=== PATIENT | male | born 1935 | race Caucasian/White ===

== ENCOUNTER → 2017-02-14 | Outpatient (CLI) | payer BC ==
[~2017-02-14] MED LIST: ALBUAER19 INH; ALBUAER2 INH; ALFU10TA30 PO; ASPI325T39 PO; CHOL20009 PO; FINA5TAB PO; FLNIN NAE; LEVO125T57 PO; METO25TA3 PO; MOME100A INH; MULT-506 PO; SIMV40TA2 PO
--- NOTE | 2017-02-14 10:11 | DIAGNOSTIC IMAGING REPORT ---
CHEST 2 VIEWS ROUTINE CLINICAL HISTORY: R05 [id number] Shortness of [id number] dyspnea COMPARISON STUDY: 08/12/2015 FINDINGS: The bones soft tissues and hemidiaphragms are normal. The cardiomediastinal silhouette is normal. The lungs are clear. The pulmonary vasculature is normal. Findings of a prior median sternotomy. IMPRESSION: Negative chest. Electronically signed by: Enrrique Garcia M.D. 02/14/2017 10:10 AM Dictated Date/Time: 02/14/2017 10:10 AM
== END | disposition home or self-care (01) ==
LOC: C.RAD1850 09:45
PROVIDERS: ATTEND Allergy & Immunology Allergy
DX: R06.02 Shortness of breath (principal); R05 Cough

== ENCOUNTER → 2017-05-16 | Outpatient (CLI) | payer BC ==
[~2017-05-16] MED LIST changes: +ALFU10TA2 PO; -ALFU10TA30 PO
[2017-05-16 12:29] LABS: BASO % 0.4 %; BASO ABS # 0.03 K/uL (0-0.2); COMPLETE YES; EOS % 3.3 %; HEMATOCRIT 39.3 % (42-52); IG% 0.2 %; LYMPH % 27.9 %; LYMPH ABS # 2.26 K/uL (1.2-3.4); MEAN CELL VOLUME 95.4 fL (80-100); MEAN CORPUSCULAR HEMOGLOBIN 32.3 pg (25-34); MEAN CORPUSCULAR HGB CONC 33.8 g/dl (32-36); MEAN PLATELET VOLUME 10.3 fL (7.4-10.4); MONO % 8.9 %; NEUT % 59.3 %; PLATELET COUNT 183 K/uL (130-400); RED BLOOD COUNT 4.12 M/uL (4.7-6.1); WHITE BLOOD COUNT 8.11 K/uL (4.8-10.8)
[2017-05-16 12:58] LABS: ALKALINE PHOSPHATASE 87 U/L (45-117); ALT/SGPT 25 U/L (12-78); AST/SGOT 20 U/L (15-37); BLOOD UREA NITROGEN 17 mg/dl (7-18); BUN/CREATININE RATIO 15.5 (10-20); CALCIUM 9.1 mg/dl (8.5-10.1); CARBON DIOXIDE 27 mmol/L (21-32); CHLORIDE 107 mmol/L (98-107); GLUCOSE 108 mg/dl (70-99); SODIUM 140 mmol/L (136-145)
[2017-05-16 13:11] LABS: ALB/GLOB RATIO 1.1 (0.9-2); CHOLESTEROL 125 mg/dl (0-200); CHOLESTEROL/HDL RATIO 4.3; HDL CHOLESTEROL 29 mg/dl; LDL CHOLESTEROL CALCULATED 31 mg/dl; TRIGLYCERIDES 325 mg/dl (0-150); VERY LOW DENSITY LIPOPROT CALC 65 mg/dl
== END | disposition home or self-care (01) ==
LOC: C.LAB1850 10:24
PROVIDERS: ATTEND Internal Medicine Pulmonary Disease
DX: J30.9 Allergic rhinitis, unspecified (principal); I10 Essential (primary) hypertension; I25.10 Atherosclerotic heart disease of native coronary artery without angina pectoris; E03.9 Hypothyroidism, unspecified; J33.9 Nasal polyp, unspecified; J45.909 Unspecified asthma, uncomplicated

== ENCOUNTER → 2017-08-08 | Outpatient (CLI) | payer BC ==
[~2017-08-08] MED LIST changes: -ALFU10TA2 PO; +ALFU10TA30 PO
[2017-08-08 10:24] LABS: BLOOD UREA NITROGEN 16 mg/dl (7-18); BUN/CREATININE RATIO 14.4 (10-20)
--- NOTE | 2017-08-17 10:46 | CODING QUERY MEDICAL NECESSITY ---
SUPPORTING DIAGNOSIS NEEDED A supporting diagnosis is required for the test/procedure performed on this patient in order for us to be reimbursed by the patient's insurance. Please provide a supporting diagnosis for the following test/procedure listed below next to the test name along with your signature. *If there is no additional diagnosis for this patient that would support the following test/procedure please document that below next to the test/procedure. Test(s)/Procedure(s) that require a supporting diagnosis: * PSA DIAGNOSIS: Provider Signature: Date: Thank you Vane [employer] Once completed, please kindly fax back to [phone] For questions please call [phone]
== END | disposition home or self-care (01) ==
LOC: C.LAB1850 09:01
PROVIDERS: ATTEND Urology
DX: F52.8 Other sexual dysfunction not due to a substance or known physiological condition (principal)

== ENCOUNTER → 2017-12-04 | Outpatient (CLI) | payer BC ==
[~2017-12-04] MED LIST changes: +ALFU10TA2 PO; -ALFU10TA30 PO
== END | disposition home or self-care (01) ==
LOC: C.LABBC 08:17
PROVIDERS: ATTEND Internal Medicine Cardiovascular Disease
DX: I25.10 Atherosclerotic heart disease of native coronary artery without angina pectoris (principal)

== ENCOUNTER 2019-09-24 03:06 | Inpatient (IN) ==
[2019-09-24] MEDS ORDERED: MoRPHine SULFATE 4 MG/ML 1 ML CARP\\VIAL IV PRN (03:26)
[2019-09-24] MEDS ORDERED: ONDANSETRON INJ 2 MG/ML 2 ML VIAL IV STA (03:26)
[2019-09-24] MEDS ORDERED: SODIUM CHLORIDE 0.9% 1000ML 1,000 ML IV SCH (03:30)
[2019-09-24 03:50] LABS: Basophils # (auto) 0.04 K/uL (0-0.2); Basophils % (auto) 0.4 %; Eosinophils # (auto) 0.41 K/uL (0-0.5); Eosinophils % (auto) 4.1 %; Hemoglobin 12.7 g/dL (14.0-18.0); Immature Granulocytes # (auto) 0.02 K/uL (0.00-0.02); Immature Granulocytes % (auto) 0.2 %; Lymphocytes # (auto) 2.51 K/uL (1.2-3.4); Lymphocytes % (auto) 25.3 %; Mean Corpuscular Hemoglobin 32.6 pg (25-34); Mean Corpuscular Hgb Conc 34.3 g/dL (32-36); Mean Corpuscular Volume 94.9 fL (80-100); Mean Platelet Volume 9.4 fL (7.4-10.4); Monocytes # (auto) 0.86 K/uL (0.11-0.59); Monocytes % (auto) 8.7 %; Neutrophils % (auto) 61.3 %; Platelet Count 172 K/uL (130-400); RDW Coefficient of Variation 13.3 % (11.5-14.5); RDW Standard Deviation 46.1 fL (36.4-46.3); White Blood Count 9.94 K/uL (4.8-10.8)
--- NOTE | 2019-09-24 03:52 | Emergency Department Note ---
History of Present Illness General Chief complaint: Abdominal Pain Stated complaint: PAIN IN LEFT LWR ABDOMEN Time Seen by Provider: 09/24/19 03:23 History of Present Illness Maximum Pain Intensity: 9 This is an 84-year-old male presenting to the emergency department for evaluation of severe left lower quadrant abdominal pain that began about 2 hours prior to arrival. The patient was at home in bed when symptoms began. He does not recall any recent injury or trauma. He has not had fevers or chills. He is without nausea, vomiting, diarrhea, or constipation. No recent travel history. Patient has not had abdominal surgery in the past, but has had kidney stones previously. The patient rates his current discomfort a 9/10 and he has not taken anything [id number] for his symptoms. Home Medications Home Medications Medication Instructions Recorded Confirmed Type albuterol sulfate HFA 90 2 puffs INH Q4H PRN #8.5 gm 06/28/19 09/24/19 Rx mcg/actuation aerosol inhaler alfuzosin ER 10 mg tablet,extended 10 mg PO DAILY #90 tab 06/28/19 09/24/19 Rx release 24 hr fluticasone propionate 50 2 sprays INTNAS DAILY #15.8 gm 06/28/19 09/24/19 Rx mcg/actuation nasal spray,suspension levothyroxine 125 mcg capsule 125 mcg PO DAILY #90 cap 06/28/19 09/24/19 Rx mometasone-formoterol HFA 100 2 puffs INH BID #13 gm 06/28/19 09/24/19 Rx mcg-5 mcg/actuation aerosol inhaler multivitamin 1 tab PO DAILY 06/28/19 09/24/19 History simvastatin 40 mg tablet 40 mg PO QPM #90 tab 06/28/19 09/24/19 Rx cholecalciferol (vitamin D3) 2,000 2,000 units PO DAILY cap 07/01/19 09/24/19 History unit capsule metoprolol succinate ER 25 mg 25 mg PO BID #180 tab 07/04/19 09/24/19 Rx tablet,extended release 24 hr finasteride 5 mg tablet 5 mg PO DAILY #90 tab 09/03/19 09/24/19 Rx aspirin [Aspirin Low Dose] 81 mg PO DAILY 09/24/19 09/24/19 History Allergies Allergy/AdvReac Type Severity Reaction Status Date / Time Iodinated Contrast Media Allergy Unknown ATE WITH Verified 09/24/19 03:37 PRETREATS. FAMILIAL HX OF REACTION Past Med/Surg History Surgical History S/P CABG x 3 (Chronic) History of cataract surgery History of colonoscopy History of coronary artery bypass surgery History of umbilical hernia repair S/P nasal endoscopy with nasal polypectomy Family History Brother Coronary heart disease Diabetes Stroke Heart disease Father Hypertension Mother Hearing loss Grandfather Allergies Other Asthma Social History Preferred Language: Kyrgyz marital status: Current Living Situation: Spouse current occupational status: retired Feels Safe at Home: Yes Smoking Status: Former smoker Tobacco Type: cigarettes ; packs per day: 1 ; Number of Years Since Quit: 52 ; Second Hand Exposure: No ; Hx Alcohol Use: Yes (1-2 shots of scotch) Hx Substance Use: No Childhood Exposure to Second-Hand Smoke: No Review of Systems A total of 10 systems reviewed and were otherwise negative Physical Exam Vital Signs Vital Signs - 24 hr 09/24/19 03:08 09/24/19 04:21 09/24/19 05:35 Temperature 36.7 C Temperature Source Oral Sepsis Action Taken by Nursing No Action Required Pulse Rate 55 L Pulse Rate [Left] 65 Pulse Rhythm [Left] Regular Pulse Strength [Left] Normal Respiratory Rate 20 18 Respiratory Effort / Characteristics Non-Labored Spontaneous Non-Labored Spontaneous Respiratory Depth Normal Normal Respiratory Pattern Regular Blood Pressure 196/101 H Blood Pressure [Right Arm] 195/83 H Blood Pressure Mean 132 Blood Pressure Mean [Right Arm] 120 Blood Pressure Position [Right Arm] Lying Pulse Oximetry 99 97 97 Oxygen Delivery Method Room Air Room Air Room Air VITALS: Vitals are noted on the nurse's note and reviewed by myself. Vital signs stable. GENERAL: White male who appears moderately uncomfortable on exam. He is holding his left side flank and abdomen with his left hand. HEAD: Normocephalic atraumatic. NECK: Supple without nuchal rigidity. No lymphadenopathy. No thyromegaly. Cervical spine is nontender. HEART: Regular rate and rhythm without murmurs gallops or rubs. LUNGS: Clear to auscultation bilaterally without wheezes, rales or rhonchi. No retractions or accessory muscle use. ABDOMEN: Positive normal bowel sounds x 4. Soft with mild left-sided tenderness. No rebound or guarding. No CVA tenderness. MUSCULOSKELETAL: No muscle atrophy, erythema, or edema noted. Full range of motion in all extremities. NEURO: Patient was alert and oriented to person place and time. CN II through XII grossly intact. Course Administered Medications Morphine Sulfate (Morphine Sulfate) 4 mg IV Q30M PRN PRN Reason: Pain Stop: 10/08/19 03:25 Last Admin: 09/24/19 04:00 Dose: 4 mg Documented by: [id number] Discontinued Medications Sodium Chloride (Nss 1000ml) 1,000 mls @ 999 mls/hr IV .Q1H1M JOSH Stop: 09/24/19 04:30 Last Infusion: 09/24/19 06:19 Dose: 0 mls/hr Documented by: [id number] Admin: 09/24/19 04:00 Dose: 999 mls/hr Documented by: [id number] Ondansetron HCl (Zofran) 4 mg IV NOW STA Stop: 09/24/19 03:27 Last Admin: 09/24/19 04:00 Dose: 4 mg Documented by: [id number] Medical Decision Making Differential Diagnosis Differential diagnosis: Etiologies such as biliary colic, cholecystitis, hepatitis, pancreatitis, cardiac disease, pancreatitis, gastritis, peptic ulcer disease, appendicitis, cystitis, diverticulitis, mesenteric ischemia, inflammatory bowel disease, ileus, bowel obstruction, testicular/adnexal torsion, aortic pathology, shingles, as well as others were considered Laboratory Data Result diagrams: 09/24/19 03:20 09/24/19 03:20 Lab Results 09/24/19 09/24/19 09/24/19 Range/Units 03:20 03:20 03:20 WBC 9.94 (4.8-10.8) K/uL RBC 3.90 L (4.7-6.1) M/uL Hgb 12.7 L (14.0-18.0) g/dL Hct 37.0 L (42-52) % MCV 94.9 (80-100) fL MCH 32.6 (25-34) pg MCHC 34.3 (32-36) g/dL RDW Std Deviation 46.1 (36.4-46.3) fL RDW Coeff of Alisha 13.3 (11.5-14.5) % Plt Count 172 (130-400) K/uL MPV 9.4 (7.4-10.4) fL Immature Gran % (Auto) 0.2 % Neut % (Auto) 61.3 % Lymph % (Auto) 25.3 % [place] % (Auto) 8.7 % Eos % (Auto) 4.1 % Baso % (Auto) 0.4 % Immature Gran # (Auto) 0.02 (0.00-0.02) K/uL Neut # (Auto) 6.10 (1.4-6.5) K/uL Lymph # (Auto) 2.51 (1.2-3.4) K/uL [place] # (Auto) 0.86 H (0.11-0.59) K/uL Eos # (Auto) 0.41 (0-0.5) K/uL Baso # (Auto) 0.04 (0-0.2) K/uL PT Cancelled INR Cancelled APTT Cancelled PTT Ratio Cancelled Sodium 139 (136-145) mmol/L Potassium 4.0 (3.5-5.1) mmol/L Chloride 106 (98-107) mmol/L Carbon Dioxide 26 (21-32) mmol/L Anion Gap 7.0 (3-11) BUN 19 H (7-18) mg/dl Creatinine 1.49 H (0.6-1.4) mg/dl Est Cr Clr Drug Dosing 44.1 ml/min Est GFR ( Amer) 48.6 Est GFR (Non-Af Amer) 41.9 BUN/Creatinine Ratio 13.0 (10-20) Glucose 121 H (70-99) mg/dl Calcium 8.5 (8.5-10.1) mg/dl Total Bilirubin 0.6 (0.2-1) mg/dl AST 24 (15-37) U/L ALT 31 (12-78) U/L Alkaline Phosphatase 86 (45-117) U/L Troponin I < 0.015 (0-0.045) ng/ml Total Protein 6.9 (6.4-8.2) gm/dl Albumin 3.6 (3.4-5.0) gm/dl Globulin 3.3 (2.5-4.0) gm/dl Albumin/Globulin Ratio 1.1 (0.9-2) Lipase 64 L (73-393) U/L Urine Color Urine Appearance (Clear) Urine pH (4.5-7.5) Ur Specific [place] (1.000-1.030) Urine Protein (Negative) Urine Glucose (UA) (Negative) Urine Ketones (Negative) Urine Blood (Negative) Urine Nitrite (Negative) Urine Bilirubin (Negative) Urine Urobilinogen (Negative) Ur Leukocyte Esterase (Negative) 09/24/19 09/24/19 Range/Units 04:17 04:26 WBC (4.8-10.8) K/uL RBC (4.7-6.1) M/uL Hgb (14.0-18.0) g/dL Hct (42-52) % MCV (80-100) fL MCH (25-34) pg MCHC (32-36) g/dL RDW Std Deviation (36.4-46.3) fL RDW Coeff of Alisha (11.5-14.5) % Plt Count (130-400) K/uL MPV (7.4-10.4) fL Immature Gran % (Auto) % Neut % (Auto) % Lymph % (Auto) % [place] % (Auto) % Eos % (Auto) % Baso % (Auto) % Immature Gran # (Auto) (0.00-0.02) K/uL Neut # (Auto) (1.4-6.5) K/uL Lymph # (Auto) (1.2-3.4) K/uL [place] # (Auto) (0.11-0.59) K/uL Eos # (Auto) (0-0.5) K/uL Baso # (Auto) (0-0.2) K/uL PT 10.8 INR 1.1 APTT 25.4 PTT Ratio 0.9 Sodium (136-145) mmol/L Potassium (3.5-5.1) mmol/L Chloride (98-107) mmol/L Carbon Dioxide (21-32) mmol/L Anion Gap (3-11) BUN (7-18) mg/dl Creatinine (0.6-1.4) mg/dl Est Cr Clr Drug Dosing ml/min Est GFR ( Amer) Est GFR (Non-Af Amer) BUN/Creatinine Ratio (10-20) Glucose (70-99) mg/dl Calcium (8.5-10.1) mg/dl Total Bilirubin (0.2-1) mg/dl AST (15-37) U/L ALT (12-78) U/L Alkaline Phosphatase (45-117) U/L Troponin I (0-0.045) ng/ml Total Protein (6.4-8.2) gm/dl Albumin (3.4-5.0) gm/dl Globulin (2.5-4.0) gm/dl Albumin/Globulin Ratio (0.9-2) Lipase (73-393) U/L Urine Color Yellow Urine Appearance Clear (Clear) Urine pH 6.5 (4.5-7.5) Ur Specific [place] 1.017 (1.000-1.030) Urine Protein Negative (Negative) Urine Glucose (UA) Negative (Negative) Urine Ketones Negative (Negative) Urine Blood Negative (Negative) Urine Nitrite Negative (Negative) Urine Bilirubin Negative (Negative) Urine Urobilinogen Negative (Negative) Ur Leukocyte Esterase Negative (Negative) Imaging Data Radiologist's Impression: Preliminary Findings Only See Final Report For Complete Findings CT ABDOMEN & PELVIS Without Contrast: Comparison: CT chest 02/05/14 9 x 4 mm stone in left proximal ureter and there is resulting moderate left hydronephrosis. Left greater than right perinephric stranding. 7.5 cm right upper pole renal cyst. 1.5 cm exophytic right lower pole lesion is incompletely characterized. Prostatomegaly. Probable sludge and small stones in gallbladder. Hepatic steatosis. Subcentimeter liver hypodensities, similar to prior and likely a small cyst. Small sliding hiatal hernia. Colonic diverticulosis without evidence of acute diverticulitis. No free air or free fluid. No bowel obstruction. Appendix is within normal limits. Post sternotomy. Multilevel degenerative changes of spine. Atherosclerotic calcifications of aorta and its branches. ECG Data Additional Comments: Normal sinus rhythm at 63 bpm Nonspecific T wave abnormality No acute ST elevation When compared to EKG 12-AUG-2015 08:53:36 PVCs are no longer present MDM Narrative Physical exam and history were performed. Nursing notes, EMR, and Medication List were personally reviewed. Patient appears to have left-sided abdominal pain bringing him to the ER tonight. The patient does appear uncomfortable on exam. IV access was established and labs were obtained. He was hydrated with normal saline and given IV morphine and IV Zofran for comfort. Because of his symptoms and history I did elect to perform a CT scan of the abdomen and pelvis. The patient's blood work is as above and was reviewed. He does not have a significantly elevated white blood cell count or gross anemia. Lipase and transaminases are not diagnostic. Troponin x1 is negative. Creatinine is slightly elevated at 1.49. INR is 1.1. CT scan was reviewed by myself and radiology and appears to show a 9 mm proximal left ureteral calculi with hydronephrosis. Clinically this would correlate with his symptoms. Urine is without obvious evidence of infection. The patient was reevaluated multiple times about the course of his stay, and did feel much better after the IV morphine. I did discuss the case with the on-call urologist, Dr. May, as the patient has seen Dr. Tello in the past. Urology does share concerned that the patient will likely do poorly if discharged home, and based on the size and location of the stone may need urologic intervention. I did discuss the case with the on-call hospitalist, who agreed to evaluate the patient here in the department. Please see their dictation for further patient course, plan, and disposition. The chart was completed utilizing [employer] Speech Voice Recognition Software. Gr ammatical errors, random word insertions, pronoun errors, and incomplete sentences are an occasional consequence of this system due to software limitations, ambient noise, and hardware issues. Any formal questions or concerns about the content, text, or information contained within the body of this dictation should be directly addressed to the provider for clarification. . Impression & Plan Left ureteral calculus, Hydronephrosis with obstructing calculus Discharge Plan Visit Data Chief Complaint: Abdominal Pain Stated Complaint: PAIN IN LEFT LWR ABDOMEN ED Provider: Becky Martins ED Midlevel Provider: Matias Landin Discharge Problem: Left ureteral calculus, Hydronephrosis with obstructing calculus Forms Stand Alone Forms: My [facility] [employer] Prescriptions Prescriptions: No Action alfuzosin 10 mg tablet extended release 24 hr 10 mg PO DAILY Qty: 90 RF: 3 Dulera 100-5 mcg/actuation HFA aerosol inhaler 2 puffs INH BID Qty: 13 RF: 3 fluticasone propionate [Allergy Relief (fluticasone)] 50 mcg/actuation spray,suspension 2 sprays INTNAS DAILY Qty: 15.8 RF: 2 levothyroxine 125 mcg capsule 125 mcg PO DAILY Qty: 90 RF: 3 multivitamin 1 tab PO DAILY RF: 0 albuterol sulfate [ProAir HFA] 90 mcg/actuation HFA aerosol inhaler 2 puffs INH Q4H PRN (Reason: shortness of breath or wheezing) Qty: 8.5 RF: 0 simvastatin 40 mg tablet 40 mg PO QPM Qty: 90 RF: 3 metoprolol succinate 25 mg tablet extended release 24 hr 25 mg PO BID Qty: 180 RF: 3 finasteride 5 mg tablet 5 mg PO DAILY Qty: 90 RF: 3 cholecalciferol (vitamin D3) 2,000 unit capsule 2,000 units PO DAILY RF: 0 aspirin [Aspirin Low Dose] 81 mg Tablet,Delayed Release (Dr/Ec) 81 mg PO DAILY RF: 0 Referrals Referrals: Yohannes Goyal MD [Primary Care Provider] -
[2019-09-24 04:09] LABS: Alanine Aminotransferase 31 U/L (12-78); Albumin Level 3.6 gm/dl (3.4-5.0); Aspartate Aminotransferase 24 U/L (15-37); Blood Urea Nitrogen 19 mg/dl (7-18); Calcium 8.5 mg/dl (8.5-10.1); Carbon Dioxide 26 mmol/L (21-32); Chloride 106 mmol/L (98-107); Creatinine Clr Calc Pharmacy 44.1 ml/min; Est GFR (African American) 48.6; Est GFR (Non-African American) 41.9; Glucose 121 mg/dl (70-99); Lipase 64 U/L (73-393); Sodium 139 mmol/L (136-145)
[2019-09-24 04:14] LABS: Albumin Globulin Ratio 1.1 (0.9-2); Alkaline Phosphatase 86 U/L (45-117); Bilirubin,Total 0.6 mg/dl (0.2-1); Globulin 3.3 gm/dl (2.5-4.0); Total Protein 6.9 gm/dl (6.4-8.2); Troponin I < 0.015 ng/ml (0-0.045)
[2019-09-24 04:29] LABS: Appearance Urine Clear (Clear); Bilirubin Urine Negative (Negative); Blood Urine Negative (Negative); Color Urine Yellow; Glucose Urine UA Negative (Negative); Ketones Urine Negative (Negative); Leukocyte Esterase Urine Negative (Negative); Nitrite Urine Negative (Negative); Protein Urine Negative (Negative); Specific Gravity Urine 1.017 (1.000-1.030); Urobilinogen Urine Negative (Negative); pH Urine 6.5 (4.5-7.5)
[2019-09-24 04:49] LABS: INR 1.1 (0.9-1.1); Partial Thromboplastin Ratio 0.9; Partial Thromboplastin Time 25.4 Seconds (21.0-31.0); Prothrombin Time 10.8 Seconds (9.0-12.0)
--- NOTE | 2019-09-24 05:45 | Emergency Department Note ---
ED Visit Note I saw this patient in conjunction with Matias Landin PA-C. I agree with his decision making and treatment plan. I evaluated the patient in room B2. On physical exam, the patient has reproducible discomfort over the left flank and costovertebral angle. He is much more comfortable than he had been previously. The patient does follow with Dr. Tello from urology. The patient has a large stone at this time and will require inpatient care and urological evaluation. .
--- NOTE | 2019-09-24 06:46 | CT Scan Report ---
ABDOMEN AND PELVIS CT WITHOUT CONTRAST CT DOSE: 1657.73 mGy.cm HISTORY: Acute left flank and left lower quadrant abdominal pain left flank/llq abd pain TECHNIQUE: Multiaxial CT images of the abdomen and pelvis were performed without contrast. A dose lo wering technique was utilized adhering to the principles of ALARA. COMPARISON STUDY: CTA of the chest 02/05/2014 FINDINGS: Subpleural focus of fat density is noted about the right hemidiaphragm with adjacent 5 mm solid nodul e, unchanged from 2014. Lung bases are otherwise generally clear. 3 mm solid nodule on image 36 series 3 within the right lung base is also unchanged and likely benign . There is no pneumatosis or pneumoperitoneum. Imaged inferior cardiac chambers are moderately enlarg ed. Prior median sternotomy. Motion degraded exam. Cholelithiasis without CT evidence of acute cholecystitis. Spleen, pancreas and adrenal glands are unremarkable. Cyst of the superior pole right kidney, 7.3 x 7.1 cm. Indeterminate intermediate attenuating 1.4 cm partially exophytic lesion of the inferior pole right kidney, [place] unit of 23. Mild right and moderate left perinephric stranding. Renal vascular calcifications no moses bilaterally. Mild to moderate left-sided hydroureteronephrosis secondary to an obstructing 6 x 5 x 10 mm calculus of the proximal left ureter just present at the level of the L3-L4 disc space. No ad ditional ureteral calculi. Prostamegaly. Partial distention of the urinary bladder with circumferenti al wall thickening. Small fat filled bilateral inguinal hernias. Extensive calcified plaque the abdom inal aorta without aneurysm. No adenopathy. Small hiatal hernia. No bowel obstruction or bowel wall thickening. Unremarkable appendix. Soft tissu es are unremarkable. Degenerative changes of the spine, pelvis and hips. IMPRESSION: 1. Mild to moderate left-sided hydroureteronephrosis secondary to an obstructing 6 x 5 x 10 mm calcul us of the proximal left ureter at the level of L3-L4. 2. Prostamegaly with urinary bladder wall thickening suggestive of chronic bladder outlet obstruction . Correlate with urinalysis. 3. Hepatic steatosis. 4. Small hiatal hernia. 5. Indeterminate intermediate attenuating 1.4 cm lesion of the inferior pole right kidney suggestive of a complex cyst versus solid lesion. 6. Additional findings as above. Electronically signed by: Mauri Baltazar M.D. 09/24/2019 6:45 AM
--- NOTE | 2019-09-24 06:54 | History & Physical Report ---
Date of Service September 24, 2019 Assessment & Plan (1) Left ureteral calculus: Left ureteral calculus, 9 x 4 mm/moderate left hydronephrosis- NPO NSS at 80 mils per hour. Ceftriaxone 1 g IV daily. Zofran 4 mg IV every 6 hours PRN. Famotidine 20 mg IV every 12 hours. Dilaudid 0.5 mg IV every 3 hours as needed severe pain Consult urology. Present on Admission?: Yes (2) Hydronephrosis with obstructing calculus: See above. Present on Admission?: Yes (3) Hypothyroidism: Continue levothyroxine sodium-5 mcg daily Present on Admission?: Yes (4) Hypercholesterolemia: Hold simvastatin while n.p.o. Present on Admission?: Yes (5) CAD (coronary artery disease): CAD/hypertension- Continue metoprolol succinate ER 25 mg p.o. twice daily. Hold aspirin Present on Admission?: Yes (6) BPH without obstruction/lower urinary tract symptoms: Continue alfuzosin, hold finasteride Present on Admission?: Yes (7) Atrial fibrillation: See above Present on Admission?: Yes (8) HTN (hypertension): See above Present on Admission?: Yes (9) Kidney lesion, beaver, right: Exophytic 1.5 cm lesion on the right kidney- Renal ultrasound ordered for further characterization. Present on Admission?: Yes History of Present Illness Chief Complaint: The patient presents to the emergency department with severe left lower quadrant abdominal pain that began about 2 hours prior to arrival. Primary Care Provider: Yohannes Goyal MD The patient is a 84-year-old male with a past medical history including hypothyroidism, hypercholesterolemia, CABG x6, hearing loss, CAD, atrial fibrillation, asthma, hypertension and asthma, who presents emergency department with acute onset of left lower quadrant abdominal pain. The emergency department work-up included a CT of abdomen and pelvis which showed a 9 x 4 mm left proximal ureteral calculus and moderate left hydronephrosis. Urology was consulted over the phone by ED, who recommended admission to medicine Allergies Allergy/AdvReac Type Severity Reaction Status Date / Time Iodinated Contrast Media Allergy Unknown ATE WITH Verified 09/24/19 03:37 PRETREATS. FAMILIAL HX OF REACTION Home Medications Home Medications Medication Instructions Recorded Confirmed Type albuterol sulfate HFA 90 2 puffs INH Q4H PRN #8.5 gm 06/28/19 09/24/19 Rx mcg/actuation aerosol inhaler alfuzosin ER 10 mg tablet,extended 10 mg PO DAILY #90 tab 06/28/19 09/24/19 Rx release 24 hr fluticasone propionate 50 2 sprays INTNAS DAILY #15.8 gm 06/28/19 09/24/19 Rx mcg/actuation nasal spray,suspension levothyroxine 125 mcg capsule 125 mcg PO DAILY #90 cap 06/28/19 09/24/19 Rx mometasone-formoterol HFA 100 2 puffs INH BID #13 gm 06/28/19 09/24/19 Rx mcg-5 mcg/actuation aerosol inhaler multivitamin 1 tab PO DAILY 06/28/19 09/24/19 History simvastatin 40 mg tablet 40 mg PO QPM #90 tab 06/28/19 09/24/19 Rx cholecalciferol (vitamin D3) 2,000 2,000 units PO DAILY cap 07/01/19 09/24/19 History unit capsule metoprolol succinate ER 25 mg 25 mg PO BID #180 tab 07/04/19 09/24/19 Rx tablet,extended release 24 hr finasteride 5 mg tablet 5 mg PO DAILY #90 tab 09/03/19 09/24/19 Rx aspirin [Aspirin Low Dose] 81 mg PO DAILY 09/24/19 09/24/19 History Past Med/Surg History Surgical History S/P CABG x 3 (Chronic) History of cataract surgery History of colonoscopy History of coronary artery bypass surgery History of umbilical hernia repair S/P nasal endoscopy with nasal polypectomy Family History Brother Coronary heart disease Diabetes Stroke Heart disease Father Hypertension Mother Hearing loss Grandfather Allergies Other Asthma Social History Preferred Language: Lebanese marital status: Current Living Situation: Spouse current occupational status: retired Feels Safe at Home: Yes Smoking Status: Former smoker Tobacco Type: cigarettes ; packs per day: 1 ; Number of Years Since Quit: 52 ; Second Hand Exposure: No ; Hx Alcohol Use: Yes (1-2 shots of scotch) Hx Substance Use: No Childhood Exposure to Second-Hand Smoke: No Review of Systems Review of Systems: The patient denies chest pain, palpitations, shortness of breath, dyspnea on exertion, cough, lower extremity swelling, sore throat, fevers, chills, sweats, diarrhea , constipation, blood in urine or stool, dysuria, urinary frequency or urgency, lightheadedness, dizziness, headache, memory loss, loss of consciousness, rash, abnormal bruising or bleeding, imbalance, focal weakness, numbness or tingling in arms or legs, generalized arthralgias or myalgias, neck pain, or night sweats. The review of systems is otherwise negative other than for that already noted above, and at least 10 systems have been reviewed. Physical Exam Physical Exam: The patient is awake, alert and oriented 3, well developed and well nourished, normocephalic and atraumatic, lying in bed and in no acute distress. HEENT--PERRL, EOMI, mucous membranes and oropharynx dry. Neck--supple. No JVD. No bruits. Thyroid normal, trachea midline, no adenopathy. Heart--normal S1 and S2. No murmurs, rubs or gallops. Lungs--clear bilaterally, no respiratory distress, no accessory muscle use. Abdomen--normal bowel sounds and soft. Mild tenderness left flank and lower quadrant. Nondistended. Obese. Extremities--no cyanosis or clubbing. No edema. There are good distal pulses b/l. Dermatologic--normal skin turgor, normal color, no abnormal lymph nodes, no rash. Neurologic--cranial nerves II through XII grossly intact. Rheumatologic--normal range of motion. Psychiatric--normal affect. Results & Data Vital Signs (Past 12 Hours) Vital Signs Temp Pulse Pulse Resp BP BP Pulse Ox 09/24/19 06:49 75 18 186/109 H 96 09/24/19 05:35 65 18 195/83 H 97 09/24/19 04:21 97 09/24/19 03:08 98.1 F 55 L 20 196/101 H 99 Laboratory Results Laboratory Results WBC 9.94 K/uL (4.8-10.8) 09/24/19 03:20 RBC 3.90 M/uL (4.7-6.1) L 09/24/19 03:20 Hgb 12.7 g/dL (14.0-18.0) L 09/24/19 03:20 Hct 37.0 % (42-52) L 09/24/19 03:20 MCV 94.9 fL (80-100) 09/24/19 03:20 MCH 32.6 pg (25-34) 09/24/19 03:20 MCHC 34.3 g/dL (32-36) 09/24/19 03:20 RDW Std Deviation 46.1 fL (36.4-46.3) 09/24/19 03:20 RDW Coeff of Alisha 13.3 % (11.5-14.5) 09/24/19 03:20 Plt Count 172 K/uL (130-400) 09/24/19 03:20 MPV 9.4 fL (7.4-10.4) 09/24/19 03:20 Immature Gran % (Auto) 0.2 % 09/24/19 03:20 Neut % (Auto) 61.3 % 09/24/19 03:20 Lymph % (Auto) 25.3 % 09/24/19 03:20 [place] % (Auto) 8.7 % 09/24/19 03:20 Eos % (Auto) 4.1 % 09/24/19 03:20 Baso % (Auto) 0.4 % 09/24/19 03:20 Immature Gran # (Auto) 0.02 K/uL (0.00-0.02) 09/24/19 03:20 Neut # (Auto) 6.10 K/uL (1.4-6.5) 09/24/19 03:20 Lymph # (Auto) 2.51 K/uL (1.2-3.4) 09/24/19 03:20 [place] # (Auto) 0.86 K/uL (0.11-0.59) H 09/24/19 03:20 Eos # (Auto) 0.41 K/uL (0-0.5) 09/24/19 03:20 Baso # (Auto) 0.04 K/uL (0-0.2) 09/24/19 03:20 PT 10.8 Seconds (9.0-12.0) 09/24/19 04:26 INR 1.1 (0.9-1.1) 09/24/19 04:26 APTT 25.4 Seconds (21.0-31.0) 09/24/19 04:26 PTT Ratio 0.9 09/24/19 04:26 Sodium 139 mmol/L (136-145) 09/24/19 03:20 Potassium 4.0 mmol/L (3.5-5.1) 09/24/19 03:20 Chloride 106 mmol/L (98-107) 09/24/19 03:20 Carbon Dioxide 26 mmol/L (21-32) 09/24/19 03:20 Anion Gap 7.0 (3-11) 09/24/19 03:20 BUN 19 mg/dl (7-18) H 09/24/19 03:20 Creatinine 1.49 mg/dl (0.6-1.4) H 09/24/19 03:20 Est Cr Clr Drug Dosing 44.1 ml/min 09/24/19 03:20 Est GFR ( Amer) 48.6 09/24/19 03:20 Est GFR (Non-Af Amer) 41.9 09/24/19 03:20 BUN/Creatinine Ratio 13.0 (10-20) 09/24/19 03:20 Glucose 121 mg/dl (70-99) H 09/24/19 03:20 Calcium 8.5 mg/dl (8.5-10.1) 09/24/19 03:20 Total Bilirubin 0.6 mg/dl (0.2-1) 09/24/19 03:20 AST 24 U/L (15-37) 09/24/19 03:20 ALT 31 U/L (12-78) 09/24/19 03:20 Alkaline Phosphatase 86 U/L (45-117) 09/24/19 03:20 Troponin I < 0.015 ng/ml (0-0.045) 09/24/19 03:20 Total Protein 6.9 gm/dl (6.4-8.2) 09/24/19 03:20 Albumin 3.6 gm/dl (3.4-5.0) 09/24/19 03:20 Globulin 3.3 gm/dl (2.5-4.0) 09/24/19 03:20 Albumin/Globulin Ratio 1.1 (0.9-2) 09/24/19 03:20 Lipase 64 U/L (73-393) L 09/24/19 03:20 Urine Color Yellow 09/24/19 04:17 Urine Appearance Clear (Clear) 09/24/19 04:17 Urine pH 6.5 (4.5-7.5) 09/24/19 04:17 Ur Specific [place] 1.017 (1.000-1.030) 09/24/19 04:17 Urine Protein Negative (Negative) 09/24/19 04:17 Urine Glucose (UA) Negative (Negative) 09/24/19 04:17 Urine Ketones Negative (Negative) 09/24/19 04:17 Urine Blood Negative (Negative) 09/24/19 04:17 Urine Nitrite Negative (Negative) 09/24/19 04:17 Urine Bilirubin Negative (Negative) 09/24/19 04:17 Urine Urobilinogen Negative (Negative) 09/24/19 04:17 Ur Leukocyte Esterase Negative (Negative) 09/24/19 04:17 Diagnostic Findings [place], [place] [phone] CT Scan Report Patient: WILLIE GONZALEZ Date: 09/24/19 MR#: [id number]: [address] Acct ID:[id number]: [facility] Zip: [place] [address] Age: 84Location: ED Sex: M Room/Bed: Att Phy:Diagnosis: PAIN IN LEFT LWR ABDOMEN Kavita Phy: Yohannes Goyal MDService Date: 09/24/19 Fam Phy:Interpreting Phy: Eric Baltazar Admit Phy: Ordering Phy: Matias Landin PA-C cc: ~ ABDOMEN AND PELVIS CT WITHOUT CONTRAST CT DOSE: 1657.73 mGy.cm HISTORY: Acute left flank and left lower quadrant abdominal pain left flank/llq abd pain TECHNIQUE: Multiaxial CT images of the abdomen and pelvis were performed without contrast. A dose lowering technique was utilized adhering to the principles of ALARA. COMPARISON STUDY: CTA of the chest 02/05/2014 FINDINGS: Subpleural focus of fat density is noted about the right hemidiaphragm with adjacent 5 mm solid nodule, unchanged from 2014. Lung bases are otherwise generally clear. 3 mm solid nodule on image 36 series 3 within the right lung base is also unchanged and likely benign. There is no pneumatosis or pneumoperitoneum. Imaged inferior cardiac chambers are moderately enlarged. Prior median sternotomy. Motion degraded exam. Cholelithiasis without CT evidence of acute cholecystitis. Spleen, pancreas and adrenal glands are unremarkable. Cyst of the superior pole right kidney, 7.3 x 7.1 cm. Indeterminate intermediate attenuating 1.4 cm partially exophytic lesion of the inferior pole right kidney, Hounsfield unit of 23. Mild right and moderate left perinephric stranding. Renal vascular calcifications noted bilaterally. Mild to moderate left-sided hydroureteronephrosis secondary to an obstructing 6 x 5 x 10 mm calculus of the proximal left ureter just present at the level of the L3-L4 disc space. No additional ureteral calculi. Prostamegaly. Partial distention of the urinary bladder with circumferential wall thickening. Small fat filled bilateral inguinal hernias. Extensive calcified plaque the abdominal aorta without aneurysm. No adenopathy. Small hiatal hernia. No bowel obstruction or bowel wall thickening. Unremarkable appendix. Soft tissues are unremarkable. Degenerative changes of the spine, pelvis and hips. IMPRESSION: 1. Mild to moderate left-sided hydroureteronephrosis secondary to an obstructing 6 x 5 x 10 mm calculus of the proximal left ureter at the level of L3-L4. 2. Prostamegaly with urinary bladder wall thickening suggestive of chronic bladder outlet obstruction. Correlate with urinalysis. 3. Hepatic steatosis. 4. Small hiatal hernia. 5. Indeterminate intermediate attenuating 1.4 cm lesion of the inferior pole right kidney suggestive of a complex cyst versus solid lesion. 6. Additional findings as above. Electronically signed by: Mauri Baltazar M.D. 09/24/2019 6:45 AM Dictated: 09/24/1936 Transcribed: 09/24/1936 Code Status & VTE Plan Code Status Full code VTE Prophylaxis Plan VTE Prophylaxis will be ordered: Yes PG Care Time/CCT Total # of Minutes Spent Total Time Spent with Patient: Total time spent is greater than 50% in coordination of care (as documented) at patient's floor/unit and/or counseling patient:
[2019-09-24] MEDS ORDERED: ONDANSETRON INJ 2 MG/ML 2 ML VIAL IV PRN (08:55)
[2019-09-24] MEDS ORDERED: ALBUTEROL HFA 8 GM INHALER INH PRN (08:55)
[2019-09-24] MEDS ORDERED: HYDROmorphone INJ 0.5 MG/0.5 ML SYR IV PRN (08:55)
[2019-09-24] MEDS ORDERED: NON-FORMULARY MEDICATION (Mometasone-Formoterol [Dulera] 2 PUFFS) INH SCH (09:00)
--- NOTE | 2019-09-24 09:59 | Ultrasound Report ---
US renal/blad retro comp HISTORY: Nephrocalcinosis assess exophytic lesion R. stone on L COMPARISON: CT 09/24/2019 FINDINGS: Right kidney: Maximum dimension 12.8 cm. No evidence for hydronephrosis. 7 cm upper pole cyst. 1.5 cm lower pole cyst. Normal corticomedullary differentiation and cortical th ickness. Left kidney: Maximum dimension 13.5 cm. Moderate hydronephrosis. 1 cm proximal left ureteral calculu s Normal corticomedullary differentiation and cortical thickness. Bladder: No bladder wall thickening. The bilateral ureteral jets were identified. IMPRESSION: 1. 1 cm obstructing calculus proximal left ureter. 2. Left renal hydronephrosis. 3. Right renal cysts accounting for the CT findings described previously The above report was generated using voice recognition software. It may contain grammatical, syntax or spelling errors. Electronically signed by: Enrrique Garcia M.D. 09/24/2019 9:58 AM
--- NOTE | 2019-09-24 10:22 | XRay Report ---
KUB HISTORY: Follow up study in a patient with left ureteral calculus Ureteral stone COMPARISON: CT abdomen and pelvis of same day FINDINGS: The bowel gas pattern is non-obstructive. There is no organomegaly. 10 mm calculus of the left ureter at the level of L3-L4 is unchanged. Renal shadows are partially obscured by bowel gas. No pneumoperitoneum or pneumatosis. Degenerative changes of the spine, pelvis and hips. No fracture. Pr ior median sternotomy. IMPRESSION: Unchanged positioning of the 10 mm left ureteral calculus at the level of L3-L4. Electronically signed by: Mauri Baltazar M.D. 09/24/2019 10:21 AM
[2019-09-24] MEDS: FLUTICASONE PROPIONATE NA SPR 16 GM BTL NAE SCH (10:28)
[2019-09-24] MEDS: cefTRIAXone SODIUM 2,000 MG in DEXTROSE 5% 50 ML IV SCH (10:28)
[2019-09-24] MEDS: LEVOTHYROXINE SODIUM 125 MCG TABLET PO SCH (10:29)
[2019-09-24] MEDS: METOPROLOL SUCC 25MG EXT REL TAB PO SCH ×2 (10:29→19:46)
[2019-09-24] MEDS: SODIUM CHLORIDE 0.9% 1000ML 1,000 ML IV SCH ×2 (10:36→21:22)
[2019-09-24] MEDS: FLUTICASONE/SALMETEROL 250/50 (ADVAIR) 14 PUFF/1 INHALER INH SCH ×2 (12:21→19:46)
--- NOTE | 2019-09-24 14:46 | Urology Consultation ---
Date of Consultation September 24, 2019 Assessment & Plan (1) Left ureteral calculus: 84 YO male with 9mm proximal left ureteral stone & resulting renal colic, BPH. Patient reports feeling well upon exam today. Surgical interventions for stones were discussed with patient and family member today. Given his current resolution of symptoms and clinical stability, no acute surgical intervention today. Okay to provide diet. Continue BPH medications, IVF, pain control. NPO at midnight to reassess tomorrow AM. Should patient decline or develop fever please contact our service urgently for emergent stent placement. Will continue to follow. (2) Hydronephrosis with obstructing calculus: (3) BPH without obstruction/lower urinary tract symptoms: History of Present Illness Attending Physician: Kenneth Warren MD History of Present Illness 84 YO male with 9mm proximal left ureteral stone & resulting renal colic, BPH. Patient is established with Dr. Tello. Patient reports sharp abdominal pain, 1x episode of vomiting, bringing him to the ER. CT scan demonstrates his 9mm obstructing proximal left ureteral stone with resulting hydronephrosis, MUÑOZ, renal cyst. His chart is reviewed. Upon exam this afternoon patient reports feeling better, hungry. No pain. No fevers/chills. No nausea/vomiting. Voiding spontaneously without bother, no hematuria. Allergies Allergy/AdvReac Type Severity Reaction Status Date / Time Iodinated Contrast Media Allergy Unknown ATE WITH Verified 09/24/19 03:37 PRETREATS. FAMILIAL HX OF REACTION Home Medications Home Medications Medication Instructions Recorded Confirmed Type albuterol sulfate HFA 90 2 puffs INH Q4H PRN #8.5 gm 06/28/19 09/24/19 Rx mcg/actuation aerosol inhaler alfuzosin ER 10 mg tablet,extended 10 mg PO DAILY #90 tab 06/28/19 09/24/19 Rx release 24 hr fluticasone propionate 50 2 sprays INTNAS DAILY #15.8 gm 06/28/19 09/24/19 Rx mcg/actuation nasal spray,suspension levothyroxine 125 mcg capsule 125 mcg PO DAILY #90 cap 06/28/19 09/24/19 Rx mometasone-formoterol HFA 100 2 puffs INH BID #13 gm 06/28/19 09/24/19 Rx mcg-5 mcg/actuation aerosol inhaler multivitamin 1 tab PO DAILY 06/28/19 09/24/19 History simvastatin 40 mg tablet 40 mg PO QPM #90 tab 06/28/19 09/24/19 Rx cholecalciferol (vitamin D3) 2,000 2,000 units PO DAILY cap 07/01/19 09/24/19 History unit capsule metoprolol succinate ER 25 mg 25 mg PO BID #180 tab 07/04/19 09/24/19 Rx tablet,extended release 24 hr finasteride 5 mg tablet 5 mg PO DAILY #90 tab 09/03/19 09/24/19 Rx aspirin [Aspirin Low Dose] 81 mg PO DAILY 09/24/19 09/24/19 History Patient History Medical History Nephrolithiasis (Acute) CAD (coronary artery disease) (Acute) BPH without obstruction/lower urinary tract symptoms (Acute) Atrial fibrillation (Acute) Asthma (Acute) HTN (hypertension) (Chronic) History of asthma (Chronic) Surgical History S/P CABG x 3 (Chronic) History of cataract surgery History of colonoscopy History of coronary artery bypass surgery History of umbilical hernia repair S/P nasal endoscopy with nasal polypectomy Family History Brother Coronary heart disease Diabetes Stroke Heart disease Father Hypertension Mother Hearing loss Grandfather Allergies Other Asthma Social History Preferred Language: Egyptian Communication Ability: Effective Rockboard Lather Required: No Beliefs That Will Affect Care: None marital status: Current Living Situation: Spouse current occupational status: retired Feels Safe at Home: Yes Smoking Status: Former smoker Tobacco Type: cigarettes ; packs per day: 1 ; Cigarettes Per Day: 20 ; Second Hand Exposure: No ; Hx Alcohol Use: Yes Alcohol type: hard liquor Hx Substance Use: No Childhood Exposure to Second-Hand Smoke: No Review of Systems Review of Systems: Per HPI. Physical Exam Physical Exam: NAD +obese. Resp effort normal. No JVD. Abd nondistended. A&Ox3, appropriate affect. Results & Data Vital Signs (Past 12 Hours) Vital Signs Temp Pulse Pulse Resp BP BP BP 09/24/19 14:31 185/73 H 09/24/19 11:36 36.6 C 58 L 20 182/97 H 190/91 H 09/24/19 08:56 36.4 C L 68 18 152/87 H 09/24/19 08:11 78 22 179/80 H 09/24/19 07:41 70 18 174/82 H 09/24/19 06:49 75 18 186/109 H 09/24/19 05:35 65 18 195/83 H 09/24/19 04:21 09/24/19 03:08 36.7 C 55 L 20 196/101 H Pulse Ox 09/24/19 14:31 09/24/19 11:36 97 09/24/19 08:56 96 09/24/19 08:11 99 09/24/19 07:41 99 09/24/19 06:49 96 09/24/19 05:35 97 09/24/19 04:21 97 09/24/19 03:08 99 PG Care Time/CCT Total # of Minutes Spent Total Time Spent with Patient: Total time spent is greater than 50% in coordination of care (as documented) at patient's floor/unit and/or counseling patient:
[2019-09-24] MEDS ORDERED: HydrALAZINE HCL 20 MG/ML VIAL IV PRN (17:51)
--- NOTE | 2019-09-24 17:52 | Hospitalist Progress Note ---
Date of Service September 24, 2019 Assessment & Plan (1) Left ureteral calculus: Appreciate urology consult and management No emergent need for lithotripsy. NPO after midnight Trend BMP and continue prophylactic antibiotics (ceftriaxone) given obstruction. Continue IV fluids Zofran 4 mg IV every 6 hours PRN. Pain management - Dilaudid 0.5 mg IV every 3 hours as needed severe pain (2) Hydronephrosis with obstructing calculus: See above. (3) Hypothyroidism: Continue levothyroxine 125 mcg daily (4) Hypercholesterolemia: Hold simvastatin while n.p.o. (5) CAD (coronary artery disease): CAD/hypertension Continue metoprolol succinate ER 25 mg p.o. twice daily. Hold aspirin pending surgery decision in AM (6) BPH without obstruction/lower urinary tract symptoms: Continue alfuzosin, finasteride (7) HTN (hypertension): Continue metoprolol Hydralazine IV 5mg PRN for sBP > 180, dBP > 110. Suspect will need additional chronic medication given elevated at prior cardiology office visit in addition. (8) Paroxysmal atrial fibrillation: s/p post operative event in 2012, hence no [employer] anticoagulation but given cardiac history would continue on telemetry (9) Renal cyst, right: Concerning finding on CT of right renal lesion but consistent with cyst on US (10) DVT prophylaxis: Will defer chemical prophylaxis pending surgery decision in AM (11) Discharge planning issues: has some dementia at baseline but do not anticipate any rehabilitation needs at present Subjective Patient reports no current pain Review of Systems Review of Systems: All systems reviewed & are unremarkable except as noted in HPI & below Physical Exam Constitutional: well developed, well nourished and + obese Eyes: + anicteric sclerae ENMT: external ear and nose normal, oropharynx normal Neck: normal visual inspection and trachea midline Thyroid: normal thyroid Respiratory: normal respiratory effort, lungs clear to auscultation Cardiovascular: RRR, no murmur, no edema Heart Sounds: + murmur Gastrointestinal (Abdomen): normal bowel sounds, soft, nontender, no hepatosplenomegaly No CVA tenderness Musculoskeletal: no cyanosis or clubbing, extremities motor strength 5/5 Skin: no rashes, warm and dry Neurologic: moves all extremities and awake; no focal motor deficits Motor/Sensory: no sensory deficit Psychiatric: A+Ox3, euthymic affect Results & Data Vital Signs (Past 12 Hours) Vital Signs Temp Pulse Pulse Resp BP BP BP 09/24/19 16:39 67 09/24/19 16:22 97.3 F L 54 L 20 190/81 H 180/77 H 09/24/19 14:31 185/73 H 09/24/19 11:36 97.9 F 58 L 20 182/97 H 190/91 H 09/24/19 08:56 97.5 F L 68 18 152/87 H 09/24/19 08:11 78 22 179/80 H 09/24/19 07:41 70 18 174/82 H 09/24/19 06:49 75 18 186/109 H Pulse Ox 09/24/19 16:39 09/24/19 16:22 95 09/24/19 14:31 09/24/19 11:36 97 09/24/19 08:56 96 09/24/19 08:11 99 09/24/19 07:41 99 09/24/19 06:49 96 PG Care Time/CCT Total # of Minutes Spent Total Time Spent with Patient: Total time spent is greater than 50% in coordination of care (as documented) at patient's floor/unit and/or counseling patient: (1) CAD (coronary artery disease) Coronary Disease-Associated Artery/Lesion type: [place] artery [place] vs. transplanted heart: [place] heart Associated angina: without angina Qualified Code(s): I25.10 - Atherosclerotic heart disease of [place] coronary artery without angina pectoris (2) Hypothyroidism Hypothyroidism type: unspecified Qualified Code(s): E03.9 - Hypothyroidism, unspecified (3) HTN (hypertension) Hypertension type: essential hypertension Qualified Code(s): I10 - Essential (primary) hypertension
[2019-09-24] MEDS ORDERED: ALFUZOSIN HCL 10 MG TAB PO SCH (18:00)
[2019-09-25] MEDS: LEVOTHYROXINE SODIUM 125 MCG TABLET PO SCH (06:08)
[2019-09-25 07:19] LABS: Basophils # (auto) 0.04 K/uL (0-0.2); Basophils % (auto) 0.4 %; Eosinophils # (auto) 0.38 K/uL (0-0.5); Eosinophils % (auto) 3.6 %; Hematocrit (blood only) 36.8 % (42-52); Hemoglobin 12.8 g/dL (14.0-18.0); Immature Granulocytes # (auto) 0.02 K/uL (0.00-0.02); Immature Granulocytes % (auto) 0.2 %; Lymphocytes % (auto) 28.5 %; Mean Corpuscular Hemoglobin 32.7 pg (25-34); Mean Corpuscular Hgb Conc 34.8 g/dL (32-36); Mean Corpuscular Volume 93.9 fL (80-100); Mean Platelet Volume 9.6 fL (7.4-10.4); Monocytes # (auto) 0.98 K/uL (0.11-0.59); Monocytes % (auto) 9.3 %; Neutrophils # (auto) 6.11 K/uL (1.4-6.5); Platelet Count 179 K/uL (130-400); RDW Coefficient of Variation 13.5 % (11.5-14.5); RDW Standard Deviation 46.2 fL (36.4-46.3); Red Blood Count 3.92 M/uL (4.7-6.1); White Blood Count 10.53 K/uL (4.8-10.8)
[2019-09-25 07:56] LABS: BUN Creatinine Ratio 13.6 (10-20); Calcium 8.8 mg/dl (8.5-10.1); Creatinine Clr Calc Pharmacy 60.3 ml/min; Est GFR (African American) 70.9; Est GFR (Non-African American) 61.1
[2019-09-25] MEDS: FLUTICASONE/SALMETEROL 250/50 (ADVAIR) 14 PUFF/1 INHALER INH SCH (08:20)
[2019-09-25] MEDS: FLUTICASONE PROPIONATE NA SPR 16 GM BTL NAE SCH (08:20)
[2019-09-25] MEDS: cefTRIAXone SODIUM 2,000 MG in DEXTROSE 5% 50 ML IV SCH (08:20)
[2019-09-25] MEDS: SODIUM CHLORIDE 0.9% 1000ML 1,000 ML IV SCH (08:20)
[2019-09-25] MEDS: METOPROLOL SUCC 25MG EXT REL TAB PO SCH (08:21)
[2019-09-25] MEDS ORDERED: FINASTERIDE 5 MG TAB PO SCH (09:00)
--- NOTE | 2019-09-25 10:13 | Urology Progress Note ---
Date of Service September 25, 2019 Assessment & Plan (1) Left ureteral calculus: 84 YO male with 9mm proximal left ureteral stone & resulting renal colic, BPH. Remains asymptomatic. Will provide diet. Patient desires discharge and outpatient stone intervention - will coordinate. Please continue to hold ASA in anticipation of lithotripsy next week. Worrisome stone symptoms reviewed. Recommend continuation of BPH medications and pain control upon discharge. Thank you for allowing us to participate in the inpatient care of Mr. Mac. Please contact us if we can assist further during hospitalization. (2) Hydronephrosis with obstructing calculus: Subjective 84 YO male with 9mm proximal left ureteral stone & resulting renal colic, BPH. Patient remains asymptomatic today. No issues with pain overnight. Requests diet today. No urinary difficulty or bother. No fevers/chills. No nausea/vomiting. Review of Systems Review of Systems: Per HPI. Physical Exam Physical Exam: NAD. Resp effort normal. No JVD. Abd nondistended. A&Ox3, appropriate affect. Results & Data Vital Signs (Past 12 Hours) Vital Signs Temp Pulse Pulse Resp BP BP Pulse Ox 09/25/19 07:37 36.6 C 64 17 170/75 H 96 09/25/19 04:13 36.8 C 74 18 168/73 H 94 09/25/19 00:01 82 09/24/19 23:53 36.9 C 70 20 173/76 H 94 PG Care Time/CCT Total # of Minutes Spent Total Time Spent with Patient: Total time spent is greater than 50% in coordination of care (as documented) at patient's floor/unit and/or counseling patient:
[2019-09-25 15:49] VITALS: BP 196/75; PULSE 63; TEMP 97.7; O2SAT 96
--- NOTE | 2019-09-27 02:06 | Discharge Summary ---
Date of Service date of admission - September 24, 2019 date of discharge - September 25, 2019 Admission HPI Per Admitting Provider The patient is a 84-year-old male with a past medical history including hypothyroidism, hypercholesterolemia, CABG, hearing loss, CAD, atrial fibrillation, asthma, hypertension and asthma, who presents to the emergency department with acute onset of left lower quadrant abdominal pain. The emergency department work-up included a CT of abdomen and pelvis which showed a 9 x 4 mm left proximal ureteral calculus and moderate left hydronephrosis. Principal Diagnosis 10mm obstructing left-sided ureteral stone with resulting hydronephrosis Discharge Exam Constitutional + obese and + altered mental status (baseline per ); no acute distress ENMT external ear and nose normal, oropharynx normal Respiratory normal respiratory effort, lungs clear to auscultation Cardiovascular Rate/Rhythm: regular rate and regular rhythm Heart Sounds: normal S1 and normal S2; no murmur Vessels: posterior tibial pulses present and dorsalis pedis pulses present; no JVD Extremities: no edema Gastrointestinal (Abdomen) normal bowel sounds, soft, nontender, no hepatosplenomegaly no flank pain or tenderness b/l Psychiatric Orientation: alert, oriented to person and oriented to place (mild confusion - baseline per ) Discharge Data Allergies Allergy/AdvReac Type Severity Reaction Status Date / Time Iodinated Contrast Media Allergy Unknown ATE WITH Verified 09/24/19 03:37 PRETREATS. FAMILIAL HX OF REACTION Consultations [facility] Ordered Studies 1. CT abd/pelvis - IMPRESSION: 1. Mild to moderate left-sided hydroureteronephrosis secondary to an obstructing 6 x 5 x 10 mm calculus of the proximal left ureter at the level of L3-L4. 2. Prostamegaly with urinary bladder wall thickening suggestive of chronic bladder outlet obstruction. Correlate with urinalysis. 3. Hepatic steatosis. 4. Small hiatal hernia. 5. Indeterminate intermediate attenuating 1.4 cm lesion of the inferior pole right kidney suggestive of a complex cyst versus solid lesion. 2. renal ultrasound - IMPRESSION: 1. 1 cm obstructing calculus proximal left ureter. 2. Left renal hydronephrosis. 3. Right renal cysts accounting for the CT findings described previously Hospital Course (1) Left ureteral calculus: Following presentation he had CT abd/pelvis which demonstrated an obstructing 10mm ureteral stone on the left side in the proximal ureter. He was admitted for pain control, IV fluids, and antibiotics. His pain fully resolved with the above measures. He was seen in consult by [facility] who recommended outpatient lithotripsy within 1 week of discharge. This will be coordinated by the urology team. At discharge he will continue on alpha ese therapy, prophylactic antibiotics, and will f/u with urology within 1 week to determine timing of lithotripsy. Aspirin was HELD at time of discharge in preparation for upcoming lithotripsy. (2) Hydronephrosis with obstructing calculus: See above. (3) HTN (hypertension): The patient and his reported that his BPs had been uncontrolled at home as well as at the physician's office. His beta see was recently increased to BID dosing. BPs here were labile and often quite high; he was not symptomatic from the HTN. I asked him to increase his AM metoprolol to 50mg but leave the 25mg dose in the evening as is. He should continue checking BPs at home and f/u with his PCP for this. (4) Hypothyroidism: Continue levothyroxine 125 mcg daily TSH 04/2019 wnl (5) Hypercholesterolemia: Continue simvastatin (6) CAD (coronary artery disease): Continue metoprolol succinate ER twice daily Continue statin therapy ASPIRIN ON HOLD at request of urology for lithotripsy. Ideally should be off 7 days prior to intervention. NO ischemic symptoms while here. (7) BPH without obstruction/lower urinary tract symptoms: Continue alfuzosin, finasteride No issues while here (8) Paroxysmal atrial fibrillation: not on chronic anticoagulation the patient was in a.fib during the stay but rates were very acceptable with beta see (9) Renal cyst, right: wll need urology follow-up for this (10) Cognitive impairment: baseline, per Total Time Total Time Spent Total Time Spent (In Minutes): 35 Total Time Includes: Examination of the Patient, Discharge Planning, Medication Reconciliation and Communication With Other Providers Discharge Plan Discharge Items Patient Disposition: Home - Self-Care Reason For Visit: left-sided kidney stone Discharge Diagnosis: left-sided kidney stone (10mm in size) Goals: 1. diagnose cause of abdominal pain 2. find out options for treatment of kidney stone Activity: As commented below Activity Comment: until lithotripsy is complete no strenuous activities Non-emergency contact: Primary Care Provider Call non-emergency contact if: you have any medication questions, your symptoms worsen, your pain is not controlled, your pain is worsening and you have a fever Follow-up/Referrals: Yohannes Goyal MD [Primary Care Provider] - 10/02/19 10:00 am (Please, follow up at Dr. Goyal's office with his associate, Gisele RIOS, on MondayOctober 02 at 10:00 am. *If you need to change this appointment, call their office at [phone]. ) Anna Shields CRNP [Nurse Practitioner] - (see [facility] within the next 5 days for lithotripsy; date/time to be determined ) Diet: Heart Healthy Addtl Attending Provider Instructions: You were diagnosed with a left-sided kidney stone. This was the cause of your abdominal pain. it is approximately 9-10 mm in size. There is a very low likelihood that it would pass on its own. After admission to the hospital your pain resolved. However, the stone has not passed (this means the stone is still stuck in the ureter which is the tube that connects your kidney and bladder). You were seen by the urologist and they plan to perform lithotripsy in the next week or so to break the stone up. In addition to the above your blood pressures were all consistently high throughout the stay. Recommendations: 1. kidney stone - * at the request of the urologist they have asked that you STOP your aspirin until the procedure has been completed * avoid anti-inflammatory medications (motrin, naprosyn, alleve, ibuprofen, etc) * take cephalexin antibiotic 500mg twice daily for 7 days; this is for prevention of UTI * drink plenty of fluids over the next few days to avoid dehydration; please drink caffeinated beverages in moderation (1-2 cups each day or less); no alcohol for now * ok to take [id number] tylenol for aches / pains 2. high blood pressure - Please INCREASE your morning metoprolol to 50mg (2 tabs of the 25mg dose). Leave your evening metoprolol at 25mg (1 tablet). Continue to monitor your blood pressure at home. 3. follow-up - * see urology as scheduled in the next week - they will call you with the appointment date/time of the procedure * see your family doctor within 1 week for your blood pressure 4. you have a cyst on your right kidney; this will need to be monitored by the urologist. 5. return to [facility] if - * you have fevers over 100.5 degrees * you have chills * you have recurrent abdominal pain, flank pain (pain on your side) or back pain * you have nausea or vomiting * you have large amounts of blood in your urine * any other concerns Pending Studies at Discharge: No Stand-Alone Forms: My [facility], Smoking Cessation Medications and DC Order Prescriptions: New cephalexin [Keflex] 500 mg capsule 500 mg PO BID 7 Days Qty: 14 RF: 0 Continued alfuzosin 10 mg tablet extended release 24 hr 10 mg PO DAILY Qty: 90 RF: 3 Dulera 100-5 mcg/actuation HFA aerosol inhaler 2 puffs INH BID Qty: 13 RF: 3 fluticasone propionate [Allergy Relief (fluticasone)] 50 mcg/actuation spray,suspension 2 sprays INTNAS DAILY Qty: 15.8 RF: 2 levothyroxine 125 mcg capsule 125 mcg PO DAILY Qty: 90 RF: 3 multivitamin 1 tab PO DAILY RF: 0 albuterol sulfate [ProAir HFA] 90 mcg/actuation HFA aerosol inhaler 2 puffs INH Q4H PRN (Reason: shortness of breath or wheezing) Qty: 8.5 RF: 0 simvastatin 40 mg tablet 40 mg PO QPM Qty: 90 RF: 3 finasteride 5 mg tablet 5 mg PO DAILY Qty: 90 RF: 3 cholecalciferol (vitamin D3) 2,000 unit capsule 2,000 units PO DAILY RF: 0 Changed metoprolol succinate 25 mg tablet extended release 24 hr 25 mg PO DIRECTED Qty: 180 RF: 3 Discontinued aspirin [Aspirin Low Dose] 81 mg Tablet,Delayed Release (Dr/Ec) 81 mg PO DAILY RF: 0 Discharge Orders: Discharge Order (Routine); Ordered 09/25/19 Ordered By: Kenneth Rodriguez/Other Patient Handouts: Kidney Stones Admission Data Admit Date/Time: 09/24/19 06:53 Attending Provider: Kenneth Arreguin Admit Provider: Benjie Rivera Primary Care Provider: Yohannes Goyal Other Providers: Benjie Rivera ; Eliceo Wan Other Interventions: Discharge Summary Assessment (RN) Last Done: 09/25/19 15:41 DC Date/Time DO NOT enter until pt leaves facility: 09/25/19 16:29
== END 2019-09-25 16:29 | disposition home or self-care (01) | DRG 694 ==
LOC: ED 03:06 → 2N 06:53 → SUATTDRO 06:53 → 2N 08:11

== ENCOUNTER 2021-12-29 12:18 | Observation (INO) ==
--- NOTE | 2021-12-29 12:46 | Emergency Department Note ---
Impression & Plan Facial droop, Atrial fibrillation, Right arm numbness ED Provider Note Provider: Alan Adams MD DATE OF SERVICE: 12/29/2021 CHIEF COMPLAINT: Right facial droop, numb right arm HISTORY OF PRESENT ILLNESS: Patient is a 86-year-old gentleman history of CABG, atrial fibrillation on Eliquis, dementia, and hyperlipidemia presenting with today who noted the patient's been complaining for the past 2 days of some numbness in the right arm. They thought he had slept on it oddly. Patient d enies any numbness or weakness in the legs. Patient does have some underlying dementia according to . Patient is not been dropping things more than ordinary or complaining of significant pain. They were having lunch today with her daughter who noticed the patient seemed to have a facial droop on the right side. Given this they begin to have concerns for possible stroke and thus presented here today. No abdominal discomfort or vomiting reported. No trauma reported. No fever reported although some mild sinus congestion does have history of significant allergies and did have allergy shot today. REVIEW OF SYSTEMS: A total of 10 review of systems was obtained and negative except as stated above in the HPI. PAST MEDICAL HISTORY: As noted above MEDICATIONS: Reviewed home medications include Eliquis SOCIAL HISTORY: Lives at home with PHYSICAL EXAM: GENERAL: alert and oriented in no acute distress on stretcher, slightly hard of hearing Head: normocephalic and atraumatic EYES: No injection, discharge or icterus. PERRL, EOMI. NECK: Trachea midline. Supple. ENT: Mucous membranes pink and moist. Pharynx without erythema or exudate. Hearing aids in place bilaterally LUNGS: Airway patent. No retractions. Breath sounds clear with good air entry bilaterally. HEART: Irregularly irregular rate and rhythm. No chest wall tenderness ABDOMEN: Soft and non-tender, without guarding or rebound. SKIN: Acyanotic, warm, dry, without rashes EXTREMITIES: Without swelling, tenderness or deformity NEUROLOGICAL: No aphasia. Mild right facial droop but no slurred speech. Tongue midline. Normal strength and tone in the extremities. Sensation to gross touch normal in all extremities and the face. Patient at baseline according to with some mild memory deficit. EK bpm atrial fibrillation occasional PVC. No acute ST segment elevation noted with nonspecific T wave changes. QTC 493. CONTINUOUS CARDIAC MONITORING: was ordered and showed a heart rate of 70s-90s bpm in atrial fibrillation Patient's laboratory studies and imaging reviewed. Differential includes Infection, dehydration, metabolic abnormality, hypo/hyperglycemia, electrolyte disturbance, anemia, hypoxia, cardiac sources, intracerebral event, toxicologic, neurologic, as well as other pathologies. IMPRESSION/MEDICAL DECISION MAKING: Patient symptoms ongoing for several days and is anticoagulated thus not a candidate for thrombolysis. CT of the head without evidence of acute intracranial bleed. Patient with questionable history of IV contrast allergy and thus did not proceed with CT angiograms initially as in the past has been pretreated. Basic labs obtained. Good strength in the extremities. No severe numbness. Slight right facial droop is noted. Patient is not on antiplatelet agents. Patient is rate controlled A. fib. Detectable not abnormal troponin. Negative COVID. No anemia. Very slight leukocytosis of unclear significance. Discussed with the patient and findings. Recommended further evaluation for possible occult CVA given his facial droop and multiple risk factors for this. Patient does have some history of sundowning. Discussed with the hospitalist group. DIAGNOSIS: Right facial droop, right upper extremity numbness, atrial fibrillation DISPOSITION: Hospitalist will evaluate Patient was agreeable with this plan. Past Med/Surg History Medical History Arthritis Asthma BPH without obstruction/lower urinary tract symptoms Cognitive impairment Coronary artery disease Environmental allergies History of TIA (transient ischemic attack) Hyperlipemia Hypertension Hypothyroidism Kidney stone Obesity Recurrent nephrolithiasis Renal cyst, acquired Right nephrolithiasis Surgical History History of anesthesia reaction History of cardiac cath History of cataract surgery History of colonoscopy History of coronary artery bypass graft x 3 History of lithotripsy History of umbilical hernia repair Status post nasal endoscopy with nasal polypectomy Family History Brother Diabetes Coronary heart disease Heart disease Stroke Family history of colon cancer Father Hypertension Stroke Mother Hearing loss Alzheimer disease Grandfather Allergies Other Asthma Denies family history of Clotting disorder Social History Smoking Status: Former smoker Age Quit Using Tobacco: 32; packs per day: 1; Years Smoked: 15; Number of Years Since Quit: 52; Second Hand Exposure: No; Hx Alcohol Use: Yes Alcohol type: hard liquor Hx Substance Use: No Preferred Language: Bahamian Communication Ability: Effective Tie Fastener Required: No Beliefs That Will Affect Care: None marital status: Current Living Situation: Spouse current occupational status: retired current occupation: 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 Feels Safe at Home: Yes Childhood Exposure to Second-Hand Smoke: No Assistive Devices: Glasses and Hearing Aid - Bilateral Allergies Allergies Allergy/AdvReac Type Severity Reaction Status Date / Time Iodinated Contrast Media Allergy Unknown UNKNOWN - Verified 12/29/21 12:30 TWIN BROTHER HAS AND WAS TOLD HE MIGHT Home Meds Home Medications Medication Instructions Recorded Confirmed cholecalciferol (vitamin D3) 50 2,000 units PO QAM cap 07/01/19 12/29/21 mcg (2,000 unit) capsule Previous Rx's Medication Instructions Recorded fluticasone propionate 50 See Rx Instructions INTNAS DAILY 08/12/20 mcg/actuation nasal #3 btl spray,suspension (Allergy Relief (fluticasone)) albuterol sulfate 90 mcg/actuation 2 puff INH Q4H PRN #3 inhaler 06/09/21 aerosol inhaler (ProAir HFA) mometasone-formoterol HFA 100 2 puff INH BID #13 gm 06/22/21 mcg-5 mcg/actuation aerosol inhaler (Dulera) triamterene 37.5 1 tab PO DAILY #30 tab 07/14/21 mg-hydrochlorothiazide 25 mg tablet metoprolol succinate 25 mg 25 mg PO BID #180 tab 07/16/21 tablet,extended release 24 hr simvastatin 40 mg tablet 40 mg PO QPM #90 tab 08/23/21 apixaban 5 mg tablet (Eliquis) 5 mg PO BID #180 tab 12/08/21 levothyroxine 112 mcg tablet 112 mcg PO DAILY #90 tab 12/10/21 Results & Data (ED) Vital Signs Vital Signs - 24 hr 12/29/21 12:20 12/29/21 13:10 12/29/21 13:30 Temperature 36.4 C L Temperature Source Temporal Artery Scan Pulse Rate 77 84 85 Pulse Rate [Right Finger] Respiratory Rate 18 22 17 Respiratory Depth Blood Pressure 175/106 H Blood Pressure [Left Arm] Blood Pressure Mean 129 Blood Pressure Mean [Left Arm] Pulse Oximetry 97 Oxygen Delivery Method Room Air Sepsis Recent Fever Within 48 Hours No Sepsis New/Unexplained Change in Mental Status N/A Sepsis Action Taken by Nursing No Action Required 12/29/21 14:00 12/29/21 14:30 12/29/21 15:00 Temperature Temperature Source Pulse Rate 75 81 Pulse Rate [Right Finger] Respiratory Rate 14 15 25 H Respiratory Depth Blood Pressure Blood Pressure [Left Arm] Blood Pressure Mean Blood Pressure Mean [Left Arm] Pulse Oximetry Oxygen Delivery Method Sepsis Recent Fever Within 48 Hours Sepsis New/Unexplained Change in Mental Status Sepsis Action Taken by Nursing 12/29/21 15:21 Temperature Temperature Source Pulse Rate Pulse Rate [Right Finger] 86 Respiratory Rate 14 Respiratory Depth Normal Blood Pressure Blood Pressure [Left Arm] 138/96 Blood Pressure Mean Blood Pressure Mean [Left Arm] 110 Pulse Oximetry 97 Oxygen Delivery Method Room Air Sepsis Recent Fever Within 48 Hours Sepsis New/Unexplained Change in Mental Status Sepsis Action Taken by Nursing Laboratory Data Result diagrams: 12/29/21 13:52 12/29/21 13:52 Lab Results 12/29/21 12/29/21 12/29/21 Range/Units 13:15 13:52 13:52 WBC 11.49 H (4.8-10.8) K/uL RBC 4.47 L (4.7-6.1) M/uL Hgb 15.0 (14.0-18.0) g/dL Hct 43.4 (42-52) % MCV 97.1 (80-100) fL MCH 33.6 (25-34) pg MCHC 34.6 (32-36) g/dL RDW Std Deviation 45.5 (36.4-46.3) fL RDW Coeff of Alisha 12.9 (11.5-14.5) % Plt Count 199 (130-400) K/uL MPV 9.9 (7.4-10.4) fL Immature Gran % (Auto) 0.3 % Neut % (Auto) 59.1 % Lymph % (Auto) 25.6 % [place] % (Auto) 9.2 % Eos % (Auto) 5.3 % Baso % (Auto) 0.5 % Neut # (Auto) 6.79 H (1.4-6.5) K/uL Lymph # (Auto) 2.94 (1.2-3.4) K/uL [place] # (Auto) 1.06 H (0.11-0.59) K/uL Eos # (Auto) 0.61 H (0-0.5) K/uL Baso # (Auto) 0.06 (0-0.2) K/uL Immature Gran # (Auto) 0.03 H (0.00-0.02) K/uL PT 10.5 (9.0-12.0) Seconds INR 1.0 (0.9-1.1) APTT 29.1 (21.0-31.0) Seconds PTT Ratio 1.1 Sodium (136-145) mmol/L Potassium (3.5-5.1) mmol/L Chloride (98-107) mmol/L Carbon Dioxide (21-32) mmol/L Anion Gap (3-11) BUN (6-23) mg/dl Creatinine (0.6-1.4) mg/dl Est Cr Clr Drug Dosing ml/min Est GFR ( Amer) ml/min Est GFR (Non-Af Amer) ml/min BUN/Creatinine Ratio (10-20) Glucose (70-99(Fasting)) mg/dl Calcium (8.5-10.1) mg/dl Magnesium (1.7-2.4) mg/dl Total Bilirubin (0.2-1.0) mg/dl AST (13-39) U/L ALT (7-52) U/L Alkaline Phosphatase (34-104) U/L Troponin I (0-0.04) ng/ml Total Protein (6.0-8.3) gm/dl Albumin (3.4-5.0) gm/dl Globulin (2.5-4.0) gm/dl Albumin/Globulin Ratio (0.9-2) SARS-CoV-2, RNA, NAAT NEGATIVE (NEGATIVE) 12/29/21 Range/Units 13:52 WBC (4.8-10.8) K/uL RBC (4.7-6.1) M/uL Hgb (14.0-18.0) g/dL Hct (42-52) % MCV (80-100) fL MCH (25-34) pg MCHC (32-36) g/dL RDW Std Deviation (36.4-46.3) fL RDW Coeff of Alisha (11.5-14.5) % Plt Count (130-400) K/uL MPV (7.4-10.4) fL Immature Gran % (Auto) % Neut % (Auto) % Lymph % (Auto) % [place] % (Auto) % Eos % (Auto) % Baso % (Auto) % Neut # (Auto) (1.4-6.5) K/uL Lymph # (Auto) (1.2-3.4) K/uL [place] # (Auto) (0.11-0.59) K/uL Eos # (Auto) (0-0.5) K/uL Baso # (Auto) (0-0.2) K/uL Immature Gran # (Auto) (0.00-0.02) K/uL PT (9.0-12.0) Seconds INR (0.9-1.1) APTT (21.0-31.0) Seconds PTT Ratio Sodium 139 (136-145) mmol/L Potassium 3.8 (3.5-5.1) mmol/L Chloride 104 (98-107) mmol/L Carbon Dioxide 27 (21-32) mmol/L Anion Gap 8 (3-11) BUN 22 (6-23) mg/dl Creatinine 1.23 (0.6-1.4) mg/dl Est Cr Clr Drug Dosing 51.4 ml/min Est GFR ( Amer) 60.4 ml/min Est GFR (Non-Af Amer) 52.1 ml/min BUN/Creatinine Ratio 17.9 (10-20) Glucose 82 (70-99(Fasting)) mg/dl Calcium 9.4 (8.5-10.1) mg/dl Magnesium 1.9 (1.7-2.4) mg/dl Total Bilirubin 0.7 (0.2-1.0) mg/dl AST 26 (13-39) U/L ALT 17 (7-52) U/L Alkaline Phosphatase 73 (34-104) U/L Troponin I 0.04 (0-0.04) ng/ml Total Protein 7.1 (6.0-8.3) gm/dl Albumin 4.1 (3.4-5.0) gm/dl Globulin 3.0 (2.5-4.0) gm/dl Albumin/Globulin Ratio 1.4 (0.9-2) SARS-CoV-2, RNA, NAAT (NEGATIVE) Imaging Data Radiologist's Impression: Chest X-Ray 12/29/21 12:38 XR chest 1V portable HISTORY: 86 years-old Male Stroke Like Symptoms acute strokelike symptoms COMPARISON: Chest radiograph and CTA chest 10/03/2019 TECHNIQUE: Portable AP view of the chest FINDINGS: Cardiac silhouette is enlarged. Prior median sternotomy with suggested CABG. No pneumothorax, large pleural effusion or overt pulmonary edema. Bones of the chest appear grossly intact. IMPRESSION: Cardiomegaly without acute process. ACT 112: Negative or not required by law. The above report was generated using voice recognition software. It may contain grammatical, syntax or spelling errors. Electronically signed by: Eric Baltazar M.D. 12/29/2021 1:[address] 12/29/21 12:38 CT head/brain wo con CLINICAL HISTORY: 86 years-old Male with R facial droop/r ue numb. Acute right- sided facial droop TECHNIQUE: Multiple axial CT images of the head were obtained without contrast. A dose lowering technique was utilized adhering to the principles of ALARA. CT DOSE: 614.27 mGy.cm COMPARISON: Brain MRI 11/03/2021. FINDINGS: No acute intracranial hemorrhage, midline shift, intracranial mass, hyd rocephalus, territorial ischemia or abnormal extra-axial collection. Age-related involutional changes with ex vacuo ventriculomegaly. White matter hypodensities suggest chronic microvascular ischemic disease. Cerebral vascular calcifications. Chronic lacunar infarct of the right cerebellar hemisphere. The calvarium is intact. The mastoid air cells and middle ear cavities are clear. Moderate mucosal thickening of ethmoid air cells. There is severe mucoperiosteal thickening of the right maxillary sinus with near complete opacification. Unremarkable soft tissues. Prior bilateral lens repair. IMPRESSION: No acute intracranial abnormality. ACT 112: Negative or not required by law. The above report was generated using voice recognition software. It may contain grammatical, syntax or spelling errors. Electronically signed by: Eric Baltazar M.D. 12/29/2021 1:12 PM Discharge Plan Visit Data Chief Complaint: TIA Symptoms Stated Complaint: DROOPING, NUMB RT ARM, SHAKY, DEMENTIA ED Provider: Alan Adams Discharge Problem: Facial droop, Atrial fibrillation, Right arm numbness Patient Disposition: Being Evaluated by Hospitalist Forms Stand Alone Forms: My [facility] Prescriptions Prescriptions: No Action Dulera 100-5 mcg/actuation HFA aerosol inhaler 2 puff INH BID Qty: 13 RF: 11 metoprolol succinate 25 mg tablet extended release 24 hr 25 mg PO BID Qty: 180 RF: 3 levothyroxine 112 mcg tablet 112 mcg PO DAILY Qty: 90 RF: 3 triamterene-hydrochlorothiazid 37.5-25 mg tablet 1 tab PO DAILY Qty: 30 RF: 11 cholecalciferol (vitamin D3) 2,000 unit capsule 2,000 units PO QAM RF: 0 fluticasone propionate [Allergy Relief (fluticasone)] 50 mcg/actuation spray,suspension See Rx Instructions INTNAS DAILY Qty: 3 RF: 3 albuterol sulfate [ProAir HFA] 90 mcg/actuation HFA aerosol inhaler 2 puff INH Q4H PRN (Reason: shortness of breath or wheezing) Qty: 3 RF: 3 simvastatin 40 mg tablet 40 mg PO QPM Qty: 90 RF: 3 Eliquis 5 mg tablet 5 mg PO BID Qty: 180 RF: 3 Referrals Referrals: Yohannes Goyal MD [Primary Care Provider] - Discharge Problem: Atrial fibrillation Qualifiers: Atrial fibrillation type: longstanding persistent Qualified Code(s): I48.11 - Longstanding persistent atrial fibrillation
--- NOTE | 2021-12-29 13:13 | CT Scan Report ---
CT head/brain wo con CLINICAL HISTORY: 86 years-old Male with R facial droop/r ue numb. Acute right-sided facial droop TECHNIQUE: Multiple axial CT images of the head were obtained without contrast. A dose lowering tech nique was utilized adhering to the principles of ALARA. CT DOSE: 614.27 mGy.cm COMPARISON: Brain MRI 11/03/2021. FINDINGS: No acute intracranial hemorrhage, midline shift, intracranial mass, hydrocephalus, territorial ischem ia or abnormal extra-axial collection. Age-related involutional changes with ex vacuo ventriculomegal y. White matter hypodensities suggest chronic microvascular ischemic disease. Cerebral vascular calci fications. Chronic lacunar infarct of the right cerebellar hemisphere. The calvarium is intact. The mastoid air cells and middle ear cavities are clear. Moderate mucosal t hickening of ethmoid air cells. There is severe mucoperiosteal thickening of the right maxillary sinu s with near complete opacification. Unremarkable soft tissues. Prior bilateral lens repair. IMPRESSION: No acute intracranial abnormality. ACT 112: Negative or not required by law. The above report was generated using voice recognition software. It may contain grammatical, syntax o r spelling errors. Electronically signed by: Eric Baltazar M.D. 12/29/2021 1:12 PM
--- NOTE | 2021-12-29 13:18 | XRay Report ---
XR chest 1V portable HISTORY: 86 years-old Male Stroke Like Symptoms acute strokelike symptoms COMPARISON: Chest radiograph and CTA chest 10/03/2019 TECHNIQUE: Portable AP view of the chest FINDINGS: Cardiac silhouette is enlarged. Prior median sternotomy with suggested CABG. No pneumothorax, large p leural effusion or overt pulmonary edema. Bones of the chest appear grossly intact. IMPRESSION: Cardiomegaly without acute process. ACT 112: Negative or not required by law. The above report was generated using voice recognition software. It may contain grammatical, syntax o r spelling errors. Electronically signed by: Eric Baltazar M.D. 12/29/2021 1:17 PM
[2021-12-29 14:03] LABS: Basophils # (auto) 0.06 K/uL (0-0.2); Basophils % (auto) 0.5 %; Eosinophils # (auto) 0.61 K/uL (0-0.5); Eosinophils % (auto) 5.3 %; Hematocrit (blood only) 43.4 % (42-52); Immature Granulocytes # (auto) 0.03 K/uL (0.00-0.02); Immature Granulocytes % (auto) 0.3 %; Lymphocytes # (auto) 2.94 K/uL (1.2-3.4); Lymphocytes % (auto) 25.6 %; Mean Corpuscular Hemoglobin 33.6 pg (25-34); Mean Corpuscular Hgb Conc 34.6 g/dL (32-36); Mean Corpuscular Volume 97.1 fL (80-100); Mean Platelet Volume 9.9 fL (7.4-10.4); Monocytes # (auto) 1.06 K/uL (0.11-0.59); Monocytes % (auto) 9.2 %; Neutrophils # (auto) 6.79 K/uL (1.4-6.5); Neutrophils % (auto) 59.1 %; Platelet Count 199 K/uL (130-400); RDW Coefficient of Variation 12.9 % (11.5-14.5); RDW Standard Deviation 45.5 fL (36.4-46.3); Red Blood Count 4.47 M/uL (4.7-6.1); White Blood Count 11.49 K/uL (4.8-10.8)
[2021-12-29 14:17] LABS: Partial Thromboplastin Ratio 1.1; Partial Thromboplastin Time 29.1 Seconds (21.0-31.0); Prothrombin Time 10.5 Seconds (9.0-12.0)
[2021-12-29 14:30] LABS: Troponin I 0.04 ng/ml (0-0.04)
[2021-12-29 14:36] LABS: Albumin Globulin Ratio 1.4 (0.9-2); Albumin Level 4.1 gm/dl (3.4-5.0); BUN Creatinine Ratio 17.9 (10-20); Bilirubin,Total 0.7 mg/dl (0.2-1.0); Calcium 9.4 mg/dl (8.5-10.1); Creatinine Clr Calc Pharmacy 51.4 ml/min; Est GFR (African American) 60.4 ml/min; Est GFR (Non-African American) 52.1 ml/min; Magnesium 1.9 mg/dl (1.7-2.4); Potassium 3.8 mmol/L (3.5-5.1); Total Protein 7.1 gm/dl (6.0-8.3)
--- NOTE | 2021-12-29 16:09 | Electrocardiogram Report ---
Test Reason : Blood Pressure : / mmHG Vent. Rate : 086 BPM Atrial Rate : 093 BPM P-R Int : 000 ms QRS Dur : 094 ms QT Int : 412 ms P-R-T Axes : 000 -05 208 degrees QTc Int : 493 ms Poor data quality, interpretation may be adversely affected Atrial fibrillation with premature ventricular or aberrantly conducted complexes Nonspecific ST and T wave abnormality Prolonged QT Abnormal ECG When compared with ECG of 03-OCT-2019 02:52, Atrial fibrillation has replaced Sinus rhythm Vent. rate has increased BY 30 BPM QT has lengthened Confirmed by Femi Henry ([id number]) on 12/29/2021 4:09:19 PM Referred By: Yohannes Goyal Confirmed By:Femi Henry
--- NOTE | 2021-12-29 17:02 | History & Physical Report ---
Date of Service December 29, 2021 Assessment & Plan (1) Facial droop: (2) Right arm numbness: Plan: Suspect right arm numbness may be secondary to tendinitis of the right shoulder, for which he has a history. Facial droop is concerning but was resolved by the time I evaluated the patient We will place patient on monitor observation for further CVA work-up 2D echo MRI of the brain Continue anticoagulation with Eliquis Start low-dose aspirin for now PT/OT evaluation Every 4 hours neurochecks We will ask neurology to evaluate for further recommendations (3) Hyperlipemia: Plan: Continue simvastatin 40 or pharmacy equivalent (4) Coronary artery disease: Plan: Continue statin as noted above On Dyazide, metoprolol (5) Hypothyroidism: Plan: Continue levothyroxine (6) Hypertension: Plan: Permissive hypertension for 24hours Restart medications in the morning as noted above (7) Atrial fibrillation: Plan: Patient is currently anticoagulant with Eliquis, will continue He is rate controlled with current medications 2D echo as noted above History of Present Illness Chief Complaint: Right arm numbness Primary Care Provider: Yohannes Goyal MD This is an 86-year-old male with past my history of mild senile dementia, CAD CAD/CABG, atrial fibrillation on Eliquis that presents with chief complaint of right arm numbness and right facial droop. Patient is a similar historian as he has a degree of dementia and has poor memory. is at bedside who is much better historian. Apparently, patient has been having some complaints of right arm numbness over the past week or so. Patient states it starts from the shoulder on tracks down the entire arm. Is not severe and he has no muscle weakness associated with this. He has no other numbness or weakness in any other of his extremities. Earlier today, they were having lunch with their children. 1 noticed that the patient had a mild right facial droop. There was no dysarthria although there was some issues with mild increased confusion. For this reason, they brought the patient to the emergency room for further evaluation. Patient at this time seemed a little forgetful and asked the same questions over and over again. He also seems surprised he was staying in the hospital spite being told this only moments before. The states that he is back to baseline and no facial droop or speech difficulty was noted. Plans for patient be placed in monitored observation for further work-up of questionable TIA. Allergies Allergy/AdvReac Type Severity Reaction Status Date / Time Iodinated Contrast Media Allergy Unknown UNKNOWN - Verified 12/29/21 12:30 TWIN BROTHER HAS AND WAS TOLD HE MIGHT Home Medications Medication Instructions Recorded Confirmed Type cholecalciferol (vitamin D3) 50 2,000 units PO QAM cap 07/01/19 12/29/21 History mcg (2,000 unit) capsule fluticasone propionate 50 See Rx Instructions INTNAS DAILY 08/12/20 12/29/21 Rx mcg/actuation nasal #3 btl spray,suspension (Allergy Relief (fluticasone)) albuterol sulfate 90 mcg/actuation 2 puff INH Q4H PRN #3 inhaler 06/09/21 12/29/21 Rx aerosol inhaler (ProAir HFA) mometasone-formoterol HFA 100 2 puff INH BID #13 gm 06/22/21 12/29/21 Rx mcg-5 mcg/actuation aerosol inhaler (Dulera) triamterene 37.5 1 tab PO DAILY #30 tab 07/14/21 12/29/21 Rx mg-hydrochlorothiazide 25 mg tablet metoprolol succinate 25 mg 25 mg PO BID #180 tab 07/16/21 12/29/21 Rx tablet,extended release 24 hr simvastatin 40 mg tablet 40 mg PO QPM #90 tab 08/23/21 12/29/21 Rx apixaban 5 mg tablet (Eliquis) 5 mg PO BID #180 tab 12/08/21 12/29/21 Rx levothyroxine 112 mcg tablet 112 mcg PO DAILY #90 tab 12/10/21 12/29/21 Rx Past Med/Surg History Medical History Arthritis HANDS Asthma stable BPH without obstruction/lower urinary tract symptoms Cognitive impairment "MEMORY ISSUES" - REPORTS DR'S ARE AWARE Coronary artery disease s/p CABG x 3 (2012) Environmental allergies History of TIA (transient ischemic attack) 10+ years ago Hyperlipemia Hypertension Hypothyroidism Kidney stone PT REPORTS CURRENT KIDNEY STONE LEFT SIDE, KIDNEY CYST RIGHT SIDE Obesity Recurrent nephrolithiasis Renal cyst, acquired R Right nephrolithiasis Surgical History History of anesthesia reaction WITH CABG PT AGITATED WITH TUBE DOWN THE THROAT History of cardiac cath 2013...[place] History of cataract surgery RIGHT AND LEFT History of colonoscopy History of coronary artery bypass graft x 3 History of lithotripsy History of umbilical hernia repair Status post nasal endoscopy with nasal polypectomy Family History Brother Diabetes Coronary heart disease Heart disease Stroke Family history of colon cancer Father , age 67 of a stroke Hypertension Stroke Mother , age 87 with dementia Hearing loss Alzheimer disease Grandfather Allergies Other Asthma Denies family history of Clotting disorder Social History Smoking Status: Former smoker Age Quit Using Tobacco: 32; packs per day: 1; Years Smoked: 15; Number of Years Since Quit: 52; Second Hand Exposure: No; Hx Alcohol Use: Yes Alcohol type: hard liquor Hx Substance Use: No Preferred Language: Occitan Communication Ability: Effective Motor Vehicle Inspector Required: No Beliefs That Will Affect Care: None marital status: Current Living Situation: Spouse current occupational status: retired current occupation: 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 Feels Safe at Home: Yes Childhood Exposure to Second-Hand Smoke: No Assistive Devices: Glasses and Hearing Aid - Bilateral Review of Systems Constitutional: no fever, no chills, no weakness, no weight loss and no weight gain Eyes: as per Subjective / HPI Respiratory: no cough, no chest congestion, no dyspnea and no dyspnea on exertion Cardiovascular: no chest pain, no orthopnea, no palpitations, no lightheadedness and no edema Gastrointestinal: no abdominal pain, no nausea, no vomiting, no constipation and no diarrhea/loose stools Musculoskeletal: no back pain, no neck pain, no joint pain, no stiffness and no myalgia Integumentary: no rash Neurologic: + numbness, + behavioral changes and + confusion; no gait abnormality, no unsteadiness, no falls, no generalized weakness, no restless legs and no syncope Physical Exam Constitutional: cooperative; no acute distress Neck: trachea midline, no thyromegaly Respiratory: normal respiratory effort Auscultation: lungs clear to auscultation bilaterally; no crackles, no rales, no rhonchi and no wheezes Cardiovascular: Rate/Rhythm: regular rate and regular rhythm Heart Sounds: normal S1 and normal S2 Gastrointestinal (Abdomen): Inspection/Auscultation: abdomen normal to inspection Percussion/Palpation: abdomen soft; abdomen nontender, no guarding, abdomen not rigid and no hepatosplenomegaly Skin: no rashes, warm and dry Neurologic: patellar DTR's 2+ bilat, sensation intact and PERRL, EOMI, accommodation nl, no face palsy, no dysarthria Results & Data Results & Data ([facility]) Vital Signs (Past 12 Hours) Vital Signs Temp Pulse Pulse Resp BP BP Pulse Ox 12/29/21 15:21 86 14 138/96 97 12/29/21 15:00 25 H 12/29/21 14:30 81 15 12/29/21 14:00 75 14 12/29/21 13:30 85 17 175/106 H 12/29/21 13:10 84 22 12/29/21 12:20 36.4 C L 77 18 97 Laboratory Results Laboratory Results WBC 11.49 K/uL (4.8-10.8) H 12/29/21 13:52 RBC 4.47 M/uL (4.7-6.1) L 12/29/21 13:52 Hgb 15.0 g/dL (14.0-18.0) 12/29/21 13:52 Hct 43.4 % (42-52) 12/29/21 13:52 MCV 97.1 fL (80-100) 12/29/21 13:52 MCH 33.6 pg (25-34) 12/29/21 13:52 MCHC 34.6 g/dL (32-36) 12/29/21 13:52 RDW Std Deviation 45.5 fL (36.4-46.3) 12/29/21 13:52 RDW Coeff of Alisha 12.9 % (11.5-14.5) 12/29/21 13:52 Plt Count 199 K/uL (130-400) 12/29/21 13:52 MPV 9.9 fL (7.4-10.4) 12/29/21 13:52 Immature Gran % (Auto) 0.3 % 12/29/21 13:52 Neut % (Auto) 59.1 % 12/29/21 13:52 Lymph % (Auto) 25.6 % 12/29/21 13:52 Bullock % (Auto) 9.2 % 12/29/21 13:52 Eos % (Auto) 5.3 % 12/29/21 13:52 Baso % (Auto) 0.5 % 12/29/21 13:52 Neut # (Auto) 6.79 K/uL (1.4-6.5) H 12/29/21 13:52 Lymph # (Auto) 2.94 K/uL (1.2-3.4) 12/29/21 13:52 Bullock # (Auto) 1.06 K/uL (0.11-0.59) H 12/29/21 13:52 Eos # (Auto) 0.61 K/uL (0-0.5) H 12/29/21 13:52 Baso # (Auto) 0.06 K/uL (0-0.2) 12/29/21 13:52 Immature Gran # (Auto) 0.03 K/uL (0.00-0.02) H 12/29/21 13:52 PT 10.5 Seconds (9.0-12.0) 12/29/21 13:52 INR 1.0 (0.9-1.1) 12/29/21 13:52 APTT 29.1 Seconds (21.0-31.0) 12/29/21 13:52 PTT Ratio 1.1 12/29/21 13:52 Sodium 139 mmol/L (136-145) 12/29/21 13:52 Potassium 3.8 mmol/L (3.5-5.1) 12/29/21 13:52 Chloride 104 mmol/L (98-107) 12/29/21 13:52 Carbon Dioxide 27 mmol/L (21-32) 12/29/21 13:52 Anion Gap 8 (3-11) 12/29/21 13:52 BUN 22 mg/dl (6-23) 12/29/21 13:52 Creatinine 1.23 mg/dl (0.6-1.4) 12/29/21 13:52 Est Cr Clr Drug Dosing 51.4 ml/min 12/29/21 13:52 Est GFR ( Amer) 60.4 ml/min 12/29/21 13:52 Est GFR (Non-Af Amer) 52.1 ml/min 12/29/21 13:52 BUN/Creatinine Ratio 17.9 (10-20) 12/29/21 13:52 Glucose 82 mg/dl (70-99(Fasting)) 12/29/21 13:52 Calcium 9.4 mg/dl (8.5-10.1) 12/29/21 13:52 Magnesium 1.9 mg/dl (1.7-2.4) 12/29/21 13:52 Total Bilirubin 0.7 mg/dl (0.2-1.0) 12/29/21 13:52 AST 26 U/L (13-39) 12/29/21 13:52 ALT 17 U/L (7-52) 12/29/21 13:52 Alkaline Phosphatase 73 U/L (34-104) 12/29/21 13:52 Troponin I 0.04 ng/ml (0-0.04) 12/29/21 13:52 Total Protein 7.1 gm/dl (6.0-8.3) 12/29/21 13:52 Albumin 4.1 gm/dl (3.4-5.0) 12/29/21 13:52 Globulin 3.0 gm/dl (2.5-4.0) 12/29/21 13:52 Albumin/Globulin Ratio 1.4 (0.9-2) 12/29/21 13:52 SARS-CoV-2, RNA, NAAT NEGATIVE (NEGATIVE) 12/29/21 13:15 Impressions Chest X-Ray 12/29/21 12:38 XR chest 1V portable HISTORY: 86 years-old Male Stroke Like Symptoms acute strokelike symptoms COMPARISON: Chest radiograph and CTA chest 10/03/2019 TECHNIQUE: Portable AP view of the chest FINDINGS: Cardiac silhouette is enlarged. Prior median sternotomy with suggested CABG. No pneumothorax, large pleural effusion or overt pulmonary edema. Bones of the chest appear grossly intact. IMPRESSION: Cardiomegaly without acute process. ACT 112: Negative or not required by law. The above report was generated using voice recognition software. It may contain grammatical, syntax or spelling errors. Electronically signed by: Eric Baltazar M.D. 12/29/2021 1:[address] 12/29/21 12:38 CT head/brain wo con CLINICAL HISTORY: 86 years-old Male with R facial droop/r ue numb. Acute right- sided facial droop TECHNIQUE: Multiple axial CT images of the head were obtained without contrast. A dose lowering technique was utilized adhering to the principles of ALARA. CT DOSE: 614.27 mGy.cm COMPARISON: Brain MRI 11/03/2021. FINDINGS: No acute intracranial hemorrhage, midline shift, intracranial mass, hydrocephalus, territorial ischemia or abnormal extra-axial collection. Age- related involutional changes with ex vacuo ventriculomegaly. White matter hypodensities suggest chronic microvascular ischemic disease. Cerebral vascular calcifications. Chronic lacunar infarct of the right cerebellar hemisphere. The calvarium is intact. The mastoid air cells and middle ear cavities are franko r. Moderate mucosal thickening of ethmoid air cells. There is severe mucoperiosteal thickening of the right maxillary sinus with near complete opacification. Unremarkable soft tissues. Prior bilateral lens repair. IMPRESSION: No acute intracranial abnormality. ACT 112: Negative or not required by law. The above report was generated using voice recognition software. It may contain grammatical, syntax or spelling errors. Electronically signed by: Eric Baltazar M.D. 12/29/2021 1:12 PM PG Care Time/CCT Total # of Minutes Spent Total Time Spent with Patient: Total time spent is greater than 50% in coordination of care (as documented) at patient's floor/unit and/or counseling patient: Coding Level of Care Code INT OBSERVATION CARE 70M LVL 3 Diagnoses Facial droop R29.810 Right arm numbness R20.0 Hyperlipemia E78.5 Coronary artery disease I25.10 Hypothyroidism E03.9 Hypertension I10 Atrial fibrillation I48.11 Atrial fibrillation type: longstanding persistent (1) Atrial fibrillation Atrial fibrillation type: longstanding persistent Qualified Code(s): I48.11 - Longstanding persistent atrial fibrillation
[2021-12-29 17:10] LABS: Appearance Urine Clear (Clear); Bilirubin Urine Negative (Negative); Blood Urine Negative (Negative); Color Urine Yellow; Glucose Urine UA Negative (Negative); Ketones Urine Negative (Negative); Leukocyte Esterase Urine Negative (Negative); Nitrite Urine Negative (Negative); Protein Urine Negative (Negative); Specific Gravity Urine 1.012 (1.000-1.030); Urobilinogen Urine Negative (Negative)
[2021-12-29] MEDS ORDERED: PHARMACIST DISCHARGE MED REC CONSULT PRN (19:33)
[2021-12-29] MEDS ORDERED: ONDANSETRON INJ 2 MG/ML 2 ML VIAL IV PRN (19:33)
[2021-12-29] MEDS ORDERED: ACETAMINOPHEN 325 MG TAB PO PRN (19:33)
[2021-12-29] MEDS ORDERED: ALBUTEROL HFA 8 GM INHALER INH PRN (19:38)
[2021-12-29] MEDS ORDERED: APIXABAN 5 MG TABLET PO SCH (21:00)
[2021-12-29] MEDS ORDERED: SIMVASTATIN 40 MG TAB PO SCH (21:00)
[2021-12-29] MEDS: METOPROLOL SUCC 25MG EXT REL TAB PO SCH (21:32)
[2021-12-30 02:22] LABS: Basophils # (auto) 0.05 K/uL (0-0.2); Basophils % (auto) 0.5 %; Eosinophils # (auto) 0.57 K/uL (0-0.5); Eosinophils % (auto) 5.2 %; Hematocrit (blood only) 43.5 % (42-52); Hemoglobin 14.9 g/dL (14.0-18.0); Immature Granulocytes # (auto) 0.04 K/uL (0.00-0.02); Immature Granulocytes % (auto) 0.4 %; Lymphocytes # (auto) 2.93 K/uL (1.2-3.4); Lymphocytes % (auto) 26.5 %; Mean Corpuscular Hemoglobin 33.2 pg (25-34); Mean Corpuscular Hgb Conc 34.3 g/dL (32-36); Mean Corpuscular Volume 96.9 fL (80-100); Mean Platelet Volume 9.7 fL (7.4-10.4); Monocytes # (auto) 0.85 K/uL (0.11-0.59); Monocytes % (auto) 7.7 %; Neutrophils # (auto) 6.61 K/uL (1.4-6.5); Neutrophils % (auto) 59.7 %; Platelet Count 200 K/uL (130-400); RDW Coefficient of Variation 12.9 % (11.5-14.5); RDW Standard Deviation 45.9 fL (36.4-46.3); Red Blood Count 4.49 M/uL (4.7-6.1); White Blood Count 11.05 K/uL (4.8-10.8)
[2021-12-30 02:41] LABS: Albumin Globulin Ratio 1.4 (0.9-2); Albumin Level 3.8 gm/dl (3.4-5.0); BUN Creatinine Ratio 17.5 (10-20); Bilirubin,Total 0.8 mg/dl (0.2-1.0); Calcium 9.2 mg/dl (8.5-10.1); Chol HDL Ratio 4.7 (0-5); Creatinine Clr Calc Pharmacy 50.2 ml/min; Est GFR (African American) 58.6 ml/min; Est GFR (Non-African American) 50.6 ml/min; Globulin 2.8 gm/dl (2.5-4.0); Potassium 3.7 mmol/L (3.5-5.1); Total Protein 6.6 gm/dl (6.0-8.3)
[2021-12-30] MEDS ORDERED: LEVOTHYROXINE SODIUM 112 MCG TABLET PO SCH (06:30)
[2021-12-30 07:07] LABS: Estimated Average Glucose 114 mg/dl; Hemoglobin A1C 5.6 % (4.5-5.6)
--- NOTE | 2021-12-30 07:28 | Magnetic Resonance Report ---
MRI OF THE BRAIN WITHOUT IV CONTRAST CLINICAL HISTORY: Right facial droop. COMPARISON STUDY: CT of the brain dated 12/29/2021. MRI of the brain dated 1221. TECHNIQUE: MRI of the brain was performed utilizing various T1 and T2-weighted sequences in the axial , sagittal, and coronal planes. IV contrast was not administered for this examination. The examinatio n is compromised by motion artifact. FINDINGS: Brain parenchyma: There is a subcentimeter focus of restricted diffusion suggested in the left fronta l white matter, likely representing an acute to subacute lacunar infarct. No additional foci of restr icted diffusion are identified. There is age-related involutional change noting mild subcortical and periventricular microangiopathic disease. There is no hemorrhage or mass effect. There is no restrict ed diffusion to suggest acute ischemia. Sahu-white matter differentiation is preserved. Small chronic lacunar infarcts are noted in the right cerebellar hemisphere. No extra-axial fluid collection is se en. The cerebellar tonsils are normal in configuration. Ventricles, sulci, and cisterns: Prominent secondary to involutional change. Pituitary and sella: Unremarkable. Intracranial vasculature: Normal flow voids are maintained at the skull base. Orbits: The bony orbits are grossly intact. Orbital contents are normal in appearance noting bilatera l ocular lens implants. Sinuses and mastoids: There is near complete opacification of the right maxillary antrum. Advanced mu cosal thickening is noted in the ethmoid sinuses. Moderate mucosal thickening is seen in the left max illary antrum, the sphenoid sinuses, and frontal sinuses. The mastoid air cells are clear. Calvarium: Unremarkable. Cervical cord: Partially visualized cervical spinal cord is normal in morphology and signal intensity . IMPRESSION: 1. Motion compromised examination. 2. A subcentimeter focus of restricted diffusion is suggested in the left frontal white matter, likel y representing an acute to subacute lacunar infarct. 3. No additional foci of restricted diffusion are identified. 4. There is no hemorrhage or mass effect. 5. Pansinus disease as above. ACT 112: Negative or not required by law. Electronically signed by: Marino Rothman M.D. 12/30/2021 7:27 AM
--- NOTE | 2021-12-30 08:06 | Hospitalist Progress Note ---
Date of Service December 30, 2021 Assessment & Plan (1) CVA (cerebral vascular accident): Plan: With right arm numbness and facial droop, resolved by time of admitting assessment R arm numb x1 week, facial droop acute. Last known normal around noon 12/29/21, developed a right facial droop at that time over lunch TTE: Pending - Admit EKG: afib with PVC, Qtc 490 CThead: No acute findings MRIB: Initially negative, reread as follows.A subcentimeter focus of restricted diffusion is suggested in the left frontal white matter, likely representing an acute to subacute lacunar infarct. No additional foci of restricted diffusion are identified. There is no hemorrhage or mass effect. Pansinus disease as above. 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 ?secondary to tendinitis of the right shoulder, for which he has a history. (4) Hyperlipemia: Plan: Statin as above (5) Coronary artery disease: Plan: Statin as above Continue metoprolol 25 milligrams p.o. twice daily.? Conversion to succinate Triamterene/Hctz, continue (6) Hypothyroidism: Plan: Continue levothyroxine (7) Hypertension: Plan: Permissive hypertension for 24hours Restart medications in the morning as noted above (8) Atrial fibrillation: Plan: - He is rate controlled with current medications - TTE pending - On DOAC BRUSH PAINTER, continue as above Admission and Anticipated Discharge Date Admission Date: December 29, 2021 Results & Data Results & Data ([facility]) Vital Signs (Past 12 Hours) Vital Signs Temp Pulse Resp BP Pulse Ox 12/30/21 00:44 83 18 143/93 H 94 12/29/21 20:32 36.8 C 74 14 153/94 H 95 PG Care Time/CCT Total # of Minutes Spent Total Time Spent with Patient: Total time spent is greater than 50% in coordination of care (as documented) at patient's floor/unit and/or counseling patient: Coding Diagnoses Facial droop R29.810 Right arm numbness R20.0 Hyperlipemia E78.5 Coronary artery disease I25.10 Hypothyroidism E03.9 Hypertension I10 Atrial fibrillation I48.11 Atrial fibrillation type: longstanding persistent CVA (cerebral vascular accident) I63.9 (1) Atrial fibrillation Atrial fibrillation type: longstanding persistent Qualified Code(s): I48.11 - Longstanding persistent atrial fibrillation
--- NOTE | 2021-12-30 08:39 | Neurology Consultation ---
Date of Consultation December 30, 2021 Assessment & Plan (1) Dementia: 86-year-old gentleman with a past medical history of dementia, coronary artery disease status post CABG, A. fib on Eliquis presented to the ER for evaluation of multiple complaints. #Acute CVA 2/2 to small vessel disease Clinical history, imaging findings and physical exam findings demonstrating resolution of symptoms correlate with a resolved mini-stroke in the left frontal white matter. It does not appear that the patient will have a referral symptomatic from this consult. Moving forward is important to focus on risk factor modification. Lipid profile is acceptable, A1c is acceptable. Patient's blood pressure autoregulation was 175/106 this was likely a contributor to his current presentation. Recommending titration of blood pressure medications and initiation of a baby aspirin. Could consider angiogram for further work-up. Follow-up as an outpatient with neurology #HTN Longstanding history of, poorly controlled on present metoprolol 25 mg p.o. twice daily & daily triamterene hydrochlorothiazide. Could consider addition of amlodipine will defer further management to primary team #Dementia Longstanding history of progressive vascular dementia alert and oriented to person only. Appears at baseline, no acute exacerbations. Will consider further work-up as an outpatient. #Treated TIA/CVA Risk factor modification as above Thank you for allowing me to participate in this patient's care. Please refer to my attending's attestation for further documentation. Francesco Roy MD PGY 3, FCM This chart was completed utilizing [employer] voice recognition software. Grammatical errors, random word insertions, pronoun errors, and in complete sentences are an occasional consequence of the system. Any questions or concerns about the content, text, or information contained within the body of this dictation should be addressed directly to the physician for clarification. (2) History of TIA (transient ischemic attack): (3) History of CVA (cerebrovascular accident) without residual deficits: (4) CVA (cerebral vascular accident): Supervising Physician Co-Signing Physician Notes Overall, I agree with the history, physical exam, impression, and plan of Dr. Roy. I have been following this patient since the fall for dementia, hearing loss, fatigue, and a history of atrial fibrillation and hypertension. He has been on apixaban 5 milligrams twice daily. An MRI of the brain in October showed no acute changes. The patient was brought into the emergency room and admitted on December 29 because of an episode of right facial droop witnessed by family members. In the emergency room his blood pressure was 175/106. CT scan of the head was unremarkable. MRI of the brain showed a very small acute left frontal white matter stroke. There was moderate generalized atrophy and mild old small vessel ischemia also. I reviewed these films. The patient is accompanied by his who as to the history and he is no longer having facial droop. He has been having some right upper extremity numbness and pain for approximately a week but this is improved also. There was concern that on December 29 he had some slurred speech but his speech is back to baseline currently also. He has no complaint of pain currently. On neurologic examination cranial nerves 2-12 are intact without nystagmus or facial droop. Coordination is normal in the arms without tremor or ataxia. Strength is symmetrical in the limbs being 5/5 both proximally and distally in all 4's. Reflexes are 0/4 in all 4 limbs. Impression: !. This patient has suffered a small left frontal acute stroke resulting in some temporary right facial weakness and dysarthria. He is Clinically back to base line. this is likely small vessel ischemic disease secondary to hypertension. 2. Dementia, chronic and stable. Recommendations: 1. Consider CT angiography of the head and neck. 2. Add 81 milligram aspirin tablet daily to the apixaban. 3. Control blood pressure as you are doing aiming for a mean arterial pressure approximately 100. 4. Awaiting echocardiogram results. 5. I can follow as an outpatient in 1-2 weeks. History of Present Illness Reason for Consultation: TIA? Attending Physician: Ramon Padilla DO History of Present Illness 86-year-old gentleman with a past medical history of dementia, coronary artery disease status post CABG, A. fib on Eliquis presented to the ER for evaluation of multiple complaints. At baseline the patient is a poor historian and his is present provided the majority of the history. She notes a 1 week history of right arm pain which at times had associated numbness. She does note that he spends a great deal of time in a recliner with extensive pressure on his shoulder and elbow joints. She denies any other associated symptoms including fevers or chills, nausea or vomiting, chest pressure or chest pain, shortness of breath, other focal neurological symptoms. She reports his gait has been intact, he has ambulated well, his mental status from baseline, and there has been no waxing and waning of his symptoms. Yesterday the patient was having lunch with his children, his daughter is a nurse, and his reviewed the symptoms throughout the week with her. She was concerned during the meal that he exhibited facial droop. The endorses that there may have been some slurring of words. Based on the symptoms the patient presented to the emergency department for further evaluation. Upon arrival all of the symptoms with the exception of the shoulder pain had resolved. In the emergency department routine labs were obtained demonstrating a mildly elevated white count to 11, normal hemoglobin, normal platelets. UA unremarkable. CMP was normal, creatinine 1.26, A1c 5.6. Troponin negative. lipid profile was acceptable total cholesterol 135, LDL 67. Covid negative. Chest x-ray demonstrating cardiomegaly without acute process, head CT demo nstrating age-related changes vascular ischemic disease, and chronic lacunar infarct of the right cerebellar hemisphere. 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 This morning the patient is lying in bed with his he is AAOx1 however his reports that there were no acute events overnight and that the patient's symptoms have largely resolved. There is an intermittent transient pain in his right shoulder which the primary team believes to be related to tendinitis. She reports the patient is tolerating his diet, voiding and stooling ambulate on his own to the bathroom. Denying any chest pressure, chest pain, shortness of lula th focal neurological symptoms, weakness, numbness. Allergies Allergy/AdvReac Type Severity Reaction Status Date / Time Iodinated Contrast Media Allergy Unknown UNKNOWN - Verified 12/29/21 12:30 TWIN BROTHER HAS AND WAS TOLD HE MIGHT Home Medications Medication Instructions Recorded Confirmed Type cholecalciferol (vitamin D3) 50 2,000 units PO QAM cap 07/01/19 12/29/21 History mcg (2,000 unit) capsule fluticasone propionate 50 See Rx Instructions INTNAS DAILY 08/12/20 12/29/21 Rx mcg/actuation nasal #3 btl spray,suspension (Allergy Relief (fluticasone)) albuterol sulfate 90 mcg/actuation 2 puff INH Q4H PRN #3 inhaler 06/09/21 12/29/21 Rx aerosol inhaler (ProAir HFA) mometasone-formoterol HFA 100 2 puff INH BID #13 gm 06/22/21 12/29/21 Rx mcg-5 mcg/actuation aerosol inhaler (Dulera) triamterene 37.5 1 tab PO DAILY #30 tab 07/14/21 12/29/21 Rx mg-hydrochlorothiazide 25 mg tablet metoprolol succinate 25 mg 25 mg PO BID #180 tab 07/16/21 12/29/21 Rx tablet,extended release 24 hr simvastatin 40 mg tablet 40 mg PO QPM #90 tab 08/23/21 12/29/21 Rx apixaban 5 mg tablet (Eliquis) 5 mg PO BID #180 tab 12/08/21 12/29/21 Rx levothyroxine 112 mcg tablet 112 mcg PO DAILY #90 tab 12/10/21 12/29/21 Rx Patient History Medical History (Updated 12/30/21 @ 08:37 by Francesco Roy MD) Arthritis HANDS Asthma stable BPH without obstruction/lower urinary tract symptoms Cognitive impairment "MEMORY ISSUES" - REPORTS DR'S ARE AWARE Coronary artery disease s/p CABG x 3 (2012) Environmental allergies History of TIA (transient ischemic attack) 10+ years ago Hyperlipemia Hypertension Hypothyroidism Kidney stone PT REPORTS CURRENT KIDNEY STONE LEFT SIDE, KIDNEY CYST RIGHT SIDE Obesity Recurrent nephrolithiasis Renal cyst, acquired R Right nephrolithiasis Surgical History History of anesthesia reaction WITH CABG PT AGITATED WITH TUBE DOWN THE THROAT History of cardiac cath 2012...[place] History of cataract surgery RIGHT AND LEFT History of colonoscopy History of coronary artery bypass graft x 3 History of lithotripsy History of umbilical hernia repair Status post nasal endoscopy with nasal polypectomy Family History Brother Diabetes Coronary heart disease Heart disease Stroke Family history of colon cancer Father , age 67 of a stroke Hypertension Stroke Mother , age 87 with dementia Hearing loss Alzheimer disease Grandfather Allergies Other Asthma Denies family history of Clotting disorder Social History Smoking Status: Former smoker Age Quit Using Tobacco: 32; packs per day: 1; Years Smoked: 15; Number of Years Since Quit: 52; Second Hand Exposure: No; Hx Alcohol Use: Yes Alcohol type: hard liquor Hx Substance Use: No Preferred Language: Chilean Communication Ability: Effective Hand Glove Cleaner Required: No Beliefs That Will Affect Care: None marital status: Current Living Situation: Spouse current occupational status: retired current occupation: 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 Feels Safe at Home: Yes Childhood Exposure to Second-Hand Smoke: No Assistive Devices: Glasses and Hearing Aid - Bilateral Review of Systems Cardiovascular: no chest pain and no palpitations Neurologic: as per Subjective / HPI; no gait abnormality, no localized weakness, no generalized weakness, no paralysis, no loss of sensation, no paresthesia, no abnormal movements, no seizure-like activity, no abnormal speech and no behavioral changes Physical Exam Constitutional: WD/WN, vitals as above Musculoskeletal: no cyanosis or clubbing, extremities motor strength 5/5 Extremities: extremities normal to inspection and strength 5/5 throughout Neurologic: PERRL, EOMI, accommodation nl, no face palsy, no dysarthria normal touch/pain/proprioception, CN's II-XI intact bilaterally and deep tendon reflexes 2+ bilaterally; no focal motor deficits and no meningeal signs Speech / Cognition: + abnormal cognition (memory impaired, thought process appropriate); normal speech Motor/Sensory: no tremor, normal movement and no fasciculations Cranial Nerves: no nystagmus Coordination: normal [id number] test, normal [id number]-[id number] test and normal rapid alternating movements Was able to safely get out of bed and ambulate to the bathroom Psychiatric: Orientation: alert, oriented to person and cooperative; + not oriented to place and + not oriented to time Apperance: appropriately dressed and appropriately groomed Eye Contact: good eye contact Motor Behavior: steady gait and station and no abnormal motor movements Speech: normal rate/rhythm/volume of speech; no pressured speech Affect: euthymic affect Results & Data ([facility]) Vital Signs (Past 12 Hours) Vital Signs Temp Pulse Resp BP Pulse Ox 12/30/21 00:44 83 18 143/93 H 94 12/29/21 20:32 36.8 C 74 14 153/94 H 95 Laboratory Results 12/30/21 12/30/21 12/30/21 Range/Units 02:09 02:09 02:09 WBC 11.05 H (4.8-10.8) K/uL RBC 4.49 L (4.7-6.1) M/uL Hgb 14.9 (14.0-18.0) g/dL Hct 43.5 (42-52) % MCV 96.9 (80-100) fL MCH 33.2 (25-34) pg MCHC 34.3 (32-36) g/dL RDW Std Deviation 45.9 (36.4-46.3) fL RDW Coeff of Alisha 12.9 (11.5-14.5) % Plt Count 200 (130-400) K/uL MPV 9.7 (7.4-10.4) fL Immature Gran % (Auto) 0.4 % Neut % (Auto) 59.7 % Lymph % (Auto) 26.5 % Garza % (Auto) 7.7 % Eos % (Auto) 5.2 % Baso % (Auto) 0.5 % Neut # (Auto) 6.61 H (1.4-6.5) K/uL Lymph # (Auto) 2.93 (1.2-3.4) K/uL Garza # (Auto) 0.85 H (0.11-0.59) K/uL Eos # (Auto) 0.57 H (0-0.5) K/uL Baso # (Auto) 0.05 (0-0.2) K/uL Immature Gran # (Auto) 0.04 H (0.00-0.02) K/uL PT (9.0-12.0) Seconds INR (0.9-1.1) APTT (21.0-31.0) Seconds PTT Ratio Sodium 139 (136-145) mmol/L Potassium 3.7 (3.5-5.1) mmol/L Chloride 104 (98-107) mmol/L Carbon Dioxide 27 (21-32) mmol/L Anion Gap 8 (3-11) BUN 22 (6-23) mg/dl Creatinine 1.26 (0.6-1.4) mg/dl Est Cr Clr Drug Dosing 50.2 ml/min Est GFR ( Amer) 58.6 ml/min Est GFR (Non-Af Amer) 50.6 ml/min BUN/Creatinine Ratio 17.5 (10-20) Glucose 97 (70-99(Fasting)) mg/dl Estimat Average Glucose 114 mg/dl Hemoglobin A1c 5.6 (4.5-5.6) % Calcium 9.2 (8.5-10.1) mg/dl Magnesium (1.7-2.4) mg/dl Total Bilirubin 0.8 (0.2-1.0) mg/dl AST 26 (13-39) U/L ALT 17 (7-52) U/L Alkaline Phosphatase 68 (34-104) U/L Troponin I (0-0.04) ng/ml Total Protein 6.6 (6.0-8.3) gm/dl Albumin 3.8 (3.4-5.0) gm/dl Globulin 2.8 (2.5-4.0) gm/dl Albumin/Globulin Ratio 1.4 (0.9-2) Triglycerides 197 H (0-150) mg/dl Cholesterol 135 (0-200) mg/dl LDL Cholesterol, Calc 67 mg/dl VLDL Cholesterol, Calc 39 H (0-30) mg/dl HDL Cholesterol 29 mg/dl Cholesterol/HDL Ratio 4.7 (0-5) Urine Color Urine Appearance (Clear) Urine pH (4.5-7.5) Ur Specific [place] (1.000-1.030) Urine Protein (Negative) Urine Glucose (UA) (Negative) Urine Ketones (Negative) Urine Blood (Negative) Urine Nitrite (Negative) Urine Bilirubin (Negative) Urine Urobilinogen (Negative) Ur Leukocyte Esterase (Negative) SARS-CoV-2, RNA, NAAT (NEGATIVE) 12/29/21 12/29/21 12/29/21 Range/Units 17:00 13:52 13:52 WBC (4.8-10.8) K/uL RBC (4.7-6.1) M/uL Hgb (14.0-18.0) g/dL Hct (42-52) % MCV (80-100) fL MCH (25-34) pg MCHC (32-36) g/dL RDW Std Deviation (36.4-46.3) fL RDW Coeff of Alisha (11.5-14.5) % Plt Count (130-400) K/uL MPV (7.4-10.4) fL Immature Gran % (Auto) % Neut % (Auto) % Lymph % (Auto) % Garza % (Auto) % Eos % (Auto) % Baso % (Auto) % Neut # (Auto) (1.4-6.5) K/uL Lymph # (Auto) (1.2-3.4) K/uL Garza # (Auto) (0.11-0.59) K/uL Eos # (Auto) (0-0.5) K/uL Baso # (Auto) (0-0.2) K/uL Immature Gran # (Auto) (0.00-0.02) K/uL PT 10.5 (9.0-12.0) Seconds INR 1.0 (0.9-1.1) APTT 29.1 (21.0-31.0) Seconds PTT Ratio 1.1 Sodium 139 (136-145) mmol/L Potassium 3.8 (3.5-5.1) mmol/L Chloride 104 (98-107) mmol/L Carbon Dioxide 27 (21-32) mmol/L Anion Gap 8 (3-11) BUN 22 (6-23) mg/dl Creatinine 1.23 (0.6-1.4) mg/dl Est Cr Clr Drug Dosing 51.4 ml/min Est GFR ( Amer) 60.4 ml/min Est GFR (Non-Af Amer) 52.1 ml/min BUN/Creatinine Ratio 17.9 (10-20) Glucose 82 (70-99(Fasting)) mg/dl Estimat Average Glucose mg/dl Hemoglobin A1c (4.5-5.6) % Calcium 9.4 (8.5-10.1) mg/dl Magnesium 1.9 (1.7-2.4) mg/dl Total Bilirubin 0.7 (0.2-1.0) mg/dl AST 26 (13-39) U/L ALT 17 (7-52) U/L Alkaline Phosphatase 73 (34-104) U/L Troponin I 0.04 (0-0.04) ng/ml Total Protein 7.1 (6.0-8.3) gm/dl Albumin 4.1 (3.4-5.0) gm/dl Globulin 3.0 (2.5-4.0) gm/dl Albumin/Globulin Ratio 1.4 (0.9-2) Triglycerides (0-150) mg/dl Cholesterol (0-200) mg/dl LDL Cholesterol, Calc mg/dl VLDL Cholesterol, Calc (0-30) mg/dl HDL Cholesterol mg/dl Cholesterol/HDL Ratio (0-5) Urine Color Yellow Urine Appearance Clear (Clear) Urine pH 7.0 (4.5-7.5) Ur Specific [place] 1.012 (1.000-1.030) Urine Protein Negative (Negative) Urine Glucose (UA) Negative (Negative) Urine Ketones Negative (Negative) Urine Blood Negative (Negative) Urine Nitrite Negative (Negative) Urine Bilirubin Negative (Negative) Urine Urobilinogen Negative (Negative) Ur Leukocyte Esterase Negative (Negative) SARS-CoV-2, RNA, NAAT (NEGATIVE) 12/29/21 12/29/21 Range/Units 13:52 13:15 WBC 11.49 H (4.8-10.8) K/uL RBC 4.47 L (4.7-6.1) M/uL Hgb 15.0 (14.0-18.0) g/dL Hct 43.4 (42-52) % MCV 97.1 (80-100) fL MCH 33.6 (25-34) pg MCHC 34.6 (32-36) g/dL RDW Std Deviation 45.5 (36.4-46.3) fL RDW Coeff of Alisha 12.9 (11.5-14.5) % Plt Count 199 (130-400) K/uL MPV 9.9 (7.4-10.4) fL Immature Gran % (Auto) 0.3 % Neut % (Auto) 59.1 % Lymph % (Auto) 25.6 % Garza % (Auto) 9.2 % Eos % (Auto) 5.3 % Baso % (Auto) 0.5 % Neut # (Auto) 6.79 H (1.4-6.5) K/uL Lymph # (Auto) 2.94 (1.2-3.4) K/uL Garza # (Auto) 1.06 H (0.11-0.59) K/uL Eos # (Auto) 0.61 H (0-0.5) K/uL Baso # (Auto) 0.06 (0-0.2) K/uL Immature Gran # (Auto) 0.03 H (0.00-0.02) K/uL PT (9.0-12.0) Seconds INR (0.9-1.1) APTT (21.0-31.0) Seconds PTT Ratio Sodium (136-145) mmol/L Potassium (3.5-5.1) mmol/L Chloride (98-107) mmol/L Carbon Dioxide (21-32) mmol/L Anion Gap (3-11) BUN (6-23) mg/dl Creatinine (0.6-1.4) mg/dl Est Cr Clr Drug Dosing ml/min Est GFR ( Amer) ml/min Est GFR (Non-Af Amer) ml/min BUN/Creatinine Ratio (10-20) Glucose (70-99(Fasting)) mg/dl Estimat Average Glucose mg/dl Hemoglobin A1c (4.5-5.6) % Calcium (8.5-10.1) mg/dl Magnesium (1.7-2.4) mg/dl Total Bilirubin (0.2-1.0) mg/dl AST (13-39) U/L ALT (7-52) U/L Alkaline Phosphatase (34-104) U/L Troponin I (0-0.04) ng/ml Total Protein (6.0-8.3) gm/dl Albumin (3.4-5.0) gm/dl Globulin (2.5-4.0) gm/dl Albumin/Globulin Ratio (0.9-2) Triglycerides (0-150) mg/dl Cholesterol (0-200) mg/dl LDL Cholesterol, Calc mg/dl VLDL Cholesterol, Calc (0-30) mg/dl HDL Cholesterol mg/dl Cholesterol/HDL Ratio (0-5) Urine Color Urine Appearance (Clear) Urine pH (4.5-7.5) Ur Specific [place] (1.000-1.030) Urine Protein (Negative) Urine Glucose (UA) (Negative) Urine Ketones (Negative) Urine Blood (Negative) Urine Nitrite (Negative) Urine Bilirubin (Negative) Urine Urobilinogen (Negative) Ur Leukocyte Esterase (Negative) SARS-CoV-2, RNA, NAAT NEGATIVE (NEGATIVE) Medications Administered Current Inpatient Medications Acetaminophen (Acetaminophen 325 Mg Tab) 650 mg PO Q4H PRN PRN Reason: Pain or Fever Stop: 01/28/22 19:32 Albuterol (Albuterol Hfa 8 Gm Inhaler) 2 puffs INH Q4H PRN PRN Reason: shortness of breath or wheezing Stop: 01/28/22 19:37 Apixaban (Apixaban 5 Mg Tablet) 5 mg PO BID [facility] Stop: 01/28/22 20:59 Last Admin: 12/29/21 21:31 Dose: 5 mg Documented by: Aspirin (Aspirin 81 Mg Ectab) 81 mg PO QAM [facility] Stop: 01/29/22 08:59 Fluticasone Propionate (Fluticasone Propionate Na Spr 16 Gm Btl) 2 sprays ZEV DAILY [facility] Stop: 01/29/22 08:59 Fluticasone/Vilanterol (Fluticasone/Vilanterol 100/25mcg 14 Puffs/Inhaler) 1 puffs INH DAILY [facility] Stop: 01/29/22 08:59 Levothyroxine Sodium (Levothyroxine Sodium 112 Mcg Tablet) 112 mcg PO DAILYBB [facility] Stop: 01/29/22 06:29 Last Admin: 12/30/21 06:08 Dose: 112 mcg Documented by: Metoprolol Succinate (Metoprolol Succ 25mg Ext Rel Tab) 25 mg PO BID [facility] Stop: 01/28/22 20:59 Last Admin: 12/29/21 21:32 Dose: 25 mg Documented by: Miscellaneous Information (Pharmacist Discharge Med Rec Consult) 1 ea N/A UD PRN PRN Reason: Consult Stop: 01/28/22 19:32 Ondansetron HCl (Ondansetron Inj 2 Mg/Ml 2 Ml Vial) 4 mg IV Q6H PRN PRN Reason: Nausea Stop: 01/28/22 19:32 Simvastatin (Simvastatin 40 Mg Tab) 40 mg PO QPM [facility] Stop: 01/28/22 20:59 Last Admin: 12/29/21 21:32 Dose: 40 mg Documented by: Triamterene/Hydrochlorothiazide (Triamterene/Hctz 37.5/25mg Tab) 1 tab PO DAILY [facility] Stop: 01/29/22 08:59 Vitamin D (Cholecalciferol 1,000 Units 25 Mcg Tab) 2,000 units PO QAM [facility] Stop: 01/29/22 08:59 Resident Activity Tracking Resident Involvement: Resident Care Provided Care Provided: Adult Hospital Medicine (Neuro)
[2021-12-30] MEDS ORDERED: TRIAMTERENE/HCTZ 37.5/25MG TAB PO SCH (09:00)
[2021-12-30] MEDS ORDERED: FLUTICASONE/VILANTEROL 100/25MCG 14 PUFFS/INHALER INH SCH (09:00)
[2021-12-30] MEDS ORDERED: ASPIRIN 81 MG ECTAB PO SCH (09:00)
[2021-12-30] MEDS ORDERED: FLUTICASONE PROPIONATE NA SPR 16 GM BTL NAE SCH (09:00)
[2021-12-30] MEDS ORDERED: CHOLECALCIFEROL 1,000 UNITS 25 MCG TAB PO SCH (09:00)
[2021-12-30] MEDS: METOPROLOL SUCC 25MG EXT REL TAB PO SCH (09:25)
[2021-12-30] MEDS ORDERED: OPTIRAY 320 125ml IV ONE (11:33)
--- NOTE | 2021-12-30 12:01 | CT Scan Report ---
CT ANGIOGRAM OF THE NECK CLINICAL HISTORY: Stroke. COMPARISON STUDY: No priors. TECHNIQUE: Following the IV administration of 120 of Optiray 320, CT angiogram of the neck was perfor med from the aortic arch to the skull base. Images are reviewed in the axial, sagittal, and coronal p lanes. 3-D MIPS images are created and assessed. IV contrast was administered without complication. A ll measurements were calculated based on NASCET criteria. A dose lowering technique was utilized adh ering to the principles of ALARA. CT DOSE: 613.27 mGy.cm FINDINGS: Thoracic aorta: There is atherosclerotic calcification of the thoracic aorta. Visualized portions of the thoracic aorta are normal in caliber. The aortic arch demonstrates standard 3-vessel anatomy. Right carotid arterial system: The right common carotid artery is widely patent, as are the right int ernal and external carotid arteries. Calcified plaque is noted in the carotid bulb. Left carotid arterial system: The left common carotid artery is widely patent, as are the left internal investigator al and external carotid arteries. Calcified plaque is noted in the carotid bulb. Vertebral arteries: The vertebral arteries are widely patent bilaterally and codominant in the neck. Subclavian arteries: Widely patent bilaterally. Intracranial vasculature: There is focal high-grade stenosis of the intracranial right vertebral lazara ry at the skull base seen on image #335. Jugular veins: Widely patent bilaterally. Brain parenchyma: The visualized brain parenchyma the skull base is within normal limits. Lung apices: Partially visualized upper lobe lung parenchyma appears clear. Soft tissues: The visualized pharyngeal soft tissues are normal in appearance noting angiographic pha se technique. The oropharyngeal airway appears widely patent. The thyroid gland is atrophic. The sali vary glands are normal in appearance. No cervical lymphadenopathy is seen. Skeletal structures: The skeletal structures are osteopenic. The visualized calvarium at the skull ba se appears intact. The imaged cervical spine is maintained noting mild multilevel spondylosis. No lyt ic or blastic lesion is seen. Midline sternotomy wires are noted. Sinuses and mastoids: There is complete opacification of the visualized right maxillary antrum. Mild mucosal thickening is noted in the left maxillary sinus. The mastoid air cells are well pneumatized. IMPRESSION: 1. Unremarkable CT angiogram of the neck. 2. 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 ACT 112: Negative or not required by law. Electronically signed by: Marino Rothman M.D. 12/30/2021 12:00 PM
[2021-12-30] MEDS ORDERED: STROKE PATIENT DISCHARGE STA (12:38)
--- NOTE | 2021-12-30 12:47 | Discharge Summary ---
Date of Service December 30, 2021 Admission HPI Per Admitting Provider This is an 86-year-old male with past my history of mild senile dementia, CAD CAD/CABG, atrial fibrillation on Eliquis that presents with chief complaint of right arm numbness and right facial droop. Patient is a similar historian as he has a degree of dementia and has poor memory. is at bedside who is much better historian. Apparently, patient has been having some complaints of right arm numbness over the past week or so. Patient states it starts from the shoulder on tracks down the entire arm. Is not severe and he has no muscle weakness associated with this. He has no other numbness or weakness in any other of his extremities. Earlier today, they were having lunch with their children. 1 noticed that the patient had a mild right facial droop. There was no dysarthria although there was some issues with mild increased confusion. For this reason, they brought the patient to the emergency room for further evaluation. Patient at this time seemed a little forgetful and asked the same questions over and over again. He also seems surprised he was staying in the hospital spite being told this only moments before. The states that he is back to baseline and no facial droop or speech difficulty was noted. Plans for patient be placed in monitored observation for further work-up of questionable TIA. Principal Diagnosis CVA without residual deficit Discharge Exam General: Awake, alert, oriented to name. Not oriented to place but reorients easily, not oriented to month. HEENT: Atraumatic, normocephalic. Extremely hard of hearing. Visual acuity grossly intact. Pulm: CTAB A&P. -wheezes, -rales, -rhonchi. Symmetrical chest rise. No increase in work of breathing. No respiratory distress. Cardiac: RRR, -mrg. Radial pulses intact and symmetrical. Abdominal: Nontender, nondistended, soft. BS present. CRANIAL NERVES: II: Pupils equal and reactive, no relative afferent pupillary defect, no VF cuts III, IV, : EOM intact, no gaze preference or deviation, no nystagmus. V: normal sensation in V1, V2, and V3 segments bilaterally VII: no asymmetry, no nasolabial fold flattening VIII: normal hearing to speech IX, X: normal palatal elevation, no uvular deviation XI: 5/5 head turn and 5/5 shoulder shrug bilaterally XII: midline tongue protrusion MOTOR: RUE: 5/5 Shoulder internal rotation, external rotation, flexion, extension, abduction, adduction 5/5 Elbow flexion/extension, wrist flexion/extension 5/5 diffuser operator strength, finger flexion/extension, interosseus LUE: 5/5 Shoulder internal rotation, external rotation, flexion, extension, abduction, adduction 5/5 Elbow flexion/extension, wrist flexion/extension 5/5 diffuser operator strength, finger flexion/extension, interosseus RLE: 5/5 to hip flexion, ankle dorsiflexion/plantarflexion LLE: 5/5 to hip flexion, ankle dorsiflexion/plantarflexion SENSORY: Normal to touch in upper and lower extremities without deficit or asymmetry Discharge Data Allergies Allergy/AdvReac Type Severity Reaction Status Date / Time Iodinated Contrast Media Allergy Unknown UNKNOWN - Verified 12/29/21 12:30 TWIN BROTHER HAS AND WAS TOLD HE MIGHT Consultations 12/29/21 15:00 ED Decision to Admit Stat 12/29/21 19:33 Consult Neurology Routine Ordered Studies 12/29/21 12:38 CT head/brain wo con Stat 12/29/21 19:33 MR brain wo con Routine 12/30/21 09:09 CT angio neck with con Urgent Hospital Course (1) CVA (cerebral vascular accident): Vamshi is a 86-year-old male who presented with right facial droop which resolved by time of hospitalist assessment, was admitted for stroke/TIA evaluation. Initial CT scan and stat read of MRI were normal, reread of MRI showed small focus of impaired diffusion consistent with a small subacute lacunar stroke. To do as outpatient: 1. Follow-up with PCP, routine follow-up with neurology 2. Add aspirin low-dose 81 mg to daily medications 3. Continue apixaban twice daily, simvastatin, HEAD PUMPER blood pressure control 4. TTE was pending at time of discharge, follow-up on results CVA With right arm numbness and facial droop, resolved by time of admitting assessment R arm numb x1 week, facial droop acute. Last known normal around noon 12/29/21, developed a right facial droop at that time over lunch tPA was not indicated TTE: Pending - Admit EKG: afib with PVC, Qtc 490 CThead: No acute findings MRIB: Initially negative, reread as follows.A subcentimeter focus of restricted diffusion is suggested in the left frontal white matter, likely representing an acute to subacute lacunar infarct. No additional foci of restricted diffusion are identified. There is no hemorrhage or mass effect. Pansinus disease as above. - Trop normal on admit - Trig 197/Chol 135/ LDL 67/VLDL 39/HDL 29 - COVID19 negative Apixaban temporarily held Patient on aspirin low-dose, continue Simvastatin 40 mg every afternoon Neuro consulted, Agreed with management as above and follow-up in 1 to 2 weeks Seen by physical therapy at discharge. At discharge patient was ambulating ind ependently around the room with his normal strength, per PT was safe for discharge home (2) Facial droop: Improved by time of admission (3) Right arm numbness: - Preceded facial droop, unchanged. ?secondary to tendinitis of the right shoulder, for which he has a history. (4) Hyperlipemia: Statin as above (5) Coronary artery disease: Statin as above Continue metoprolol 25 milligrams p.o. twice daily.? Conversion to succinate as outpt Triamterene/Hctz, continue (6) Hypothyroidism: Continue levothyroxine (7) Hypertension: Permissive hypertension for 24hours Restart medications in the morning as noted above (8) Atrial fibrillation: - He is rate controlled with current medications - TTE pending - On DOAC HEAD PUMPER, continue as above Total Time Total Time Spent Total Time Spent (In Minutes): Time spent day of discharge 40 minutes including direct patient care, documentation, review of labs and images, and coordination of care. Discharge Plan Discharge Items Patient Disposition: Home - Self-Care Reason For Visit: TIA Discharge Diagnosis: CVA Activity: Resume your previous activity Non-emergency contact: Primary Care Provider and Neurologist Call non-emergency contact if: you have any medication questions, your symptoms worsen, your pain is not controlled and you have a fever Follow-up/Referrals: Jb Perkins MD [Physician] - Yohannes Goyal MD [Primary Care Provider] - Diet: Regular Addtl Attending Provider Instructions: You are seen in the hospital after an episode of facial droop which resolved by time of hospitalist evaluation. You would also had some right arm intermittent numbness/tingling for the preceding few days. Your initial CT scan was normal, a follow-up MRI showed a very small area of impaired diffusion suggesting a small lacunar stroke without residual deficits. Your case was discussed with neurology, was recommended that you added aspirin to your daily medications as below. A CT scan with contrast of your neck to evaluate the blood vessels showed normal blood vessels in the neck, you did have narrowing (stenosis) of an artery near the skull. You were at your normal baseline, and were discharged to outpatient follow-up. You have been prescribed an antiplatelet medication, aspirin. Please take a low-dose aspirin (81 mg) daily. A follow-up appointment is being scheduled for you with your primary care physician. You should receive a call to confirm your appointment within 48 hours. You should be seen within 1 to 2 weeks. If you do not receive a call, please contact their office at the number above. A follow-up appointment is being scheduled for you with neurology. You should be seen within approximately 1 month. If you do not receive a call to confirm your appointment, please contact their office at [phone]. If you develop any new or worsening symptoms including fever, chills, sweats, chest pain, chest pressure, difficulty breathing, uncontrolled nausea/vomiting, rash, wheezing, passing out or nearly passing out, bleeding, black/bloody bowel movements, or other new or concerning symptoms please call your primary care physician, or call 911 for re-evaluation in the emergency department if you are very concerned. Pending Studies at Discharge: No Stand-Alone Forms: My [facility], [facility], Smoking Cessation Medications and DC Order Prescriptions: New aspirin 81 mg Tablet,Delayed Release (Dr/Ec) 81 mg PO QAM Qty: 30 RF: 0 Continued Dulera 100-5 mcg/actuation HFA aerosol inhaler 2 puff INH BID Qty: 13 RF: 11 metoprolol succinate 25 mg tablet extended release 24 hr 25 mg PO BID Qty: 180 RF: 3 levothyroxine 112 mcg tablet 112 mcg PO DAILY Qty: 90 RF: 3 triamterene-hydrochlorothiazid 37.5-25 mg tablet 1 tab PO DAILY Qty: 30 RF: 11 cholecalciferol (vitamin D3) 2,000 unit capsule 2,000 units PO QAM RF: 0 fluticasone propionate [Allergy Relief (fluticasone)] 50 mcg/actuation spray,suspension See Rx Instructions INTNAS DAILY Qty: 3 RF: 3 albuterol sulfate [ProAir HFA] 90 mcg/actuation HFA aerosol inhaler 2 puff INH Q4H PRN (Reason: shortness of breath or wheezing) Qty: 3 RF: 3 simvastatin 40 mg tablet 40 mg PO QPM Qty: 90 RF: 3 Eliquis 5 mg tablet 5 mg PO BID Qty: 180 RF: 3 Discharge Orders: Discharge Order (Routine); Ordered 12/30/21 Ordered By: Filipe Rincon Admission Data Admit Date/Time: 12/29/21 17:05 Attending Provider: Filipe Rincon Admit Provider: Ramon Padilla Primary Care Provider: Yohannes Goyal Other Providers: Ramon Padilla ; Jb Perkins Other Interventions: Discharge Summary Assessment (RN) Last Done: 12/30/21 13:32 Coding Level of Care Code D/C DAY MANAGEMENT >30 MINS Diagnoses CVA (cerebral vascular accident) I63.9 Facial droop R29.810 Right arm numbness R20.0 Hyperlipemia E78.5 Coronary artery disease I25.10 Hypothyroidism E03.9 Hypertension I10 Atrial fibrillation I48.11 Atrial fibrillation type: longstanding persistent
--- NOTE | 2021-12-30 13:00 | Pharmacy Report ---
Pharmacist Stroke Counseling - Date of Service December 30, 2021 - Scope: Pharmacy has been consulted to provide medication discharge counseling for this patient admitted with transient ischemic attack as per the Pharmacist Discharge Counseling for Stroke Patients Protocol. - Medications on Discharge: Home Medications Medication Instructions Recorded Confirmed cholecalciferol (vitamin D3) 50 2,000 units PO QAM cap 07/01/19 12/29/21 mcg (2,000 unit) capsule Medication Instructions Recorded fluticasone propionate 50 See Rx Instructions INTNAS DAILY 08/12/20 mcg/actuation nasal #3 btl spray,suspension (Allergy Relief (fluticasone)) albuterol sulfate 90 mcg/actuation 2 puff INH Q4H PRN #3 inhaler 06/09/21 aerosol inhaler (ProAir HFA) mometasone-formoterol HFA 100 2 puff INH BID #13 gm 06/22/21 mcg-5 mcg/actuation aerosol inhaler (Dulera) triamterene 37.5 1 tab PO DAILY #30 tab 07/14/21 mg-hydrochlorothiazide 25 mg tablet metoprolol succinate 25 mg 25 mg PO BID #180 tab 07/16/21 tablet,extended release 24 hr simvastatin 40 mg tablet 40 mg PO QPM #90 tab 08/23/21 apixaban 5 mg tablet (Eliquis) 5 mg PO BID #180 tab 12/08/21 levothyroxine 112 mcg tablet 112 mcg PO DAILY #90 tab 12/10/21 aspirin 81 mg tablet,delayed 81 mg PO QAM #30 tab 12/30/21 release - Action: The above medications, specifically ones for stroke treatment/prophylaxis, have been reviewed in detail with the patient and/or patient business process representative(s) prior to discharge. This includes indication, common adverse reactions, drug interactions, and medication administration. Medication counseling has been employed using the teach-back method to ensure understanding. - Outcome: The patient and/or patient business process representative(s) have demonstrated understanding of the medications. Additional comments: Reviewed medications on discharge with patient's per request as she helps manage medications at home. Thank you for allowing pharmacy to be involved in the care of this patient. Please call [phone] with any additional questions
--- NOTE | 2021-12-30 14:47 | XCELERA ---
[id number]
== END 2021-12-30 14:12 | disposition home or self-care (01) ==
LOC: EDINP 12:18 → ED 12:18 → SUATTDRO 17:05

== ENCOUNTER 2023-04-27 14:44 | Inpatient (IN) ==
[2023-04-27] MEDS ORDERED: CEFEPIME 2,000 MG/20 ML VIAL IV STA (15:11)
[2023-04-27] MEDS ORDERED: SODIUM CHLORIDE 0.9% 1000ML 1,000 ML IV SCH (15:15)
--- NOTE | 2023-04-27 15:17 | Emergency Department Note ---
Impression & Plan Sepsis, Acute cholecystitis, Altered mental status, Leukocytosis, Elevated liver enzymes ED Provider Note NAME: WILLIE GONZALEZ AGE: 87 SEX: M : 1935 ARRIVES VIA: Ambulance INFORMANT: [Patient][, EMS] ED PROVIDER(S): [Marino Cruz MD] CHIEF COMPLAINT: Altered mental state HISTORY OF PRESENT ILLNESS: The patient is an 87-year-old male who was seen in the ED yesterday for abdominal pain. Work-up was essentially unrevealing, including a CT of the abdomen pelvis. Patient was offered a hospital stay as the cause for his complaints was unclear however, he chose to go home. As per the patient and his , he has been weak and tired and altered since waking up this morning. He has no strength. As per EMS, he had a low-grade temperature and his O2 saturation was low. Patient still complains of some mild diffuse abdominal pain although, it is better than yesterday. He has not been coughing, he did not complain of shortness of breath. No urinary complaints. His is concerned that he may be dehydrated. The is also concerned that the pain medication he was given may have caused some of his mental status change. PMHx/PSHx: See Below SOCIAL HISTORY: See Below. PHYSICAL EXAM: GENERAL: Patient is in no acute distress. HEENT: No acute trauma, normocephalic atraumatic, mucous membranes dry, no nasal congestion. NECK: No stridor, no adenopathy, no meningismus, trachea is midline. LUNGS: Clear to auscultation bilaterally, no wheeze, no rhonchi, breath sounds equal. HEART: No obvious murmur, regular rate, irregular rhythm. ABDOMEN: Soft, mildly diffusely tender with some distention and tympany to percussion. No peritonitis. EXTREMITIES: No cyanosis or edema, full range of motion of all the joints without pain or difficulty, no signs for acute trauma. NEUROLOGIC: Awake and alert, confused, does move all extremities. SKIN: No rash, no jaundice, no diaphoresis. DIFFERENTIAL DIAGNOSIS: Sepsis or bacteremia, colitis, biliary infection, diverticulitis, dehydration, electrolyte imbalance, pneumonia, UTI, medication reaction, among others. EMERGENCY DEPARTMENT COURSE/PROCEDURES: Prior/Outside records reviewed: EMS notes, recent ED visit. ECG per my interpretation: Indication was weakness and confusion. The ECG shows atrial fibrillation with a rate of 92. There is diffuse nonspecific ST change. There is no concerning ST elevation. No PVCs. The QTc is 388. Continuous Cardiac Monitoring per my interpretation: An order was placed for continuous cardiac monitoring. The monitor shows a rate of 98 with atrial fibrillation. Critical Care Note: I have personally spent 50 minutes of critical care time in the direct management of this patient. This includes bedside care, interpretation of diagnostic studies, and testing, discussion with consultants, patient, and family members, and other required patient management activities. This 50 minutes is in excess of all separately billable procedures. MEDICAL DECISION MAKING: There is a marked leukocytosis at 31,000, this is consistent with infection. This is a dramatic increase from yesterday's white blood cell count. Hemoglobin was 13.7. There was a normal platelet count. No coagulopathy. There was a slight elevation to the creatinine of 1.55. The creatinine elevation has been documented in the recent past. Lactic acid level was slightly elevated, this is consistent with infection. There were some subtle liver enzyme elevations with a bilirubin of 1.4. No evidence for pancreatitis. Procalcitonin level was elevated consistent with bacterial illness. ECG showed atrial fibrillation, no obvious ST elevation. Cardiac enzyme testing x1 was slightly elevated. This troponin elevation could be from cardiac injury or potentially just mismatch. COVID test returned negative. Chest film showed some chronic change per my review, no pneumonia or CHF. Abdominal and pelvis CT shows findings of acute cholecystitis. A nonobstructing left ureteral stone was seen. Urinalysis result is still pending. On exam, the patient was not toxic. There was no peritonitis. He did have some diffuse abdominal tenderness with some abdominal distention. The patient was given IV saline, 1 L. He received IV cefepime as empiric antibiotic coverage. The patient's blood pressure is adequate. He is not in any significant distress. I did discuss the findings with the patient and his family. I did speak with case management, the on-call hospitalist has been consulted. Admission is clearly warranted. I did speak with on-call surgery, Dr. Tello. Dr. Tello did see the patient here in the ED. DISPOSITION: Patient's presentation and findings warrant a hospital stay. Past Med/Surg History Medical History Arthritis HANDS Asthma stable BPH without obstruction/lower urinary tract symptoms Cognitive impairment "MEMORY ISSUES" - REPORTS DR'Xavi ARE AWARE Coronary artery disease s/p CABG x 3 (2012) Environmental allergies History of TIA (transient ischemic attack) 10+ years ago Hyperlipemia Hypertension Hypothyroidism Kidney stone PT REPORTS CURRENT KIDNEY STONE LEFT SIDE, KIDNEY CYST RIGHT SIDE Obesity Recurrent nephrolithiasis Renal cyst, acquired R Right nephrolithiasis Surgical History History of anesthesia reaction WITH CABG PT AGITATED WITH TUBE DOWN THE THROAT History of cardiac cath 2013...[place] History of cataract surgery RIGHT AND LEFT History of colonoscopy History of coronary artery bypass graft x 3 History of lithotripsy History of umbilical hernia repair Status post nasal endoscopy with nasal polypectomy Family History Brother Diabetes Coronary heart disease Heart disease Stroke Family history of colon cancer Father , age 67 of a stroke Hypertension Stroke Mother , age 87 with dementia Hearing loss Alzheimer disease Grandfather Allergies Other Asthma Denies family history of Clotting disorder Social History Smoking Status: Former smoker Age Quit Using Tobacco: 32; packs per day: 1; Second Hand Exposure: No; Do You Dip or Chew Tobacco: No; Hx Alcohol Use: Yes Alcohol type: hard liquor Hx Substance Use: No Preferred Language: Bots[place] Communication Ability: Effective Communication Ability Comment: PT VERY HARD OF HEARING [place] Guide Required: No Beliefs That Will Affect Care: None marital status: Current Living Situation: Spouse current occupational status: retired current occupation: 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 Feels Safe at Home: Yes Childhood Exposure to Second-Hand Smoke: No Assistive Devices: None Allergies Allergies Allergy/AdvReac Type Severity Reaction Status Date / Time Iodinated Contrast Media Allergy Unknown UNKNOWN - Verified 04/27/23 17:28 TWIN BROTHER HAS AND WAS TOLD HE MIGHT Home Meds Home Medications Medication Instructions Recorded Confirmed cholecalciferol (vitamin D3) 50 2,000 units PO QAM 07/01/19 04/27/23 mcg (2,000 unit) capsule fluticasone propionate 50 2 spray intranasal DAILY PRN 04/26/23 04/27/23 mcg/actuation nasal .allergies spray,suspension (Allergy Relief (fluticasone)) triamterene 37.5 1 tab PO DAILY 04/26/23 04/27/23 mg-hydrochlorothiazide 25 mg tablet levothyroxine 112 mcg tablet 112 mcg PO DAILYBB 04/27/23 04/27/23 Previous Rx's Medication Instructions Recorded albuterol sulfate 90 mcg/actuation 2 puff inhalation Q4H PRN 06/09/21 aerosol inhaler (ProAir HFA) shortness of breath or wheezing #3 Inhalers mometasone-formoterol HFA 100 2 puff inhalation BID #13 grams 06/22/21 mcg-5 mcg/actuation aerosol inhaler (Dulera) aspirin 81 mg tablet,delayed 81 mg PO QAM #30 tabs 12/30/21 release lisinopril 5 mg tablet 2.5 mg PO DAILY #90 tabs 06/06/22 metoprolol succinate 25 mg 25 mg PO BID #180 tabs 07/11/22 tablet,extended release 24 hr simvastatin 40 mg tablet 40 mg PO QPM #90 tabs 08/31/22 acetaminophen 650 mg 650 mg PO Q8H PRN pain #60 tabs 12/06/22 tablet,extended release (Tylenol Arthritis Pain) apixaban 5 mg tablet (Eliquis) 5 mg PO BID #180 tabs 12/06/22 Results & Data (ED) Vital Signs Vital Signs - 24 hr 04/27/23 14:52 04/27/23 15:08 04/27/23 16:06 Temperature 37.1 C Temperature Source Oral Pulse Rate 96 H 100 H Pulse Rate from SpO2 Sensor Respiratory Rate 20 Respiratory Effort / Characteristics Non-Labored Spontaneous Respiratory Depth Normal Respiratory Pattern Regular Blood Pressure 139/76 Blood Pressure Mean 97 Pulse Oximetry 93 97 Oxygen Delivery Method Room Air Room Air Sepsis Recent Fever Within 48 Hours No Sepsis New/Unexplained Change in Mental Status No Sepsis Action Taken by Nursing No Action Required 04/27/23 15:05 04/27/23 15:30 04/27/23 15:30 Temperature Temperature Source Pulse Rate 99 H 99 H Pulse Rate from SpO2 Sensor 109 H Respiratory Rate 19 18 Respiratory Effort / Characteristics Respiratory Depth Respiratory Pattern Blood Pressure 61/46 L Blood Pressure Mean 52 Pulse Oximetry 93 69 L Oxygen Delivery Method Sepsis Recent Fever Within 48 Hours Sepsis New/Unexplained Change in Mental Status Sepsis Action Taken by Nursing 04/27/23 15:31 04/27/23 15:31 04/27/23 16:00 Temperature Temperature Source Pulse Rate 106 H 133 H Pulse Rate from SpO2 Sensor Respiratory Rate 21 20 Respiratory Effort / Characteristics Respiratory Depth Respiratory Pattern Blood Pressure 155/86 H Blood Pressure Mean 114 Pulse Oximetry Oxygen Delivery Method Sepsis Recent Fever Within 48 Hours Sepsis New/Unexplained Change in Mental Status Sepsis Action Taken by Nursing 04/27/23 16:01 04/27/23 16:01 Temperature Temperature Source Pulse Rate 123 H Pulse Rate from SpO2 Sensor Respiratory Rate 25 H Respiratory Effort / Characteristics Respiratory Depth Respiratory Pattern Blood Pressure 126/101 H Blood Pressure Mean 107 Pulse Oximetry Oxygen Delivery Method Sepsis Recent Fever Within 48 Hours Sepsis New/Unexplained Change in Mental Status Sepsis Action Taken by Snf Medications Current Medication List: was personally reviewed by me Laboratory Data Attestation: I reviewed the patient's lab results. 04/27/23 14:55 04/27/23 14:55 Lab Results 04/27/23 04/27/23 04/27/23 Range/Units 14:55 14:55 14:55 WBC 31.06 H* D (4.8-10.8) K/ul RBC 4.10 L (4.70-6.10) M/uL Hgb 13.7 L (14.0-18.0) g/dl Hct 40.3 L (42.0-52.0) % MCV 98.3 (80.0-100.0) fL MCH 33.4 (25.0-34.0) pg MCHC 34.0 (32.0-36.0) g/dL RDW Std Deviation 45.5 (36.4-46.3) fL RDW Coeff of Alisha 12.8 (11.5-14.5) % Plt Count 206 (130-400) K/uL MPV 10.3 (9.4-12.4) fL Immature Gran % (Auto) 1.2 % Neut % (Auto) 85.0 % Lymph % (Auto) 8.4 % Collier % (Auto) 5.0 % Eos % (Auto) 0.1 % Baso % (Auto) 0.3 % Neut # (Auto) 26.40 H (1.40-6.50) K/uL Lymph # (Auto) 2.61 (1.2-3.4) K/uL Collier # (Auto) 1.56 H (0.11-0.59) K/uL Eos # (Auto) 0.02 (0-0.50) K/uL Baso # (Auto) 0.09 (0-0.2) K/uL Immature Gran # (Auto) 0.38 H (0.01-0.20) K/uL PT 12.0 (9.0-12.0) Seconds INR 1.1 (0.9-1.1) APTT 29.5 (21.0-31.0) Seconds PTT Ratio 1.0 Sodium 137 (136-145) mmol/L Potassium 4.2 (3.5-5.1) mmol/L Chloride 101 (98-107) mmol/L Carbon Dioxide 27 (21-32) mmol/L Anion Gap 9 (3-11) BUN 31 H (6-23) mg/dl Creatinine 1.55 H (0.6-1.4) mg/dl Est Cr Clr Drug Dosing Not Reportable Est GFR ( Amer) 45.3 ml/min Est GFR (Non-Af Amer) 39.1 ml/min BUN/Creatinine Ratio 20.0 (10-20) Glucose 112 H (70-99(Fasting)) mg/dl Lactate (0.4-2.0) mmol/L Calcium 9.4 (8.6-10.3) mg/dl Magnesium 2.0 (1.7-2.4) mg/dl Total Bilirubin 1.4 H D (0.2-1.0) mg/dl Direct Bilirubin 0.3 H (0-0.2) mg/dl AST 24 (13-39) U/L ALT 13 (7-52) U/L Alkaline Phosphatase 64 (34-104) U/L Troponin I High Sens 22.1 H (0-20) pg/ml Total Protein 7.1 (6.0-8.3) gm/dl Albumin 4.1 (3.4-5.0) gm/dl Lipase 9 L (11-82) U/L Procalcitonin (0-0.5) ng/ml SARS-CoV-2, RNA, NAAT (NEGATIVE) 04/27/23 04/27/23 04/27/23 Range/Units 14:55 16:28 16:42 WBC (4.8-10.8) K/ul RBC (4.70-6.10) M/uL Hgb (14.0-18.0) g/dl Hct (42.0-52.0) % MCV (80.0-100.0) fL MCH (25.0-34.0) pg MCHC (32.0-36.0) g/dL RDW Std Deviation (36.4-46.3) fL RDW Coeff of Alisha (11.5-14.5) % Plt Count (130-400) K/uL MPV (9.4-12.4) fL Immature Gran % (Auto) % Neut % (Auto) % Lymph % (Auto) % Collier % (Auto) % Eos % (Auto) % Baso % (Auto) % Neut # (Auto) (1.40-6.50) K/uL Lymph # (Auto) (1.2-3.4) K/uL Collier # (Auto) (0.11-0.59) K/uL Eos # (Auto) (0-0.50) K/uL Baso # (Auto) (0-0.2) K/uL Immature Gran # (Auto) (0.01-0.20) K/uL PT (9.0-12.0) Seconds INR (0.9-1.1) APTT (21.0-31.0) Seconds PTT Ratio Sodium (136-145) mmol/L Potassium (3.5-5.1) mmol/L Chloride (98-107) mmol/L Carbon Dioxide (21-32) mmol/L Anion Gap (3-11) BUN (6-23) mg/dl Creatinine (0.6-1.4) mg/dl Est Cr Clr Drug Dosing Est GFR ( Amer) ml/min Est GFR (Non-Af Amer) ml/min BUN/Creatinine Ratio (10-20) Glucose (70-99(Fasting)) mg/dl Lactate 2.2 H* (0.4-2.0) mmol/L Calcium (8.6-10.3) mg/dl Magnesium (1.7-2.4) mg/dl Total Bilirubin (0.2-1.0) mg/dl Direct Bilirubin (0-0.2) mg/dl AST (13-39) U/L ALT (7-52) U/L Alkaline Phosphatase (34-104) U/L Troponin I High Sens (0-20) pg/ml Total Protein (6.0-8.3) gm/dl Albumin (3.4-5.0) gm/dl Lipase (11-82) U/L Procalcitonin 0.82 H (0-0.5) ng/ml SARS-CoV-2, RNA, NAAT NEGATIVE (NEGATIVE) Administered Medications Lactated Ringer's (Lr) 1,000 mls @ 125 mls/hr IV .Q8H JOSH Stop: 05/27/23 19:57 Last Admin: 04/27/23 20:47 Dose: 125 mls/hr Documented By: CEDRIC Discontinued Medications Cefepime HCl (Maxipime) 2,000 mg in 20 mls @ 5 mls/min IV NOW STA; Protocol Stop: 04/27/23 15:14 Last Admin: 04/27/23 16:07 Dose: 5 mls/min Documented By: ADELAIDE Sodium Chloride (Nss 1000ml) 1,000 mls @ 999 mls/hr IV .Q1H1M JOSH Stop: 04/27/23 16:15 Last Infusion: 04/27/23 17:23 Dose: 0 mls/hr Documented By: Admin: 04/27/23 15:26 Dose: 999 mls/hr Documented By: DAVID Metronidazole (Flagyl) 500 mg in 100 mls @ 100 mls/hr IV NOW STA; Protocol Stop: 04/27/23 18:33 Last Infusion: 04/27/23 19:31 Dose: 0 mls/hr Documented By: Admin: 04/27/23 18:31 Dose: 100 mls/hr Documented By: AM Lactated Ringer's (Lr) 2,000 mls @ 999 mls/hr IV .Q2H1M ONE Stop: 04/27/23 19:48 Last Infusion: 04/27/23 20:50 Dose: 0 mls/hr Documented By: Admin: 04/27/23 18:31 Dose: 999 mls/hr Documented By: AM Imaging Data Radiologist's Impression: Abdomen/Pelvis CT 04/27/23 15:[address] WITHOUT CONTRAST CT DOSE: 1536.11 mGy.cm HISTORY: Generalized abdominal pain. Fever. TECHNIQUE: Multiaxial CT images of the abdomen and pelvis were performed without contrast. A dose lowering technique was utilized adhering to the principles of ALARA. COMPARISON STUDY: Abdomen and pelvis CT 04/26/2023. FINDINGS: Mild dependent changes seen at the lung bases. No pneumoperitoneum. No pneumatosis. No acute fractures. There are poststernotomy changes. There is a small hiatus hernia. Tiny fat-containing bilateral inguinal hernias. A stable 7 mm hypodense lesion within the left hepatic lobe. This favors a cyst. Hepatic steatosis. The unenhanced spleen, adrenal glands, and pancreas are unremarkable. Stable right renal cyst. There is an indeterminate exophytic 1.3 cm lesion within the lower pole of the right kidney. However, this remains stable compared to 2020 examination. Renal vascular calcifications are again noted. No hydronephrosis. There is a 3 mm nonobstructing stone within the distal left ureter on image 298. The gallbladder is mildly distended and demonstrates mild gallbladder wall thickening. There is mild pericholecystic inflammatory change and a few small gallstones. This is new from the prior study and is consistent with acute cholecystitis. There is a normal caliber common bile duct. Normal caliber abdominal aorta. No retroperitoneal lymphadenopathy. No pelvic lymphadenopathy or pelvic free fluid. Minimal inflammatory change surrounding the enlarged prostate gland. This remains unchanged. The bladder is unremarka ble. Suboptimal evaluation for bowel pathology due to the lack of intravenous and oral contrast. However, there is no definite bowel wall thickening or obstruction. Colonic diverticulosis. No evidence for acute epididymitis. Normal appendix. IMPRESSION: 1. Above findings consistent with acute cholecystitis. Surgical consultation recommended. 2. There is a 3 mm nonobstructing stone within the distal left ureter. No hydronephrosis. 3. Additional findings as described above. ACT 112: Negative or not required by law. Electronically signed by: Jose Wood M.D. 04/27/2023 5:00 PM Chest X-Ray 04/27/23 15:11 SINGLE VIEW CHEST CLINICAL HISTORY: Sepsis. FINDINGS: An AP, portable, upright chest radiograph is compared to study dated 04/26/2023. The examination is degraded by portable technique and apical lordotic positioning. The patient is status post midline sternotomy. The heart is enlarged noting atherosclerotic calcification of the thoracic aorta. The pulmonary vasculature is noncongested. Chronic interstitial thickening similar to previous. There is bibasilar scarring/atelectasis. No airspace consolidation or large pleural effusion is identified. No pneumothorax is seen. The skeletal structures are osteopenic. The bony thorax is grossly intact. IMPRESSION: Cardiomegaly with no active disease in the chest. ACT 112: Negative or not required by law. Electronically signed by: Marino Rothman M.D. 04/27/2023 3:54 PM Discharge Plan Visit Data Chief Complaint: Altered Mental Status ED Provider: Marino Cruz Discharge Problem: Sepsis, Acute cholecystitis, Altered mental status, Leukocytosis, Elevated liver enzymes Patient Disposition: Admitted As Inpatient Condition: Serious Discharge Instructions Interventions: ED Discharge Assessment Last Done: 04/27/23 19:58
--- NOTE | 2023-04-27 15:56 | XRay Report ---
SINGLE VIEW CHEST CLINICAL HISTORY: Sepsis. FINDINGS: An AP, portable, upright chest radiograph is compared to study dated 04/26/2023. The examina tion is degraded by portable technique and apical lordotic positioning. The patient is status post mi dline sternotomy. The heart is enlarged noting atherosclerotic calcification of the thoracic aorta. T he pulmonary vasculature is noncongested. Chronic interstitial thickening similar to previous. There is bibasilar scarring/atelectasis. No airspace consolidation or large pleural effusion is identified. No pneumothorax is seen. The skeletal structures are osteopenic. The bony thorax is grossly intact. IMPRESSION: Cardiomegaly with no active disease in the chest. ACT 112: Negative or not required by law. Electronically signed by: Marino Rothman M.D. 04/27/2023 3:54 PM
[2023-04-27 16:01] LABS: Alanine Aminotransferase 13 U/L (7-52); Albumin Level 4.1 gm/dl (3.4-5.0); Alkaline Phosphatase 64 U/L (34-104); Anion Gap 9 (3-11); Aspartate Aminotransferase 24 U/L (13-39); Bilirubin Direct 0.3 mg/dl (0-0.2); Bilirubin,Total 1.4 mg/dl (0.2-1.0); Blood Urea Nitrogen 31 mg/dl (6-23); Calcium 9.4 mg/dl (8.6-10.3); Carbon Dioxide 27 mmol/L (21-32); Chloride 101 mmol/L (98-107); Est GFR (African American) 45.3 ml/min; Est GFR (Non-African American) 39.1 ml/min; Glucose 112 mg/dl (70-99(Fasting)); Potassium 4.2 mmol/L (3.5-5.1); Sodium 137 mmol/L (136-145); Total Protein 7.1 gm/dl (6.0-8.3); Troponin I High Sensitivity 22.1 pg/ml (0-20)
[2023-04-27 16:05] LABS: INR 1.1 (0.9-1.1); Partial Thromboplastin Time 29.5 Seconds (21.0-31.0)
[2023-04-27 16:13] LABS: Basophils # (auto) 0.09 K/uL (0-0.2); Basophils % (auto) 0.3 %; Eosinophils # (auto) 0.02 K/uL (0-0.50); Eosinophils % (auto) 0.1 %; Hematocrit (blood only) 40.3 % (42.0-52.0); Hemoglobin 13.7 g/dl (14.0-18.0); Immature Granulocytes # (auto) 0.38 K/uL (0.01-0.20); Immature Granulocytes % (auto) 1.2 %; Lymphocytes # (auto) 2.61 K/uL (1.2-3.4); Lymphocytes % (auto) 8.4 %; Mean Corpuscular Hemoglobin 33.4 pg (25.0-34.0); Mean Corpuscular Volume 98.3 fL (80.0-100.0); Mean Platelet Volume 10.3 fL (9.4-12.4); Monocytes # (auto) 1.56 K/uL (0.11-0.59); Platelet Count 206 K/uL (130-400); RDW Coefficient of Variation 12.8 % (11.5-14.5); RDW Standard Deviation 45.5 fL (36.4-46.3); White Blood Count 31.06 K/ul (4.8-10.8)
[2023-04-27 16:39] LABS: Lipase 9 U/L (11-82)
--- NOTE | 2023-04-27 17:01 | CT Scan Report ---
ABDOMEN AND PELVIS CT WITHOUT CONTRAST CT DOSE: 1536.11 mGy.cm HISTORY: Generalized abdominal pain. Fever. TECHNIQUE: Multiaxial CT images of the abdomen and pelvis were performed without contrast. A dose lo wering technique was utilized adhering to the principles of ALARA. COMPARISON STUDY: Abdomen and pelvis CT 04/26/2023. FINDINGS: Mild dependent changes seen at the lung bases. No pneumoperitoneum. No pneumatosis. No acut e fractures. There are poststernotomy changes. There is a small hiatus hernia. Tiny fat-containing bi lateral inguinal hernias. A stable 7 mm hypodense lesion within the left hepatic lobe. This favors a cyst. Hepatic steatosis. The unenhanced spleen, adrenal glands, and pancreas are unremarkable. Stable right renal cyst. There is an indeterminate exophytic 1.3 cm lesion within the lower pole of the rig ht kidney. However, this remains stable compared to 2019 examination. Renal vascular calcifications a re again noted. No hydronephrosis. There is a 3 mm nonobstructing stone within the distal left ureter on image 298. The gallbladder is mildly distended and demonstrates mild gallbladder wall thickening. There is mild pericholecystic inflammatory change and a few small gallstones. This is new from the p rior study and is consistent with acute cholecystitis. There is a normal caliber common bile duct. No rmal caliber abdominal aorta. No retroperitoneal lymphadenopathy. No pelvic lymphadenopathy or pelvic free fluid. Minimal inflammatory change surrounding the enlarged prostate gland. This remains unchan ged. The bladder is unremarkable. Suboptimal evaluation for bowel pathology due to the lack of intrav enous and oral contrast. However, there is no definite bowel wall thickening or obstruction. Colonic diverticulosis. No evidence for acute epididymitis. Normal appendix. IMPRESSION: 1. Above findings consistent with acute cholecystitis. Surgical consultation recommended. 2. There is a 3 mm nonobstructing stone within the distal left ureter. No hydronephrosis. 3. Additional findings as described above. ACT 112: Negative or not required by law. Electronically signed by: Jose Wood M.D. 04/27/2023 5:00 PM
[2023-04-27] MEDS ORDERED: metroNIDAZOLE 500 MG/100 ML BAG IV STA (17:34)
--- NOTE | 2023-04-27 17:34 | Electrocardiogram Report ---
Test Reason : Blood Pressure : / mmHG Vent. Rate : 092 BPM Atrial Rate : 000 BPM P-R Int : 000 ms QRS Dur : 092 ms QT Int : 314 ms P-R-T Axes : 000 -16 254 degrees QTc Int : 388 ms Poor data quality, interpretation may be adversely affected Atrial fibrillation Diffuse Nonspecific T wave abnormality Abnormal ECG When compared with ECG of 26-APR-2023 22:02, No significant change Confirmed by Ankur Barrientos ([id number]) on 04/27/2023 5:33:58 PM Referred By: REFERRED SELF Confirmed By:Ankur Barrientos
[2023-04-27] MEDS ORDERED: LACTATED RINGER'S 2,000 ML IV ONE (17:48)
--- NOTE | 2023-04-27 17:53 | History & Physical Report ---
Date of Service April 27, 2023 Assessment & Plan (1) Sepsis: Plan: Source: acute lavon Lactate 2.2, repeat pending. NSS 1L bolus ordered in the ER, additional 2L LR bolus now. LR @ 125ml/hr overnight, NPO, hold apixaban Ceftriaxone + metronidazole IV for antibiotics Consult general surgery (2) Acute cholecystitis: (3) History of CVA (cerebrovascular accident) without residual deficits: Plan: Suspect dysphasia out of proportion due to prior CVA in this area, however CT head ordered to r/o hemorrhagic stroke (4) History of coronary artery bypass graft x 3: Plan: No chest pain or shortness of breath on exertion although patients dementia limits quality of this information, last cardiology note in April 12 reports stable from cardiac perspective. Holding Eliquis for surgical/radiology intervention Continue metoprolol Continue simvastatin Anti-hypertensives on hold due to acute infection (5) Asthma: Plan: Stable, no acute exacerbation suspected Continue Dulera or hospital formulary equivalent (6) Hypothyroidism: Plan: TSH WNL in December Continue levothyroxine (7) Hypertension: Plan: Hold lisinopril. Continue metoprolol to avoid rebound tachycardia (8) Paroxysmal atrial fibrillation: Plan: Currently in atrial fibrillation on admission Eliquis on hold for surgery vs. percutaneous lavon Continue rate control with metoprolol (9) Dementia: Plan: High risk of delirium. Re-orientate. Use anti-psychotics as needed. Plan VTE Prophylaxis - hold Eliquis Diet - NPO Disposition - admit to PCU Admission and Anticipated Discharge Date Admission Date: April 27, 2023 History of Present Illness Chief Complaint: Abdominal pain, confusion Primary Care Provider: Yohannes Goyal MD Vamshi Mac is an 87 year old male who presents to the ER with abdominal pain, generalized weakness and increased confusion. Unable to get any history from patient due to dementia. Symptoms started last night around 8pm. His actually brought him to the ER and he had a unremarkable workup. He was offered observation overnight but declined and she took him home. Since then he slept for 12 hours which is unusual for him. He was much more confused and generally weak this morning therefore called EMS. Repeat CT was concerning for acute cholecystitis with a much worse WBC since yesterday and slightly elevated AST. N ot yet produced a urine sample in the ER and fighting RN when trying to place gonzales catheter. Allergies Allergy/AdvReac Type Severity Reaction Status Date / Time Iodinated Contrast Media Allergy Unknown UNKNOWN - Verified 04/27/23 17:28 TWIN BROTHER HAS AND WAS TOLD HE MIGHT Home Medications Medication Instructions Recorded Confirmed Type cholecalciferol (vitamin D3) 50 2,000 units PO QAM 07/01/19 04/27/23 History mcg (2,000 unit) capsule albuterol sulfate 90 mcg/actuation 2 puff inhalation Q4H PRN 06/09/21 04/27/23 Rx aerosol inhaler (ProAir HFA) shortness of breath or wheezing #3 Inhalers mometasone-formoterol HFA 100 2 puff inhalation BID #13 grams 06/22/21 04/27/23 Rx mcg-5 mcg/actuation aerosol inhaler (Dulera) aspirin 81 mg tablet,delayed 81 mg PO QAM #30 tabs 12/30/21 04/27/23 Rx release lisinopril 5 mg tablet 2.5 mg PO DAILY #90 tabs 06/06/22 04/27/23 Rx metoprolol succinate 25 mg 25 mg PO BID #180 tabs 07/11/22 04/27/23 Rx tablet,extended release 24 hr simvastatin 40 mg tablet 40 mg PO QPM #90 tabs 08/31/22 04/27/23 Rx acetaminophen 650 mg 650 mg PO Q8H PRN pain #60 tabs 12/06/22 04/27/23 Rx tablet,extended release (Tylenol Arthritis Pain) apixaban 5 mg tablet (Eliquis) 5 mg PO BID #180 tabs 12/06/22 04/27/23 Rx fluticasone propionate 50 2 spray intranasal DAILY PRN 04/26/23 04/27/23 History mcg/actuation nasal .allergies spray,suspension (Allergy Relief (fluticasone)) triamterene 37.5 1 tab PO DAILY 04/26/23 04/27/23 History mg-hydrochlorothiazide 25 mg tablet levothyroxine 112 mcg tablet 112 mcg PO DAILYBB 04/27/23 04/27/23 History Past Med/Surg History Medical History Arthritis HANDS Asthma stable BPH without obstruction/lower urinary tract symptoms Cognitive impairment "MEMORY ISSUES" - REPORTS DR'Xavi ARE AWARE Coronary artery disease s/p CABG x 3 (2012) Environmental allergies History of TIA (transient ischemic attack) 10+ years ago Hyperlipemia Hypertension Hypothyroidism Kidney stone PT REPORTS CURRENT KIDNEY STONE LEFT SIDE, KIDNEY CYST RIGHT SIDE Obesity Recurrent nephrolithiasis Renal cyst, acquired R Right nephrolithiasis Surgical History History of anesthesia reaction WITH CABG PT AGITATED WITH TUBE DOWN THE THROAT History of cardiac cath 2013...[place] History of cataract surgery RIGHT AND LEFT History of colonoscopy History of coronary artery bypass graft x 3 History of lithotripsy History of umbilical hernia repair Status post nasal endoscopy with nasal polypectomy Family History Brother Diabetes Coronary heart disease Heart disease Stroke Family history of colon cancer Father , age 67 of a stroke Hypertension Stroke Mother , age 87 with dementia Hearing loss Alzheimer disease Grandfather Allergies Other Asthma Denies family history of Clotting disorder Social History Smoking Status: Former smoker Age Quit Using Tobacco: 32; packs per day: 1; Second Hand Exposure: No; Do You Dip or Chew Tobacco: No; Tobacco Cessation Education Requested by Patient: No Hx Alcohol Use: Yes Alcohol type: wine Hx Substance Use: No Preferred Language: Divehi Communication Ability: Effective Communication Ability Comment: PT VERY HARD OF HEARING Bed Laster Required: No Beliefs That Will Affect Care: None marital status: Current Living Situation: Spouse current occupational status: retired 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 Feels Safe at Home: Yes Safety Concerns: Feels Safe At This Time Childhood Exposure to Second-Hand Smoke: No Assistive Devices: Glasses and Hearing Aid - Bilateral Review of Systems Review of Systems: Unobtainable due to cognitive status Physical Exam Constitutional: WD/WN, vitals as above Eyes: PERRL, conjunctivae normal, anicteric sclerae Respiratory: normal respiratory effort, lungs clear to auscultation Cardiovascular: Rate/Rhythm: regular rhythm and + tachycardic Heart Sounds: no murmur Extremities: normal capillary refill and + pedal edema (1+ b/l equal); no calf tenderness Gastrointestinal (Abdomen): Inspection/Auscultation: abdomen normal to inspection; abdomen not distended Percussion/Palpation: + abdomen tender (RUQ tenderness), + guarding and abdomen soft; abdomen not rigid Neurologic: moves all extremities, awake and + confused Speech / Cognition: + abnormal speech (dysphasia out of proportion to generalized confusion) Cranial Nerves: normal facial strength Psychiatric: Orientation: alert; + not oriented x 3 Results & Data Results & Data Vital Signs (Past 12 Hours) Vital Signs Temp Pulse Resp BP Pulse Ox O2 Del Method 04/27/23 16:01 123 H 25 H 04/27/23 16:01 126/101 H 04/27/23 16:00 133 H 20 04/27/23 15:31 106 H 21 04/27/23 15:31 155/86 H 04/27/23 15:30 99 H 18 69 L 04/27/23 15:30 61/46 L 04/27/23 15:05 99 H 19 93 04/27/23 16:06 97 Room Air 04/27/23 15:08 100 H 04/27/23 14:52 37.1 C 96 H 20 139/76 93 Room Air Laboratory Results Abnormal lab results 04/27/23 04/27/23 04/27/23 Range/Units 14:55 14:55 14:55 WBC 31.06 H* D (4.8-10.8) K/ul RBC 4.10 L (4.70-6.10) M/uL Hgb 13.7 L (14.0-18.0) g/dl Hct 40.3 L (42.0-52.0) % Neut # (Auto) 26.40 H (1.40-6.50) K/uL [place] # (Auto) 1.56 H (0.11-0.59) K/uL Immature Gran # (Auto) 0.38 H (0.01-0.20) K/uL BUN 31 H (6-23) mg/dl Creatinine 1.55 H (0.6-1.4) mg/dl Glucose 112 H (70-99(Fasting)) mg/dl Lactate (0.4-2.0) mmol/L Total Bilirubin 1.4 H D (0.2-1.0) mg/dl Direct Bilirubin 0.3 H (0-0.2) mg/dl Troponin I High Sens 22.1 H (0-20) pg/ml Lipase 9 L (11-82) U/L Procalcitonin 0.82 H (0-0.5) ng/ml 04/27/23 Range/Units 16:28 WBC (4.8-10.8) K/ul RBC (4.70-6.10) M/uL Hgb (14.0-18.0) g/dl Hct (42.0-52.0) % Neut # (Auto) (1.40-6.50) K/uL [place] # (Auto) (0.11-0.59) K/uL Immature Gran # (Auto) (0.01-0.20) K/uL BUN (6-23) mg/dl Creatinine (0.6-1.4) mg/dl Glucose (70-99(Fasting)) mg/dl Lactate 2.2 H* (0.4-2.0) mmol/L Total Bilirubin (0.2-1.0) mg/dl Direct Bilirubin (0-0.2) mg/dl Troponin I High Sens (0-20) pg/ml Lipase (11-82) U/L Procalcitonin (0-0.5) ng/ml Diagnostic Findings SINGLE VIEW CHEST CLINICAL HISTORY: Sepsis. FINDINGS: An AP, portable, upright chest radiograph is compared to study dated 04/26/2023. The examination is degraded by portable technique and apical lordotic positioning. The patient is status post midline sternotomy. The heart is enlarged noting atherosclerotic calcification of the thoracic aorta. The pulmonary vasculature is noncongested. Chronic interstitial thickening similar to previous. There is bibasilar scarring/atelectasis. No airspace consolidation or large pleural effusion is identified. No pneumothorax is seen. The skeletal structures are osteopenic. The bony thorax is grossly intact. IMPRESSION: Cardiomegaly with no active disease in the chest. ABDOMEN AND PELVIS CT WITHOUT CONTRAST CT DOSE: 1536.11 mGy.cm HISTORY: Generalized abdominal pain. Fever. TECHNIQUE: Multiaxial CT images of the abdomen and pelvis were performed without contrast. A dose lowering technique was utilized adhering to the principles of ALARA. COMPARISON STUDY: Abdomen and pelvis CT 04/26/2023. FINDINGS: Mild dependent changes seen at the lung bases. No pneumoperitoneum. No pneumatosis. No acute fractures. There are poststernotomy changes. There is a small hiatus hernia. Tiny fat-containing bilateral inguinal hernias. A stable 7 mm hypodense lesion within the left hepatic lobe. This favors a cyst. Hepatic steatosis. The unenhanced spleen, adrenal glands, and pancreas are unremarkable. Stable right renal cyst. There is an indeterminate exophytic 1.3 cm lesion within the lower pole of the right kidney. However, this remains stable compared to 2020 examination. Renal vascular calcifications are again noted. No hydronephrosis. There is a 3 mm nonobstructing stone within the distal left ureter on image 298. The gallbladder is mildly distended and demonstrates mild gallbladder wall thickening. There is mild pericholecystic inflammatory change and a few small gallstones. This is new from the prior study and is consistent with acute cholecystitis. There is a normal caliber common bile duct. Normal caliber abdominal aorta. No retroperitoneal lymphadenopathy. No pelvic lymphadenopathy or pelvic free fluid. Minimal inflammatory change surrounding the enlarged prostate gland. This remains unchanged. The bladder is unremarkable. Suboptimal evaluation for bowel pathology due to the lack of intravenous and oral contrast. However, there is no definite bowel wall thickening or obstruction. Colonic diverticulosis. No evidence for acute epididymitis. Normal appendix. IMPRESSION: 1. Above findings consistent with acute cholecystitis. Surgical consultation recommended. 2. There is a 3 mm nonobstructing stone within the distal left ureter. No hydronephrosis. 3. Additional findings as described above. Medications Administered ER Medications Given: Cefepime 2g IV NSS 1L bolus ECG Rate (beats per minute): 92 Rhythm: atrial fibrillation Findings: + other (diffuse non-specific T wave abnormality) Comparison ECG Date: from (April 26, 2023) Change: no significant change Code Status & VTE Plan Code Status All treatment outside of a cardiac arrest VTE Prophylaxis Plan VTE Prophylaxis will be ordered: Yes PG Care Time/CCT Total # of Minutes Spent Total Time Spent with Patient: Total time spent is greater than 50% in coordination of care (as documented) at patient's floor/unit and/or counseling patient: Coding Level of Care Code 80084 INT INP/OBS CARE 3/75MIN Diagnoses Sepsis A41.9 Acute cholecystitis K81.0 History of CVA (cerebrovascular accident) without residual deficits Z86.73 History of coronary artery bypass graft x 3 Z95.1 Asthma J45.909 Hypothyroidism E03.9 Hypertension I10 Paroxysmal atrial fibrillation I48.0 Dementia F03.90
--- NOTE | 2023-04-27 18:47 | Surgery Consultation ---
Date of Consultation April 27, 2023 Assessment & Plan (1) Acute cholecystitis: (2) Sepsis: Plan 87-year-old gentleman with extensive past medical history presents with acute cholecystitis. White count is elevated along with LFTs. Lactic acid of 2.2. CT scan demonstrates evidence of acute cholecystitis. His last dose of Eliquis was last evening. He will need to hold the Eliquis for now. He requires resuscitation with fluids as well as initiation of IV antibiotics. Ceftriaxone and Flagyl have been started. Given his age, dementia, other medical problems, and the findings on CT scan, he is quite high risk for surgery. I long discussion with his about potential surgery versus other options for the acute cholecystitis. I discussed with radiology the possibility of percutaneous cholecystostomy tube in the morning. He may require Kcentra administration prior to any procedure. We will observe him closely. If he decompensates during the night, he will require immediate operative intervention. We will follow along. His is agreeable with the plan. History of Present Illness Reason for Consultation: Acute cholecystitis Requesting Physician: Marino Cruz MD Attending Physician: Marino Cruz MD History of Present Illness 87-year-old gentleman with an extensive cardiac history including CABG x3 10 years ago, A-fib on Eliquis, TIA, dementia presents with a 2-day history of upper abdominal pain and decreasing mental acuity. He was seen in the emergency department yesterday at which point a CT scan was negative and labs were negative. He was given the option of observation or discharge. He was discharged to home, but according to his all morning he slept, and his mental acuity has deteriorated. He last ate yesterday. He has not had a fever. He had a repeat CT scan which demonstrates inflammation around his gallbladder with distention. White blood cell count is 30. LFTs are slightly elevated, and lactic acid is 2.2. He last had Eliquis yesterday evening. Allergies Allergy/AdvReac Type Severity Reaction Status Date / Time Iodinated Contrast Media Allergy Unknown UNKNOWN - Verified 04/27/23 17:28 TWIN BROTHER HAS AND WAS TOLD HE MIGHT Home Medications Medication Instructions Recorded Confirmed Type cholecalciferol (vitamin D3) 50 2,000 units PO QAM 07/01/19 04/27/23 History mcg (2,000 unit) capsule albuterol sulfate 90 mcg/actuation 2 puff inhalation Q4H PRN 06/09/21 04/27/23 Rx aerosol inhaler (ProAir HFA) shortness of breath or wheezing #3 Inhalers mometasone-formoterol HFA 100 2 puff inhalation BID #13 grams 06/22/21 04/27/23 Rx mcg-5 mcg/actuation aerosol inhaler (Dulera) aspirin 81 mg tablet,delayed 81 mg PO QAM #30 tabs 12/30/21 04/27/23 Rx release lisinopril 5 mg tablet 2.5 mg PO DAILY #90 tabs 06/06/22 04/27/23 Rx metoprolol succinate 25 mg 25 mg PO BID #180 tabs 07/11/22 04/27/23 Rx tablet,extended release 24 hr simvastatin 40 mg tablet 40 mg PO QPM #90 tabs 08/31/22 04/27/23 Rx acetaminophen 650 mg 650 mg PO Q8H PRN pain #60 tabs 12/06/22 04/27/23 Rx tablet,extended release (Tylenol Arthritis Pain) apixaban 5 mg tablet (Eliquis) 5 mg PO BID #180 tabs 12/06/22 04/27/23 Rx fluticasone propionate 50 2 spray intranasal DAILY PRN 04/26/23 04/27/23 History mcg/actuation nasal .allergies spray,suspension (Allergy Relief (fluticasone)) triamterene 37.5 1 tab PO DAILY 04/26/23 04/27/23 History mg-hydrochlorothiazide 25 mg tablet levothyroxine 112 mcg tablet 112 mcg PO DAILYBB 04/27/23 04/27/23 History Patient History Medical History Arthritis HANDS Asthma stable BPH without obstruction/lower urinary tract symptoms Cognitive impairment "MEMORY ISSUES" - REPORTS DR'Xavi ARE AWARE Coronary artery disease s/p CABG x 3 (2012) Environmental allergies History of TIA (transient ischemic attack) 10+ years ago Hyperlipemia Hypertension Hypothyroidism Kidney stone PT REPORTS CURRENT KIDNEY STONE LEFT SIDE, KIDNEY CYST RIGHT SIDE Obesity Recurrent nephrolithiasis Renal cyst, acquired R Right nephrolithiasis Surgical History History of anesthesia reaction WITH CABG PT AGITATED WITH TUBE DOWN THE THROAT History of cardiac cath 2013...[place] History of cataract surgery RIGHT AND LEFT History of colonoscopy History of coronary artery bypass graft x 3 History of lithotripsy History of umbilical hernia repair Status post nasal endoscopy with nasal polypectomy Family History Brother Diabetes Coronary heart disease Heart disease Stroke Family history of colon cancer Father , age 67 of a stroke Hypertension Stroke Mother , age 87 with dementia Hearing loss Alzheimer disease Grandfather Allergies Other Asthma Denies family history of Clotting disorder Social History Smoking Status: Former smoker Age Quit Using Tobacco: 32; packs per day: 1; Second Hand Exposure: No; Do You Dip or Chew Tobacco: No; Hx Alcohol Use: Yes Alcohol type: hard liquor Hx Substance Use: No Preferred Language: Mohawk Communication Ability: Effective Communication Ability Comment: PT VERY HARD OF HEARING Ditch Repairer Required: No Beliefs That Will Affect Care: None marital status: Current Living Situation: Spouse current occupational status: retired 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 Feels Safe at Home: Yes Childhood Exposure to Second-Hand Smoke: No Assistive Devices: None Review of Systems Review of Systems: All systems reviewed & are unremarkable except as noted in HPI & below Physical Exam Constitutional: well developed, + obese and comfortable Eyes: PERRL, conjunctivae normal, anicteric sclerae Neck: trachea midline, no thyromegaly Respiratory: normal respiratory effort; no respiratory distress and no labored breathing Cardiovascular: Rate/Rhythm: + tachycardic and + irregularly irregular Gastrointestinal (Abdomen): Inspection/Auscultation: abdomen normal to inspection; abdomen not distended Percussion/Palpation: + abdomen tender (RUQ/epigastrium) and abdomen soft; no guarding and abdomen not rigid Skin: no rashes, warm and dry Psychiatric: Orientation: alert and cooperative Results & Data Vital Signs (Past 12 Hours) Vital Signs Temp Pulse Resp BP Pulse Ox O2 Del Method 04/27/23 16:01 123 H 25 H 04/27/23 16:01 126/101 H 04/27/23 16:00 133 H 20 04/27/23 15:31 106 H 21 04/27/23 15:31 155/86 H 04/27/23 15:30 99 H 18 69 L 04/27/23 15:30 61/46 L 04/27/23 15:05 99 H 19 93 04/27/23 16:06 97 Room Air 04/27/23 15:08 100 H 04/27/23 14:52 37.1 C 96 H 20 139/76 93 Room Air Laboratory Results 04/27/23 04/27/23 04/27/23 Range/Units 16:42 16:28 14:55 WBC (4.8-10.8) K/ul RBC (4.70-6.10) M/uL Hgb (14.0-18.0) g/dl Hct (42.0-52.0) % MCV (80.0-100.0) fL MCH (25.0-34.0) pg MCHC (32.0-36.0) g/dL RDW Std Deviation (36.4-46.3) fL RDW Coeff of Alisha (11.5-14.5) % Plt Count (130-400) K/uL MPV (9.4-12.4) fL Immature Gran % (Auto) % Neut % (Auto) % Lymph % (Auto) % [place] % (Auto) % Eos % (Auto) % Baso % (Auto) % Neut # (Auto) (1.40-6.50) K/uL Lymph # (Auto) (1.2-3.4) K/uL [place] # (Auto) (0.11-0.59) K/uL Eos # (Auto) (0-0.50) K/uL Baso # (Auto) (0-0.2) K/uL Immature Gran # (Auto) (0.01-0.20) K/uL PT (9.0-12.0) Seconds INR (0.9-1.1) APTT (21.0-31.0) Seconds PTT Ratio Sodium (136-145) mmol/L Potassium (3.5-5.1) mmol/L Chloride (98-107) mmol/L Carbon Dioxide (21-32) mmol/L Anion Gap (3-11) BUN (6-23) mg/dl Creatinine (0.6-1.4) mg/dl Est Cr Clr Drug Dosing Est GFR ( Amer) ml/min Est GFR (Non-Af Amer) ml/min BUN/Creatinine Ratio (10-20) Glucose (70-99(Fasting)) mg/dl Lactate 2.2 H* (0.4-2.0) mmol/L Calcium (8.6-10.3) mg/dl Magnesium (1.7-2.4) mg/dl Total Bilirubin (0.2-1.0) mg/dl Direct Bilirubin (0-0.2) mg/dl AST (13-39) U/L ALT (7-52) U/L Alkaline Phosphatase (34-104) U/L Troponin I High Sens (0-20) pg/ml Total Protein (6.0-8.3) gm/dl Albumin (3.4-5.0) gm/dl Lipase (11-82) U/L Procalcitonin 0.82 H (0-0.5) ng/ml SARS-CoV-2, RNA, NAAT NEGATIVE (NEGATIVE) 04/27/23 04/27/23 04/27/23 Range/Units 14:55 14:55 14:55 WBC 31.06 H* D (4.8-10.8) K/ul RBC 4.10 L (4.70-6.10) M/uL Hgb 13.7 L (14.0-18.0) g/dl Hct 40.3 L (42.0-52.0) % MCV 98.3 (80.0-100.0) fL MCH 33.4 (25.0-34.0) pg MCHC 34.0 (32.0-36.0) g/dL RDW Std Deviation 45.5 (36.4-46.3) fL RDW Coeff of Alisha 12.8 (11.5-14.5) % Plt Count 206 (130-400) K/uL MPV 10.3 (9.4-12.4) fL Immature Gran % (Auto) 1.2 % Neut % (Auto) 85.0 % Lymph % (Auto) 8.4 % [place] % (Auto) 5.0 % Eos % (Auto) 0.1 % Baso % (Auto) 0.3 % Neut # (Auto) 26.40 H (1.40-6.50) K/uL Lymph # (Auto) 2.61 (1.2-3.4) K/uL [place] # (Auto) 1.56 H (0.11-0.59) K/uL Eos # (Auto) 0.02 (0-0.50) K/uL Baso # (Auto) 0.09 (0-0.2) K/uL Immature Gran # (Auto) 0.38 H (0.01-0.20) K/uL PT 12.0 (9.0-12.0) Seconds INR 1.1 (0.9-1.1) APTT 29.5 (21.0-31.0) Seconds PTT Ratio 1.0 Sodium 137 (136-145) mmol/L Potassium 4.2 (3.5-5.1) mmol/L Chloride 101 (98-107) mmol/L Carbon Dioxide 27 (21-32) mmol/L Anion Gap 9 (3-11) BUN 31 H (6-23) mg/dl Creatinine 1.55 H (0.6-1.4) mg/dl Est Cr Clr Drug Dosing Not Reportable Est GFR ( Amer) 45.3 ml/min Est GFR (Non-Af Amer) 39.1 ml/min BUN/Creatinine Ratio 20.0 (10-20) Glucose 112 H (70-99(Fasting)) mg/dl Lactate (0.4-2.0) mmol/L Calcium 9.4 (8.6-10.3) mg/dl Magnesium 2.0 (1.7-2.4) mg/dl Total Bilirubin 1.4 H D (0.2-1.0) mg/dl Direct Bilirubin 0.3 H (0-0.2) mg/dl AST 24 (13-39) U/L ALT 13 (7-52) U/L Alkaline Phosphatase 64 (34-104) U/L Troponin I High Sens 22.1 H (0-20) pg/ml Total Protein 7.1 (6.0-8.3) gm/dl Albumin 4.1 (3.4-5.0) gm/dl Lipase 9 L (11-82) U/L Procalcitonin (0-0.5) ng/ml SARS-CoV-2, RNA, NAAT (NEGATIVE) Diagnostic Findings ABDOMEN AND PELVIS CT WITHOUT CONTRAST CT DOSE: 1536.11 mGy.cm HISTORY: Generalized abdominal pain. Fever. TECHNIQUE: Multiaxial CT images of the abdomen and pelvis were performed without contrast. A dose lowering technique was utilized adhering to the principles of ALARA. COMPARISON STUDY: Abdomen and pelvis CT 04/26/2023. FINDINGS: Mild dependent changes seen at the lung bases. No pneumoperitoneum. No pneumatosis. No acute fractures. There are poststernotomy changes. There is a small hiatus hernia. Tiny fat-containing bilateral inguinal hernias. A stable 7 mm hypodense lesion within the left hepatic lobe. This favors a cyst. Hepatic steatosis. The unenhanced spleen, adrenal glands, and pancreas are unremarkable. Stable right renal cyst. There is an indeterminate exophytic 1.3 cm lesion within the lower pole of the right kidney. However, this remains stable compared to 2020 examination. Renal vascular calcifications are again noted. No hydronephrosis. There is a 3 mm nonobstructing stone within the distal left ureter on image 298. The gallbladder is mildly distended and demonstrates mild gallbladder wall thickening. There is mild pericholecystic inflammatory change and a few small gallstones. This is new from the prior study and is consistent with acute cholecystitis. There is a normal caliber common bile duct. Normal caliber abdominal aorta. No retroperitoneal lymphadenopathy. No pelvic lymphadenopathy or pelvic free fluid. Minimal inflammatory change surrounding the enlarged prostate gland. This remains unchanged. The bladder is unremarkable. Suboptimal evaluation for bowel pathology due to the lack of intravenous and oral contrast. However, there is no definite bowel wall thickening or obstruction. Colonic diverticulosis. No evidence for acute epididymitis. Normal appendix. IMPRESSION: 1. Above findings consistent with acute cholecystitis. Surgical consultation recommended. 2. There is a 3 mm nonobstructing stone within the distal left ureter. No hydronephrosis. 3. Additional findings as described above.
[2023-04-27] MEDS ORDERED: MoRPHine SULFATE 4 MG/ML 1 ML CARP\\VIAL IV PRN (19:58)
[2023-04-27] MEDS ORDERED: ONDANSETRON INJ 2 MG/ML 2 ML VIAL IV PRN (19:58)
[2023-04-27] MEDS: LACTATED RINGER'S 1,000 ML IV SCH (20:47)
--- NOTE | 2023-04-27 22:18 | CT Scan Report ---
Exam(s): CT HEAD Without Contrast EXAM: CT Head Without Intravenous Contrast CLINICAL HISTORY: Reason for exam: expressive dysphasia. TECHNIQUE: Axial computed tomography images of the head/brain without intravenous contrast. Automated exposure control was utilized for the study. A dose lowering technique was utilized adhering to the principles of ALARA. COMPARISON: No relevant prior studies available. FINDINGS: No acute intracranial hemorrhage. No midline shift or mass effect. The territorial alonso-white matter differentiation is maintained throughout. Age-related cerebral volume loss. Periventricular and subcortical white matter hypoattenuation, consistent with chronic microangiopathy. The visualized orbits appear grossly unremarkable. The calvarium is intact. Chronic RIGHT maxillary sinusitis. IMPRESSION: No acute intracranial hemorrhage, midline shift, or mass effect. Electronically signed by: David Ware MD 04/27/23 22:17 PM
[2023-04-27] MEDS: METOPROLOL SUCC 25MG EXT REL TAB PO SCH (22:25)
[2023-04-27] MEDS: SIMVASTATIN 40 MG TAB PO SCH (22:25)
--- NOTE | 2023-04-27 22:41 | Ultrasound Report ---
Exam(s): US LIVER EXAM: US Abdomen Limited CLINICAL HISTORY: Reason for exam: requested by surgery to confirm diagnosis of lavon. TECHNIQUE: Real-time ultrasound of the abdomen with image documentation. COMPARISON: No relevant prior studies available. FINDINGS: Gallbladder: Edematous gallbladder wall which is thickened and measures up to 1.1 cm. Layering gallbladder sludge. Mild pericholecystic free fluid. Findings are consistent with acute cholecystitis. Kidneys: RIGHT kidney measures 13 cm. IMPRESSION: Findings are consistent with acute cholecystitis. Electronically signed by: David Ware MD 04/27/23 22:40 PM
[2023-04-27] MEDS: ACETAMINOPHEN 1,000 MG/100 ML VIAL IV PRN (22:56)
[2023-04-27] MEDS: cefTRIAXone SODIUM 2,000 MG in DEXTROSE 5% 50 ML IV SCH (23:13)
[2023-04-27] MEDS ORDERED: OLANZapine 10 MG/2.1 ML SDV IM STA (23:44)
[2023-04-28] MEDS ORDERED: HALOPERIDOL LACTATE 5 MG/ML 1 ML VIAL IM STA (00:18)
[2023-04-28] MEDS ORDERED: LORazepam 2 MG/1 ML VIAL IV PRN (00:20)
[2023-04-28] MEDS ORDERED: diphenhydrAMINE 50 MG/ML VIAL IV STA (00:21)
[2023-04-28] MEDS ORDERED: MoRPHine SULFATE 2 MG/ML CARP IV PRN (00:26)
[2023-04-28] MEDS ORDERED: ZIPRASIDONE 20 MG/ML SDV IM STA (00:51)
--- NOTE | 2023-04-28 01:34 | Communication Note ---
Date of Service: April 28, 2023 I was informed by RN of pt trying to get out of bed despite fall precautions and was bladder scanned for over 500 ml PVR. I did order Kirkpatrick catheter placement but RN was unable to place catheter due to pt becoming combative and agitated. I was alerted that 3 staff members were required to physically restrain pt due to his agitation. I was called to evaluate. The pt did exhibit clear signs of hyperactive delirium upon my evaluation and he is known to have a history of dementia at baseline. Per discussion with general surgeon who was consulted, the pt's did state he would not be cooperative and has been delirious during past hospitalizations. I did witness him attempt to kick out and strike at the staff members, and pt was confused about his l ocation. He did display fear and suspicion and continued to ask the staff "what we are doing to him". Peripheral IV access was lost. I did order Zyprexa 2.5 mg IM which did not reduce the pt's agitation. I then ordered Haldol 5 mg IM along with Benadryl 25 mg IV. Shortly after administration of Haldol, I did witness the patient headbutt one of the RNs restraining him as he tried to obtain IV access once more. By this point, 5 staff members were needed to restrain him. I discussed with service manager the need for potential ICU sedation for worsening delirium and it was agreed upon to trial Ativan if further antipsychotics, including Geodon, did not work. The pt's agitation did begin to attenuate after Haldol administration. IV access was reobtained and Benadryl was administered. For increasing agitation, we will trial ziprasidone and then lorazepam before proceeding to ICU sedation.
[2023-04-28] MEDS: metroNIDAZOLE 500 MG/100 ML BAG IV SCH ×3 (05:39→19:15)
[2023-04-28] MEDS: LEVOTHYROXINE SODIUM 112 MCG TABLET PO SCH (05:39)
[2023-04-28 06:17] LABS: Hematocrit (blood only) 34.2 % (42.0-52.0); Hemoglobin 11.6 g/dl (14.0-18.0); Mean Corpuscular Hemoglobin 33.1 pg (25.0-34.0); Mean Corpuscular Hgb Conc 33.9 g/dL (32.0-36.0); Mean Corpuscular Volume 97.7 fL (80.0-100.0); Mean Platelet Volume 10.2 fL (9.4-12.4); Platelet Count 149 K/uL (130-400); RDW Coefficient of Variation 13.1 % (11.5-14.5); RDW Standard Deviation 46.4 fL (36.4-46.3)
[2023-04-28 06:24] LABS: Albumin Globulin Ratio 1.2 (0.9-2); Albumin Level 3.5 gm/dl (3.4-5.0); BUN Creatinine Ratio 18.3 (10-20); Bilirubin,Total 0.9 mg/dl (0.2-1.0); Calcium 8.9 mg/dl (8.6-10.3); Est GFR (Non-African American) 39.7 ml/min; Globulin 2.9 gm/dl (2.5-4.0); Potassium 3.8 mmol/L (3.5-5.1); Total Protein 6.4 gm/dl (6.0-8.3)
[2023-04-28 06:52] LABS: Basophils # (auto) 0.06 K/uL (0-0.2); Basophils % (auto) 0.2 %; Eosinophils # (auto) 0.12 K/uL (0-0.50); Eosinophils % (auto) 0.5 %; Immature Granulocytes # (auto) 0.53 K/uL (0.01-0.20); Immature Granulocytes % (auto) 2.1 %; Lymphocytes # (auto) 1.42 K/uL (1.2-3.4); Lymphocytes % (auto) 5.7 %; Monocytes % (auto) 4.8 %; Neutrophils # (auto) 21.67 K/uL (1.40-6.50); Neutrophils % (auto) 86.7 %
[2023-04-28] MEDS ORDERED: METOPROLOL TARTRATE 1 MG/ML VIAL IV PRN (10:28)
[2023-04-28] MEDS: FLUTICASONE/VILANTEROL 100/25MCG 14 PUFFS/INHALER INH SCH (10:48)
--- NOTE | 2023-04-28 11:04 | Surgery Progress Note ---
Date of Service April 28, 2023 Assessment & Plan (1) Acute cholecystitis: (2) Sepsis: Plan 87-year-old gentleman with extensive past medical history presents with acute cholecystitis. 04/28/2023 afebrile, leukocytosis improved but still markedly elevated, lactic acid up to 4.8 (2.2) Plan:Given his age, dementia, other medical problems, and the findings on CT scan, he is quite high risk for surgery. Will discuss with hospitalist team and IR BECCA May about proceeding with placement of percutaneous cholecystotomy tube today if can reverse Eliquis with Kcentra. Continue NPO continue medical management Dr. Tello has seen and examined pt, agrees with above. Admission and Anticipated Discharge Date Admission Date: April 27, 2023 Subjective patient lying in bed, at bedside with soft restraints on. Still very agitated, unable to obtain ROS states they were finally able to put in a Kirkpatrick catheter and get blood work this morning but was still difficult. Physical Exam Constitutional: + ill appearing, + frail appearing and + overweight; no acute distress and not in distress Respiratory: normal respiratory effort; no respiratory distress Gastrointestinal (Abdomen): Inspection/Auscultation: abdomen normal to inspection; abdomen not distended Percussion/Palpation: + abdomen tender (generalized abdomen but more in RUQ) and abdomen soft; no guarding, abdomen not rigid and abdomen not firm Skin: no rashes, warm and dry no jaundice Psychiatric: Orientation: alert; + not oriented x 3 Results & Data Vital Signs (Past 12 Hours) Vital Signs Temp Pulse Pulse Resp BP Pulse Ox O2 Del Method 04/28/23 07:09 37.4 C 109 H 18 135/81 95 Room Air 04/28/23 05:07 36.9 C 115 H 16 124/74 94 Room Air 04/28/23 04:35 120 H Laboratory Results 04/28/23 04/28/23 04/28/23 Range/Units 07:30 05:36 05:36 WBC 25.00 H (4.8-10.8) K/ul RBC 3.50 L (4.70-6.10) M/uL Hgb 11.6 L (14.0-18.0) g/dl Hct 34.2 L (42.0-52.0) % MCV 97.7 (80.0-100.0) fL MCH 33.1 (25.0-34.0) pg MCHC 33.9 (32.0-36.0) g/dL RDW Std Deviation 46.4 H (36.4-46.3) fL RDW Coeff of Alisha 13.1 (11.5-14.5) % Plt Count 149 (130-400) K/uL MPV 10.2 (9.4-12.4) fL Immature Gran % (Auto) 2.1 % Neut % (Auto) 86.7 % Lymph % (Auto) 5.7 % [place] % (Auto) 4.8 % Eos % (Auto) 0.5 % Baso % (Auto) 0.2 % Neut # (Auto) 21.67 H (1.40-6.50) K/uL Lymph # (Auto) 1.42 (1.2-3.4) K/uL [place] # (Auto) 1.20 H (0.11-0.59) K/uL Eos # (Auto) 0.12 (0-0.50) K/uL Baso # (Auto) 0.06 (0-0.2) K/uL Immature Gran # (Auto) 0.53 H (0.01-0.20) K/uL PT (9.0-12.0) Seconds INR (0.9-1.1) APTT (21.0-31.0) Seconds PTT Ratio Sodium 138 (136-145) mmol/L Potassium 3.8 (3.5-5.1) mmol/L Chloride 105 (98-107) mmol/L Carbon Dioxide 23 (21-32) mmol/L Anion Gap 10 (3-11) BUN 28 H (6-23) mg/dl Creatinine 1.53 H (0.6-1.4) mg/dl Est Cr Clr Drug Dosing 39.0 Est GFR ( Amer) 46.0 ml/min Est GFR (Non-Af Amer) 39.7 ml/min BUN/Creatinine Ratio 18.3 (10-20) Glucose 112 H (70-99(Fasting)) mg/dl POC Glucose (70-99) mg/dl Lactate 4.8 H* (0.4-2.0) mmol/L Calcium 8.9 (8.6-10.3) mg/dl Magnesium (1.7-2.4) mg/dl Total Bilirubin 0.9 D (0.2-1.0) mg/dl Direct Bilirubin (0-0.2) mg/dl AST 44 H (13-39) U/L ALT 14 (7-52) U/L Alkaline Phosphatase 50 (34-104) U/L Troponin I High Sens (0-20) pg/ml Total Protein 6.4 (6.0-8.3) gm/dl Albumin 3.5 (3.4-5.0) gm/dl Globulin 2.9 (2.5-4.0) gm/dl Albumin/Globulin Ratio 1.2 (0.9-2) Lipase (11-82) U/L Procalcitonin (0-0.5) ng/ml SARS-CoV-2, RNA, NAAT (NEGATIVE) 04/27/23 04/27/23 04/27/23 Range/Units 23:40 16:42 16:28 WBC (4.8-10.8) K/ul RBC (4.70-6.10) M/uL Hgb (14.0-18.0) g/dl Hct (42.0-52.0) % MCV (80.0-100.0) fL MCH (25.0-34.0) pg MCHC (32.0-36.0) g/dL RDW Std Deviation (36.4-46.3) fL RDW Coeff of Alisha (11.5-14.5) % Plt Count (130-400) K/uL MPV (9.4-12.4) fL Immature Gran % (Auto) % Neut % (Auto) % Lymph % (Auto) % [place] % (Auto) % Eos % (Auto) % Baso % (Auto) % Neut # (Auto) (1.40-6.50) K/uL Lymph # (Auto) (1.2-3.4) K/uL [place] # (Auto) (0.11-0.59) K/uL Eos # (Auto) (0-0.50) K/uL Baso # (Auto) (0-0.2) K/uL Immature Gran # (Auto) (0.01-0.20) K/uL PT (9.0-12.0) Seconds INR (0.9-1.1) APTT (21.0-31.0) Seconds PTT Ratio Sodium (136-145) mmol/L Potassium (3.5-5.1) mmol/L Chloride (98-107) mmol/L Carbon Dioxide (21-32) mmol/L Anion Gap (3-11) BUN (6-23) mg/dl Creatinine (0.6-1.4) mg/dl Est Cr Clr Drug Dosing Est GFR ( Amer) ml/min Est GFR (Non-Af Amer) ml/min BUN/Creatinine Ratio (10-20) Glucose (70-99(Fasting)) mg/dl POC Glucose 119 H (70-99) mg/dl Lactate 2.2 H* (0.4-2.0) mmol/L Calcium (8.6-10.3) mg/dl Magnesium (1.7-2.4) mg/dl Total Bilirubin (0.2-1.0) mg/dl Direct Bilirubin (0-0.2) mg/dl AST (13-39) U/L ALT (7-52) U/L Alkaline Phosphatase (34-104) U/L Troponin I High Sens (0-20) pg/ml Total Protein (6.0-8.3) gm/dl Albumin (3.4-5.0) gm/dl Globulin (2.5-4.0) gm/dl Albumin/Globulin Ratio (0.9-2) Lipase (11-82) U/L Procalcitonin (0-0.5) ng/ml SARS-CoV-2, RNA, NAAT NEGATIVE (NEGATIVE) 04/27/23 04/27/23 04/27/23 Range/Units 14:55 14:55 14:55 WBC (4.8-10.8) K/ul RBC (4.70-6.10) M/uL Hgb (14.0-18.0) g/dl Hct (42.0-52.0) % MCV (80.0-100.0) fL MCH (25.0-34.0) pg MCHC (32.0-36.0) g/dL RDW Std Deviation (36.4-46.3) fL RDW Coeff of Alisha (11.5-14.5) % Plt Count (130-400) K/uL MPV (9.4-12.4) fL Immature Gran % (Auto) % Neut % (Auto) % Lymph % (Auto) % [place] % (Auto) % Eos % (Auto) % Baso % (Auto) % Neut # (Auto) (1.40-6.50) K/uL Lymph # (Auto) (1.2-3.4) K/uL [place] # (Auto) (0.11-0.59) K/uL Eos # (Auto) (0-0.50) K/uL Baso # (Auto) (0-0.2) K/uL Immature Gran # (Auto) (0.01-0.20) K/uL PT 12.0 (9.0-12.0) Seconds INR 1.1 (0.9-1.1) APTT 29.5 (21.0-31.0) Seconds PTT Ratio 1.0 Sodium 137 (136-145) mmol/L Potassium 4.2 (3.5-5.1) mmol/L Chloride 101 (98-107) mmol/L Carbon Dioxide 27 (21-32) mmol/L Anion Gap 9 (3-11) BUN 31 H (6-23) mg/dl Creatinine 1.55 H (0.6-1.4) mg/dl Est Cr Clr Drug Dosing Not Reportable Est GFR ( Amer) 45.3 ml/min Est GFR (Non-Af Amer) 39.1 ml/min BUN/Creatinine Ratio 20.0 (10-20) Glucose 112 H (70-99(Fasting)) mg/dl POC Glucose (70-99) mg/dl Lactate (0.4-2.0) mmol/L Calcium 9.4 (8.6-10.3) mg/dl Magnesium 2.0 (1.7-2.4) mg/dl Total Bilirubin 1.4 H D (0.2-1.0) mg/dl Direct Bilirubin 0.3 H (0-0.2) mg/dl AST 24 (13-39) U/L ALT 13 (7-52) U/L Alkaline Phosphatase 64 (34-104) U/L Troponin I High Sens 22.1 H (0-20) pg/ml Total Protein 7.1 (6.0-8.3) gm/dl Albumin 4.1 (3.4-5.0) gm/dl Globulin (2.5-4.0) gm/dl Albumin/Globulin Ratio (0.9-2) Lipase 9 L (11-82) U/L Procalcitonin 0.82 H (0-0.5) ng/ml SARS-CoV-2, RNA, NAAT (NEGATIVE) 04/27/23 Range/Units 14:55 WBC 31.06 H* D (4.8-10.8) K/ul RBC 4.10 L (4.70-6.10) M/uL Hgb 13.7 L (14.0-18.0) g/dl Hct 40.3 L (42.0-52.0) % MCV 98.3 (80.0-100.0) fL MCH 33.4 (25.0-34.0) pg MCHC 34.0 (32.0-36.0) g/dL RDW Std Deviation 45.5 (36.4-46.3) fL RDW Coeff of Alisha 12.8 (11.5-14.5) % Plt Count 206 (130-400) K/uL MPV 10.3 (9.4-12.4) fL Immature Gran % (Auto) 1.2 % Neut % (Auto) 85.0 % Lymph % (Auto) 8.4 % [place] % (Auto) 5.0 % Eos % (Auto) 0.1 % Baso % (Auto) 0.3 % Neut # (Auto) 26.40 H (1.40-6.50) K/uL Lymph # (Auto) 2.61 (1.2-3.4) K/uL [place] # (Auto) 1.56 H (0.11-0.59) K/uL Eos # (Auto) 0.02 (0-0.50) K/uL Baso # (Auto) 0.09 (0-0.2) K/uL Immature Gran # (Auto) 0.38 H (0.01-0.20) K/uL PT (9.0-12.0) Seconds INR (0.9-1.1) APTT (21.0-31.0) Seconds PTT Ratio Sodium (136-145) mmol/L Potassium (3.5-5.1) mmol/L Chloride (98-107) mmol/L Carbon Dioxide (21-32) mmol/L Anion Gap (3-11) BUN (6-23) mg/dl Creatinine (0.6-1.4) mg/dl Est Cr Clr Drug Dosing Est GFR ( Amer) ml/min Est GFR (Non-Af Amer) ml/min BUN/Creatinine Ratio (10-20) Glucose (70-99(Fasting)) mg/dl POC Glucose (70-99) mg/dl Lactate (0.4-2.0) mmol/L Calcium (8.6-10.3) mg/dl Magnesium (1.7-2.4) mg/dl Total Bilirubin (0.2-1.0) mg/dl Direct Bilirubin (0-0.2) mg/dl AST (13-39) U/L ALT (7-52) U/L Alkaline Phosphatase (34-104) U/L Troponin I High Sens (0-20) pg/ml Total Protein (6.0-8.3) gm/dl Albumin (3.4-5.0) gm/dl Globulin (2.5-4.0) gm/dl Albumin/Globulin Ratio (0.9-2) Lipase (11-82) U/L Procalcitonin (0-0.5) ng/ml SARS-CoV-2, RNA, NAAT (NEGATIVE)
[2023-04-28] MEDS: METOPROLOL SUCC 25MG EXT REL TAB PO SCH ×2 (11:59→19:31)
[2023-04-28] MEDS: LACTATED RINGER'S 1,000 ML IV SCH ×3 (12:36→22:55)
[2023-04-28] MEDS ORDERED: KCENTRA (500unit vial) 2000 units IVP IV ONE ×2 (13:00→15:30)
--- NOTE | 2023-04-28 13:10 | Hospitalist Progress Note ---
Date of Service April 28, 2023 Assessment & Plan (1) Sepsis: Plan: Source: acute lavon With WBC count 31 on admission, improved to 25 AST slightly elevated Lactate 2.2 and then up to 4.8, now check again--> down to 3 Continue ceftriaxone and flagyl -continue LR at 125mL/hr Last Eliquis dose evening of 04/26-continue to hold ELiquis and plan for Kcentra administration just before cholecystostomy tube today SUrgery consult appreciated-too unstable for surgery -follow CBC, CMP, Mag (2) Acute cholecystitis: Plan: as above (3) NSTEMI (non-ST elevated myocardial infarction): Plan: troponin elevated to 3497 since admission ECG with rapid afib, tele continues with rapid afib due to sepsis and not taking po metoprolol Most likely demand ischemia in setting of known CAD, h/o CABG -start scheduled IV lopressor -check ECHO -consult Cardio -trend troponin -restart home ASA (4) Urinary retention: Plan: Kirkpatrick in place and still retaining urine consult Urology-plan for Kirkpatrick placement and stent for left distal ureteral stone check UA (5) Paroxysmal atrial fibrillation: Plan: Currently in atrial fibrillation on admission with rapid rates Eliquis on hold for percutaneous lavon not takin gpo due to encephalopathy start scheduled IV lopressor monitor on tele (6) History of CVA (cerebrovascular accident) without residual deficits: Plan: CT head ordered to r/o hemorrhagic stroke-negative (7) History of coronary artery bypass graft x 3: Plan: No chest pain or shortness of breath on exertion although patients dementia limits quality of this information, last cardiology note in April 12 reports stable from cardiac perspective. Holding Eliquis for surgical/radiology intervention Continue metoprolol Continue simvastatin Anti-hypertensives on hold due to acute infection (8) Asthma: Plan: Stable, no acute exacerbation suspected Continue Dulera or hospital formulary equivalent (9) Hypothyroidism: Plan: TSH WNL in December Continue levothyroxine (10) Hypertension: Plan: Hold lisinopril. Continue metoprolol for tachycardia (11) Dementia: Plan: with acute encephalopathy/delirium. Re-orientate. Use anti-psychotics as needed. Plan VTE Prophylaxis - hold Eliquis Diet - NPO Disposition - continued stay on PCU, progrnosis guarded Discussed care with and daughter at bedside Admission and Anticipated Discharge Date Admission Date: April 27, 2023 Subjective Pt extremely agitated through the night, had 5 staff members to try to control his agitation, was given IM Haldol, and placed in soft restraints. Seen with his at bedside. He remains very confused, drowsy, but does wake up and answer some questions. Able to tell me his last name only, doesn't know where he is. ABle to relay he has abdominal pain. I discussed his care with Urology, IR, and Surgery PA. Tele with Afib, rates in 110-120s, PVCs Physical Exam Constitutional: WD/WN, vitals as above + ill appearing Neck: trachea midline, no thyromegaly Respiratory: normal respiratory effort, lungs clear to auscultation Cardiovascular: Rate/Rhythm: + tachycardic and + irregularly irregular Extremities: no edema Chest (Breasts): Chest: normal inspection of chest Gastrointestinal (Abdomen): Inspection/Auscultation: normal bowel sounds; abdomen not distended Percussion/Palpation: + abdomen tender (RUQ) and abdomen soft Musculoskeletal: Extremities: extremities normal to inspection; no cyanosis and no clubbing Skin: no rashes, warm and dry Neurologic: moves all extremities and + confused; no focal motor deficits Results & Data Results & Data Vital Signs (Past 12 Hours) Vital Signs Temp Pulse Pulse Resp BP BP Pulse Ox 04/28/23 11:39 37.3 C 115 H 20 127/78 96 04/28/23 11:59 115 H 127/78 04/28/23 07:09 37.4 C 109 H 18 135/81 95 04/28/23 05:07 36.9 C 115 H 16 124/74 94 04/28/23 04:35 120 H O2 Del Method 04/28/23 11:39 Room Air 04/28/23 11:59 04/28/23 07:09 Room Air 04/28/23 05:07 Room Air 04/28/23 04:35 Laboratory Results CBC, CMP, troponin reviewed BCxs NGTD PG Care Time/CCT Total # of Minutes Spent Total Time Spent with Patient: Total time spent is greater than 50% in coordination of care (as documented) at patient's floor/unit and/or counseling patient: Coding Level of Care Code 49290 SUB INP/OBS CARE 3/50MIN Diagnoses Sepsis A41.9 Acute cholecystitis K81.0 NSTEMI (non-ST elevated myocardial infarction) I21.4 Urinary retention R33.9 Paroxysmal atrial fibrillation I48.0 History of CVA (cerebrovascular accident) without residual deficits Z86.73 History of coronary artery bypass graft x 3 Z95.1 Asthma J45.909 Hypothyroidism E03.9 Hypertension I10 Dementia F03.90
[2023-04-28] MEDS ORDERED: KCENTRA (500unit vial) 2000 units IVP IV SCH (14:30)
--- NOTE | 2023-04-28 15:07 | XCELERA ---
[id number]
--- NOTE | 2023-04-28 15:25 | Urology Consultation ---
Date of Consultation April 28, 2023 Assessment & Plan (1) Sepsis: (2) Urinary retention: (3) Calculus of distal left ureter: Plan Overall his clinical picture is concerning for sepsis. This is currently thought to be related to cholecystitis, however with an obstructing stone in the distal left ureter, there is also a chance this could be urinary in origin. Initial plan was for cholecystotomy tube under local anesthesia, however with his current combative state, this would not be possible. From the urology perspective, with a possibly obstructing stone and concern for sepsis, we should perform cystoscopy and left ureteral stent placement to ensure that the left kidney is decompressed. We would also plan to reposition the Kirkpatrick catheter to ensure that it is draining appropriately. Although Kirkpatrick catheter placement and even potentially stent placement could be done at the bedside, this would be exceedingly challenging if he is being combative. We discussed the possibility of placing the left stent, placing a Kirkpatrick catheter as well as having interventional radiology place the percutaneous cholecystotomy tube under sedation in the operating room. I reviewed the risks and benefits of the urology procedures with his family ( is POA). We specifically discussed risks of bleeding, infection, injury to the urinary tract, need for additional procedures, inability to place stent, anesthesia risks. The risks of the cholecystotomy tube were discussed by interventional radiology. His expressed understanding and provided consent as his power of rehabilitation specialist. I spent a total of approximately 80 minutes seeing the patient, coordinating care with interventional radiology and anesthesia as well as counseling the patient and his family. History of Present Illness Reason for Consultation: urinary retention, ureteral stone, sepsis Attending Physician: Tala Carter MD History of Present Illness This is an 87-year-old male previously seen by urology for nephrolithiasis. He was admitted to the hospital on 04/27/2023 with concern for acute cholecystitis. He has been treated with ceftriaxone and metronidazole, however has ongoing clinical features of sepsis. He was evaluated by general surgery and thought to be a poor surgical candidate. Interventional radiology was consulted for possible cholecystotomy tube. As this has been evolving, he has been in urinary retention. Kirkpatrick catheter was attempted by nursing staff but returned only blood. Mr. Mac has been i ncreasingly agitated. Urology was consulted for assistance with urinary retention. At the bedside today he is unable to provide any history due to mental status. He is here with his and daughter who report that he is not typically this way. Labs reviewed: WBC (04/27/2023) 31.0, down to 25.0 on 04/28/2023. Creatinine (04/28/2023): 1.53 Lactate: Up from 2.2 to 3.4 on 04/28/2023. He has no recent urinalysis 04/28/2023: Troponin [address] scan performed on 04/27/2023. I independently reviewed these images. Both kidneys are in normal position. There are no obvious renal stones. There is a cyst on the right kidney which is simple appearing. In the distal left ureter he has a 2 mm stone. This appears to occupy the lumen of the ureter but there is no associated hydronephrosis. His bladder is somewhat distended. He has an enlarged prostate. Allergies Allergy/AdvReac Type Severity Reaction Status Date / Time Iodinated Contrast Media Allergy Unknown UNKNOWN - Verified 04/27/23 17:28 TWIN BROTHER HAS AND WAS TOLD HE MIGHT Home Medications Medication Instructions Recorded Confirmed Type cholecalciferol (vitamin D3) 50 2,000 units PO QAM 07/01/19 04/27/23 History mcg (2,000 unit) capsule albuterol sulfate 90 mcg/actuation 2 puff inhalation Q4H PRN 06/09/21 04/27/23 Rx aerosol inhaler (ProAir HFA) shortness of breath or wheezing #3 Inhalers mometasone-formoterol HFA 100 2 puff inhalation BID #13 grams 06/22/21 04/27/23 Rx mcg-5 mcg/actuation aerosol inhaler (Dulera) aspirin 81 mg tablet,delayed 81 mg PO QAM #30 tabs 12/30/21 04/27/23 Rx release lisinopril 5 mg tablet 2.5 mg PO DAILY #90 tabs 06/06/22 04/27/23 Rx metoprolol succinate 25 mg 25 mg PO BID #180 tabs 07/11/22 04/27/23 Rx tablet,extended release 24 hr simvastatin 40 mg tablet 40 mg PO QPM #90 tabs 08/31/22 04/27/23 Rx acetaminophen 650 mg 650 mg PO Q8H PRN pain #60 tabs 12/06/22 04/27/23 Rx tablet,extended release (Tylenol Arthritis Pain) apixaban 5 mg tablet (Eliquis) 5 mg PO BID #180 tabs 12/06/22 04/27/23 Rx fluticasone propionate 50 2 spray intranasal DAILY PRN 04/26/23 04/27/23 History mcg/actuation nasal .allergies spray,suspension (Allergy Relief (fluticasone)) triamterene 37.5 1 tab PO DAILY 04/26/23 04/27/23 History mg-hydrochlorothiazide 25 mg tablet levothyroxine 112 mcg tablet 112 mcg PO DAILYBB 04/27/23 04/27/23 History Patient History Medical History Arthritis HANDS Asthma stable BPH without obstruction/lower urinary tract symptoms Cognitive impairment "MEMORY ISSUES" - REPORTS SMILEY ARE AWARE Coronary artery disease s/p CABG x 3 (2012) Environmental allergies History of TIA (transient ischemic attack) 10+ years ago Hyperlipemia Hypertension Hypothyroidism Kidney stone PT REPORTS CURRENT KIDNEY STONE LEFT SIDE, KIDNEY CYST RIGHT SIDE Obesity Recurrent nephrolithiasis Renal cyst, acquired R Right nephrolithiasis Surgical History History of anesthesia reaction WITH CABG PT AGITATED WITH TUBE DOWN THE THROAT History of cardiac cath 2012...TRIPLE [place]PASS History of cataract surgery RIGHT AND LEFT History of colonoscopy History of coronary artery bypass graft x 3 History of lithotripsy History of umbilical hernia repair Status post nasal endoscopy with nasal polypectomy Family History Brother Diabetes Coronary heart disease Heart disease Stroke Family history of colon cancer Father , age 67 of a stroke Hypertension Stroke Mother , age 87 with dementia Hearing loss Alzheimer disease Grandfather Allergies Other Asthma Denies family history of Clotting disorder Social History Smoking Status: Former smoker Age Quit Using Tobacco: 32; packs per day: 1; Second Hand Exposure: No; Do You Dip or Chew Tobacco: No; Hx Alcohol Use: Yes Alcohol type: wine Hx Substance Use: No Preferred Language: Portuguese Communication Ability: Unable Communication Ability Comment: PT VERY HARD OF HEARING 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 Feels Safe at Home: Yes Childhood Exposure to Second-Hand Smoke: No Assistive Devices: None Review of Systems Review of Systems: 12 point review of systems negative except for otherwise indicated. Physical Exam Physical Exam: Somewhat combative in restraints at the bedside. Agitated Constitutional: well developed and well nourished; no acute distress Eyes: + anicteric sclerae; pupils not irregular Respiratory: normal respiratory effort; no respiratory distress, does not use accessory muscles and no cough Cardiovascular: well perfused Gastrointestinal (Abdomen): Inspection/Auscultation: abdomen normal to inspection; abdomen not distended Musculoskeletal: Extremities: extremities normal to inspection Skin: normal turgor; no rashes and no lesions Neurologic: moves all extremities and awake Psychiatric: Orientation: alert and oriented x 3 Genitourinary: Kirkpatrick catheter with blood-tinged output Results & Data Vital Signs (Past 12 Hours) Vital Signs Temp Pulse Pulse Resp BP BP Pulse Ox 04/28/23 11:39 37.3 C 115 H 20 127/78 96 04/28/23 11:59 115 H 127/78 04/28/23 07:09 37.4 C 109 H 18 135/81 95 04/28/23 05:07 36.9 C 115 H 16 124/74 94 04/28/23 04:35 120 H O2 Del Method 04/28/23 11:39 Room Air 04/28/23 11:59 04/28/23 07:09 Room Air 04/28/23 05:07 Room Air 04/28/23 04:35 PG Care Time/CCT Total # of Minutes Spent Total Time Spent: 80 Total Time Spent with Patient: Total time spent is greater than 50% in coordination of care (as documented) at patient's floor/unit and/or counseling patient: Coding Level of Care Code 29263 INT INP/OBS CARE 3/75MIN Diagnoses Sepsis A41.9 Sepsis acute organ dysfunction status: without acute organ dysfunction Sepsis type: sepsis due to unspecified organism Urinary retention R33.9 Calculus of distal left ureter N20.1 (1) Sepsis Sepsis acute organ dysfunction status: without acute organ dysfunction Sepsis type: sepsis due to unspecified organism Qualified Code(s): A41.9 - Sepsis, unspecified organism
[2023-04-28] MEDS ORDERED: LIDOCAINE 2% 2 ML VIAL/AMP(20MG/ML) INFIL ONE (15:28)
[2023-04-28] MEDS ORDERED: PROPOFOL IV EMULSION 10 MG/ML 20 ML VIAL IV ONE ×3 (15:28→16:39)
[2023-04-28] MEDS ORDERED: fentaNYL citrate PF 100 MCG/2 ML VIAL ONE (15:29)
--- NOTE | 2023-04-28 15:31 | Anesthesiology Consultation ---
Date of Service April 28, 2023 Assessment & Plan Chart Review Chart Review: Acceptable Risk for Surgery Consults Requested none ASA [id number] Proposed Anesthesia Anesthesia Type: MAC Risk / Benefits Reviewed With: PT / POA / Parent / Guardian, Accepts Plan and Informed Consent Obtained History Surgery Operation Date: 04/28/23 08:30 Proposed Procedures p Gallbladder Tube Placement under ultrasound - SINDY Gibson Cysto Left Stent Insertion - Isauro Francois MD Height/Weight Height: 5 ft 11 in Weight: 97.4 kg Allergies Allergy/AdvReac Type Severity Reaction Status Date / Time Iodinated Contrast Media Allergy Unknown UNKNOWN - Verified 04/27/23 17:28 TWIN BROTHER HAS AND WAS TOLD HE MIGHT Medications Home Medications Medication Instructions Recorded Confirmed Last Taken cholecalciferol (vitamin D3) 50 2,000 units PO QAM 07/01/19 04/27/23 04/26/23 mcg (2,000 unit) capsule albuterol sulfate 90 mcg/actuation 2 puff inhalation Q4H PRN 06/09/21 04/27/23 Unknown aerosol inhaler (ProAir HFA) shortness of breath or wheezing #3 Inhalers mometasone-formoterol HFA 100 2 puff inhalation BID #13 grams 06/22/21 04/27/23 04/26/23 mcg-5 mcg/actuation aerosol inhaler (Dulera) aspirin 81 mg tablet,delayed 81 mg PO QAM #30 tabs 12/30/21 04/27/23 04/26/23 release lisinopril 5 mg tablet 2.5 mg PO DAILY #90 tabs 06/06/22 04/27/23 04/26/23 metoprolol succinate 25 mg 25 mg PO BID #180 tabs 07/11/22 04/27/23 04/26/23 tablet,extended release 24 hr simvastatin 40 mg tablet 40 mg PO QPM #90 tabs 08/31/22 04/27/23 04/26/23 acetaminophen 650 mg 650 mg PO Q8H PRN pain #60 tabs 12/06/22 04/27/23 Unknown tablet,extended release (Tylenol Arthritis Pain) apixaban 5 mg tablet (Eliquis) 5 mg PO BID #180 tabs 12/06/22 04/27/23 04/26/23 09:00 fluticasone propionate 50 2 spray intranasal DAILY PRN 04/26/23 04/27/23 Unknown mcg/actuation nasal .allergies spray,suspension (Allergy Relief (fluticasone)) triamterene 37.5 1 tab PO DAILY 04/26/23 04/27/23 04/26/23 mg-hydrochlorothiazide 25 mg tablet levothyroxine 112 mcg tablet 112 mcg PO DAILYBB 04/27/23 04/27/23 04/27/23 Active Medications Generic Name Dose Route Start Last Admin Trade Name Luisq PRN Reason Stop Dose Admin Fluticasone/Vilanterol 1 puffs 04/28/23 09:00 04/28/23 10:48 Fluticasone/Vilanterol 100/25mcg 14 Puffs/Inhaler INH 05/28/23 08:59 Not Given DAILY JOSH Protocol Acetaminophen 1,000 mg in 100 mls @ 400 mls/hr 04/27/23 19:58 04/27/23 23:12 Ofirmev IV 04/30/23 19:57 Infused Q8H PRN Infusion Pain or fever Ceftriaxone Sodium 2,000 mg/ 70 mls @ 100 mls/hr 04/27/23 22:00 04/28/23 01:17 Dextrose IV 05/07/23 21:59 Infused Q24H JOSH Infusion Protocol Metronidazole 500 mg in 100 mls @ 100 mls/hr 04/28/23 02:00 04/28/23 15:30 Flagyl IV 05/08/23 01:59 Infused Q8H JOSH Titration Protocol Lactated Ringer's 1,000 mls @ 125 mls/hr 04/27/23 19:58 04/28/23 12:44 Lr IV 05/27/23 19:57 Not Given .Q8H JOSH Levothyroxine Sodium 112 mcg 04/28/23 06:30 04/28/23 05:39 Levothyroxine Sodium 112 Mcg Tablet PO 05/28/23 06:29 Not Given DAILYBB JOSH Metoprolol Succinate 25 mg 04/27/23 21:00 04/28/23 11:59 Metoprolol Succ 25mg Ext Rel Tab PO 05/27/23 20:59 Not Given BID JOSH Simvastatin 40 mg 04/27/23 21:00 04/27/23 22:25 Simvastatin 40 Mg Tab PO 05/27/23 20:59 40 mg QPM JOSH Administration NPO Date Last Intake of Fluids: 04/27/23 Time Last Intake of Fluids: 06:00 Date Last Intake of Solids: 04/27/23 Time Last Intake of Solids: 06:00 Past Medical History Medical History (Updated 04/28/23 @ 15:26 by Ирина Joshi DO) Acute cholecystitis Altered mental status Arthritis HANDS Asthma stable Atrial fibrillation Atrial premature complex BPH without obstruction/lower urinary tract symptoms Cognitive impairment "MEMORY ISSUES" - REPORTS SMILEY ARE AWARE Coronary artery disease s/p CABG x 3 (2012) Environmental allergies History of CVA (cerebrovascular accident) without residual deficits History of TIA (transient ischemic attack) 10+ years ago Hyperlipemia Hypertension Hypothyroidism Kidney stone PT REPORTS CURRENT KIDNEY STONE LEFT SIDE, KIDNEY CYST RIGHT SIDE NSTEMI (non-ST elevated myocardial infarction) Obesity Recurrent nephrolithiasis Renal cyst, acquired R Right nephrolithiasis Sepsis Urinary retention Exercise / Class Metabolic Activity III < 4 Walking/Shop/Light housework Past Family History Family History Brother Diabetes Coronary heart disease Heart disease Stroke Family history of colon cancer Father , age 67 of a stroke Hypertension Stroke Mother , age 87 with dementia Hearing loss Alzheimer disease Grandfather Allergies Other Asthma Denies family history of Clotting disorder Past Surgical History Surgical History (Updated 04/28/23 @ 15:26 by Ирина Joshi DO) History of anesthesia reaction WITH CABG PT AGITATED WITH TUBE DOWN THE THROAT History of cardiac cath 2012...TRIPLE [place]PASS History of cataract surgery RIGHT AND LEFT History of colonoscopy History of coronary artery bypass graft x 3 History of lithotripsy History of umbilical hernia repair Status post nasal endoscopy with nasal polypectomy Past Anesthesia History No Hx of Anesthesia Complications and No Family Hx of Anesthesia Complications History of PONV No Hx of PONV and No Hx of Motion Sickness Social History Smoking Status: Former smoker tobacco type: cigarettes Do You Dip or Chew Tobacco: No Hx Alcohol Use: Yes Alcohol type: wine alcohol intake frequency: a few times a week Hx Substance Use: No substance use type: prescription drug Physical Exam Vital Signs Last Vital Signs Temp 37.3 C 04/28/23 11:39 Pulse 115 H 04/28/23 11:59 Resp 20 04/28/23 11:39 BP 127/78 04/28/23 11:59 Pulse Ox 96 04/28/23 11:39 O2 Del Method Room Air 04/28/23 11:39 Constitutional + altered mental status ENMT Mouth: no TMJ abnormality Thyromental Distance: > or= 3.5 Finger Breadths Mallampati Class: II Neck normal visual inspection, trachea midline and + facial hair; neck extension not limited Respiratory normal respiratory effort Auscultation: lungs clear to auscultation bilaterally Cardiovascular Rate/Rhythm: + tachycardic; + abnormal rhythm (irreg irreg) Heart Sounds: no murmur Musculoskeletal Spine: normal cervical ROM Extremities: full ROM of extremities Neurologic moves all extremities Psychiatric Orientation: alert altered mental status with dementia Testing Laboratory Results 04/28/23 05:36 04/28/23 05:36 PT 12.0 Seconds (9.0-12.0) 04/27/23 14:55 INR 1.1 (0.9-1.1) 04/27/23 14:55 APTT 29.5 Seconds (21.0-31.0) 04/27/23 14:55 04/28/23 lactate 3.4 trop I 3497.6 Electrocardiogram Date: 04/27/23 Findings: + NSST changes and + AFIB @ (92) Chest X-Ray Date: 04/27/23 Findings: + NAD and + cardiomegaly head CT 04/27/23 no acute dz Echocardiogram Date: 04/28/23 EF: grossly WNL LV Function: normal RWMA: + none Other Findings: + LVH (mod concen) Valvular Disease: + no significant valvular disease 2D echo 12/30/21 EF 50-55% no RWMA severe LAD trace AI mild MR afib NL RVSP
[2023-04-28] MEDS ORDERED: ALBUT/IPRATROP 3MG/0.5MG NEB 3 ML VIAL INH PRN (15:33)
[2023-04-28] MEDS ORDERED: ATROPINE SULFATE 0.1 MG/ML 10ML SYR IV PRN (15:33)
[2023-04-28] MEDS ORDERED: fentaNYL citrate PF 100 MCG/2 ML VIAL IV PRN (15:33)
[2023-04-28] MEDS ORDERED: ePHEDrine sulfate 50 MG/ML AMP IV PRN (15:33)
--- NOTE | 2023-04-28 16:07 | Cardiology Consultation ---
Date of Consultation April 28, 2023 Assessment & Plan (1) Demand ischemia: (2) Permanent atrial fibrillation with rapid ventricular response: (3) Coronary artery disease: (4) Acute cholecystitis: (5) Sepsis: (6) Dementia: Plan 87-year-old man with remote CABG and permanent atrial fibrillation undergoing previous procedure for acute cholecystitis/sepsis. Certainly, physiologic stress of hypertension/tachycardia in patient with known coronary artery disease with remote vein graft placement is likely explanation for elevated troponin secondary to demand ischemia. No new ST deviations to suggest acute cardiac event and echocardiogram shows no wall motion abnormalities (albeit a very technically limited study). Management centers around optimizing hemodynamics, sedation as necessary to avoid hypotension/tachycardia when possible, resume usual cardiac medications as able postoperatively. Drs. Sepulveda and Magdiel will be on over the weekend, I will ask them to check in on Mr. Mac. He is followed routinely as an outpatient by Dr. Henry from a cardiac standpoint. History of Present Illness Reason for Consultation: NSTEMI Requesting Physician: Tala Carter MD Attending Physician: Tala Carter MD History of Present Illness 87-year-old man with CAD (CABG 2012, ABBSAI to LAD, SVG to OM 1, SVG to OM 2), permanent atrial fibrillation (apixaban/metoprolol), and hypertension admitted 04/27/2023 with sepsis secondary to cholecystitis for which drainage procedure is planned this afternoon. He also has a history of dementia and was agitated and exhibited hyperactive delirium which required significant restraint overnight. He exhibited moderate degrees of tachycardia and hypertension secondary to the agitation. He noted that he "hurts all over" but there is no specific mention of chest pain. ECG on admission showed atrial fibrillation at [address] and T wave abnormalities which are chronic. 2 subsequent ECGs also showed atrial fibrillation with no change in his baseline ST-T wave abnormalities. Troponin did increase from an admission value of 18.9 and 22.1 up to 3497 earlier today. Echocardiogram was very technically limited but showed no obvious wall motion abnormalities, left ventricular systolic function was grossly normal. He was awake and did not appear uncomfortable and had a normotensive BP and mild tachycardia as he was being prepared for the operative procedure. Allergies Allergy/AdvReac Type Severity Reaction Status Date / Time Iodinated Contrast Media Allergy Unknown UNKNOWN - Verified 04/27/23 17:28 TWIN BROTHER HAS AND WAS TOLD HE MIGHT Home Medications Medication Instructions Recorded Confirmed Type cholecalciferol (vitamin D3) 50 2,000 units PO QAM 07/01/19 04/27/23 History mcg (2,000 unit) capsule albuterol sulfate 90 mcg/actuation 2 puff inhalation Q4H PRN 06/09/21 04/27/23 Rx aerosol inhaler (ProAir HFA) shortness of breath or wheezing #3 Inhalers mometasone-formoterol HFA 100 2 puff inhalation BID #13 grams 06/22/21 04/27/23 Rx mcg-5 mcg/actuation aerosol inhaler (Dulera) aspirin 81 mg tablet,delayed 81 mg PO QAM #30 tabs 12/30/21 04/27/23 Rx release lisinopril 5 mg tablet 2.5 mg PO DAILY #90 tabs 06/06/22 04/27/23 Rx metoprolol succinate 25 mg 25 mg PO BID #180 tabs 07/11/22 04/27/23 Rx tablet,extended release 24 hr simvastatin 40 mg tablet 40 mg PO QPM #90 tabs 08/31/22 04/27/23 Rx acetaminophen 650 mg 650 mg PO Q8H PRN pain #60 tabs 12/06/22 04/27/23 Rx tablet,extended release (Tylenol Arthritis Pain) apixaban 5 mg tablet (Eliquis) 5 mg PO BID #180 tabs 12/06/22 04/27/23 Rx fluticasone propionate 50 2 spray intranasal DAILY PRN 04/26/23 04/27/23 History mcg/actuation nasal .allergies spray,suspension (Allergy Relief (fluticasone)) triamterene 37.5 1 tab PO DAILY 04/26/23 04/27/23 History mg-hydrochlorothiazide 25 mg tablet levothyroxine 112 mcg tablet 112 mcg PO DAILYBB 04/27/23 04/27/23 History Patient History Medical History Acute cholecystitis Altered mental status Arthritis HANDS Asthma stable Atrial fibrillation Atrial premature complex BPH without obstruction/lower urinary tract symptoms Cognitive impairment "MEMORY ISSUES" - REPORTS DR'Xavi ARE AWARE Coronary artery disease s/p CABG x 3 (2012) Environmental allergies History of CVA (cerebrovascular accident) without residual deficits History of TIA (transient ischemic attack) 10+ years ago Hyperlipemia Hypertension Hypothyroidism Kidney stone PT REPORTS CURRENT KIDNEY STONE LEFT SIDE, KIDNEY CYST RIGHT SIDE NSTEMI (non-ST elevated myocardial infarction) Obesity Recurrent nephrolithiasis Renal cyst, acquired R Right nephrolithiasis Sepsis Urinary retention Surgical History (Updated 04/28/23 @ 15:26 by Ирина Joshi DO) History of anesthesia reaction WITH CABG PT AGITATED WITH TUBE DOWN THE THROAT History of cardiac cath 2013...TRIPLE [place]PASS History of cataract surgery RIGHT AND LEFT History of colonoscopy History of coronary artery bypass graft x 3 History of lithotripsy History of umbilical hernia repair Status post nasal endoscopy with nasal polypectomy Family History Brother Diabetes Coronary heart disease Heart disease Stroke Family history of colon cancer Father , age 67 of a stroke Hypertension Stroke Mother , age 87 with dementia Hearing loss Alzheimer disease Grandfather Allergies Other Asthma Denies family history of Clotting disorder Social History Smoking Status: Former smoker Age Quit Using Tobacco: 32; packs per day: 1; Second Hand Exposure: No; Do You Dip or Chew Tobacco: No; Hx Alcohol Use: Yes Alcohol type: wine Hx Substance Use: No Preferred Language: German Communication Ability: Unable Communication Ability Comment: PT VERY HARD OF HEARING 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 Feels Safe at Home: Yes Childhood Exposure to Second-Hand Smoke: No Assistive Devices: None Physical Exam Physical Exam: No distress. Temperature 101.1. BP 122/52 mmHg. Pulse 123 bpm and irregular. Skin: no ecchymoses or generalized lesions. HEENT: unremarkable. Neck: JVP mildly elevated, no obvious carotid bruits. Lungs: Mildly decreased breath sounds but clear bilaterally Cardiac: Irregular/mildly tachycardic rhythm, no obvious murmur. Abdomen: Tender but nonrigid. Extremities: no edema, pulses intact. Neurologic: Answers simple questions, poor insight, grossly nonfocal. Results & Data Laboratory Results Troponin as noted in HPI. WBC 25,000, hemoglobin 11.6, normal platelet count. Normal electrolytes, BUN 28, creatinine 1.53. Lactate 3.4. Diagnostic Findings ECGs as noted in HPI. Chest x-ray showed cardiomegaly but no active disease. PG Care Time/CCT Total # of Minutes Spent Total Time Spent with Patient: Total time spent is greater than 50% in coordination of care (as documented) at patient's floor/unit and/or counseling patient: Coding Level of Care Code 46370 IN/OBS CONSULT LVL 4,60M Diagnoses Demand ischemia I24.8 Permanent atrial fibrillation with rapid ventricular response I48.21 Coronary artery disease I25.10 Acute cholecystitis K81.0 Sepsis A41.9 Dementia F03.90
[2023-04-28] MEDS ORDERED: PHENYLEPHRINE HCL 10 MG/ML VIAL ONE (16:20)
--- NOTE | 2023-04-28 16:53 | Operative Report ---
PG Post Operative Report Pre & Post Diagnosis Operation Date: 04/28/23 08:30 Pre-Op Diagnosis: SEPSIS, ACUTE CHOLECYSTITIS, Urinary retention, Calculus of distal left ureter Post-Op Diagnosis: SEPSIS, ACUTE CHOLECYSTITIS, Urinary retention, Calculus of distal left ureter I identified the patient and participated in the time-out.: Yes Procedure Operation Date: 04/28/23 08:30 Actual Procedures p Gallbladder Tube Placement under ultrasound(Not Applicable) - Qamar May PA-C s Cystoscopy, Left Ureteral Stent Insertion, Catheter placement(Left) - Isauro Francois MD Surgeon Isauro Francois MD Remedial Project Manager None Estimated Blood Loss 0 Findings Consistent with Post-Op Diagnosis Specimens Urine from left kidney for culture Bile, gallbladder for culture Drains 6 Jordanian by 26 cm double-J ureteral stent in the left ureter 18 Jordanian catheter per urethra Pigtail cholecystotomy tube from interventional radiology Anesthesia Type MAC Complications none Disposition Accompanied Patient To Recovery: Yes Disposition: Recovery Room Indications Is an 87-year-old male recently admitted to the hospital with sepsis and concern for acute cholecystitis. Urology was consulted for urinary retention. Evaluation identified a stone in the distal left ureter and there was no urine study to have been done. He is being brought to the OR for percutaneous cholecystotomy tube as well as Kirkpatrick catheter placement and left ureteral stent placement. Description of Procedure The patient was identified in the holding area and informed consent was confirmed. He was marked on the left side, then was taken to the operating room where anesthesia was initiated. To begin, the percutaneous cholecystotomy tube was placed by Qamar May from interventional radiology. This will be documented separately. Once this was concluded, the patient was placed in the dorsal lithotomy position with all pressure points appropriately padded. He was prepped and draped in the usual sterile fashion and a preoperative timeout was performed. A well-lubricated cystoscope was inserted per urethra and panendoscopy was performed. The pendulous urethra was normal with no strictures or mucosal abnormalities. The prostate was notably enlarged. No obvious false passage was appreciated, however there was some hematuria from the prostate. The urine in the bladder was somewhat murky and concentrated and prohibited full survey of the bladder. The left ureteral orifice was identified in normal position. A 5 Jordanian open-ended catheter was inserted and used to intubate the left ureteral orifice. Due to his contrast allergy, retrograde pyelogram was deferred. A 0.038 inch zip wire was advanced up to the kidney under fluoroscopic guidance. Over the wire, a 6 Jordanian x 26 cm double-J ureteral stent was advanced. When the wire was removed, there was a good curl in the kidney under fluoroscopic guidance. A curl was visualized in the bladder with the cystoscope. A sample of urine was aspirated from the bladder at this point and sent for culture. Under direct visualization, the zip wire was readvanced and the appropriate amount was curled within the lumen of the bladder. The cystoscope was removed leaving the wire in place. Over the wire advanced an 18 [place]ian [place] tip catheter. The balloon was inflated with 10 mL of normal saline and the catheter was attached to gravity drainage. The patient was then awakened from anesthesia and was brought to the PACU in stable condition. I attest to the content of the Intraoperative Record and any orders documented therein. Any exceptions are noted below.
--- NOTE | 2023-04-28 16:56 | Ultrasound Report ---
Ultrasound-guided cholecystostomy tube placement INDICATION: Acute cholecystitis PROCEDURE: Procedure and risks were explained. Informed consent was obtained from the . A final t imeout was completed. The right upper quadrant was prepped and draped in sterile fashion. 1% buffered lidocaine was utilized for skin anesthesia. The patient received monitored anesthesia care during th e entire procedure. Utilizing ultrasound guidance, an 18-gauge Chiba needle was advanced through an anterior wedge of rig ht lobe of the liver into the distended gallbladder. Ultrasound images were obtained. A 0.035 Amplatz wire was introduced through the wire and exchanged out for an 8 British locking pigtail catheter. Yanira roximately 10 mL of brown gallbladder fluid was removed at the time and sent to the lab for culture a nalysis. The catheter was then placed to gravity bag drainage and sutured to the skin with 2-0 silk. The patient tolerated the procedure well. Vital signs will be monitored via anesthesia protocol. IMPRESSION: Cholecystostomy tube placement as above. Performed, dictated, and signed by Qamar May PA-C; to be co-signed by Dr. Epi Mcintyre. Electronically signed by: Epi Mcintyre M.D. 04/28/2023 4:54 PM
--- NOTE | 2023-04-28 17:48 | Fluoroscopy Report ---
INTRAOPERATIVE RADIOGRAPHS CLINICAL HISTORY: Left ureteral stent placement. Fluoro time: 6 seconds Ka,r: 2.33 mGy FINDINGS: 2 spot fluoroscopic views of the right abdomen are correlated with abdominal CT dated 023. The first image shows a wire projecting over the left renal pelvis. The second image shows the p roximal end of a left ureteral stent in appropriate position. IMPRESSION: Intraoperative images from a left ureteral stent placement procedure as above. Electronically signed by: Marino Rothman M.D. 04/28/2023 5:47 PM
--- NOTE | 2023-04-28 18:28 | Anesthesiology Progress Note ---
Date of Service April 28, 2023 Anesthesia Post Procedure Vital Signs Vital Signs: Temp Pulse Pulse Pulse Resp BP BP 04/28/23 18:20 109 H 20 116/81 04/28/23 18:10 104 H 21 137/87 04/28/23 18:00 99 H 20 132/84 04/28/23 17:50 101 H 18 115/58 L 04/28/23 17:40 100 H 18 129/74 04/28/23 17:30 103 H 17 128/70 04/28/23 17:20 116 H 18 129/82 04/28/23 17:10 99 H 14 119/76 04/28/23 17:01 36.4 C L 99 H 14 113/59 L 04/28/23 15:41 38.4 C H 123 H 22 122/52 L 04/28/23 11:39 37.3 C 115 H 20 127/78 04/28/23 11:59 115 H 127/78 04/28/23 07:09 37.4 C 109 H 18 135/81 04/28/23 05:07 36.9 C 115 H 16 124/74 04/28/23 04:35 120 H 04/27/23 22:32 37.5 C 118 H 22 123/68 04/27/23 21:00 36.9 C 124 H 20 151/71 H 04/27/23 21:36 36.9 C 121 H 14 151/71 H Pulse Ox O2 Del Method O2 Flow Rate 04/28/23 18:20 100 Oxymask 4 04/28/23 18:10 100 Oxymask 4 04/28/23 18:00 100 Oxymask 4 04/28/23 17:50 97 Oxymask 4 04/28/23 17:40 96 Oxymask 4 04/28/23 17:30 96 Oxymask 8 04/28/23 17:20 95 Oxymask 13 04/28/23 17:10 94 Oxymask 13 04/28/23 17:01 94 Oxymask 13 04/28/23 15:41 89 L Room Air 04/28/23 11:39 96 Room Air 04/28/23 11:59 04/28/23 07:09 95 Room Air 04/28/23 05:07 94 Room Air 04/28/23 04:35 06/01/23 22:32 93 Room Air 04/27/23 21:00 96 Room Air 04/27/23 21:36 96 Room Air Transfer of Care Handoff Completed per policy Notes Mental Status: alert / awake / arousable Patient Amnestic to Procedure: Yes Nausea / Vomiting: adequately controlled Pain: adequately controlled Airway Patency, RR, SpO2: stable & adequate BP & HR: stable & adequate Hydration State: stable & adequate Anesthetic Complications: no major complications apparent Notes: pt back to preop baseline
[2023-04-28] MEDS: ACETAMINOPHEN 1,000 MG/100 ML VIAL IV PRN (18:40)
[2023-04-28] MEDS: METOPROLOL TARTRATE 1 MG/ML VIAL IV SCH ×3 (19:24→23:01)
[2023-04-28] MEDS: SIMVASTATIN 40 MG TAB PO SCH (19:31)
[2023-04-28] MEDS: MoRPHine SULFATE 2 MG/ML CARP IV PRN (20:33)
[2023-04-28] MEDS: ASPIRIN 81 MG ECTAB PO SCH (21:36)
[2023-04-28] MEDS: cefTRIAXone SODIUM 2,000 MG in DEXTROSE 5% 50 ML IV SCH (22:16)
[2023-04-29] MEDS: metroNIDAZOLE 500 MG/100 ML BAG IV SCH ×3 (02:09→18:25)
[2023-04-29] MEDS: MoRPHine SULFATE 2 MG/ML CARP IV PRN (02:10)
[2023-04-29] MEDS: METOPROLOL TARTRATE 1 MG/ML VIAL IV SCH ×3 (03:58→13:09)
[2023-04-29 04:44] LABS: Basophils # (auto) 0.05 K/uL (0-0.2); Basophils % (auto) 0.2 %; Eosinophils # (auto) 0.04 K/uL (0-0.50); Eosinophils % (auto) 0.2 %; Hematocrit (blood only) 33.2 % (42.0-52.0); Hemoglobin 11.1 g/dl (14.0-18.0); Immature Granulocytes # (auto) 0.39 K/uL (0.01-0.20); Immature Granulocytes % (auto) 1.9 %; Lymphocytes # (auto) 1.53 K/uL (1.2-3.4); Lymphocytes % (auto) 7.5 %; Mean Corpuscular Hgb Conc 33.4 g/dL (32.0-36.0); Mean Corpuscular Volume 98.8 fL (80.0-100.0); Mean Platelet Volume 9.8 fL (9.4-12.4); Monocytes # (auto) 0.84 K/uL (0.11-0.59); Monocytes % (auto) 4.1 %; Neutrophils # (auto) 17.56 K/uL (1.40-6.50); Neutrophils % (auto) 86.1 %; Platelet Count 127 K/uL (130-400); RDW Coefficient of Variation 13.2 % (11.5-14.5); RDW Standard Deviation 47.7 fL (36.4-46.3); Red Blood Count 3.36 M/uL (4.70-6.10); White Blood Count 20.41 K/ul (4.8-10.8)
[2023-04-29 05:01] LABS: BUN Creatinine Ratio 23.3 (10-20); Bilirubin Direct 0.2 mg/dl (0-0.2); Bilirubin,Total 0.7 mg/dl (0.2-1.0); Calcium 8.5 mg/dl (8.6-10.3); Creatinine Clr Calc Pharmacy 39.7 ml/min; Est GFR (African American) 47.2 ml/min; Est GFR (Non-African American) 40.7 ml/min; Magnesium 1.9 mg/dl (1.7-2.4); Potassium 3.8 mmol/L (3.5-5.1); Total Protein 5.7 gm/dl (6.0-8.3)
[2023-04-29] MEDS: LEVOTHYROXINE SODIUM 112 MCG TABLET PO SCH (05:42)
--- NOTE | 2023-04-29 06:34 | Surgery Progress Note ---
Date of Service April 29, 2023 Assessment & Plan (1) Acute cholecystitis: Plan: Patient has been admitted on the hospitalist service. Due to multiple medical comorbidities patient was felt to be a high risk surgical candidate, therefore a percutaneous cholecystostomy tube was placed on 04/28/23; continue this to gravity drainage Continue antibiotics in the form of Rocephin and Flagyl Consideration can be given to advancing diet when further clinical improvement is noted. Admission and Anticipated Discharge Date Admission Date: April 27, 2023 Subjective Patient is resting comfortably in bed and at the present time does not voice any concerns. Patient is currently on a one-to-one and I did discuss with the patient's sitter who notes that he is noted to have confusion at times but this appears to have improved as patient has gotten some rest. Discussed with night court magistrate nurse and patient did not complain of any worsening abdominal pain. There have been no reported fevers. There is been no noted emesis. Physical Exam Gastrointestinal (Abdomen): Abdomen is mildly distended but nonrigid. Bowel sounds are hypoactive. Patient did appear to have some tenderness greatest in the right upper quadrant. A percutaneous cholecystostomy tube is in place draining bilious material. (It is drained approximately 210 cc since placement) Results & Data Vital Signs (Past 12 Hours) Vital Signs Temp Pulse Pulse Resp BP BP Pulse Ox 04/29/23 04:19 99 H 112/66 04/29/23 03:58 121 H 105/69 04/29/23 02:07 36.7 C 92 H 18 126/63 92 04/29/23 00:36 79 104/62 04/28/23 23:53 91 H 04/28/23 23:05 86 97/61 L 04/28/23 22:59 92 H 106/63 04/28/23 22:11 36.6 C 101 H 18 97/61 L 93 04/28/23 20:35 95 H 95/62 L 100 04/28/23 19:53 36.8 C 100 H 20 111/70 100 04/28/23 19:28 102 H 89/52 L 100 04/28/23 19:24 121 H 103/64 04/28/23 19:04 37.8 C H 121 H 20 103/64 100 04/28/23 19:00 37.0 C 121 H 14 130/60 99 O2 Del Method O2 Flow Rate 04/29/23 04:19 04/29/23 03:58 04/29/23 02:07 Nasal Cannula 4 04/29/23 00:36 04/28/23 23:53 04/28/23 23:05 04/28/23 22:59 04/28/23 22:11 Nasal Cannula 4 04/28/23 20:35 Nasal Cannula 4 04/28/23 19:53 Nasal Cannula 4 04/28/23 19:28 Nasal Cannula 4 04/28/23 19:24 04/28/23 19:04 Nasal Cannula 4 04/28/23 19:00 Nasal Cannula 4 PG Care Time/CCT Total # of Minutes Spent Total Time Spent with Patient: Total time spent is greater than 50% in coordination of care (as documented) at patient's floor/unit and/or counseling patient: Coding Level of Care Code 11617 SUB INP/OBS CARE 12/21MIN Diagnoses Acute cholecystitis K81.0
[2023-04-29] MEDS: LACTATED RINGER'S 1,000 ML IV SCH ×2 (07:13→16:03)
--- NOTE | 2023-04-29 09:26 | Urology Progress Note ---
Date of Service April 29, 2023 Assessment & Plan (1) Urinary retention: Plan: Urinary retention currently managed with Kirkpatrick catheter. Catheter can be maintained by primary team, would recommend it stay in place for approximately 1 week. If he is still in the hospital at that point, a voiding trial could be performed. If he is discharged, we can follow-up in the urology office for voiding trial. Okay to gently hand irrigate catheter if it becomes obstructed. (2) Sepsis: Plan: Hopefully we have source control now with Kirkpatrick catheter, ureteral stent and cholecystotomy tube. Agree with ongoing broad-spectrum antibiotics. We will follow cultures and narrow coverage as more data becomes available. (3) Nephrolithiasis: Plan: No plan for further intervention on his left ureteral stone during this hospitalization. We will have him follow-up as an outpatient to coordinate stone/stent removal. Plan Urology will sign off for now, please call with any questions or concerns. Admission and Anticipated Discharge Date Admission Date: April 27, 2023 Subjective Patient is sleepy this morning and unable to provide any meaningful history. Family at the bedside reports that he is less agitated. Kirkpatrick catheter has been draining well overnight, urine has gradually cleared Physical Exam Physical Exam: Resting comfortably in bed, NAD Genitourinary: Kirkpatrick catheter in good position draining clear urine with some sediment. Results & Data Vital Signs (Past 12 Hours) Vital Signs Temp Pulse Pulse Resp BP Pulse Ox O2 Del Method 04/29/23 07:13 36.7 C 99 H 22 108/72 100 Nasal Cannula 04/29/23 04:19 99 H 112/66 04/29/23 03:58 121 H 105/69 04/29/23 02:07 36.7 C 92 H 18 126/63 92 Nasal Cannula 04/29/23 00:36 79 104/62 04/28/23 23:53 91 H 04/28/23 23:05 86 97/61 L 04/28/23 22:59 92 H 106/63 04/28/23 22:11 36.6 C 101 H 18 97/61 L 93 Nasal Cannula O2 Flow Rate 04/29/23 07:13 2 04/29/23 04:19 04/29/23 03:58 04/29/23 02:07 4 04/29/23 00:36 04/28/23 23:53 04/28/23 23:05 04/28/23 22:59 04/28/23 22:11 4 PG Care Time/CCT Total # of Minutes Spent Total Time Spent with Patient: Total time spent is greater than 50% in coordination of care (as documented) at patient's floor/unit and/or counseling patient: Coding Level of Care Code 89465 SUB INP/OBS CARE 1/25MIN Diagnoses Urinary retention R33.9 Sepsis A41.9 Nephrolithiasis N20.0
[2023-04-29] MEDS: ASPIRIN 81 MG ECTAB PO SCH ×2 (09:45→12:51)
[2023-04-29] MEDS: METOPROLOL SUCC 25MG EXT REL TAB PO SCH ×3 (09:45→20:53)
[2023-04-29] MEDS: FLUTICASONE/VILANTEROL 100/25MCG 14 PUFFS/INHALER INH SCH (09:45)
[2023-04-29] MEDS ORDERED: ASPIRIN 300 MG SUPP PR ONE (10:05)
--- NOTE | 2023-04-29 10:37 | Electrocardiogram Report ---
Test Reason : Blood Pressure : / mmHG Vent. Rate : 092 BPM Atrial Rate : 227 BPM P-R Int : 000 ms QRS Dur : 090 ms QT Int : 396 ms P-R-T Axes : 000 008 -23 degrees QTc Int : 489 ms Atrial fibrillation Inferior infarct , age undetermined Abnormal ECG When compared with ECG of 27-APR-2023 15:40, Inferior infarct is now Present Non-specific change in ST segment in Inferior leads Nonspecific T wave abnormality no longer evident in Lateral leads QT has lengthened Confirmed by Esvin Sepulveda ([id number]) on 04/29/2023 10:37:35 AM Referred By: REFERRED SELF Confirmed By:Nikhil Sepulveda
[2023-04-29] MEDS: ALBUTEROL HFA 8 GM INHALER INH PRN ×2 (11:57→17:35)
[2023-04-29] MEDS ORDERED: METOPROLOL TARTRATE 1 MG/ML VIAL IV PRN (12:50)
--- NOTE | 2023-04-29 16:41 | Hospitalist Progress Note ---
Date of Service April 29, 2023 Assessment & Plan (1) Sepsis: Plan: Source: acute lavon With WBC count 31 on admission, AST slightly elevated, Lactate 2.2 and then up to 4.8,fever, tachycardia, borderline hypotension--> all now improving Also with severe acute metabolic/septic encephalopathy-severe agitation requiring restraints physically and chemically--> now much improved Surgery consult appreciated-too unstable/medically complex for surgery Now s/p IR placement of cholecystostomy tube for drainage of infection and greatly improved GB culture-prelim no growth BCxs-NGTD Ur cx prelim no growth -Continue ceftriaxone and flagyl -continue LR but reduce to 70mL/hr -Last Eliquis dose evening of 04/26-held Eliquis and will start tonight as per my d/w IR as hgb stable from yesterday -follow CBC, CMP, Mag, cultures -advanced diet as tolerated-good with clears today and will adv to full liquids for dinner -continue supportive care for encephalopathy, ensure moving bowels, Kirkpatrick draining (2) Acute cholecystitis: Plan: as above (3) NSTEMI (non-ST elevated myocardial infarction): Plan: troponin elevated to 3497 after admission and then trended downward ECG with rapid afib, tele continues with rapid afib due to sepsis and not taking po metoprolol Most likely demand ischemia in setting of known CAD, h/o CABG ECHO without WMAs and with preserved EF Appreciate Cardiology consult -started scheduled IV lopressor and now make prn as he is taking his po Toprol -continue home ASA, metoprolol, statin -monitor on tele -rate control Afib (4) Urinary retention: Plan: Kirkpatrick in place and was still retaining large amount of urine Also had 2 mm nonobstructing left ureterolithiasis on CT and developed some hematuria consult Urology appreciated urgently on 04/28--> had Kirkpatrick placement and stent for left distal ureteral stone under sedation on 04/28 Kirkpatrick draining nicely, hematuria resolved Ur cx-no growth to date Maintain Kirkpatrick for at least one week as per Urol prior to trial of void add on FLomax daily once BPs improved (5) Paroxysmal atrial fibrillation: Plan: Currently in atrial fibrillation on admission with rapid rates--> rates now improving with resolution of sepsis and giving IV lopressor Eliquis on hold for percutaneous lavon but ok to resume this evening continue po Toprol XL bid monitor on tele (6) History of CVA (cerebrovascular accident) without residual deficits: Plan: CT head for stroke-negative (7) History of coronary artery bypass graft x 3: Plan: No chest pain or shortness of breath on exertion although patients dementia limits quality of this information, last cardiology note in April 12 reports stable from cardiac perspective. Holding Eliquis for surgical/radiology intervention Continue metoprolol Continue simvastatin home lisinopril and HCTZ/triamterene on hold due to acute infection (8) Asthma: Plan: Stable, no acute exacerbation suspected Continue Dulera or hospital formulary equivalent (9) Hypothyroidism: Plan: TSH WNL in December Continue levothyroxine (10) Hypertension: Plan: Hold lisinopril and HCTZ/triamterne. Continue metoprolol for tachycardia (11) Dementia: Plan: supportive care Plan VTE Prophylaxis - retsart Eliquis Disposition - continued stay on PCU, improving. Place PT/OT consults, may need rehab placement Discussed care with at bedside Admission and Anticipated Discharge Date Admission Date: April 27, 2023 Subjective Much improved today with mentation-only mild agitation this AM and by mid day was willing to take pills, ate some clear liquids, and reports he is acting more like himself, not speaking "jibberish." He denies abd pain to me. Is resting but easily wakes up and answers some simple yes/no questions. Tele with Afib rates low 100s Physical Exam Constitutional: WD/WN, vitals as above Eyes: + anicteric sclerae Neck: trachea midline, no thyromegaly Respiratory: normal respiratory effort, lungs clear to auscultation Cardiovascular: Rate/Rhythm: + tachycardic and + irregularly irregular Extremities: + edema (left hand and forearm with 1+ edema) Chest (Breasts): Chest: normal inspection of chest Gastrointestinal (Abdomen): Inspection/Auscultation: normal bowel sounds; + abdomen abnormal to inspection (drain right abd w/ dressing cdi) and abdomen not distended Percussion/Palpation: abdomen soft; abdomen nontender Musculoskeletal: Extremities: extremities normal to inspection; no cyanosis and no clubbing Skin: no rashes, warm and dry Neurologic: moves all extremities and awake; no focal motor deficits Genitourinary: no penis abnormality (Kirkpatrick in place draining clear dark yellow urine) Lymphatic: no lymphedema Results & Data Results & Data Vital Signs (Past 12 Hours) Vital Signs Temp Pulse Pulse Resp BP BP Pulse Ox 04/29/23 15:54 106 H 04/29/23 11:58 90 18 100 04/29/23 11:52 36.4 C L 101 H 20 121/76 100 04/29/23 11:15 90 04/29/23 10:52 133 H 110/98 04/29/23 08:00 04/29/23 07:13 36.7 C 99 H 22 108/72 100 O2 Del Method O2 Flow Rate 04/29/23 15:54 04/29/23 11:58 Nasal Cannula 4 04/29/23 11:52 Nasal Cannula 4 04/29/23 11:15 04/29/23 10:52 04/29/23 08:00 Nasal Cannula 2 04/29/23 07:13 Nasal Cannula 2 Laboratory Results CBC, CMP,troponin reviewed Blood, GB, and Ur cxs all reviewed PG Care Time/CCT Total # of Minutes Spent Total Time Spent with Patient: Total time spent is greater than 50% in coordination of care (as documented) at patient's floor/unit and/or counseling patient: Coding Level of Care Code 73569 SUB INP/OBS CARE 3/50MIN Diagnoses Sepsis A41.9 Acute cholecystitis K81.0 NSTEMI (non-ST elevated myocardial infarction) I21.4 Urinary retention R33.9 Paroxysmal atrial fibrillation I48.0 History of CVA (cerebrovascular accident) without residual deficits Z86.73 History of coronary artery bypass graft x 3 Z95.1 Asthma J45.909 Hypothyroidism E03.9 Hypertension I10 Dementia F03.90
[2023-04-29] MEDS: DOCUSATE SODIUM/SENNA 50/8.6MG TAB PO SCH (17:27)
[2023-04-29] MEDS: APIXABAN 5 MG TABLET PO SCH (20:52)
[2023-04-29] MEDS: SIMVASTATIN 40 MG TAB PO SCH (20:53)
[2023-04-29] MEDS: cefTRIAXone SODIUM 2,000 MG in DEXTROSE 5% 50 ML IV SCH (21:03)
[2023-04-30] MEDS: metroNIDAZOLE 500 MG/100 ML BAG IV SCH ×3 (02:33→18:42)
[2023-04-30 05:41] LABS: Albumin Level 2.8 gm/dl (3.4-5.0); BUN Creatinine Ratio 23.1 (10-20); Bilirubin,Total 0.7 mg/dl (0.2-1.0); Calcium 8.4 mg/dl (8.6-10.3); Creatinine Clr Calc Pharmacy 51.8 ml/min; Est GFR (African American) 61.1 ml/min; Est GFR (Non-African American) 52.8 ml/min; Globulin 2.8 gm/dl (2.5-4.0); Magnesium 1.8 mg/dl (1.7-2.4); Potassium 3.8 mmol/L (3.5-5.1); Total Protein 5.6 gm/dl (6.0-8.3)
[2023-04-30 05:53] LABS: Basophils # (auto) 0.06 K/uL (0-0.2); Basophils % (auto) 0.4 %; Eosinophils # (auto) 0.23 K/uL (0-0.50); Eosinophils % (auto) 1.5 %; Hematocrit (blood only) 31.4 % (42.0-52.0); Hemoglobin 10.4 g/dl (14.0-18.0); Immature Granulocytes # (auto) 0.16 K/uL (0.01-0.20); Lymphocytes # (auto) 1.93 K/uL (1.2-3.4); Lymphocytes % (auto) 12.2 %; Mean Corpuscular Hemoglobin 32.8 pg (25.0-34.0); Mean Corpuscular Hgb Conc 33.1 g/dL (32.0-36.0); Mean Corpuscular Volume 99.1 fL (80.0-100.0); Mean Platelet Volume 10.7 fL (9.4-12.4); Monocytes # (auto) 1.02 K/uL (0.11-0.59); Monocytes % (auto) 6.4 %; Neutrophils # (auto) 12.42 K/uL (1.40-6.50); Neutrophils % (auto) 78.5 %; Platelet Count 133 K/uL (130-400); RDW Coefficient of Variation 13.2 % (11.5-14.5); RDW Standard Deviation 47.7 fL (36.4-46.3); Red Blood Count 3.17 M/uL (4.70-6.10); White Blood Count 15.82 K/ul (4.8-10.8)
[2023-04-30] MEDS: LEVOTHYROXINE SODIUM 112 MCG TABLET PO SCH (05:58)
--- NOTE | 2023-04-30 06:11 | Surgery Progress Note ---
Date of Service April 30, 2023 Assessment & Plan (1) Acute cholecystitis: Plan: Patient has been admitted on the hospitalist service. Due to multiple medical comorbidities patient was felt to be a high risk surgical candidate, therefore a percutaneous cholecystostomy tube was placed on 04/28/23 Continue cholecystostomy tube to gravity drainage Continue antibiotics in the form of Rocephin and Flagyl Labs reviewed and patient has had improvement of his white blood cell count from 20,000-15,000 over the past 24 hours (white blood cell count was 31,003 days ago); there is no elevation of patient's LFTs Continue diet as tolerated (he is currently on full liquids Admission and Anticipated Discharge Date Admission Date: April 27, 2023 Subjective Patient is currently resting comfortably in bed. He seems pleasantly confused and is alert only to person which limits his subjective data. He does deny any nausea or vomiting and also reports he does not have any abdominal pain. I discussed with nurse attending to the patient and he notes there were no new issues overnight. He notes the patient has not complained of any abdominal pain. There is been no reported emesis. He notes that the patient's cholecystostomy tube has had minimal output. Physical Exam Gastrointestinal (Abdomen): Abdomen is rotund with minimal distention. There is no pain noted with palpation at the time of my exam. Bowel sounds are present. No rebound ten derness or guarding is noted. Percutaneous cholecystostomy is in place draining a small amount of bilious material. (As noted by RN there was minimal drainage overnight) Results & Data Vital Signs (Past 12 Hours) Vital Signs Temp Pulse Pulse Resp BP Pulse Ox O2 Del Method 04/30/23 02:39 36.8 C 114 H 24 146/80 H 96 Nasal Cannula 04/29/23 23:05 125 H 04/29/23 22:53 36.7 C 108 H 18 133/80 96 Nasal Cannula 04/29/23 19:35 Nasal Cannula 04/29/23 19:00 37.1 C 109 H 18 120/84 96 Room Air O2 Flow Rate 04/30/23 02:39 2 04/29/23 23:05 04/29/23 22:53 2 04/29/23 19:35 2 04/29/23 19:00 PG Care Time/CCT Total # of Minutes Spent Total Time Spent with Patient: Total time spent is greater than 50% in coordination of care (as documented) at patient's floor/unit and/or counseling patient: Coding Level of Care Code 59702 SUB INP/OBS CARE Diagnoses Acute cholecystitis K81.0
[2023-04-30] MEDS: DOCUSATE SODIUM/SENNA 50/8.6MG TAB PO SCH ×2 (08:31→20:40)
[2023-04-30] MEDS: APIXABAN 5 MG TABLET PO SCH ×2 (08:32→20:39)
[2023-04-30] MEDS: FLUTICASONE/VILANTEROL 100/25MCG 14 PUFFS/INHALER INH SCH (08:32)
[2023-04-30] MEDS: ASPIRIN 81 MG ECTAB PO SCH (08:32)
[2023-04-30] MEDS: LACTATED RINGER'S 1,000 ML IV SCH (08:33)
[2023-04-30] MEDS: METOPROLOL SUCC 25MG EXT REL TAB PO SCH ×2 (08:33→20:40)
[2023-04-30] MEDS ORDERED: MAGNESIUM SULFATE / D5W 1 GM/100 ML BAG IV ONE (09:58)
[2023-04-30] MEDS ORDERED: POTASSIUM CHLORIDE CRTAB 20 MEQ TABCR PO STA (09:58)
[2023-04-30] MEDS ORDERED: POLYETHYLENE (MIRALAX) 17 GM PACK PO PRN (16:52)
[2023-04-30] MEDS ORDERED: MoRPHine SULFATE 2 MG/ML CARP IV PRN (16:53)
--- NOTE | 2023-04-30 16:59 | Hospitalist Progress Note ---
Date of Service April 30, 2023 Assessment & Plan (1) Sepsis: Plan: Source: acute lavon With WBC count 31 on admission, AST slightly elevated, Lactate 2.2 and then up to 4.8,fever, tachycardia, borderline hypotension--> all now much improved Also with severe acute metabolic/septic encephalopathy-severe agitation requiring restraints physically and chemically--> now much improved with just some mild agitation, pulling at lines, etc. overnight Surgery consult appreciated-too unstable/medically complex for surgery Now s/p IR placement of cholecystostomy tube for drainage of infection and greatly improved GB culture-prelim no growth BCxs-NGTD Ur cx no growth WBC count much improved down to 15, LFTs normal Plts improving (were mildly low) No fever since day of admission -Continue ceftriaxone and flagyl -developing peripheral edema--> dc IVFs now as is becca po -follow final cultures -follow CBC, CMP, Mag, -replace IV mag and po K+ today to keep above 2.0 and 4.0 -advanced diet as tolerated-adv to low fat for lunch today -continue supportive care for encephalopathy, ensure moving bowels, Lora draining--> add on prn dose of low dose Zyprexa qhs in case of agitation -will need cholecystostomy tube care after discharge either with home health or at rehab -could consider f/u gallstone extraction percutaneously and then tube removal- will defer to SUrgery or IR team as to timing of such (2) Acute cholecystitis: Plan: as above (3) NSTEMI (non-ST elevated myocardial infarction): Plan: troponin elevated to 3497 after admission and then trended downward ECG with rapid afib, no ischemic changes Most likely demand ischemia in setting of sepsis, known CAD, h/o CABG, and rapid afib ECHO without WMAs and with preserved EF Appreciate Cardiology consult -started scheduled IV lopressor and then transitioned to po Toprol after taking po again -continue ASA, metoprolol, statin -monitor on tele -rate control Afib (4) Urinary retention: Plan: Lora in place after admission and was still retaining large amount of urine Also had 2 mm nonobstructing left ureterolithiasis on CT and developed some hematuria NELSON with pairer inspector 1.5, now improved consult Urology appreciated urgently on 04/28--> had Lora placement and stent for left distal ureteral stone under sedation on 04/28 Lora draining nicely, hematuria resolved Ur cx-negative Maintain Lora for at least one week as per Urol prior to trial of void add on FLomax daily once BPs improved needs f/u with Urology for stent and stone management, urinary retention (5) Paroxysmal atrial fibrillation: Plan: With rapid atrial fibrillation on admission --> rates now improving with resolution of sepsis and giving IV lopressor Eliquis restarted after being on hold for procedure Rates remain 100-130s continue po Toprol XL bid but increase dose to 37.5mg po bid for ongoing rapid rates monitor on tele (6) History of CVA (cerebrovascular accident) without residual deficits: Plan: CT head for stroke-negative (7) History of coronary artery bypass graft x 3: Plan: No chest pain or shortness of breath on exertion although patients dementia limits quality of this information, last cardiology note in April 12 reports stable from cardiac perspective. Continue metoprolol Continue simvastatin home lisinopril and HCTZ/triamterene on hold due to acute infection and initial hypotension, NELSON (8) Asthma: Plan: Stable, no acute exacerbation suspected Continue Dulera or hospital formulary equivalent (9) Hypothyroidism: Plan: TSH WNL in December Continue levothyroxine (10) Hypertension: Plan: Hold lisinopril and HCTZ/triamterene for initial hypotension and NELSON Continue metoprolol for tachycardia (11) Dementia: Plan: supportive care Plan VTE Prophylaxis - Eliquis Disposition - continued stay on PCU, improving. PT/OT consults report home with home health and 24/7 care possibly vs inpatient rehab. COntinue daily PT/OT Discussed care with at bedside Admission and Anticipated Discharge Date Admission Date: April 27, 2023 Subjective Pt had some mild agitation overnight with trying to pull out his Lora, etc. and had a 1:1. Sitter now removed and he is OOB to chair, eating meals, conversing, smiling. Still some confusion at times. Denies any abd pain or nausea, no CP or SOB. reports he was a little winded with getting out of bed w/ PT to a chair. No BM today Tele with Afib, rates 80-130s Physical Exam Constitutional: WD/WN, vitals as above Eyes: + anicteric sclerae Neck: trachea midline, no thyromegaly Respiratory: normal respiratory effort, lungs clear to auscultation Cardiovascular: Rate/Rhythm: + tachycardic and + irregularly irregular Extremities: + edema (left hand and forearm with 1+ edema) Chest (Breasts): Chest: normal inspection of chest Gastrointestinal (Abdomen): Inspection/Auscultation: normal bowel sounds; + abdomen abnormal to inspection (drain right abd w/ dressing cdi) and abdomen not distended Percussion/Palpation: abdomen soft; abdomen nontender Musculoskeletal: Extremities: no cyanosis and no clubbing Skin: no rashes, warm and dry Neurologic: moves all extremities and awake; no focal motor deficits Psychiatric: Orientation: alert, oriented to person, oriented to place (hospital) and cooperative; + not oriented to time Genitourinary: no penis abnormality (Lora in place draining clear concentrated yellow urine) Lymphatic: no lymphedema Results & Data Results & Data Vital Signs (Past 12 Hours) Vital Signs Temp Pulse Pulse Resp BP BP Pulse Ox 04/30/23 08:00 04/30/23 11:34 36.7 C 88 16 119/76 100 04/30/23 08:30 95 H 119/71 04/30/23 07:45 36.7 C 95 H 16 119/75 96 04/30/23 07:38 137 H O2 Del Method O2 Flow Rate 04/30/23 08:00 Nasal Cannula 2 04/30/23 11:34 Nasal Cannula 2 04/30/23 08:30 04/30/23 07:45 Nasal Cannula 2 04/30/23 07:38 Laboratory Results CBC, CMP, magnesium reviewed Ur cx no growth Gallbladder cx-prelim neg BCxs prelim neg PG Care Time/CCT Total # of Minutes Spent Total Time Spent with Patient: Total time spent is greater than 50% in coordination of care (as documented) at patient's floor/unit and/or counseling patient: Coding Level of Care Code 44872 SUB INP/OBS CARE 3/50MIN Diagnoses Sepsis A41.9 Acute cholecystitis K81.0 NSTEMI (non-ST elevated myocardial infarction) I21.4 Urinary retention R33.9 Paroxysmal atrial fibrillation I48.0 History of CVA (cerebrovascular accident) without residual deficits Z86.73 History of coronary artery bypass graft x 3 Z95.1 Asthma J45.909 Hypothyroidism E03.9 Hypertension I10 Dementia F03.90
[2023-04-30] MEDS: SIMVASTATIN 40 MG TAB PO SCH (20:40)
[2023-04-30] MEDS: cefTRIAXone SODIUM 2,000 MG in DEXTROSE 5% 50 ML IV SCH (23:00)
[2023-04-30] MEDS: OLANZAPINE 2.5 MG TAB PO PRN (23:10)
[2023-05-01] MEDS: metroNIDAZOLE 500 MG/100 ML BAG IV SCH ×3 (02:34→18:14)
[2023-05-01 05:21] LABS: Basophils # (auto) 0.05 K/uL (0-0.2); Basophils % (auto) 0.4 %; Eosinophils # (auto) 0.39 K/uL (0-0.50); Eosinophils % (auto) 3.1 %; Hematocrit (blood only) 34.7 % (42.0-52.0); Hemoglobin 11.2 g/dl (14.0-18.0); Immature Granulocytes # (auto) 0.09 K/uL (0.01-0.20); Immature Granulocytes % (auto) 0.7 %; Lymphocytes # (auto) 1.84 K/uL (1.2-3.4); Lymphocytes % (auto) 14.8 %; Mean Corpuscular Hemoglobin 32.7 pg (25.0-34.0); Mean Corpuscular Hgb Conc 32.3 g/dL (32.0-36.0); Mean Corpuscular Volume 101.5 fL (80.0-100.0); Mean Platelet Volume 10.7 fL (9.4-12.4); Monocytes # (auto) 1.36 K/uL (0.11-0.59); Monocytes % (auto) 10.9 %; Neutrophils # (auto) 8.71 K/uL (1.40-6.50); Neutrophils % (auto) 70.1 %; Platelet Count 148 K/uL (130-400); RDW Coefficient of Variation 13.3 % (11.5-14.5); RDW Standard Deviation 50.2 fL (36.4-46.3); Red Blood Count 3.42 M/uL (4.70-6.10); White Blood Count 12.44 K/ul (4.8-10.8)
[2023-05-01 05:22] LABS: Albumin Globulin Ratio 1.2 (0.9-2); Albumin Level 3.1 gm/dl (3.4-5.0); BUN Creatinine Ratio 22.2 (10-20); Bilirubin,Total 0.8 mg/dl (0.2-1.0); Calcium 8.4 mg/dl (8.6-10.3); Creatinine Clr Calc Pharmacy 53.6 ml/min; Est GFR (African American) 63.7 ml/min; Est GFR (Non-African American) 54.9 ml/min; Globulin 2.5 gm/dl (2.5-4.0); Magnesium 1.9 mg/dl (1.7-2.4); Potassium 3.7 mmol/L (3.5-5.1); Total Protein 5.6 gm/dl (6.0-8.3)
[2023-05-01] MEDS: LEVOTHYROXINE SODIUM 112 MCG TABLET PO SCH (05:30)
[2023-05-01] MEDS: METOPROLOL SUCC 25MG EXT REL TAB PO SCH ×3 (10:41→20:48)
[2023-05-01] MEDS: ASPIRIN 81 MG ECTAB PO SCH ×2 (10:43→11:12)
[2023-05-01] MEDS: APIXABAN 5 MG TABLET PO SCH ×3 (10:44→20:50)
[2023-05-01] MEDS: FLUTICASONE/VILANTEROL 100/25MCG 14 PUFFS/INHALER INH SCH ×2 (10:44→11:12)
[2023-05-01] MEDS: DOCUSATE SODIUM/SENNA 50/8.6MG TAB PO SCH ×3 (10:44→20:51)
--- NOTE | 2023-05-01 11:40 | Surgery Progress Note ---
Date of Service May 01, 2023 Assessment & Plan (1) Acute cholecystitis: Plan status post percutaneous cholecystostomy tube, improving. IV antibiotics Advance diet as tolerated We will need to follow-up as outpatient for perc lavon tube management Percutaneous cholecystostomy tube to stay for 6 weeks Admission and Anticipated Discharge Date Admission Date: April 27, 2023 Subjective percutaneous cholecystostomy tube placed on Monday. Denies pain. Less agitation. No vomiting. Physical Exam Physical Exam: NAD, A&O x3 abdomen: Soft, nontender, nondistended percutaneous cholecystostomy tube with small amount of bilious drainage Results & Data Vital Signs (Past 12 Hours) Vital Signs Temp Pulse Pulse Resp BP Pulse Ox O2 Del Method 05/01/23 08:28 36.9 C 101 H 20 135/84 97 Room Air 05/01/23 00:01 117 H 05/01/23 02:41 117 H 20 154/88 H 92 Nasal Cannula O2 Flow Rate 05/01/23 08:28 05/01/23 00:01 05/01/23 02:41 3
--- NOTE | 2023-05-01 14:51 | Hospitalist Progress Note ---
Date of Service May 01, 2023 Assessment & Plan (1) Sepsis: Plan: Sepsis due to acute cholecystitis, s/p cholecystostomy tube placement With WBC count 31 on admission, AST slightly elevated, Lactate 2.2 and then up to 4.8,fever, tachycardia, borderline hypotension--> all now much improved -Also with severe acute metabolic/septic encephalopathy-severe agitation requiring restraints physically and chemically--> improving, with some recurre nce versus delirium overnight -Surgery consult appreciated, too unstable/medically complex for surgery - Now s/p IR placement of cholecystostomy tube for drainage of infection and greatly improved -GB culture-no growth to date, preliminary -BCxs-NGTD -Ur cx no growth -Continue ceftriaxone and flagyl - IVFs now as is becca po, w/ some peripheral edema 04/30-05/01 -Low-fat diet as tolerated -continue supportive care for encephalopathy, ensure moving bowels, Kirkpatrick draining--> continue low-dose Zyprexa -If worsening could consider f/u gallstone extraction percutaneously and then tube removal, not anticipated/recommended at this time Percutaneous cholecystostomy tube to stay in place for 6 weeks, will require outpatient follow-up and management 05/01: Leukocytosis continues to improve, creatinine is normal, sodium/potassium and LFTs are normal, fever curve down trended (2) Acute cholecystitis: Plan: as above (3) NSTEMI (non-ST elevated myocardial infarction): Plan: troponin elevated to 3497 after admission and then trended downward ECG with rapid afib, no ischemic changes Most likely demand ischemia in setting of sepsis, known CAD, h/o CABG, and rapid afib ECHO without WMAs and with preserved EF -started scheduled IV lopressor and then transitioned to po Toprol after taking po again. Patient has improvement following Toprol with rate down into the 80s, up trended to around 100s before dose. BP normal -continue ASA, metoprolol, statin -monitor on tele -rate control Afib (4) Urinary retention: Plan: Kirkpatrick in place after admission and was still retaining large amount of urine Also had 2 mm nonobstructing left ureterolithiasis on CT and developed some hematuria NELSON with chiller operator 1.5, now improved consult Urology appreciated urgently on 04/28--> had Kirkpatrick placement and stent for left distal ureteral stone under sedation on 6/2 Kirkpatrick draining nicely, hematuria resolved Ur cx-negative Maintain Kirkpatrick for at least one week as per Urol prior to trial of void add on FLomax daily once BPs improved needs f/u with Urology for stent and stone management, urinary retention (5) Paroxysmal atrial fibrillation: Plan: With rapid atrial fibrillation on admission --> rates now improving with resolution of sepsis Eliquis restarted after being on hold for procedure Rates remain 100-130s, intermittently dropping to 80s after metoprolol. Continue current dose, if remains intermittently tachycardic as doses wean can increase from 37.5 to 50 mg monitor on tele (6) History of CVA (cerebrovascular accident) without residual deficits: Plan: CT head for stroke-negative (7) History of coronary artery bypass graft x 3: Plan: No chest pain or shortness of breath on exertion although patients dementia limits quality of this information, last cardiology note in April 12 reports stable from cardiac perspective. Continue metoprolol Continue simvastatin home lisinopril and HCTZ/triamterene on hold due to acute infection and initial hypotension, NELSON. Patient is now normotensive and with normalized creatinine. We will resume these for / (8) Asthma: Plan: Stable, no acute exacerbation suspected Continue Dulera or hospital formulary equivalent (9) Hypothyroidism: Plan: TSH WNL in December Continue levothyroxine (10) Hypertension: Plan: Hold lisinopril and HCTZ/triamterene for initial hypotension and NELSON Continue metoprolol for tachycardia (11) Dementia: Plan: supportive care Plan VTE Prophylaxis - Eliquis Disposition - continued stay on PCU, improving. PT/OT consults report home with home health and 24/ care possibly vs inpatient rehab. Continue PT/OT. Patient is improving but still significantly off his baseline Discussed care with at bedside Admission and Anticipated Discharge Date Admission Date: April 27, 2023 Sheron Bonds is seen at the bedside with his present. He had a very good day yesterday, but had a repeat episode of confusion last night, received olanzapine last night and was somewhat more sedated and confused this morning. At time of bedside assessment he is comfortable, endorses a small amount of pain in his right abdomen, but otherwise is without fever/chills/sweats/chest pain/chest pressure/nausea/vomiting. Kirkpatrick is draining dark yellow urine, denies pain at Kirkpatrick site. He is not oriented to place or date, his notes he probably would not be oriented to these normally even when well. Has been more confused than baseline this morning Review of Systems Review of Systems: All systems reviewed & are unremarkable except as noted in Subjective Results & Data Results & Data Vital Signs (Past 12 Hours) Vital Signs Temp Pulse Pulse Resp BP Pulse Ox O2 Del Method 05/01/23 07:00 98 H 05/01/23 08:00 Nasal Cannula 05/01/23 08:28 36.9 C 101 H 20 135/84 97 Room Air O2 Flow Rate 05/01/23 07:00 05/01/23 08:00 2 05/01/23 08:28 PG Care Time/CCT Total # of Minutes Spent Total Time Spent with Patient: Total time spent is greater than 50% in coordination of care (as documented) at patient's floor/unit and/or counseling patient: Coding Level of Care Code 03915 SUB INP/OBS CARE 2/35MIN Diagnoses Sepsis A41.9 Acute cholecystitis K81.0 NSTEMI (non-ST elevated myocardial infarction) I21.4 Urinary retention R33.9 Paroxysmal atrial fibrillation I48.0 History of CVA (cerebrovascular accident) without residual deficits Z86.73 History of coronary artery bypass graft x 3 Z95.1 Asthma J45.909 Hypothyroidism E03.9 Hypertension I10 Dementia F03.90
[2023-05-01] MEDS: SIMVASTATIN 40 MG TAB PO SCH (20:51)
[2023-05-01] MEDS: cefTRIAXone SODIUM 2,000 MG in DEXTROSE 5% 50 ML IV SCH (21:57)
[2023-05-02] MEDS: metroNIDAZOLE 500 MG/100 ML BAG IV SCH ×3 (02:02→17:32)
[2023-05-02 06:33] LABS: BUN Creatinine Ratio 18.4 (10-20); Calcium 8.4 mg/dl (8.6-10.3); Creatinine Clr Calc Pharmacy 55.6 ml/min; Est GFR (African American) 65.7 ml/min; Est GFR (Non-African American) 56.7 ml/min; Potassium 3.9 mmol/L (3.5-5.1)
[2023-05-02] MEDS: LEVOTHYROXINE SODIUM 112 MCG TABLET PO SCH (06:34)
[2023-05-02 06:47] LABS: Basophils # (auto) 0.05 K/uL (0-0.2); Basophils % (auto) 0.4 %; Eosinophils # (auto) 0.17 K/uL (0-0.50); Eosinophils % (auto) 1.2 %; Hematocrit (blood only) 33.7 % (42.0-52.0); Hemoglobin 11.6 g/dl (14.0-18.0); Immature Granulocytes # (auto) 0.17 K/uL (0.01-0.20); Immature Granulocytes % (auto) 1.2 %; Lymphocytes # (auto) 1.97 K/uL (1.2-3.4); Lymphocytes % (auto) 14.1 %; Mean Corpuscular Hemoglobin 33.2 pg (25.0-34.0); Mean Corpuscular Hgb Conc 34.4 g/dL (32.0-36.0); Mean Corpuscular Volume 96.6 fL (80.0-100.0); Mean Platelet Volume 10.2 fL (9.4-12.4); Monocytes # (auto) 1.88 K/uL (0.11-0.59); Monocytes % (auto) 13.4 %; Neutrophils # (auto) 9.75 K/uL (1.40-6.50); Neutrophils % (auto) 69.7 %; Platelet Count 187 K/uL (130-400); RDW Coefficient of Variation 13.3 % (11.5-14.5); RDW Standard Deviation 47.5 fL (36.4-46.3); Red Blood Count 3.49 M/uL (4.70-6.10); White Blood Count 13.99 K/ul (4.8-10.8)
--- NOTE | 2023-05-02 08:50 | Surgery Progress Note ---
Date of Service May 02, 2023 Assessment & Plan (1) Acute cholecystitis: Plan status post percutaneous cholecystostomy tube, improving. IV antibiotics Advance diet as tolerated We will need to follow-up as outpatient for perc lavon tube management Percutaneous cholecystostomy tube to stay for 6 weeks Admission and Anticipated Discharge Date Admission Date: April 27, 2023 Subjective slightly more somnolent; no pain/n/v. on regular diet, did not eat much yesterday Physical Exam Physical Exam: NAD, A&O x3 abdomen: Soft, nontender, nondistended percutaneous cholecystostomy tube with small amount of bilious drainage Results & Data Vital Signs (Past 12 Hours) Vital Signs Temp Pulse Pulse Resp BP Pulse Ox O2 Del Method 05/02/23 03:00 36.8 C 120 H 19 156/83 H 95 Nasal Cannula 05/01/23 23:10 36.5 C 114 H 19 164/81 H 97 Nasal Cannula 05/01/23 23:09 104 H 05/01/23 21:00 Nasal Cannula O2 Flow Rate 05/02/23 03:00 3 05/01/23 23:10 3 05/01/23 23:09 05/01/23 21:00 2
[2023-05-02] MEDS: METOPROLOL SUCC 25MG EXT REL TAB PO SCH ×2 (08:58→21:12)
[2023-05-02] MEDS: ASPIRIN 81 MG ECTAB PO SCH (08:59)
[2023-05-02] MEDS: DOCUSATE SODIUM/SENNA 50/8.6MG TAB PO SCH ×2 (08:59→21:12)
[2023-05-02] MEDS: APIXABAN 5 MG TABLET PO SCH ×2 (08:59→21:12)
[2023-05-02] MEDS ORDERED: TRIAMTERENE/HCTZ 37.5/25MG TAB PO SCH (09:00)
[2023-05-02] MEDS: ACETAMINOPHEN 325 MG TAB PO PRN (09:04)
[2023-05-02] MEDS: FLUTICASONE/VILANTEROL 100/25MCG 14 PUFFS/INHALER INH SCH (09:06)
[2023-05-02] MEDS ORDERED: METOPROLOL TARTRATE 25 MG TAB PO STA (10:04)
[2023-05-02 10:58] LABS: Albumin Level 3.1 gm/dl (3.4-5.0); Bilirubin Direct 0.2 mg/dl (0-0.2); Bilirubin,Total 0.7 mg/dl (0.2-1.0); Total Protein 5.9 gm/dl (6.0-8.3)
[2023-05-02] MEDS ORDERED: STAT IV Infusion **Titration per Protocol STA (12:02)
[2023-05-02] MEDS: dilTIAZem HCL 125 MG in DEXTROSE 5% 100 ML IV SCH (12:51)
[2023-05-02] MEDS ORDERED: PANTOprazole 40 MG in SYRINGE 0 ML IV ONE (15:17)
[2023-05-02] MEDS ORDERED: FUROSEMIDE INJ 20 MG/2 ML VIAL IV ONE (15:19)
--- NOTE | 2023-05-02 15:19 | Hospitalist Progress Note ---
Date of Service May 02, 2023 Assessment & Plan (1) Acute respiratory failure with hypoxia: Plan: suspect 2nd to acute CHF/pulmonary edema. he is 8+ liters positive since admission. he is typically not on home O2. he was tachypneic with mild retractions today. obtained cxr - no obvious pneumonia. pulmonary edema not present per radiology but clinical picture most c/w such. due to fever, cough, hypoxia obtained repeat COVID test -- negative for such. lasix 20mg IV x 1 now. limit IV fluids. aim for net negative I/O balance of -1 liter daily. of note - echo this admission was obtained but poor windows; EF was grossly normal per the echo report. (2) Acute gout: Plan: R 1st toe, L 3rd toe 2nd to physical stress in setting of chronic HCTZ use stop HCTZ uric acid level am solumedrol 10mg IV daily (he is refusing most PO meds today) re-eval tomorrow (3) Ileus: Plan: patient without BM in numerous days per staff abd exam - distended KUB x-ray - my reading - suspect ileus consider suppository tomorrow am if no flatus or stool keep K/Mag wnl ileus 2nd to acute cholecystitis, poor mobility, etc (4) Fever: Plan: 2nd to acute gout? 2nd to pneumonia process? 2nd to biliary tract disease? other? treat gout w/ steroids cont rocephin/flagyl for acute cholecystitis cxr w/o obvious pneumonia COVID PCR (repeat) negative if fevers persist despite the above check u/a and urine cx repeat imaging of abdomen (consider MRCP) to look at CBD, etc (5) Acute metabolic encephalopathy: Plan: 2nd to acute cholecystitis, pain, hospital psychosis, etc. olanzapine HS (if he will take such) (6) Permanent atrial fibrillation with rapid ventricular response: Plan: refusing PO meds today thus, start cardizem infusion per protocol eliquis if able if refusing eliquis consider heparin infusion (7) Sepsis: Plan: 2nd to acute cholecystitis, s/p cholecystostomy tube placement WBC count 31 on admission; now 13.99 and slowly trending down Blood cx's negative Biliary culture surprisingly negative Continue ceftriaxone and flagyl s/p cholecystostomy tube by IR on 04/28/23 cholecystostomy tube to stay in place for 6 weeks this will require outpatient follow-up and management appreciate gen surg assistance - no surgical intervention advised at this time low grade fevers today - see above discussion If worsening could consider f/u gallstone extraction percutaneously and then tube removal but this is still not anticipated/recommended at this time (8) Acute cholecystitis: Plan: as above in #6 LFTs today stable (AST minimally elevated only) No signs of biliary obstruction - alk phos and t.bili wnl Cont IV abx (9) NSTEMI (non-ST elevated myocardial infarction): Plan: troponin elevated to 3497 after admission and then trended downward Most likely myocardial demand ischemia (type 2 NSTEMI) in setting of sepsis, known CAD, h/o CABG, and rapid afib limited ECHO without WMAs and with preserved EF continue ASA, metoprolol, statin - when and if he will take such continue telemetry (10) Urinary retention: Plan: Gonzales in place after admission and was still retaining large amount of urine Also had 2 mm nonobstructing left ureterolithiasis on CT and developed some hematuria [facility] [place] [facility] [place] 04/28--> had Gonzales placement and stent for left distal ureteral stone under sedation Gonzales draining w/o issue now Maintain Gonzales for at least one week as per urology then consider trial of void following such start flomax daily once BPs will allow needs f/u with [facility] [place] for stent and stone management post-discharge (11) History of CVA (cerebrovascular accident) without residual deficits: Plan: CT head negative while here resume eliquis and aspirin when he will take such (12) History of coronary artery bypass graft x 3: Plan: see "NSTEMI" above Continue metoprolol when he will take such Hold simvastatin due to institution of cardizem drip Hold lisinopril and HCTZ/triamterene to allow more BP room for AV pooja agents (13) Asthma: Plan: cont home inhalers wheezing on exam likely due to pulmonary edema rather than asthma (14) Hypothyroidism: Plan: TSH WNL in December 2022 Continue levothyroxine (15) Hypertension: Plan: Hold lisinopril and HCTZ/triamterene Hold metoprolol while on cardizem infusion (16) Dementia: Plan: supportive care advanced superimposed metabolic encephalopathy olanzapine hs prn (17) Coronary artery disease: Plan: as above (18) Benign localized prostatic hyperplasia with lower urinary tract symptoms (LUTS): Plan: gonzales flomax (when able) (19) Nephrolithiasis: Plan: left sided 2mm ureteral stone s/p stent placement this admission by [facility] [place] [facility] Plan PT, OT when able /daughter extensively updated at bedside consent for midline obtained, questions answered complex care coordination today Admission and Anticipated Discharge Date Admission Date: April 27, 2023 Subjective tele - a.fib rates nearly >100 low-grade fever this am noted during my visit the pt's & daughter were present due to altered MS with baseline dementia he was unable to offer any meaningful history he did deny abdominal pain to me he continues to lose IVs and IV team suggested a midline consent obtained from pt's after discussion of benefits/risks of such of note - has noted swelling in both feet/ankles for a few days as well as worsening cough x 1-2 days he is NOT typically on oxygen at home Review of Systems Review of Systems: Unobtainable due to cognitive status Physical Exam Physical Exam: gen - patient coughing, mild tachypnea noted, altered, would fall asleep then wake up and so forth mouth - MM dry neck - JVD present heart - tachycardic, s1 s2, irregularly irregular lungs - diffuse wheezes b/l, crackles b/l bases, tachypneic, mild amount of subcostal retractions abd - distended, BS+ but low pitched, NT, cholecystostomy tube in place R abdomen with bile in the collection bulb ext - 1-2+ edema b/l, pulses 2+ b/l musculo - podagra of right first great toe MTP joint; very tender to touch over this joint; left 3rd toe with synovitis and tenderness to touch psych - a/o x 1 only skin - no jaundice Results & Data Results & Data Vital Signs (Past 12 Hours) Vital Signs Temp Pulse Pulse Pulse Resp BP Pulse Ox 05/02/23 14:17 111 H 14 149/104 H 94 05/02/23 08:30 05/02/23 13:23 101 H 14 141/73 H 05/02/23 12:59 104 H 14 147/73 H 05/02/23 08:00 121 H 05/02/23 11:09 37.7 C H 116 H 20 151/84 H 97 05/02/23 07:47 37.8 C H 117 H 20 153/91 H 97 O2 Del Method O2 Flow Rate 05/02/23 14:17 Nasal Cannula 2 05/02/23 08:30 Nasal Cannula 2 05/02/23 13:23 Nasal Cannula 2 05/02/23 12:59 05/02/23 08:00 05/02/23 11:09 Nasal Cannula 3 05/02/23 07:47 Nasal Cannula 3 Laboratory Results Laboratory Results - last 24 hr 05/02/23 05/02/23 05/02/23 05:36 05:36 16:04 WBC 13.99 H RBC 3.49 L Hgb 11.6 L Hct 33.7 L MCV 96.6 MCH 33.2 MCHC 34.4 RDW Std Deviation 47.5 H RDW Coeff of Alisha 13.3 Plt Count 187 MPV 10.2 Immature Gran % (Auto) 1.2 Neut % (Auto) 69.7 Lymph % (Auto) 14.1 [place] % (Auto) 13.4 Eos % (Auto) 1.2 Baso % (Auto) 0.4 Neut # (Auto) 9.75 H Lymph # (Auto) 1.97 [place] # (Auto) 1.88 H Eos # (Auto) 0.17 Baso # (Auto) 0.05 Immature Gran # (Auto) 0.17 Sodium 136 Potassium 3.9 Chloride 103 Carbon Dioxide 26 Anion Gap 7 BUN 21 Creatinine 1.14 Est Cr Clr Drug Dosing 55.6 Est GFR ( Amer) 65.7 Est GFR (Non-Af Amer) 56.7 BUN/Creatinine Ratio 18.4 Glucose 99 Calcium 8.4 L Total Bilirubin 0.7 Direct Bilirubin 0.2 AST 41 H ALT 22 Alkaline Phosphatase 50 Total Protein 5.9 L Albumin 3.1 L SARS-CoV-2 (PCR) NEGATIVE Diagnostic Findings Chest X-Ray 05/02/23 15:17 XR chest 1V portable CLINICAL HISTORY: acute resp failure, edema? TECHNIQUE: Single frontal radiograph of the chest was obtained. Comparison: Comparison is made to chest radiograph 04/27/2023 FINDINGS: Median sternotomy wires are unchanged. Cardiomegaly is noted. The aortic arch is calcified. The lungs are clear. No evidence of pleural effusion or pneumothorax. IMPRESSION: Cardiomegaly without significant or edema. ACT 112: Negative or not required by law. Electronically signed by: Epi Mcintyer M.D. 05/02/2023 7:54 PM KUB X-Ray 05/02/23 15:17 XR KUB/Abdomen 1 view CLINICAL HISTORY: ileus? distension TECHNIQUE: 1 view of the abdomen was obtained. Comparison: Comparison is made to abdomen radiograph 03/30/2021 FINDINGS: Right percutaneous nephrostomy and left nephroureteral stent noted. Degenerative changes are seen in the visualized skeleton. There are gas-distended loops of featureless bowel, possibly small bowel, measuring up to 40 mm. Small stool burden is seen. IMPRESSION: Multiple gas-distended loops of featureless bowel which may represent dilated loops of small bowel. If there is clinical uncertainty, CT can be performed. ACT 112: Negative or not required by law. Electronically signed by: Epi Mcintyre M.D. 05/02/2023 7:52 PM PG Care Time/CCT Total # of Minutes Spent Total Time Spent with Patient: Total time spent is greater than 50% in coordination of care (as documented) at patient's floor/unit and/or counseling patient: Coding Level of Care Code 19980 SUB INP/OBS CARE 3/50MIN Diagnoses Acute respiratory failure with hypoxia J96.01 Acute gout M10.9 Ileus K56.7 Fever R50.9 Acute metabolic encephalopathy G93.41 Permanent atrial fibrillation with rapid ventricular response I48.21 Sepsis A41.9 Acute cholecystitis K81.0 NSTEMI (non-ST elevated myocardial infarction) I21.4 Urinary retention R33.9 History of CVA (cerebrovascular accident) without residual deficits Z86.73 History of coronary artery bypass graft x 3 Z95.1 Asthma J45.909 Hypothyroidism E03.9 Hypertension I10 Dementia F03.90 Coronary artery disease I25.10 Benign localized prostatic hyperplasia with lower urinary tract symptoms (LUTS) N40.1 Nephrolithiasis N20.0
[2023-05-02] MEDS ORDERED: ACETAMINOPHEN 1,000 MG/100 ML VIAL IV STA (15:27)
[2023-05-02] MEDS ORDERED: methylPREDNISolone 10 MG in SYRINGE 0 ML IV SCH (15:30)
[2023-05-02] MEDS: methylPREDNISolone 10 MG in SYRINGE 0.25 ML IV SCH (18:13)
--- NOTE | 2023-05-02 19:54 | XRay Report ---
XR KUB/Abdomen 1 view CLINICAL HISTORY: ileus? distension TECHNIQUE: 1 view of the abdomen was obtained. Comparison: Comparison is made to abdomen radiograph 03/30/2021 FINDINGS: Right percutaneous nephrostomy and left nephroureteral stent noted. Degenerative changes are seen in the visualized skeleton. There are gas-distended loops of featureless bowel, possibly small bowel, me asuring up to 40 mm. Small stool burden is seen. IMPRESSION: Multiple gas-distended loops of featureless bowel which may represent dilated loops of small bowel. I f there is clinical uncertainty, CT can be performed. ACT 112: Negative or not required by law. Electronically signed by: Epi Mcintyre M.D. 05/02/2023 7:52 PM
--- NOTE | 2023-05-02 19:55 | XRay Report ---
XR chest 1V portable CLINICAL HISTORY: acute resp failure, edema? TECHNIQUE: Single frontal radiograph of the chest was obtained. Comparison: Comparison is made to chest radiograph 04/27/2023 FINDINGS: Median sternotomy wires are unchanged. Cardiomegaly is noted. The aortic arch is calcified. The lungs are clear. No evidence of pleural effusion or pneumothorax. IMPRESSION: Cardiomegaly without significant or edema. ACT 112: Negative or not required by law. Electronically signed by: Epi Mcintyre M.D. 05/02/2023 7:54 PM
[2023-05-02] MEDS: cefTRIAXone SODIUM 2,000 MG in DEXTROSE 5% 50 ML IV SCH (22:30)
[2023-05-03] MEDS: dilTIAZem HCL 125 MG in DEXTROSE 5% 100 ML IV SCH ×2 (00:16→01:17)
[2023-05-03] MEDS: metroNIDAZOLE 500 MG/100 ML BAG IV SCH ×3 (03:19→17:30)
[2023-05-03 06:13] LABS: Basophils # (auto) 0.03 K/uL (0-0.2); Basophils % (auto) 0.2 %; Hematocrit (blood only) 29.7 % (42.0-52.0); Hemoglobin 9.9 g/dl (14.0-18.0); Immature Granulocytes # (auto) 0.32 K/uL (0.01-0.20); Immature Granulocytes % (auto) 1.9 %; Mean Corpuscular Hemoglobin 32.8 pg (25.0-34.0); Mean Corpuscular Hgb Conc 33.3 g/dL (32.0-36.0); Mean Corpuscular Volume 98.3 fL (80.0-100.0); Monocytes # (auto) 1.26 K/uL (0.11-0.59); Monocytes % (auto) 7.6 %; Neutrophils # (auto) 13.54 K/uL (1.40-6.50); Neutrophils % (auto) 81.3 %; Platelet Count 181 K/uL (130-400); RDW Coefficient of Variation 13.2 % (11.5-14.5); RDW Standard Deviation 47.2 fL (36.4-46.3); Red Blood Count 3.02 M/uL (4.70-6.10); White Blood Count 16.65 K/ul (4.8-10.8)
[2023-05-03] MEDS: LEVOTHYROXINE SODIUM 112 MCG TABLET PO SCH (06:20)
[2023-05-03 06:32] LABS: BUN Creatinine Ratio 21.1 (10-20); Calcium 8.1 mg/dl (8.6-10.3); Creatinine Clr Calc Pharmacy 54.5 ml/min; Est GFR (African American) 65.7 ml/min; Est GFR (Non-African American) 56.7 ml/min; Potassium 3.8 mmol/L (3.5-5.1); Uric Acid 7.3 mg/dl (2.6-7.2)
[2023-05-03] MEDS ORDERED: FUROSEMIDE INJ 20 MG/2 ML VIAL IV ONE (08:29)
[2023-05-03] MEDS: DOCUSATE SODIUM/SENNA 50/8.6MG TAB PO SCH ×2 (08:55→20:25)
[2023-05-03] MEDS: methylPREDNISolone 10 MG in SYRINGE 0.25 ML IV SCH (08:55)
[2023-05-03] MEDS: APIXABAN 5 MG TABLET PO SCH ×2 (08:55→20:25)
[2023-05-03] MEDS: ASPIRIN 81 MG ECTAB PO SCH (08:56)
[2023-05-03] MEDS: FLUTICASONE/VILANTEROL 100/25MCG 14 PUFFS/INHALER INH SCH (08:56)
--- NOTE | 2023-05-03 12:51 | Hospitalist Progress Note ---
Date of Service May 03, 2023 Assessment & Plan (1) Acute respiratory failure with hypoxia: Plan: improved s/p lasix overnight for suspected acute diastolic CHF/pulmonary edema. he has been 8+ liters positive since admission. he is typically not on home O2. will give another dose of IV lasix today. COVID test 05/02/23 negative. cxr w/o pneumonia. of note - echo this admission was obtained but poor windows; EF was grossly normal per the echo report. (2) Acute gout: Plan: R 1st toe, L 3rd toe 2nd to physical stress in setting of chronic HCTZ use stopped HCTZ uric acid level >7 IMPROVED s/p solumedrol 10mg IV daily cont steroids x ~7 days (3) Ileus: Plan: patient without BM in numerous days per staff abd exam - distended KUB x-ray - ileus consider suppository tomorrow am if no flatus or stool keep K/Mag wnl ileus 2nd to acute cholecystitis, poor mobility, etc (4) Fever: Plan: suspect 2nd to acute gout fever resolved w/ steroids can't rule out the biliary tract as cause -- especially with rising WBC - but clinically he looks very good today again - COVID test yesterday was neg no pneumonia on cxr yesterday u/a today without bacteria on microscopy treat gout w/ steroids cont rocephin/flagyl for acute cholecystitis if fevers recur despite the above consider MRCP to look at CBD, etc (5) Acute metabolic encephalopathy: Plan: 2nd to acute cholecystitis, pain, hospital psychosis, etc. olanzapine HS improved today (6) Permanent atrial fibrillation with rapid ventricular response: Plan: improved on dilt drip stop dilt drip restart metoprolol --> 25mg q6h ultimately resume his metoprolol succinate (7) Sepsis: Plan: 2nd to acute cholecystitis, s/p cholecystostomy tube placement WBC count 31 on admission; now 13.99 and slowly trending down Blood cx's negative Biliary culture surprisingly negative Continue ceftriaxone and flagyl s/p cholecystostomy tube by IR on 04/28/23 cholecystostomy tube to stay in place for 6 weeks this will require outpatient follow-up and management appreciate gen surg assistance - no surgical intervention advised at this time low grade fevers yesterday - see above discussion If worsening could consider f/u gallstone extraction percutaneously and then tube removal but this is still not anticipated/recommended at this time (8) Acute cholecystitis: Plan: as above in #6 LFTs have been stable (AST minimally elevated only) No signs of biliary obstruction - alk phos and t.bili wnl Cont IV abx see above under "Fever" (9) NSTEMI (non-ST elevated myocardial infarction): Plan: troponin elevated to 3497 after admission and then trended downward Most likely myocardial demand ischemia (type 2 NSTEMI) in setting of sepsis, known CAD, h/o CABG, and rapid afib limited ECHO without WMAs and with preserved EF continue ASA, metoprolol, statin - when and if he will take such continue telemetry (10) Urinary retention: Plan: Gonzales in place after admission and was still retaining large amount of urine Also had 2 mm nonobstructing left ureterolithiasis on CT and developed some hematuria [facility] [place] [facility] [place]--> had Gonzales placement and stent for left distal ureteral stone under sedation Gonzales draining w/o issue now Maintain Gonzales for at least one week as per urology then consider trial of void following such start flomax daily once BPs will allow needs f/u with [facility] [place] [facility] for stent and stone management post-discharge (11) History of CVA (cerebrovascular accident) without residual deficits: Plan: CT head negative while here resumed eliquis and aspirin (12) History of coronary artery bypass graft x 3: Plan: see "NSTEMI" above Hold lisinopril and HCTZ/triamterene to allow more BP room for AV pooja agents (13) Asthma: Plan: cont home inhalers wheezing on exam likely due to pulmonary edema rather than asthma as wheezing improved overnight with diuresis (14) Hypothyroidism: Plan: TSH WNL in December 2022 Continue levothyroxine (15) Hypertension: Plan: Hold lisinopril and HCTZ/triamterene resume metoprolol today stop dilt drip (16) Dementia: Plan: supportive care advanced superimposed metabolic encephalopathy olanzapine hs prn (17) Coronary artery disease: Plan: as above (18) Benign localized prostatic hyperplasia with lower urinary tract symptoms (LUTS): Plan: gonzales flomax (when able) (19) Nephrolithiasis: Plan: left sided 2mm ureteral stone s/p stent placement this admission by [facility] [place] [facility] Plan PT, OT when able /daughter extensively updated at bedside once again today Admission and Anticipated Discharge Date Admission Date: April 27, 2023 Subjective tele overnight - a.fib, rates <100 on cardizem drip 5mg/hr he apparently slept well overnight no agitation during the visit he was calm and cooperative /daughter present at bedside no flatus or stools yet however, tolerated clears today and seemed to have an appetite family reports he is more like himself today during my assessment patient states he has no abdominal pain otherwise cannot provide much else in the way of history Review of Systems Review of Systems: gen - no further fevers cv - no chest pain pulm - breathing is improved today; less dyspnea GI - no abd pain musculo - right foot pain improved Physical Exam Physical Exam: gen - patient looks much better today; no tachypnea like yesterday; minimal cough today mouth - MMM neck - JVD resolved heart - rate <100, s1 s2, irregularly irregular lungs - diffuse wheezes resoved, crackles b/l bases MUCH improved; resp distress/increased work of breathing resolved abd - distended (mild-mod), BS+ but low pitched, NT, cholecystostomy tube in place R abdomen with minimal bile in the collection bulb ext - 1+ edema b/l, pulses 2+ b/l musculo - podagra of right first great toe MTP joint improved today with less tenderness to palpation; left 3rd toe with synovitis but less tenderness to maria teresa ch psych - a/o x 1 only skin - no jaundice, no rash Results & Data Results & Data Vital Signs (Past 12 Hours) Vital Signs Temp Pulse Pulse Resp BP Pulse Ox O2 Del Method 05/03/23 12:05 36.5 C 75 20 111/66 91 Room Air 05/03/23 10:41 Room Air 05/03/23 07:17 69 05/03/23 07:04 36.6 C 79 20 131/76 95 Room Air 05/03/23 04:59 36.6 C 73 18 130/74 95 Room Air Laboratory Results Laboratory Results - last 48 hr 05/02/23 05/02/23 05/03/23 05:36 16:04 05:47 WBC 16.65 H RBC 3.02 L Hgb 9.9 L Hct 29.7 L MCV 98.3 MCH 32.8 MCHC 33.3 RDW Std Deviation 47.2 H RDW Coeff of Alisha 13.2 Plt Count 181 MPV 10.0 Immature Gran % (Auto) 1.9 Neut % (Auto) 81.3 Lymph % (Auto) 9.0 [place] % (Auto) 7.6 Eos % (Auto) 0.0 Baso % (Auto) 0.2 Neut # (Auto) 13.54 H Lymph # (Auto) 1.50 [place] # (Auto) 1.26 H Eos # (Auto) 0.00 Baso # (Auto) 0.03 Immature Gran # (Auto) 0.32 H Sodium Potassium Chloride Carbon Dioxide Anion Gap BUN Creatinine Est Cr Clr Drug Dosing Est GFR ( Amer) Est GFR (Non-Af Amer) BUN/Creatinine Ratio Glucose Uric Acid Calcium Total Bilirubin 0.7 Direct Bilirubin 0.2 AST 41 H ALT 22 Alkaline Phosphatase 50 Total Protein 5.9 L Albumin 3.1 L Urine Color Urine Appearance Urine pH Ur Specific Clifford Urine Protein Urine Glucose (UA) Urine Ketones Urine Blood Urine Nitrite Urine Bilirubin Urine Urobilinogen Ur Leukocyte Esterase Urine WBC (Auto) Urine RBC (Auto) U Hyaline Cast (Auto) U Epithel Cells (Auto) Urine Bacteria (Auto) SARS-CoV-2 (PCR) NEGATIVE 05/03/23 05/03/23 05:47 14:10 WBC RBC Hgb Hct MCV MCH MCHC RDW Std Deviation RDW Coeff of Alisha Plt Count MPV Immature Gran % (Auto) Neut % (Auto) Lymph % (Auto) [place] % (Auto) Eos % (Auto) Baso % (Auto) Neut # (Auto) Lymph # (Auto) [place] # (Auto) Eos # (Auto) Baso # (Auto) Immature Gran # (Auto) Sodium 137 Potassium 3.8 Chloride 103 Carbon Dioxide 27 Anion Gap 7 BUN 24 H Creatinine 1.14 Est Cr Clr Drug Dosing 54.5 Est GFR ( Amer) 65.7 Est GFR (Non-Af Amer) 56.7 BUN/Creatinine Ratio 21.1 H Glucose 140 H Uric Acid 7.3 H Calcium 8.1 L Total Bilirubin Direct Bilirubin AST ALT Alkaline Phosphatase Total Protein Albumin Urine Color Dark Yellow Urine Appearance Cloudy A Urine pH 5.5 Ur Specific Clifford 1.020 Urine Protein Trace H Urine Glucose (UA) Negative Urine Ketones Trace H Urine Blood 3+ H Urine Nitrite Negative Urine Bilirubin Negative Urine Urobilinogen Negative Ur Leukocyte Esterase 2+ H Urine WBC (Auto) 10-30 H Urine RBC (Auto) >30 H U Hyaline Cast (Auto) 0 U Epithel Cells (Auto) 20-30 H Urine Bacteria (Auto) Negative SARS-CoV-2 (PCR) PG Care Time/CCT Total # of Minutes Spent Total Time Spent with Patient: Total time spent is greater than 50% in coordination of care (as documented) at patient's floor/unit and/or counseling patient: Coding Level of Care Code 35322 SUB INP/OBS CARE 3/50MIN Diagnoses Acute respiratory failure with hypoxia J96.01 Acute gout M10.9 Ileus K56.7 Fever R50.9 Acute metabolic encephalopathy G93.41 Permanent atrial fibrillation with rapid ventricular response I48.21 Sepsis A41.9 Acute cholecystitis K81.0 NSTEMI (non-ST elevated myocardial infarction) I21.4 Urinary retention R33.9 History of CVA (cerebrovascular accident) without residual deficits Z86.73 History of coronary artery bypass graft x 3 Z95.1 Asthma J45.909 Hypothyroidism E03.9 Hypertension I10 Dementia F03.90 Coronary artery disease I25.10 Benign localized prostatic hyperplasia with lower urinary tract symptoms (LUTS) N40.1 Nephrolithiasis N20.0
[2023-05-03] MEDS: METOPROLOL TARTRATE 25 MG TAB PO SCH (14:09)
[2023-05-03 14:45] LABS: Appearance Urine Cloudy (Clear); Bacteria Urine Automated Negative (Negative); Bilirubin Urine Negative (Negative); Blood Urine 3+ (Negative); Color Urine Dark Yellow; Epithelial Cell Urine Auto 20-30 /lpf (0-5); Glucose Urine UA Negative (Negative); Ketones Urine Trace (Negative); Leukocyte Esterase Urine 2+ (Negative); Nitrite Urine Negative (Negative); Protein Urine Trace (Negative); RBC Urine Automated >30 /hpf (0-4); Urobilinogen Urine Negative (Negative); pH Urine 5.5 (4.5-7.5)
[2023-05-03 15:18] LABS: Cast Urine Automated 0 /lpf (0-5)
--- NOTE | 2023-05-03 16:58 | Surgery Progress Note ---
Date of Service May 03, 2023 Assessment & Plan (1) Acute cholecystitis: Plan status post percutaneous cholecystostomy tube, improving,however WBC slightly elevated today. worked with PT/OT. Xray with ? ileus. IV antibiotics continue on clears for now continue PT/OOB in chair/ambulate would hold on scan for now; however if WBC continues to elevate may need repeat CT scan We will need to follow-up as outpatient for perc lavon tube management Percutaneous cholecystostomy tube to stay for 6 weeks Admission and Anticipated Discharge Date Admission Date: April 27, 2023 Subjective patient coherent and alert this pm. denies any pain or nausea. no flatus; no BM. Physical Exam Physical Exam: NAD, A&O x3 abdomen: Soft, nontender, mild distention percutaneous cholecystostomy tube with small amount of bilious drainage Results & Data Vital Signs (Past 12 Hours) Vital Signs Temp Pulse Pulse Resp BP Pulse Ox O2 Del Method 05/03/23 16:43 78 05/03/23 15:58 36.7 C 67 19 123/74 95 Room Air 05/03/23 12:05 36.5 C 75 20 111/66 91 Room Air 05/03/23 10:41 Room Air 05/03/23 07:17 69 05/03/23 07:04 36.6 C 79 20 131/76 95 Room Air 05/03/23 04:59 36.6 C 73 18 130/74 95 Room Air
[2023-05-03] MEDS: OLANZAPINE 2.5 MG TAB PO PRN (20:25)
[2023-05-03] MEDS: cefTRIAXone SODIUM 2,000 MG in DEXTROSE 5% 50 ML IV SCH (22:00)
[2023-05-04] MEDS: METOPROLOL TARTRATE 25 MG TAB PO SCH ×6 (00:49→23:36)
[2023-05-04] MEDS: metroNIDAZOLE 500 MG/100 ML BAG IV SCH ×3 (01:44→18:08)
[2023-05-04] MEDS: LEVOTHYROXINE SODIUM 112 MCG TABLET PO SCH (05:46)
[2023-05-04 06:25] LABS: Basophils # (auto) 0.05 K/uL (0-0.2); Basophils % (auto) 0.3 %; Eosinophils # (auto) 0.01 K/uL (0-0.50); Eosinophils % (auto) 0.1 %; Hematocrit (blood only) 34.1 % (42.0-52.0); Hemoglobin 11.4 g/dl (14.0-18.0); Immature Granulocytes # (auto) 0.66 K/uL (0.01-0.20); Immature Granulocytes % (auto) 3.3 %; Lymphocytes # (auto) 1.94 K/uL (1.2-3.4); Lymphocytes % (auto) 9.8 %; Mean Corpuscular Hemoglobin 32.3 pg (25.0-34.0); Mean Corpuscular Hgb Conc 33.4 g/dL (32.0-36.0); Mean Corpuscular Volume 96.6 fL (80.0-100.0); Monocytes # (auto) 1.42 K/uL (0.11-0.59); Monocytes % (auto) 7.2 %; Neutrophils # (auto) 15.66 K/uL (1.40-6.50); Neutrophils % (auto) 79.3 %; Platelet Count 285 K/uL (130-400); RDW Coefficient of Variation 13.2 % (11.5-14.5); RDW Standard Deviation 46.8 fL (36.4-46.3); Red Blood Count 3.53 M/uL (4.70-6.10); White Blood Count 19.74 K/ul (4.8-10.8)
[2023-05-04 07:24] LABS: Calcium 8.5 mg/dl (8.6-10.3); Potassium 3.3 mmol/L (3.5-5.1)
[2023-05-04 07:29] LABS: BUN Creatinine Ratio 26.1 (10-20); Creatinine Clr Calc Pharmacy 54.5 ml/min; Est GFR (Non-African American) 56.1 ml/min
[2023-05-04 08:55] LABS: Bilirubin Direct 0.1 mg/dl (0-0.2); Bilirubin,Total 0.5 mg/dl (0.2-1.0)
[2023-05-04 09:00] LABS: Total Protein 5.8 gm/dl (6.0-8.3)
[2023-05-04] MEDS: methylPREDNISolone 10 MG in SYRINGE 0.25 ML IV SCH (09:32)
[2023-05-04] MEDS: DOCUSATE SODIUM/SENNA 50/8.6MG TAB PO SCH ×2 (09:32→20:29)
[2023-05-04] MEDS: ASPIRIN 81 MG ECTAB PO SCH (09:33)
[2023-05-04] MEDS: APIXABAN 5 MG TABLET PO SCH ×2 (09:33→20:29)
[2023-05-04] MEDS: FLUTICASONE/VILANTEROL 100/25MCG 14 PUFFS/INHALER INH SCH (09:33)
[2023-05-04] MEDS: POTASSIUM CHLORIDE PWD 20 MEQ PACK PO SCH ×3 (09:34→20:29)
[2023-05-04] MEDS ORDERED: FUROSEMIDE INJ 20 MG/2 ML VIAL IV ONE (10:17)
[2023-05-04] MEDS ORDERED: bisacodyL 10 MG SUPP PR STA (10:20)
--- NOTE | 2023-05-04 12:59 | Surgery Progress Note ---
Date of Service May 04, 2023 Assessment & Plan (1) Acute cholecystitis: Plan status post percutaneous cholecystostomy tube, improving,however WBC Up to 19. worked with PT/OT. no pain, nausea, vomiting. IV antibiotics continue on clears for now continue PT/OOB in chair/ambulate WBC elevated, LFTs normal. Consider CT abdomen and pelvis due to rising white count. We will need to follow-up as outpatient for perc lavon tube management Percutaneous cholecystostomy tube to stay for 6 weeks Admission and Anticipated Discharge Date Admission Date: April 27, 2023 Subjective Appears well this morning. Denies abdominal pain. Passing some flatus. Tolerating clears. No nausea or vomiting. No fevers overnight. Physical Exam Physical Exam: NAD, A&O x3 abdomen: Soft, nontender, mild distention percutaneous cholecystostomy tube with small amount of bilious drainage Results & Data Vital Signs (Past 12 Hours) Vital Signs Temp Pulse Pulse Resp BP Pulse Ox O2 Del Method 05/04/23 11:44 36.5 C 86 19 152/84 H 96 Room Air 05/04/23 10:00 88 05/04/23 08:06 36.5 C 84 19 136/84 97 Room Air 05/04/23 03:34 36.8 C 116 H 18 120/91 97 Room Air Laboratory Results 05/04/23 05/04/23 05/04/23 Range/Units 05:29 05:29 05:29 WBC 19.74 H (4.8-10.8) K/ul RBC 3.53 L (4.70-6.10) M/uL Hgb 11.4 L (14.0-18.0) g/dl Hct 34.1 L (42.0-52.0) % MCV 96.6 (80.0-100.0) fL MCH 32.3 (25.0-34.0) pg MCHC 33.4 (32.0-36.0) g/dL RDW Std Deviation 46.8 H (36.4-46.3) fL RDW Coeff of Alisha 13.2 (11.5-14.5) % Plt Count 285 D (130-400) K/uL MPV 10.0 (9.4-12.4) fL Immature Gran % (Auto) 3.3 % Neut % (Auto) 79.3 % Lymph % (Auto) 9.8 % Creek % (Auto) 7.2 % Eos % (Auto) 0.1 % Baso % (Auto) 0.3 % Neut # (Auto) 15.66 H (1.40-6.50) K/uL Lymph # (Auto) 1.94 (1.2-3.4) K/uL Creek # (Auto) 1.42 H (0.11-0.59) K/uL Eos # (Auto) 0.01 (0-0.50) K/uL Baso # (Auto) 0.05 (0-0.2) K/uL Immature Gran # (Auto) 0.66 H (0.01-0.20) K/uL Sodium 138 (136-145) mmol/L Potassium 3.3 L (3.5-5.1) mmol/L Chloride 103 (98-107) mmol/L Carbon Dioxide 26 (21-32) mmol/L Anion Gap 9 (3-11) BUN 30 H (6-23) mg/dl Creatinine 1.15 (0.6-1.4) mg/dl Est Cr Clr Drug Dosing 54.5 ml/min Est GFR ( Amer) 65.0 ml/min Est GFR (Non-Af Amer) 56.1 ml/min BUN/Creatinine Ratio 26.1 H (10-20) Glucose 107 H (70-99(Fasting)) mg/dl Calcium 8.5 L (8.6-10.3) mg/dl Magnesium 1.7 (1.7-2.4) mg/dl Total Bilirubin 0.5 (0.2-1.0) mg/dl Direct Bilirubin 0.1 (0-0.2) mg/dl AST 26 (13-39) U/L ALT 17 (7-52) U/L Alkaline Phosphatase 48 (34-104) U/L Total Protein 5.8 L (6.0-8.3) gm/dl Albumin 3.0 L (3.4-5.0) gm/dl Urine Color Urine Appearance (Clear) Urine pH (4.5-7.5) Ur Specific [place] (1.000-1.030) Urine Protein (Negative) Urine Glucose (UA) (Negative) Urine Ketones (Negative) Urine Blood (Negative) Urine Nitrite (Negative) Urine Bilirubin (Negative) Urine Urobilinogen (Negative) Ur Leukocyte Esterase (Negative) Urine WBC (Auto) (0-5) /hpf Urine RBC (Auto) (0-4) /hpf U Hyaline Cast (Auto) (0-5) /lpf U Epithel Cells (Auto) (0-5) /lpf Urine Bacteria (Auto) (Negative) 05/03/23 Range/Units 14:10 WBC (4.8-10.8) K/ul RBC (4.70-6.10) M/uL Hgb (14.0-18.0) g/dl Hct (42.0-52.0) % MCV (80.0-100.0) fL MCH (25.0-34.0) pg MCHC (32.0-36.0) g/dL RDW Std Deviation (36.4-46.3) fL RDW Coeff of Alisha (11.5-14.5) % Plt Count (130-400) K/uL MPV (9.4-12.4) fL Immature Gran % (Auto) % Neut % (Auto) % Lymph % (Auto) % Creek % (Auto) % Eos % (Auto) % Baso % (Auto) % Neut # (Auto) (1.40-6.50) K/uL Lymph # (Auto) (1.2-3.4) K/uL Creek # (Auto) (0.11-0.59) K/uL Eos # (Auto) (0-0.50) K/uL Baso # (Auto) (0-0.2) K/uL Immature Gran # (Auto) (0.01-0.20) K/uL Sodium (136-145) mmol/L Potassium (3.5-5.1) mmol/L Chloride (98-107) mmol/L Carbon Dioxide (21-32) mmol/L Anion Gap (3-11) BUN (6-23) mg/dl Creatinine (0.6-1.4) mg/dl Est Cr Clr Drug Dosing ml/min Est GFR ( Amer) ml/min Est GFR (Non-Af Amer) ml/min BUN/Creatinine Ratio (10-20) Glucose (70-99(Fasting)) mg/dl Calcium (8.6-10.3) mg/dl Magnesium (1.7-2.4) mg/dl Total Bilirubin (0.2-1.0) mg/dl Direct Bilirubin (0-0.2) mg/dl AST (13-39) U/L ALT (7-52) U/L Alkaline Phosphatase (34-104) U/L Total Protein (6.0-8.3) gm/dl Albumin (3.4-5.0) gm/dl Urine Color Dark Yellow Urine Appearance Cloudy A (Clear) Urine pH 5.5 (4.5-7.5) Ur Specific [place] 1.020 (1.000-1.030) Urine Protein Trace H (Negative) Urine Glucose (UA) Negative (Negative) Urine Ketones Trace H (Negative) Urine Blood 3+ H (Negative) Urine Nitrite Negative (Negative) Urine Bilirubin Negative (Negative) Urine Urobilinogen Negative (Negative) Ur Leukocyte Esterase 2+ H (Negative) Urine WBC (Auto) 10-30 H (0-5) /hpf Urine RBC (Auto) >30 H (0-4) /hpf U Hyaline Cast (Auto) 0 (0-5) /lpf U Epithel Cells (Auto) 20-30 H (0-5) /lpf Urine Bacteria (Auto) Negative (Negative)
--- NOTE | 2023-05-04 19:02 | CT Scan Report ---
CT SCAN OF THE ABDOMEN AND PELVIS WITHOUT IV CONTRAST CLINICAL HISTORY: Leukocytosis. Cholecystitis. COMPARISON STUDY: Abdominal CT dated 04/27/2023. TECHNIQUE: CT scan of the abdomen and pelvis is performed from the lung bases to the proximal femora. Images are reviewed in the axial, sagittal, and coronal planes. IV contrast was not administered for this examination. A dose lowering technique was utilized adhering to the principles of ALARA. CT DOSE: 1437.03 mGy.cm FINDINGS: Lung bases: The patient is status post midline sternotomy. The heart is enlarged and without pericard ial effusion. There are coronary artery calcifications. There are small pleural effusions with depend ent atelectasis. This is new from previous. A small hiatal hernia is noted. Liver: The unenhanced liver is normal in size, contour, and attenuation. There is no intrahepatic donny iary ductal dilatation. Gallbladder: A percutaneous cholecystostomy tube is in place. The tip is coiled within the gallbladde r lumen. The gallbladder wall is thickened with pericholecystic infiltration. Numerous tiny gallstone s are observed. Spleen: Normal in size and attenuation. Pancreas: The unenhanced pancreas is atrophic and grossly unremarkable. Adrenal glands: Unremarkable. Kidneys: The unenhanced kidneys are atrophic and without hydronephrosis. A left ureteral stent is in place. No calcifications are seen in the left ureter along the course of the stent. Renovascular calc ifications are observed. No renal calculi are identified. An 8 cm exophytic cyst arises from the righ t upper pole. Abdominal vasculature: There is advanced atherosclerotic calcification and mild ectasia of the abdomi nal aorta. Bowel: The rectal wall is mildly thickened there is perirectal infiltration. No bowel obstruction is seen. There is mild colonic diverticulosis without CT evidence of acute diverticulitis. The appendix is well-visualized and normal. Peritoneum: There is no intraperitoneal free air or abdominal ascites. There is a fat-containing umbi lical hernia. Lymphadenopathy: None. Pelvic viscera: The prostate gland is markedly enlarged and heterogeneous. The bladder is decompresse d around a Kirkpatrick catheter and appears circumferentially thick walled with mild surrounding infiltrati on. Skeletal structures: The skeletal structures are osteopenic. There is moderate lumbosacral spondylosi s. No lytic or blastic lesions are seen. IMPRESSION: 1. Cholelithiasis with acute cholecystitis and a percutaneous cholecystostomy tube in place. 2. A left ureteral stent is in place. No stones are seen in the left ureter along the course of the s tent and there is no left-sided hydronephrosis. 3. Cardiomegaly and small pleural effusions. These are new from 04/27/2023. 4. The rectal wall appears thickened and is mild perirectal inflammation. Correlate clinically for un derlying nonspecific proctitis. 5. The bladder is decompressed around a Kirkpatrick catheter and appears thick-walled with surrounding infl ammation. Correlate with urinalysis. 6. Marked prostatomegaly. 7. Additional findings as above. ACT 112: Negative or not required by law. Electronically signed by: Marino Rothman M.D. 05/04/2023 7:01 PM
[2023-05-04] MEDS ORDERED: OLANZAPINE 2.5 MG TAB PO PRN (20:12)
[2023-05-04] MEDS ORDERED: OLANZAPINE 2.5 MG TAB PO SCH (21:00)
--- NOTE | 2023-05-04 21:01 | Hospitalist Progress Note ---
Date of Service May 04, 2023 Assessment & Plan (1) Sepsis: Plan: 2nd to acute cholecystitis, s/p cholecystostomy tube placement WBC count 31 on admission; had been 13.99 and slowly trending down but then tato last 48 hours -- today is 19 rising WBC could be the steroids for his gout alternatively, the rising WBC count could be from a UTI -- culture sent today Spoke with Dr Tello from surgery - just to be sure there is nothing else pres ent in the setting of his cholecystitis we rechecked CT a/p today this showed stable cholecystostomy tube and no other acute biliary findings rectal wall thickening was seen and bladder wall thickening was seen Blood cx's negative Biliary culture negative Continue ceftriaxone and flagyl - day #7 of each Consider transition to PO abx next 24 hours if he remains stable s/p cholecystostomy tube by IR on 04/28/23 cholecystostomy tube to stay in place for 6 weeks this will require outpatient follow-up and management appreciate gen surg assistance (2) Acute cholecystitis: Plan: as above LFTs have been stable No signs of biliary obstruction - alk phos and t.bili wnl Cont IV abx CT a/p today showed stable biliary tract findings (3) Acute respiratory failure with hypoxia: Plan: resolved 2nd to pulm edema. diuresing well. COVID test 05/02/23 negative. cxr w/o pneumonia. of note - echo this admission was obtained but poor windows; EF was grossly normal per the echo report. (4) Acute gout: Plan: R 1st toe, L 3rd toe 2nd to physical stress in setting of chronic HCTZ use stopped HCTZ uric acid level >7 IMPROVED s/p solumedrol 10mg IV daily; today is day #3 of such cont steroids x ~7 days (5) Ileus: Plan: ileus 2nd to acute cholecystitis, poor mobility, etc improved clinically today on exam - more soft, BS more active, and had large BM with a suppository passing much more flatus per as well tolerating clears (6) Acute metabolic encephalopathy: Plan: 2nd to acute cholecystitis, pain, hospital psychosis, etc. olanzapine HS - schedule this, and also order a prn dose if needed (7) Permanent atrial fibrillation with rapid ventricular response: Plan: improved rates with metoprolol --> 25mg q6h ultimately resume his metoprolol succinate - would use 50mg BID (8) NSTEMI (non-ST elevated myocardial infarction): Plan: troponin elevated to 3497 after admission and then trended downward Most likely myocardial demand ischemia (type 2 NSTEMI) in setting of sepsis, known CAD, h/o CABG, and rapid afib limited ECHO without WMAs and with preserved EF continue ASA, metoprolol resume statin continue telemetry (9) Urinary retention: Plan: Gonzales in place after admission and was still retaining large amount of urine Also had 2 mm nonobstructing left ureterolithiasis on CT and developed some hematuria [facility] Urology consulted 04/28--> had Gonzales placement and stent for left distal ureteral stone under sedation Maintain Gonzales for at least one week as per urology then consider trial of void following such start flomax daily once BPs will allow needs f/u with [facility] Urology for stent and stone management post-discharge (10) History of CVA (cerebrovascular accident) without residual deficits: Plan: CT head negative while here resumed eliquis and aspirin (11) History of coronary artery bypass graft x 3: Plan: see "NSTEMI" above Hold lisinopril and HCTZ/triamterene to allow more BP room for AV pooja agents, flomax, etc (12) Asthma: Plan: cont home inhalers wheezing on exam earlier this week was likely due to pulmonary edema rather than asthma as wheezing resolved with diuresis (13) Hypothyroidism: Plan: TSH WNL in December 2022 Continue levothyroxine (14) Hypertension: Plan: Hold lisinopril and HCTZ/triamterene cont metoprolol (15) Dementia: Plan: cont supportive care advanced superimposed metabolic encephalopathy olanzapine hs (16) Coronary artery disease: Plan: as above (17) Benign localized prostatic hyperplasia with lower urinary tract symptoms (LUTS): Plan: gonzales flomax (when able) (18) Nephrolithiasis: Plan: left sided 2mm ureteral stone s/p stent placement this admission by [facility] Urology Plan cont PT, OT replace low K extensively updated at bedside once again today care d/w gen surg Dr Tello progressing slowly Admission and Anticipated Discharge Date Admission Date: April 27, 2023 Subjective per nursing staff had large formed BM this am following dulcolax suppos prior to the BM his reports he had been passing lots of flatus no nausea/emesis he himself denies abd pain no dyspnea no further cough copious UOP with IV lasix this am (1.5 L+) tele - a.fib, rates <100 thinks that he seems more hungry overnight he apparently was owning Review of Systems Review of Systems: Unobtainable due to cognitive status Physical Exam Physical Exam: gen - patient looks very good today, smiling, laughing, NAD mouth - MMM neck - no JVD heart - rate <100, s1 s2, irregularly irregular lungs - CTA b/l; no rales, no wheeze abd - cholecystostomy tube in place R abdomen with minimal bile in the collection bag; soft, NT, distension MUCH improved, BS+ and much more active today ext - <1+ edema b/l, pulses 2+ b/l musculo - podagra of right first great toe MTP joint again improved today with no tenderness to palpation and less swelling; left 3rd toe with synovitis but less tenderness to touch and less redness psych - a/o x 1 only Results & Data Results & Data Vital Signs (Past 12 Hours) Vital Signs Temp Pulse Pulse Resp BP Pulse Ox O2 Del Method 05/04/23 20:38 Room Air 05/04/23 16:00 85 05/04/23 15:55 36.4 C L 94 H 18 137/73 95 Room Air 05/04/23 11:44 36.5 C 86 19 152/84 H 96 Room Air 05/04/23 10:00 88 Laboratory Results Laboratory Results - last 24 hr 05/04/23 05/04/23 05/04/23 05:29 05:29 05:29 WBC 19.74 H RBC 3.53 L Hgb 11.4 L Hct 34.1 L MCV 96.6 MCH 32.3 MCHC 33.4 RDW Std Deviation 46.8 H RDW Coeff of Alisha 13.2 Plt Count 285 D MPV 10.0 Immature Gran % (Auto) 3.3 Neut % (Auto) 79.3 Lymph % (Auto) 9.8 Simpson % (Auto) 7.2 Eos % (Auto) 0.1 Baso % (Auto) 0.3 Neut # (Auto) 15.66 H Lymph # (Auto) 1.94 Simpson # (Auto) 1.42 H Eos # (Auto) 0.01 Baso # (Auto) 0.05 Immature Gran # (Auto) 0.66 H Sodium 138 Potassium 3.3 L Chloride 103 Carbon Dioxide 26 Anion Gap 9 BUN 30 H Creatinine 1.15 Est Cr Clr Drug Dosing 54.5 Est GFR ( Amer) 65.0 Est GFR (Non-Af Amer) 56.1 BUN/Creatinine Ratio 26.1 H Glucose 107 H Calcium 8.5 L Magnesium 1.7 Total Bilirubin 0.5 Direct Bilirubin 0.1 AST 26 ALT 17 Alkaline Phosphatase 48 Total Protein 5.8 L Albumin 3.0 L Diagnostic Findings Abdomen/Pelvis CT 05/04/23 16:45 CT SCAN OF THE ABDOMEN AND PELVIS WITHOUT IV CONTRAST CLINICAL HISTORY: Leukocytosis. Cholecystitis. COMPARISON STUDY: Abdominal CT dated 04/27/2023. TECHNIQUE: CT scan of the abdomen and pelvis is performed from the lung bases to the proximal femora. Images are reviewed in the axial, sagittal, and coronal planes. IV contrast was not administered for this examination. A dose lowering technique was utilized adhering to the principles of ALARA. CT DOSE: 1437.03 mGy.cm FINDINGS: Lung bases: The patient is status post midline sternotomy. The heart is enlarged and without pericardial effusion. There are coronary artery calcifications. There are small pleural effusions with dependent atelectasis. This is new from previous. A small hiatal hernia is noted. Liver: The unenhanced liver is normal in size, contour, and attenuation. There is no intrahepatic biliary ductal dilatation. Gallbladder: A percutaneous cholecystostomy tube is in place. The tip is coiled within the gallbladder lumen. The gallbladder wall is thickened with pericholecystic infiltration. Numerous tiny gallstones are observed. Spleen: Normal in size and attenuation. Pancreas: The unenhanced pancreas is atrophic and grossly unremarkable. Adrenal glands: Unremarkable. Kidneys: The unenhanced kidneys are atrophic and without hydronephrosis. A left ureteral stent is in place. No calcifications are seen in the left ureter along the course of the stent. Renovascular calcifications are observed. No renal calculi are identified. An 8 cm exophytic cyst arises from the right upper pole. Abdominal vasculature: There is advanced atherosclerotic calcification and mild ectasia of the abdominal aorta. Bowel: The rectal wall is mildly thickened there is perirectal infiltration. No bowel obstruction is seen. There is mild colonic diverticulosis without CT evidence of acute diverticulitis. The appendix is well-visualized and normal. Peritoneum: There is no intraperitoneal free air or abdominal ascites. There is a fat-containing umbilical hernia. Lymphadenopathy: None. Pelvic viscera: The prostate gland is markedly enlarged and heterogeneous. The bladder is decompressed around a Gonzales catheter and appears circumferentially thick walled with mild surrounding infiltration. Skeletal structures: The skeletal structures are osteopenic. There is moderate lumbosacral spondylosis. No lytic or blastic lesions are seen. IMPRESSION: 1. Cholelithiasis with acute cholecystitis and a percutaneous cholecystostomy tube in place. 2. A left ureteral stent is in place. No stones are seen in the left ureter along the course of the stent and there is no left-sided hydronephrosis. 3. Cardiomegaly and small pleural effusions. These are new from 04/27/2023. 4. The rectal wall appears thickened and is mild perirectal inflammation. Correlate clinically for underlying nonspecific proctitis. 5. The bladder is decompressed around a Gonzales catheter and appears thick-walled with surrounding inflammation. Correlate with urinalysis. 6. Marked prostatomegaly. 7. Additional findings as above. ACT 112: Negative or not required by law. Electronically signed by: Marino Rothman M.D. 05/04/2023 7:01 PM PG Care Time/CCT Total # of Minutes Spent Total Time Spent with Patient: Total time spent is greater than 50% in coordination of care (as documented) at patient's floor/unit and/or counseling patient: Coding Level of Care Code 92366 SUB INP/OBS CARE 3/50MIN Diagnoses Sepsis A41.9 Acute cholecystitis K81.0 Acute respiratory failure with hypoxia J96.01 Acute gout M10.9 Ileus K56.7 Acute metabolic encephalopathy G93.41 Permanent atrial fibrillation with rapid ventricular response I48.21 NSTEMI (non-ST elevated myocardial infarction) I21.4 Urinary retention R33.9 History of CVA (cerebrovascular accident) without residual deficits Z86.73 History of coronary artery bypass graft x 3 Z95.1 Asthma J45.909 Hypothyroidism E03.9 Hypertension I10 Dementia F03.90 Coronary artery disease I25.10 Benign localized prostatic hyperplasia with lower urinary tract symptoms (LUTS) N40.1 Nephrolithiasis N20.0
[2023-05-04] MEDS: cefTRIAXone SODIUM 2,000 MG in DEXTROSE 5% 50 ML IV SCH (21:39)
[2023-05-05] MEDS ORDERED: OLANZapine 10 MG/2.1 ML SDV IM STA (00:17)
[2023-05-05] MEDS: metroNIDAZOLE 500 MG/100 ML BAG IV SCH ×3 (01:43→18:29)
--- NOTE | 2023-05-05 05:34 | Communication Note ---
Date of Service: May 05, 2023 I was called to examine patient at approximately 2300 hrs. on 05/04/2023 as patient become increasingly combative and threatening nursing staff and pulling at medical equipment including IV and Kirkpatrick catheter. Multiple attempts were made by nursing to reorient the patient to which the patient responded with "do you want to Fing ?" and proceeded to kick at the nurse. At that time it was determined for the safety of the staff and the patient that restraints were required. Soft wrist restraints were applied followed by 5 mg of IM Zyprexa with the hopes that the hand restraints would eventually be able to be taken off. Rechecked a couple of hours later and the patient did seem to calm down for about an hour or so but continued to make threats at staff and demanding the restraints get taken off to get a hold of staff. It was determined that the restraint should stay on again for safety of the staff as well as the patient. We have tried multiple doses of Zyprexa without much improvement in mentation so we will hold off from additional doses for now and see if daily will improve his mentation.
[2023-05-05] MEDS: LEVOTHYROXINE SODIUM 112 MCG TABLET PO SCH (05:35)
[2023-05-05] MEDS: METOPROLOL TARTRATE 25 MG TAB PO SCH (05:35)
[2023-05-05 06:27] LABS: Hematocrit (blood only) 38.6 % (42.0-52.0); Hemoglobin 12.9 g/dl (14.0-18.0); Mean Corpuscular Hemoglobin 32.7 pg (25.0-34.0); Mean Corpuscular Hgb Conc 33.4 g/dL (32.0-36.0); Mean Corpuscular Volume 97.7 fL (80.0-100.0); Mean Platelet Volume 9.8 fL (9.4-12.4); Platelet Count 402 K/uL (130-400); RDW Coefficient of Variation 13.4 % (11.5-14.5); RDW Standard Deviation 48.1 fL (36.4-46.3); Red Blood Count 3.95 M/uL (4.70-6.10); White Blood Count 17.93 K/ul (4.8-10.8)
[2023-05-05 06:48] LABS: BUN Creatinine Ratio 23.4 (10-20); Calcium 8.9 mg/dl (8.6-10.3); Creatinine Clr Calc Pharmacy 56.3 ml/min; Est GFR (African American) 67.9 ml/min; Est GFR (Non-African American) 58.6 ml/min; Magnesium 1.8 mg/dl (1.7-2.4); Potassium 3.7 mmol/L (3.5-5.1)
[2023-05-05] MEDS: ASPIRIN 81 MG ECTAB PO SCH (08:34)
[2023-05-05] MEDS: methylPREDNISolone 10 MG in SYRINGE 0.25 ML IV SCH (08:34)
[2023-05-05] MEDS: FLUTICASONE/VILANTEROL 100/25MCG 14 PUFFS/INHALER INH SCH (08:34)
[2023-05-05] MEDS: DOCUSATE SODIUM/SENNA 50/8.6MG TAB PO SCH ×2 (08:34→20:54)
[2023-05-05] MEDS: APIXABAN 5 MG TABLET PO SCH ×2 (08:34→20:54)
[2023-05-05] MEDS: POTASSIUM CHLORIDE PWD 20 MEQ PACK PO SCH ×3 (08:34→20:54)
[2023-05-05] MEDS ORDERED: FUROSEMIDE INJ 20 MG/2 ML VIAL IV ONE (09:11)
[2023-05-05] MEDS ORDERED: METOPROLOL TARTRATE 50 MG TAB PO STA (11:25)
--- NOTE | 2023-05-05 11:28 | Hospitalist Progress Note ---
Date of Service May 05, 2023 Assessment & Plan (1) Sepsis: Plan: 2nd to acute cholecystitis, s/p cholecystostomy tube placement WBC count 31 on admission; had been 13.99 and slowly trending down but then tato this week trending down fortunately -- today is 17 rising WBC could be the steroids for his gout CT a/p on 05/04 with stable cholecystostomy tube and no other acute biliary findings rectal wall thickening was seen and bladder wall thickening was seen but doubt these caused the WBC elevation Blood cx's negative Biliary culture negative Continue ceftriaxone and flagyl - day #9 of each Consider transition to PO abx if he continues to tolerate PO intake s/p cholecystostomy tube by IR on 04/28/23 cholecystostomy tube to stay in place for 6 weeks this will require outpatient follow-up and management appreciate gen surg assistance (2) Acute cholecystitis: Plan: as above LFTs have been stable No signs of biliary obstruction - alk phos and t.bili wnl Cont IV abx CT a/p 05/04/23 showed stable biliary tract findings (3) Acute respiratory failure with hypoxia: Plan: resolved 2nd to pulm edema. diuresing well. COVID test 05/02/23 negative. cxr w/o pneumonia. of note - echo this admission was obtained but poor windows; EF was grossly normal per the echo report. (4) Acute gout: Plan: R 1st toe, L 3rd toe CONTINUES TO IMPROVE with low-dose steroid 2nd to physical stress in setting of chronic HCTZ use stopped HCTZ uric acid level >7 day #4 of IV solumedrol 10mg daily cont steroids x ~7 days (5) Ileus: Plan: ileus 2nd to acute cholecystitis, poor mobility, etc improved clinically once again today soft abdomen passing flatus good bowel sounds no n/v no abd pain tolerating clears thus advance to full liquids today (6) Acute metabolic encephalopathy: Plan: 2nd to acute cholecystitis, pain, hospital psychosis, etc. increase olanzapine to 5mg standing at bedtime with additional 5mg prn if needed add melatonin 3mg HS (7) Permanent atrial fibrillation with rapid ventricular response: Plan: improved rates with metoprolol 25mg q6h convert to PO metoprolol succinate 50mg BID starting tonight (8) NSTEMI (non-ST elevated myocardial infarction): Plan: troponin elevated to 3497 after admission and then trended downward Most likely myocardial demand ischemia (type 2 NSTEMI) in setting of sepsis, known CAD, h/o CABG, and rapid afib limited ECHO without WMAs and with preserved EF continue ASA, metoprolol resume statin continue telemetry (9) Urinary retention: Plan: Gonzales in place after admission and was still retaining large amount of urine Also had 2 mm nonobstructing left ureterolithiasis on CT and developed some hematuria [facility] [place] 04/28--> had Gonzales placement and stent for left distal ureteral stone under sedation Maintain Gonzales for at least one week as per urology then consider trial of void following such start flomax tomorrow am needs f/u with [facility] for stent and stone management post-discharge (10) History of CVA (cerebrovascular accident) without residual deficits: Plan: CT head negative while here resumed eliquis and aspirin (11) History of coronary artery bypass graft x 3: Plan: see "NSTEMI" above Hold lisinopril and HCTZ/triamterene to allow more BP room for AV pooja agents, flomax, etc (12) Asthma: Plan: cont home inhalers wheezing on exam earlier this week was likely due to pulmonary edema rather than asthma as wheezing resolved with diuresis (13) Hypothyroidism: Plan: TSH WNL in December 2022 Continue levothyroxine (14) Hypertension: Plan: Hold lisinopril and HCTZ/triamterene cont metoprolol (15) Dementia: Plan: cont supportive care advanced superimposed metabolic encephalopathy -- see above olanzapine hs (16) Coronary artery disease: Plan: as above (17) Benign localized prostatic hyperplasia with lower urinary tract symptoms (LUTS): Plan: gonzales flomax - start tomorrow am if BPs are satisfactory (18) Nephrolithiasis: Plan: left sided 2mm ureteral stone s/p stent placement this admission by [facility] Plan cont PT, OT extensively updated at bedside once again today care d/w gen surg Dr Tello progressing slowly Admission and Anticipated Discharge Date Admission Date: April 27, 2023 Subjective patient was quite combative overnight with severe delirium & agitation ultimately received 10mg of olanzapine required restraints due to concern for safety of staff members and removing his gonzales, midline IV, etc during my visit he was resting comfortably he looked very tired was at bedside she was distraught by the events of overnight he is tolerating clear liquids had a very large BM yesterday with dulcolax no nausea, emesis or abd pain tele overnight - a.fib, rates <100 Review of Systems Review of Systems: difficult to obtain ROS, but denies abd pain; denies pain in feet today as well Physical Exam Physical Exam: gen - patient looks tired but NAD; baseline confusion mouth - MMM neck - no JVD heart - rate <100, s1 s2, irregularly irregular lungs - CTA b/l abd - cholecystostomy tube in place R abdomen with large amount ofl bile in the collection bag; soft, NT, distension continues to improve; BS+ ext - trace edema b/l, pulses 2+ b/l musculo - podagra of right first great toe MTP joint again improved today with no tenderness to palpation and less swelling; no warmth to the R great toe; left 3rd toe with synovitis but less tenderness to touch and less redness once again psych - a/o x 1 only Results & Data Results & Data Vital Signs (Past 12 Hours) Vital Signs Temp Pulse Pulse Pulse Resp BP BP 05/05/23 11:16 36.3 C L 90 81 20 170/95 H 05/05/23 08:00 137 H 05/05/23 07:42 36.3 C L 109 H 20 188/100 H 05/05/23 03:32 36.4 C L 95 H 18 114/87 05/04/23 23:34 36.4 C L 102 H 20 148/98 H Pulse Ox O2 Del Method 05/05/23 11:16 93 Room Air 05/05/23 08:00 05/05/23 07:42 95 Room Air 05/05/23 03:32 92 Room Air 05/04/23 23:34 94 Room Air Laboratory Results Laboratory Results - last 24 hr 05/05/23 05/05/23 05:43 05:43 WBC 17.93 H RBC 3.95 L Hgb 12.9 L Hct 38.6 L MCV 97.7 MCH 32.7 MCHC 33.4 RDW Std Deviation 48.1 H RDW Coeff of Alisha 13.4 Plt Count 402 H MPV 9.8 Sodium 141 Potassium 3.7 Chloride 105 Carbon Dioxide 28 Anion Gap 8 BUN 26 H Creatinine 1.11 Est Cr Clr Drug Dosing 56.3 Est GFR ( Amer) 67.9 Est GFR (Non-Af Amer) 58.6 BUN/Creatinine Ratio 23.4 H Glucose 116 H Calcium 8.9 Magnesium 1.8 PG Care Time/CCT Total # of Minutes Spent Total Time Spent with Patient: Total time spent is greater than 50% in coordination of care (as documented) at patient's floor/unit and/or counseling patient: Coding Level of Care Code 21598 SUB INP/OBS CARE 3/50MIN Diagnoses Sepsis A41.9 Acute cholecystitis K81.0 Acute respiratory failure with hypoxia J96.01 Acute gout M10.9 Ileus K56.7 Acute metabolic encephalopathy G93.41 Permanent atrial fibrillation with rapid ventricular response I48.21 NSTEMI (non-ST elevated myocardial infarction) I21.4 Urinary retention R33.9 History of CVA (cerebrovascular accident) without residual deficits Z86.73 History of coronary artery bypass graft x 3 Z95.1 Asthma J45.909 Hypothyroidism E03.9 Hypertension I10 Dementia F03.90 Coronary artery disease I25.10 Benign localized prostatic hyperplasia with lower urinary tract symptoms (LUTS) N40.1 Nephrolithiasis N20.0
[2023-05-05] MEDS ORDERED: OLANZAPINE 2.5 MG TAB PO PRN (11:29)
[2023-05-05] MEDS ORDERED: OLANZapine 5 MG TABLET PO PRN (11:45)
[2023-05-05] MEDS: SIMVASTATIN 40 MG TAB PO SCH (20:54)
[2023-05-05] MEDS: METOPROLOL SUCC 50MG EXT REL TAB PO SCH (20:54)
[2023-05-05] MEDS: MELATONIN 3 MG TAB PO SCH (20:54)
[2023-05-05] MEDS: OLANZapine 5 MG TABLET PO SCH (20:54)
[2023-05-05] MEDS: cefTRIAXone SODIUM 2,000 MG in DEXTROSE 5% 50 ML IV SCH (21:34)
[2023-05-06] MEDS: metroNIDAZOLE 500 MG/100 ML BAG IV SCH ×3 (02:45→17:16)
[2023-05-06] MEDS: LEVOTHYROXINE SODIUM 112 MCG TABLET PO SCH (06:12)
[2023-05-06 08:02] LABS: Hematocrit (blood only) 31.7 % (42.0-52.0); Hemoglobin 10.5 g/dl (14.0-18.0); Mean Corpuscular Hemoglobin 32.6 pg (25.0-34.0); Mean Corpuscular Hgb Conc 33.1 g/dL (32.0-36.0); Mean Corpuscular Volume 98.4 fL (80.0-100.0); Mean Platelet Volume 9.2 fL (9.4-12.4); Platelet Count 354 K/uL (130-400); RDW Coefficient of Variation 13.4 % (11.5-14.5); RDW Standard Deviation 48.4 fL (36.4-46.3); Red Blood Count 3.22 M/uL (4.70-6.10); White Blood Count 14.83 K/ul (4.8-10.8)
[2023-05-06 08:15] LABS: BUN Creatinine Ratio 28.9 (10-20); Calcium 8.2 mg/dl (8.6-10.3); Creatinine Clr Calc Pharmacy 65.1 ml/min; Est GFR (African American) 79.9 ml/min; Est GFR (Non-African American) 68.9 ml/min; Potassium 3.7 mmol/L (3.5-5.1)
[2023-05-06] MEDS ORDERED: FUROSEMIDE INJ 20 MG/2 ML VIAL IV ONE (08:43)
[2023-05-06] MEDS: APIXABAN 5 MG TABLET PO SCH ×2 (08:55→21:33)
[2023-05-06] MEDS: methylPREDNISolone 10 MG in SYRINGE 0.25 ML IV SCH (08:56)
[2023-05-06] MEDS: METOPROLOL SUCC 50MG EXT REL TAB PO SCH ×2 (08:56→21:34)
[2023-05-06] MEDS: ASPIRIN 81 MG ECTAB PO SCH (08:56)
[2023-05-06] MEDS: FLUTICASONE/VILANTEROL 100/25MCG 14 PUFFS/INHALER INH SCH (08:56)
[2023-05-06] MEDS: POTASSIUM CHLORIDE PWD 20 MEQ PACK PO SCH ×3 (08:56→21:35)
[2023-05-06] MEDS: DOCUSATE SODIUM/SENNA 50/8.6MG TAB PO SCH ×2 (08:56→21:33)
[2023-05-06] MEDS: TAMSULOSIN HCL 0.4 MG CAP PO SCH (10:10)
[2023-05-06] MEDS ORDERED: bisacodyL 10 MG SUPP PR PRN (16:25)
--- NOTE | 2023-05-06 20:17 | Hospitalist Progress Note ---
Date of Service May 06, 2023 Assessment & Plan (1) Sepsis: Plan: RESOLVED 2nd to acute cholecystitis, s/p cholecystostomy tube placement WBC count 31 on admission and slowly trending down CT a/p on 05/04 with stable cholecystostomy tube and no other acute biliary find ings rectal wall thickening was seen and bladder wall thickening was seen but doubt these caused the WBC elevation Blood cx's negative Biliary culture negative Continue ceftriaxone and flagyl - day #10 of each Consider transition to PO augmentin tomorrow if he tolerates low fat diet Would complete 4 days of augmentin then stop all abx s/p cholecystostomy tube by IR on 04/28/23 cholecystostomy tube to stay in place for 6 weeks this will require outpatient follow-up and management appreciate gen surg assistance (2) Acute cholecystitis: Plan: as above LFTs have been stable No signs of biliary obstruction - alk phos and t.bili wnl Cont IV abx as above with transition to PO augmentin tomorrow CT a/p 05/04/23 showed stable biliary tract findings (3) Acute respiratory failure with hypoxia: Plan: resolved 2nd to pulm edema. diuresing well. COVID test 05/02/23 negative. cxr w/o pneumonia. of note - echo this admission was obtained but poor windows; EF was grossly normal per the echo report. (4) Acute gout: Plan: R 1st toe, L 3rd toe CONTINUES TO IMPROVE with low-dose steroid 2nd to physical stress in setting of chronic HCTZ use stopped HCTZ uric acid level >7 day #5 of IV solumedrol 10mg daily stop IV steroid start PO prednisone 5mg daily starting tomorrow probably 5 days of PO steroid then off Rx (5) Ileus: Plan: ileus 2nd to acute cholecystitis, poor mobility, etc resolving soft abdomen passing flatus good bowel sounds no n/v no abd pain advance diet to low fat today (6) Acute metabolic encephalopathy: Plan: 2nd to acute cholecystitis, pain, hospital psychosis, etc. improved with increased olanzapine dose to 5mg standing at bedtime with additional 5mg prn if needed cont melatonin 3mg HS (7) Permanent atrial fibrillation with rapid ventricular response: Plan: cont metoprolol succinate 50mg BID cont eliquis 5mg BID (8) NSTEMI (non-ST elevated myocardial infarction): Plan: troponin elevated to 3497 after admission and then trended downward Most likely myocardial demand ischemia (type 2 NSTEMI) in setting of sepsis, known CAD, h/o CABG, and rapid afib limited ECHO without WMAs and with preserved EF continue ASA, metoprolol resume statin continue telemetry (9) Urinary retention: Plan: Gonzales in place after admission and was still retaining large amount of urine Also had 2 mm nonobstructing left ureterolithiasis on CT and developed some hematuria [facility] [place] consulted 04/28--> had Gonzales placement and stent for left distal ureteral stone under sedation Maintain Gonzales for at least one week as per urology then consider trial of void following such could consider this tomorrow start flomax today needs f/u with [facility] [place] for stent and stone management post-discharge (10) History of CVA (cerebrovascular accident) without residual deficits: Plan: CT head negative while here resumed eliquis and aspirin (11) History of coronary artery bypass graft x 3: Plan: see "NSTEMI" above Hold lisinopril and HCTZ/triamterene to allow more BP room for AV pooja agents, flomax, etc (12) Asthma: Plan: cont home inhalers wheezing on exam earlier this week was likely due to pulmonary edema rather than asthma as wheezing resolved with diuresis (13) Hypothyroidism: Plan: TSH WNL in December 2022 Continue levothyroxine (14) Hypertension: Plan: Hold lisinopril and HCTZ/triamterene likely won't resume either cont metoprolol BID (15) Dementia: Plan: cont supportive care advanced superimposed metabolic encephalopathy -- see above olanzapine hs (16) Coronary artery disease: Plan: as above (17) Benign localized prostatic hyperplasia with lower urinary tract symptoms (LUTS): Plan: gonzales flomax - start today (18) Nephrolithiasis: Plan: left sided 2mm ureteral stone s/p stent placement this admission by [facility] [place] Plan cont PT, OT extensively updated at bedside once again today care d/w gen surg Dr Tello yesterday progressing nicely Admission and Anticipated Discharge Date Admission Date: April 27, 2023 Subjective patient slept most of the night per staff no agitation overnight or this am at bedside tolerating full liquids; eating most of the tray without obvious nausea; no vomiting, no abd pain no stool since the last suppository no dyspnea cont to have copious UOP a.fib rates about 100 or less at rest, higher if he gets agitated Review of Systems Review of Systems: Unobtainable due to cognitive status Physical Exam Physical Exam: gen - best he has looked all week; NAD; pleasant, smiling mouth - MMM neck - no JVD heart - rate <100, s1 s2, irregularly irregular lungs - CTA b/l abd - cholecystostomy tube in place R abdomen with bile in the collection bag; soft, NT, BS+, no distension ext - trace-1+ edema b/l, pulses 2+ b/l musculo - podagra of right first great toe resolving; no tenderness or warmth; left 3rd toe synovitis improved psych - a/o x 1 only (person) Results & Data Results & Data Vital Signs (Past 12 Hours) Vital Signs Temp Pulse Resp BP Pulse Ox O2 Del Method 05/06/23 19:47 Room Air 05/06/23 19:00 36.6 C 90 20 137/84 96 Room Air 05/06/23 15:39 36.2 C L 100 H 20 116/73 94 Room Air 05/06/23 11:45 37.2 C 84 18 125/75 93 Room Air 05/06/23 09:40 Room Air Laboratory Results Laboratory Results - last 24 hr 05/06/23 05/06/23 07:48 07:48 WBC 14.83 H RBC 3.22 L Hgb 10.5 L Hct 31.7 L MCV 98.4 MCH 32.6 MCHC 33.1 RDW Std Deviation 48.4 H RDW Coeff of Alisha 13.4 Plt Count 354 MPV 9.2 L Sodium 140 Potassium 3.7 Chloride 108 H Carbon Dioxide 27 Anion Gap 5 BUN 28 H Creatinine 0.97 Est Cr Clr Drug Dosing 65.1 Est GFR ( Amer) 79.9 Est GFR (Non-Af Amer) 68.9 BUN/Creatinine Ratio 28.9 H Glucose 105 H Calcium 8.2 L PG Care Time/CCT Total # of Minutes Spent Total Time Spent with Patient: Total time spent is greater than 50% in coordination of care (as documented) at patient's floor/unit and/or counseling patient: Coding Level of Care Code 61989 SUB INP/OBS CARE 2/35MIN Diagnoses Sepsis A41.9 Acute cholecystitis K81.0 Acute respiratory failure with hypoxia J96.01 Acute gout M10.9 Ileus K56.7 Acute metabolic encephalopathy G93.41 Permanent atrial fibrillation with rapid ventricular response I48.21 NSTEMI (non-ST elevated myocardial infarction) I21.4 Urinary retention R33.9 History of CVA (cerebrovascular accident) without residual deficits Z86.73 History of coronary artery bypass graft x 3 Z95.1 Asthma J45.909 Hypothyroidism E03.9 Hypertension I10 Dementia F03.90 Coronary artery disease I25.10 Benign localized prostatic hyperplasia with lower urinary tract symptoms (LUTS) N40.1 Nephrolithiasis N20.0
[2023-05-06] MEDS: cefTRIAXone SODIUM 2,000 MG in DEXTROSE 5% 50 ML IV SCH (21:28)
[2023-05-06] MEDS: OLANZapine 5 MG TABLET PO SCH (21:34)
[2023-05-06] MEDS: SIMVASTATIN 40 MG TAB PO SCH (21:34)
[2023-05-06] MEDS: MELATONIN 3 MG TAB PO SCH (21:34)
[2023-05-07] MEDS: metroNIDAZOLE 500 MG/100 ML BAG IV SCH ×2 (01:37→08:59)
[2023-05-07] MEDS ORDERED: OLANZapine 10 MG/2.1 ML SDV IM STA (02:10)
[2023-05-07] MEDS: LEVOTHYROXINE SODIUM 112 MCG TABLET PO SCH (05:34)
[2023-05-07 07:13] LABS: BUN Creatinine Ratio 24.8 (10-20); Calcium 8.4 mg/dl (8.6-10.3); Est GFR (African American) 66.4 ml/min; Est GFR (Non-African American) 57.3 ml/min; Potassium 4.1 mmol/L (3.5-5.1)
[2023-05-07] MEDS: METOPROLOL SUCC 50MG EXT REL TAB PO SCH ×2 (08:59→21:06)
[2023-05-07] MEDS: predniSONE 5 MG TAB PO SCH (08:59)
[2023-05-07] MEDS: DOCUSATE SODIUM/SENNA 50/8.6MG TAB PO SCH ×2 (09:00→21:06)
[2023-05-07] MEDS: ASPIRIN 81 MG ECTAB PO SCH (09:00)
[2023-05-07] MEDS: TAMSULOSIN HCL 0.4 MG CAP PO SCH (09:00)
[2023-05-07] MEDS: APIXABAN 5 MG TABLET PO SCH ×2 (09:00→21:06)
[2023-05-07] MEDS: FLUTICASONE/VILANTEROL 100/25MCG 14 PUFFS/INHALER INH SCH (09:00)
[2023-05-07] MEDS: POTASSIUM CHLORIDE PWD 20 MEQ PACK PO SCH ×2 (09:00→16:23)
[2023-05-07] MEDS ORDERED: FUROSEMIDE 20 MG TAB PO ONE (10:06)
[2023-05-07] MEDS: AMOXICILLIN/CLAVULANATE 875 MG TAB PO SCH (16:23)
--- NOTE | 2023-05-07 18:28 | Hospitalist Progress Note ---
Date of Service May 07, 2023 Assessment & Plan (1) Sepsis: Plan: RESOLVED 2nd to acute cholecystitis, s/p cholecystostomy tube placement WBC count 31 on admission and slowly trending down CT a/p on 05/04 with stable cholecystostomy tube and no other acute biliary find ings ?rectal wall thickening was seen and bladder wall thickening was seen but doubt these caused the WBC elevation Blood cx's negative Biliary culture negative s/p ceftriaxone and flagyl x 10 days will transition to PO augmentin for 4 more days then stop abx s/p cholecystostomy tube by IR on 04/28/23 cholecystostomy tube to stay in place for 6 weeks this will require outpatient follow-up and management appreciate gen surg assistance (2) Acute cholecystitis: Plan: as above LFTs have been stable No signs of biliary obstruction - alk phos and t.bili wnl s/p 10 days of IV abx --> transition to PO augmentin today x [address] a/p 05/04/23 showed stable biliary tract findings (3) Acute respiratory failure with hypoxia: Plan: resolved 2nd to pulm edema. diuresing well. COVID test 05/02/23 negative. cxr w/o pneumonia. of note - echo this admission was obtained but poor windows; EF was grossly normal per the echo report. (4) Acute gout: Plan: R 1st toe, L 3rd toe CONTINUES TO IMPROVE with low-dose steroid 2nd to physical stress in setting of chronic HCTZ use stopped HCTZ uric acid level >7 day #6 of steroids today transitioned from IV solumedrol 10mg to po prednisone 5mg would stop po prednisone in 3-4 days or based on physical exam findings (5) Ileus: Plan: ileus 2nd to acute cholecystitis, poor mobility, etc resolving soft abdomen passing flatus good bowel sounds no n/v no abd pain until today - not sure if this was gas pain or constipation pain - only 1 BM in the last 4-5 days (and that stool was with a suppository) tried a dulcolax suppos last pm w/o success check KUB x-ray to reassess stool & gas pattern (6) Acute metabolic encephalopathy: Plan: 2nd to acute cholecystitis, pain, hospital psychosis, etc. SEVERE required restraints overnight due to severe agitation and physical aggressiveness w/ staff I spoke with oncall Psychiatry - due to the safety issues posed with his night- time agitated delirium it is an absolute necessity to find a med regimen to control his behavior his QTc is prolonged - about 500msec - and increasing the olanzapine further could make the QTc even worse and increase the risk of Torsades lengthy discussion held with pt's regarding risks vs benefits of increasing the HS olanzapine counseled her about the small but very real risk of worsening the QTc and thus increasing the chances of Torsades she discussed this with her children, and ultimately told us they were ok with increasing the medication thus - increase PO olanzapine to 10mg HS scheduled + olanzapine 2.5mg IM HS prn for refractory symptoms cont melatonin (7) Permanent atrial fibrillation with rapid ventricular response: Plan: cont metoprolol succinate 50mg BID cont eliquis 5mg BID (8) NSTEMI (non-ST elevated myocardial infarction): Plan: troponin elevated to 3497 after admission and then trended downward Most likely myocardial demand ischemia (type 2 NSTEMI) in setting of sepsis, known CAD, h/o CABG, and rapid afib limited ECHO without WMAs and with preserved EF continue ASA, metoprolol resume statin continue telemetry (9) Urinary retention: Plan: Gonzales in place after admission and was still retaining large amount of urine Also had 2 mm nonobstructing left ureterolithiasis on CT and developed some hematuria [facility] [place] [facility] consulted 04/28--> had Gonzales placement and stent for left distal ureteral stone under sedation Maintain Gonzales for at least one week as per urology then consider trial of void following such could consider this tomorrow if he is stable & well ; the gonzales could be contributing to his agitated delirium cont flomax today needs f/u with [facility] for stent and stone management post-discharge (10) History of CVA (cerebrovascular accident) without residual deficits: Plan: CT head negative while here resumed eliquis and aspirin (11) History of coronary artery bypass graft x 3: Plan: see "NSTEMI" above Hold lisinopril and HCTZ/triamterene to allow more BP room for AV pooja agents, flomax, etc (12) Asthma: Plan: cont home inhalers no flare at this time (13) Hypothyroidism: Plan: TSH WNL in December 2022 Continue levothyroxine (14) Hypertension: Plan: Hold lisinopril and HCTZ/triamterene likely won't resume either cont metoprolol BID (15) Dementia: Plan: cont supportive care advanced superimposed metabolic encephalopathy -- see above olanzapine hs - increase to 10mg tonight (16) Coronary artery disease: Plan: as above (17) Benign localized prostatic hyperplasia with lower urinary tract symptoms (LUTS): Plan: gonzales flomax voiding trial next 1-2 days (18) Nephrolithiasis: Plan: left sided 2mm ureteral stone s/p stent placement this admission by [facility] (19) Candidiasis of mouth and esophagus: Plan: nystati amadou - 5cc qid swish/swallow Plan cont PT, OT as tolerated and son extensively updated at bedside once again today care d/w on-call psych and cardiology regarding need for more sedation with olanzapine in the setting of prolonged QTc I am overall concerned about his prognosis amid this complicated & prolonged hospitalization changing code status from conditional to DNR/DNI per 's request Admission and Anticipated Discharge Date Admission Date: April 27, 2023 Subjective afib rates >100 with agitation; <100 with sleep had TERRIBLE night last night - sundowning/agitated/combative with staff, needed additional IM zyprexa, needed restraints to maintain his safety and the safety of staff (he was kicking, etc by report) ate breakfast and ate lunch but no interest in dinner today no vomiting he did complain of his stomach earlier in the day per his he has been more calm during the daylight hours today and the restraints were appropriately removed told me in person that the family wishes for him to be a complete DNR/DNI they realize how poorly he is doing overall unfortunately no BM with the suppository last pm or any stool today during the visit he was unable to offer any pertinent history or ROS Review of Systems Review of Systems: Unobtainable due to cognitive status Physical Exam Physical Exam: gen - NAD, awake, cooperative & calm w/ me during the exam; no obvious pain any location neck - no JVD heart - rate about 100, s1 s2, irregularly irregular lungs - CTA b/l abd - cholecystostomy tube in place R abdomen with small amount of bile in the collection bag; soft, NT, BS+, mild distension only ext - trace-1+ edema b/l, pulses 2+ b/l musculo - podagra of right first great toe resolving; no tenderness or warmth over 1st toe on right; left 3rd toe synovitis improved - no pain with palpation, mild redness only psych - a/o x 1 only (person) Results & Data Results & Data Vital Signs (Past 12 Hours) Vital Signs Temp Pulse Pulse Resp BP Pulse Ox O2 Del Method 05/07/23 16:39 91 H 05/07/23 16:07 36.6 C 98 H 20 134/52 L 90 Room Air 05/07/23 11:45 36.4 C L 81 20 122/80 93 Room Air 05/07/23 09:00 101 H 05/07/23 08:12 36.7 C 113 H 19 109/60 95 Room Air Laboratory Results Laboratory Results - last 48 hr 05/07/23 06:37 WBC RBC Hgb Hct MCV MCH MCHC RDW Std Deviation RDW Coeff of Alisha Plt Count MPV Immature Gran % (Auto) Neut % (Auto) Lymph % (Auto) [place] % (Auto) Eos % (Auto) Baso % (Auto) Neut # (Auto) Lymph # (Auto) [place] # (Auto) Eos # (Auto) Baso # (Auto) Immature Gran # (Auto) Sodium 140 Potassium 4.1 Chloride 106 Carbon Dioxide 27 Anion Gap 7 BUN 28 H Creatinine 1.13 Est Cr Clr Drug Dosing 55.0 Est GFR ( Amer) 66.4 Est GFR (Non-Af Amer) 57.3 BUN/Creatinine Ratio 24.8 H Glucose 105 H Calcium 8.4 L Magnesium Total Bilirubin AST ALT Alkaline Phosphatase Total Protein Albumin Globulin Albumin/Globulin Ratio Lipase PG Care Time/CCT Total # of Minutes Spent Total Time Spent with Patient: Total time spent is greater than 50% in coordination of care (as documented) at patient's floor/unit and/or counseling patient: Coding Level of Care Code 14358 SUB INP/OBS CARE 3/50MIN Diagnoses Sepsis A41.9 Acute cholecystitis K81.0 Acute respiratory failure with hypoxia J96.01 Acute gout M10.9 Ileus K56.7 Acute metabolic encephalopathy G93.41 Permanent atrial fibrillation with rapid ventricular response I48.21 NSTEMI (non-ST elevated myocardial infarction) I21.4 Urinary retention R33.9 History of CVA (cerebrovascular accident) without residual deficits Z86.73 History of coronary artery bypass graft x 3 Z95.1 Asthma J45.909 Hypothyroidism E03.9 Hypertension I10 Dementia F03.90 Coronary artery disease I25.10 Benign localized prostatic hyperplasia with lower urinary tract symptoms (LUTS) N40.1 Nephrolithiasis N20.0 Candidiasis of mouth and esophagus B37.81; B37.0
[2023-05-07] MEDS ORDERED: OLANZapine 10 MG/2.1 ML SDV IM PRN (20:35)
[2023-05-07] MEDS ORDERED: OLANZapine 10 MG TAB PO SCH (21:00)
[2023-05-07] MEDS: MELATONIN 3 MG TAB PO SCH (21:05)
[2023-05-07] MEDS: SIMVASTATIN 40 MG TAB PO SCH (21:05)
[2023-05-07] MEDS: POLYETHYLENE (MIRALAX) 17 GM PACK PO SCH (21:06)
[2023-05-08] MEDS: LEVOTHYROXINE SODIUM 112 MCG TABLET PO SCH (06:00)
[2023-05-08 07:17] LABS: Hematocrit (blood only) 32.9 % (42.0-52.0); Mean Corpuscular Hemoglobin 32.2 pg (25.0-34.0); Mean Corpuscular Hgb Conc 33.4 g/dL (32.0-36.0); Mean Corpuscular Volume 96.2 fL (80.0-100.0); Mean Platelet Volume 9.6 fL (9.4-12.4); Platelet Count 412 K/uL (130-400); RDW Coefficient of Variation 13.7 % (11.5-14.5); RDW Standard Deviation 48.3 fL (36.4-46.3); Red Blood Count 3.42 M/uL (4.70-6.10); White Blood Count 26.11 K/ul (4.8-10.8)
[2023-05-08 07:36] LABS: Albumin Globulin Ratio 1.3 (0.9-2); Albumin Level 2.9 gm/dl (3.4-5.0); BUN Creatinine Ratio 22.1 (10-20); Bilirubin,Total 0.8 mg/dl (0.2-1.0); Creatinine Clr Calc Pharmacy 59.8 ml/min; Est GFR (African American) 73.4 ml/min; Est GFR (Non-African American) 63.4 ml/min; Globulin 2.3 gm/dl (2.5-4.0); Magnesium 1.7 mg/dl (1.7-2.4); Potassium 4.5 mmol/L (3.5-5.1); Total Protein 5.2 gm/dl (6.0-8.3)
[2023-05-08 07:42] LABS: Basophils # (auto) 0.06 K/uL (0-0.2); Basophils % (auto) 0.2 %; Eosinophils # (auto) 0.23 K/uL (0-0.50); Eosinophils % (auto) 0.9 %; Immature Granulocytes # (auto) 0.41 K/uL (0.01-0.20); Immature Granulocytes % (auto) 1.6 %; Lymphocytes # (auto) 2.27 K/uL (1.2-3.4); Lymphocytes % (auto) 8.7 %; Monocytes # (auto) 1.46 K/uL (0.11-0.59); Monocytes % (auto) 5.6 %; Neutrophils # (auto) 21.68 K/uL (1.40-6.50)
--- NOTE | 2023-05-08 08:56 | XRay Report ---
KUB CLINICAL HISTORY: recent ileus, interval change COMPARISON STUDY: CT of the abdomen and pelvis May 04, 2023. FINDINGS: Percutaneous cholecystostomy catheter, left ureteral stent and Kirkpatrick catheter remain in bibi ce. There is no evidence for a bowel obstruction. The bowel gas pattern is normal. No ureteral calcul i are identified. Calcifications project over the right kidney are probably vascular. Amount of stool is within normal limits. No evidence for free air on supine exam. IMPRESSION: Unremarkable bowel gas pattern. No radiographic evidence for an ileus. No evidence for a bowel obstruction. ACT 112: Negative or not required by law. Electronically signed by: Brian Ochoa M.D. 05/08/2023 8:54 AM
[2023-05-08] MEDS: TAMSULOSIN HCL 0.4 MG CAP PO SCH (09:19)
[2023-05-08] MEDS: predniSONE 5 MG TAB PO SCH (09:19)
[2023-05-08] MEDS: METOPROLOL SUCC 50MG EXT REL TAB PO SCH ×2 (09:19→20:59)
[2023-05-08] MEDS: ASPIRIN 81 MG ECTAB PO SCH (09:19)
[2023-05-08] MEDS: DOCUSATE SODIUM/SENNA 50/8.6MG TAB PO SCH ×2 (09:19→20:59)
[2023-05-08] MEDS: APIXABAN 5 MG TABLET PO SCH ×2 (09:20→20:59)
[2023-05-08] MEDS: AMOXICILLIN/CLAVULANATE 875 MG TAB PO SCH (09:20)
[2023-05-08] MEDS: POLYETHYLENE (MIRALAX) 17 GM PACK PO SCH ×2 (09:20→20:59)
[2023-05-08] MEDS: FLUTICASONE/VILANTEROL 100/25MCG 14 PUFFS/INHALER INH SCH (11:48)
[2023-05-08] MEDS: NYSTATIN SUSP 500,000 U/5 ML UDC PO SCH ×4 (11:49→21:04)
--- NOTE | 2023-05-08 12:22 | Hospitalist Progress Note ---
Date of Service May 08, 2023 Assessment & Plan (1) Sepsis: Plan: HAD RESOLVED 2nd to acute cholecystitis, s/p cholecystostomy tube placement by IR on 04/28/23 WBC count 31 on admission and had been slowly trending down - HOWEVER, today the WBC tato to 26 CT a/p on 05/04 with stable cholecystostomy tube and no other acute biliary findings Admission Blood cx's negative Biliary culture negative s/p ceftriaxone and flagyl x 10 days, then was transitioned to PO augmentin, but changing abx back to IV as below cholecystostomy tube to stay in place for 6 weeks appreciate gen surg assistance (2) Leukocytosis: Plan: Despite 10+ days of IV/PO abx for acute cholecystitis his WBC count never normalized, and now his WBC count tato to 26 overnight He is lethargic today but he had an increased dose of olazapine last pm for severe, ongoing nocturnal agitated delirium [id number] the worsening leukocytosis is concerning Obtained repeat CT a/p - gonzales catheter is malpositioned, but otherwise no acute findings, and the gall bladder inflammation is improved Procalcitonin level is normal cxr without pneumonia u/a possible consistent with UTI but will need to follow cultures repeat blood cultures sent Will d/c augmentin, change back to IV abx therapy with cefepime/flagyl while awaiting cultures repeat CBC am (3) Acute cholecystitis: Plan: as above LFTs have been stable including today lipase today wnl s/p 10 days of IV abx --> then transitioned to PO augmentin --> now returning back to IV abx (see #2 above) CT a/p 05/04/23 showed stable biliary tract findings CT a/p today again with stable gall bladder, cholecystostomy tube in correct position, etc does not appear that worsening leukocytosis is due to the cholecystitis (4) Acute respiratory failure with hypoxia: Plan: resolved 2nd to pulm edema. finished diuresis. COVID test 05/02/23 negative. cxr w/o pneumonia today. of note - echo this admission was obtained but poor windows; EF was grossly normal per the echo report. (5) Acute gout: Plan: R 1st toe, L 3rd toe CONTINUES TO IMPROVE with low-dose steroid 2nd to physical stress in setting of chronic HCTZ use stopped HCTZ uric acid level >7 day #7 of steroids today - stop prednisone after today's dose and simply monitor (6) Ileus: Plan: ileus 2nd to acute cholecystitis, poor mobility, etc resolved radiographically now with constipation based on KUB x-ray and CT a/p today bowel regimen (7) Acute metabolic encephalopathy: Plan: 2nd to acute cholecystitis, hospital psychosis, other factors . SEVERE required restraints several times since admission due to severe agitation and physical aggressiveness w/ staff olanzapine 10mg HS led to too much sedation overnight & today will lower olanzapine back to 5mg if he needs it tonight IM Prn olanzapine also will be available cont melatonin (8) Permanent atrial fibrillation with rapid ventricular response: Plan: cont metoprolol succinate 50mg BID cont eliquis 5mg BID controlled (9) NSTEMI (non-ST elevated myocardial infarction): Plan: troponin elevated to 3497 after admission and then trended downward Most likely myocardial demand ischemia (type 2 NSTEMI) in setting of sepsis, known CAD, h/o CABG, and rapid afib limited ECHO without WMAs and with preserved EF continue ASA, metoprolol resume statin continue telemetry (10) Urinary retention: Plan: [facility] [place] [facility] consulted 04/28--> had Gonzales placement and stent for left distal 2mm ureteral stone on CT today the gonzales baloon was in the prostatic urethra will remove gonzales the gonzales could be causing agitation cont flomax today if he fails to avoid then will have to put the gonzales back needs f/u with [facility] [place] [facility] for stent and stone management post-discharge (11) History of CVA (cerebrovascular accident) without residual deficits: Plan: CT head negative while here cont eliquis and aspirin (12) History of coronary artery bypass graft x 3: Plan: see "NSTEMI" above Hold lisinopril and HCTZ/triamterene to allow more BP room for AV pooja agents, flomax, etc (13) Asthma: Plan: cont home inhalers no flare at this time (14) Hypothyroidism: Plan: TSH WNL in December 2022 Continue levothyroxine (15) Hypertension: Plan: Hold lisinopril and HCTZ/triamterene likely will not need to resume either cont metoprolol BID (16) Dementia: Plan: cont supportive care advanced superimposed metabolic encephalopathy -- see above olanzapine HS (17) Coronary artery disease: Plan: as above (18) Benign localized prostatic hyperplasia with lower urinary tract symptoms (LUTS): Plan: gonzales d/c gonzales due to malposition if he fails to void then simply place back (19) Nephrolithiasis: Plan: left sided 2mm ureteral stone s/p stent placement this admission by [facility] [place] [facility] (20) Candidiasis of mouth and esophagus: Plan: nystati amadou - 5cc qid swish/swallow Plan and daughter extensively updated at bedside once again today I am overall concerned about his prognosis amid his complicated & prolonged hospitalization remains DNR/DNI Admission and Anticipated Discharge Date Admission Date: April 27, 2023 Subjective per staff Mr Mac slept for the majority of the night he has also slept most of the am did not eat breakfast staff managed to get him into the chair near the window during my visit he was able to wake up and say a few words but would quickly go back to sleep he was not able to offer any history or ROS tele overnight - a.fib, most rates <100 family mentions he has been passing some gas no bowel movement overnight or this am /daughter at bedside Review of Systems Review of Systems: Unobtainable due to cognitive status Physical Exam Physical Exam: gen - sitting in chair, sleeping; did wake up when I called his name; not agitated neck - no JVD mouth - MMM, thrush lesions buccal mucosa heart - irregularly irregular, s1 s2, regular rate lungs - CTA b/l, minimal rales bases; no wheeze abd - cholecystostomy tube in place R abdomen with minimal amount of bile in the collection bag; soft, NT, BS+, mild distension again present ext - <1+ edema b/l, pulses 2+ b/l, cap refill < 2 sec b/l feet musculo - podagra R great toe about the same as yesterday; left 3rd toe gouty arthritis about the same or modestly better psych - very sleepy today Results & Data Results & Data Vital Signs (Past 12 Hours) Vital Signs Temp Pulse Pulse Resp BP Pulse Ox O2 Del Method 05/08/23 12:20 105 H 21 158/77 H 93 Room Air 05/08/23 07:54 36.9 C 93 H 19 115/63 93 Room Air 05/08/23 00:30 86 24 05/08/23 04:30 37.1 C 96 H 18 145/76 H 93 Room Air Laboratory Results Laboratory Results - last 24 hr 05/08/23 05/08/23 06:27 06:27 WBC 26.11 H RBC 3.42 L Hgb 11.0 L Hct 32.9 L MCV 96.2 MCH 32.2 MCHC 33.4 RDW Std Deviation 48.3 H RDW Coeff of Alisha 13.7 Plt Count 412 H MPV 9.6 Immature Gran % (Auto) 1.6 Neut % (Auto) 83.0 Lymph % (Auto) 8.7 [place] % (Auto) 5.6 Eos % (Auto) 0.9 Baso % (Auto) 0.2 Neut # (Auto) 21.68 H Lymph # (Auto) 2.27 [place] # (Auto) 1.46 H Eos # (Auto) 0.23 Baso # (Auto) 0.06 Immature Gran # (Auto) 0.41 H Sodium 138 Potassium 4.5 Chloride 105 Carbon Dioxide 28 Anion Gap 5 BUN 23 Creatinine 1.04 Est Cr Clr Drug Dosing 59.8 Est GFR ( Amer) 73.4 Est GFR (Non-Af Amer) 63.4 BUN/Creatinine Ratio 22.1 H Glucose 106 H Calcium 8.0 L Magnesium 1.7 Total Bilirubin 0.8 AST 20 ALT 13 Alkaline Phosphatase 41 Total Protein 5.2 L Albumin 2.9 L Globulin 2.3 L Albumin/Globulin Ratio 1.3 Lipase 22 Diagnostic Findings Abdomen/Pelvis CT 05/08/23 12:[address] WITHOUT CONTRAST CT DOSE: 1522.44 mGy.cm HISTORY: Acute right upper quadrant abdominal pain with sepsis lavon tube, leukocytosis, altered MS TECHNIQUE: Multiaxial CT images of the abdomen and pelvis were performed without contrast. A dose lowering technique was utilized adhering to the principles of ALARA. COMPARISON STUDY: 05/04/2023 FINDINGS: Cardiomegaly with coronary artery calcifications. Prior median sternotomy. Small pleural effusions with mild bibasilar consolidation suggestive of atelectasis. Limited study without the use of IV contrast. No pneumatosis or pneumoperitoneum. The unenhanced spleen, moderately atrophic pancreas and adrenal glands are unremarkable. Cholelithiasis with no bladder wall thickening and pericholecystic edema again noted. Percutaneous cholecystostomy tube is in stable positioning. Unremarkable liver. Probable cyst in the left hepatic lobe on image 16 series 2, 8 mm. Mild cortical thinning of the kidneys. Exophytic 7.9 cm cyst of the superior pole right kidney. Satisfactory positioning of the left ureteral stent. No uroliths or hydronephrosis. Marked prostatomegaly. A Gonzales catheter is present with inflated balloon within the prostatic urethra. Urinary bladder wall thickening with intraluminal air and partial distention. Atherosclerosis of the aorta without aneurysm. No lymphadenopathy. Small hiatal hernia. Mild wall thickening of the second and third portions of the duodenum with adjacent inflammatory stranding. Mild colonic diverticulosis. Mild to moderate fecal retention. Normal appendix. Unremarkable soft tissues. No acute fracture. Nonspecific subcutaneous edema of the body wall. IMPRESSION: 1. Cholelithiasis without evidence of acute cholecystitis demonstrated. There is stable positioning of the percutaneous cholecystostomy tube. 2. Wall thickening of the duodenum is likely reactive. No bowel obstruction. 3. Small pleural effusions with mild bibasilar atelectasis. 4. Satisfactory positioning of the left ureteral stent. 5. Malpositioned Gonzales catheter with balloon inflated within the prostatic urethra. Repositioning is needed. 6. Prostatomegaly with evidence of chronic bladder outlet obstruction. 7. Additional findings as above. ACT 112: Negative or not required by law. The above report was generated using voice recognition software. It may contain grammatical, syntax or spelling errors. Electronically signed by: Eric Baltazar M.D. 05/08/2023 2:04 PM Chest X-Ray 05/08/23 12:23 XR chest 1V portable HISTORY: 87 years-old Male leukccytosis, eval for pneumonia acute shortness of breath COMPARISON: Chest radiograph 05/02/2023 TECHNIQUE: AP view of the chest FINDINGS: Cardiac silhouette is enlarged. Prior median sternotomy. Atherosclerosis of the aorta. Mild bibasilar opacities again noted with small pleural effusions. No overt pulmonary edema. Degenerative changes of the shoulders and spine. IMPRESSION: 1. Cardiomegaly without overt pulmonary edema. 2. Unchanged small pleural effusions with mild bibasilar opacities favoring atelectasis. ACT 112: Negative or not required by law. The above report was generated using voice recognition software. It may contain grammatical, syntax or spelling errors. Electronically signed by: Eric Baltazar M.D. 05/08/2023 12:58 PM PG Care Time/CCT Total # of Minutes Spent Total Time Spent with Patient: Total time spent is greater than 50% in coordination of care (as documented) at patient's floor/unit and/or counseling patient: Coding Level of Care Code 85970 SUB INP/OBS CARE 3/50MIN Diagnoses Sepsis A41.9 Leukocytosis D72.829 Acute cholecystitis K81.0 Acute respiratory failure with hypoxia J96.01 Acute gout M10.9 Ileus K56.7 Acute metabolic encephalopathy G93.41 Permanent atrial fibrillation with rapid ventricular response I48.21 NSTEMI (non-ST elevated myocardial infarction) I21.4 Urinary retention R33.9 History of CVA (cerebrovascular accident) without residual deficits Z86.73 History of coronary artery bypass graft x 3 Z95.1 Asthma J45.909 Hypothyroidism E03.9 Hypertension I10 Dementia F03.90 Coronary artery disease I25.10 Benign localized prostatic hyperplasia with lower urinary tract symptoms (LUTS) N40.1 Nephrolithiasis N20.0 Candidiasis of mouth and esophagus B37.81; B37.0
--- NOTE | 2023-05-08 13:00 | XRay Report ---
XR chest 1V portable HISTORY: 87 years-old Male leukccytosis, eval for pneumonia acute shortness of breath COMPARISON: Chest radiograph 05/02/2023 TECHNIQUE: AP view of the chest FINDINGS: Cardiac silhouette is enlarged. Prior median sternotomy. Atherosclerosis of the aorta. Mild bibasilar opacities again noted with small pleural effusions. No overt pulmonary edema. Degenerative changes o f the shoulders and spine. IMPRESSION: 1. Cardiomegaly without overt pulmonary edema. 2. Unchanged small pleural effusions with mild bibasilar opacities favoring atelectasis. ACT 112: Negative or not required by law. The above report was generated using voice recognition software. It may contain grammatical, syntax o r spelling errors. Electronically signed by: Eric Baltazar M.D. 05/08/2023 12:58 PM
--- NOTE | 2023-05-08 14:05 | CT Scan Report ---
ABDOMEN AND PELVIS CT WITHOUT CONTRAST CT DOSE: 1522.44 mGy.cm HISTORY: Acute right upper quadrant abdominal pain with sepsis lavon tube, leukocytosis, altered MS TECHNIQUE: Multiaxial CT images of the abdomen and pelvis were performed without contrast. A dose lo wering technique was utilized adhering to the principles of ALARA. COMPARISON STUDY: 05/04/2023 FINDINGS: Cardiomegaly with coronary artery calcifications. Prior median sternotomy. Small pleural ef fusions with mild bibasilar consolidation suggestive of atelectasis. Limited study without the use of IV contrast. No pneumatosis or pneumoperitoneum. The unenhanced spleen, moderately atrophic pancreas and adrenal glands are unremarkable. Cholelithiasis with no bladder wall thickening and pericholecys tic edema again noted. Percutaneous cholecystostomy tube is in stable positioning. Unremarkable liver . Probable cyst in the left hepatic lobe on image 16 series 2, 8 mm. Mild cortical thinning of the kidneys. Exophytic 7.9 cm cyst of the superior pole right kidney. Satis factory positioning of the left ureteral stent. No uroliths or hydronephrosis. Marked prostatomegaly. A Kirkpatrick catheter is present with inflated balloon within the prostatic urethra. Urinary bladder wall thickening with intraluminal air and partial distention. Atherosclerosis of the aorta without aneury sm. No lymphadenopathy. Small hiatal hernia. Mild wall thickening of the second and third portions of the duodenum with adjac ent inflammatory stranding. Mild colonic diverticulosis. Mild to moderate fecal retention. Normal adelita endix. Unremarkable soft tissues. No acute fracture. Nonspecific subcutaneous edema of the body wall. IMPRESSION: 1. Cholelithiasis without evidence of acute cholecystitis demonstrated. There is stable positioning o f the percutaneous cholecystostomy tube. 2. Wall thickening of the duodenum is likely reactive. No bowel obstruction. 3. Small pleural effusions with mild bibasilar atelectasis. 4. Satisfactory positioning of the left ureteral stent. 5. Malpositioned Kirkpatrick catheter with balloon inflated within the prostatic urethra. Repositioning is needed. 6. Prostatomegaly with evidence of chronic bladder outlet obstruction. 7. Additional findings as above. ACT 112: Negative or not required by law. The above report was generated using voice recognition software. It may contain grammatical, syntax o r spelling errors. Electronically signed by: Eric Baltazar M.D. 05/08/2023 2:04 PM
[2023-05-08 15:19] LABS: Appearance Urine Cloudy (Clear); Bacteria Urine Automated Negative (Negative); Bilirubin Urine Negative (Negative); Blood Urine 3+ (Negative); Color Urine Dark Yellow; Glucose Urine UA Negative (Negative); Ketones Urine Negative (Negative); Leukocyte Esterase Urine 1+ (Negative); Nitrite Urine Positive (Negative); Protein Urine 1+ (Negative); RBC Urine Automated >30 /hpf (0-4); Specific Gravity Urine 1.022 (1.000-1.030); Urobilinogen Urine Negative (Negative)
[2023-05-08 16:07] LABS: Base Excess VBG 6.1 mEq/L; HCO3 VBG 31 mmol/L; Oxygen Saturation VBG < 60.0 %; PCO2 VBG 46 mmHg (38-50); PO2 VBG 25 mmHg; pH VBG 7.44 (7.36-7.41)
--- NOTE | 2023-05-08 16:37 | Electrocardiogram Report ---
Test Reason : Blood Pressure : / mmHG Vent. Rate : 101 BPM Atrial Rate : 468 BPM P-R Int : 000 ms QRS Dur : 090 ms QT Int : 382 ms P-R-T Axes : 000 -18 -85 degrees QTc Int : 495 ms Atrial fibrillation with rapid ventricular response Nonspecific ST and T wave abnormality Abnormal ECG When compared with ECG of 28-APR-2023 22:47, Nonspecific T wave abnormality, worse in Anterolateral leads Confirmed by Esvin Sepulveda ([id number]) on 05/08/2023 4:37:18 PM Referred By: REFERRED SELF Confirmed By:Nikhil Sepulveda
[2023-05-08] MEDS: metroNIDAZOLE 500 MG/100 ML BAG IV SCH (16:54)
[2023-05-08] MEDS: CEFEPIME 2,000 MG in SYRINGE 0 ML IV SCH (16:54)
[2023-05-08] MEDS: OLANZapine 5 MG TABLET PO SCH (20:58)
[2023-05-08] MEDS: SIMVASTATIN 40 MG TAB PO SCH (20:59)
[2023-05-08] MEDS: MELATONIN 3 MG TAB PO SCH (21:00)
[2023-05-09] MEDS: metroNIDAZOLE 500 MG/100 ML BAG IV SCH ×4 (01:23→23:33)
[2023-05-09] MEDS: CEFEPIME 2,000 MG in SYRINGE 0 ML IV SCH ×2 (03:55→16:32)
[2023-05-09] MEDS: LEVOTHYROXINE SODIUM 112 MCG TABLET PO SCH (06:18)
[2023-05-09 07:39] LABS: Mean Corpuscular Hemoglobin 32.8 pg (25.0-34.0); Mean Corpuscular Hgb Conc 33.3 g/dL (32.0-36.0); Mean Corpuscular Volume 98.5 fL (80.0-100.0); Mean Platelet Volume 9.8 fL (9.4-12.4); Platelet Count 328 K/uL (130-400); RDW Coefficient of Variation 13.6 % (11.5-14.5); RDW Standard Deviation 49.6 fL (36.4-46.3); Red Blood Count 3.35 M/uL (4.70-6.10); White Blood Count 22.33 K/ul (4.8-10.8)
[2023-05-09 07:57] LABS: BUN Creatinine Ratio 21.2 (10-20); Calcium 8.2 mg/dl (8.6-10.3); Creatinine Clr Calc Pharmacy 59.8 ml/min; Est GFR (African American) 73.4 ml/min; Est GFR (Non-African American) 63.4 ml/min
[2023-05-09] MEDS: DOCUSATE SODIUM/SENNA 50/8.6MG TAB PO SCH ×2 (09:00→21:33)
[2023-05-09] MEDS: APIXABAN 5 MG TABLET PO SCH ×2 (09:00→21:29)
[2023-05-09] MEDS: POLYETHYLENE (MIRALAX) 17 GM PACK PO SCH ×2 (09:01→21:31)
[2023-05-09] MEDS: METOPROLOL SUCC 50MG EXT REL TAB PO SCH ×2 (09:01→21:32)
[2023-05-09] MEDS: FLUTICASONE/VILANTEROL 100/25MCG 14 PUFFS/INHALER INH SCH (09:01)
[2023-05-09] MEDS: TAMSULOSIN HCL 0.4 MG CAP PO SCH (09:02)
[2023-05-09] MEDS: ASPIRIN 81 MG ECTAB PO SCH (10:03)
[2023-05-09] MEDS: NYSTATIN SUSP 500,000 U/5 ML UDC PO SCH ×4 (10:04→21:33)
[2023-05-09] MEDS: PANTOprazole 40 MG in SYRINGE 0 ML IV SCH (10:04)
--- NOTE | 2023-05-09 15:09 | Hospitalist Progress Note ---
Date of Service May 09, 2023 Assessment & Plan (1) Sepsis: Plan: Now resolved 2nd to acute cholecystitis, s/p cholecystostomy tube placement by IR on 04/28/23 CT a/p on 05/04 with stable cholecystostomy tube and no other acute biliary findings Admission Blood cx's negative Biliary culture negative s/p ceftriaxone and flagyl x 10 days, then was transitioned to PO augmentin, but changing abx back to IV because WBC trended up cholecystostomy tube to stay in place for 6 weeks appreciate gen surg assistance (2) Leukocytosis: Plan: Despite 10+ days of IV/PO abx for acute cholecystitis his WBC count never normalized, and now his WBC count tato to 26 yesterday (steroids may be contributing) He is lethargic today but he had an increased dose of olazapine last pm for severe, ongoing nocturnal agitated delirium Obtained repeat CT a/p - gonzales catheter is malpositioned, but otherwise no acute findings, and the gall bladder inflammation is improved Procalcitonin level is normal cxr without pneumonia u/a possible consistent with UTI but will need to follow cultures repeat blood cultures sent Will d/c augmentin, change back to IV abx therapy with cefepime/flagyl while awaiting cultures repeat CBC am shows some improvement (3) Acute cholecystitis: Plan: as above LFTs have been stable including today lipase today wnl s/p 10 days of IV abx --> then transitioned to PO augmentin --> now returning back to IV abx (see #2 above) CT a/p 05/04/23 showed stable biliary tract findings CT a/p today again with stable gall bladder, cholecystostomy tube in correct position, etc does not appear that worsening leukocytosis is due to the cholecystitis (4) Acute respiratory failure with hypoxia: Plan: resolved 2nd to pulm edema. finished diuresis. COVID test 05/02/23 negative. cxr w/o pneumonia today. of note - echo this admission was obtained but poor windows; EF was grossly normal per the echo report. (5) Acute gout: Plan: R 1st toe, L 3rd toe CONTINUES TO IMPROVE with low-dose steroid 2nd to physical stress in setting of chronic HCTZ use stopped HCTZ uric acid level >7 day #7 of steroids today - stop prednisone after today's dose and simply monitor (6) Ileus: Plan: ileus 2nd to acute cholecystitis, poor mobility, etc resolved radiographically now with constipation based on KUB x-ray and CT a/p today bowel regimen (7) Acute metabolic encephalopathy: Plan: 2nd to acute cholecystitis, hospital psychosis, other factors . SEVERE required restraints several times since admission due to severe agitation and physical aggressiveness w/ staff olanzapine 10mg HS led to too much sedation overnight & today will lower olanzapine back to 5mg if he needs it tonight IM Prn olanzapine also will be available cont melatonin (8) Permanent atrial fibrillation with rapid ventricular response: Plan: cont metoprolol succinate 50mg BID cont eliquis 5mg BID controlled (9) NSTEMI (non-ST elevated myocardial infarction): Plan: troponin elevated to 3497 after admission and then trended downward Most likely myocardial demand ischemia (type 2 NSTEMI) in setting of sepsis, known CAD, h/o CABG, and rapid afib limited ECHO without WMAs and with preserved EF continue ASA, metoprolol resume statin continue telemetry (10) Urinary retention: Plan: [facility] [facility] [place]--> had Gonzales placement and stent for left distal 2mm ureteral stone gonzales has been removed needs f/u with [facility] for stent and stone management post-discharge (11) History of CVA (cerebrovascular accident) without residual deficits: Plan: CT head negative while here cont eliquis and aspirin (12) History of coronary artery bypass graft x 3: Plan: see "NSTEMI" above Hold lisinopril and HCTZ/triamterene to allow more BP room for AV pooja agents, flomax, etc (13) Asthma: Plan: cont home inhalers no flare at this time (14) Hypothyroidism: Plan: TSH WNL in December 2022 Continue levothyroxine (15) Hypertension: Plan: Hold lisinopril and HCTZ/triamterene likely will not need to resume either cont metoprolol BID (16) Dementia: Plan: cont supportive care advanced superimposed metabolic encephalopathy -- see above olanzapine HS (17) Coronary artery disease: Plan: as above (18) Benign localized prostatic hyperplasia with lower urinary tract symptoms (LUTS): Plan: gonzales d/c gonzales due to malposition if he fails to void then simply place back (19) Nephrolithiasis: Plan: left sided 2mm ureteral stone s/p stent placement this admission by [facility] (20) Candidiasis of mouth and esophagus: Plan: nystati amadou - 5cc qid swish/swallow Plan will need SNF, per the , his dementia is getting worse Admission and Anticipated Discharge Date Admission Date: April 27, 2023 Subjective patient seen and examined, and son by the bedside, denies any new complaints Review of Systems Review of Systems: All systems reviewed are negative, apart from the ones contained in the history. Physical Exam Physical Exam: The patient is awake, alert and oriented 3, well developed and well nourished, normocephalic and atraumatic, lying in bed and in no acute distress. HEENT--PERRL, EOMI, mucous membranes and oropharynx mildly dry Neck--supple. No JVD. No bruits. Thyroid normal, trachea midline, no adenopathy. Heart--normal S1 and S2. No murmurs, rubs or gallops. Lungs--clear bilaterally, no respiratory distress, no accessory muscle use. Abdomen--normal bowel sounds and soft. Mild epigastric and left sided abdominal pain, cholecystostomy tube in situ Extremities--no cyanosis or clubbing. No edema. Dermatologic--normal skin turgor, normal color, no abnormal lymph nodes, no rash. Neurologic--cranial nerves II through XII grossly intact. Rheumatologic--normal range of motion. Psychiatric--normal affect. Results & Data Results & Data Vital Signs (Past 12 Hours) Vital Signs Temp Pulse Pulse Resp BP Pulse Ox O2 Del Method 05/09/23 11:25 97.9 F 84 19 123/81 95 Room Air 05/09/23 07:00 96 H 05/09/23 07:52 97.5 F L 92 H 19 130/63 96 Room Air 05/09/23 05:30 97.9 F 84 18 146/78 H 94 Room Air PG Care Time/CCT Total # of Minutes Spent Total Time Spent with Patient: Total time spent is greater than 50% in coordination of care (as documented) at patient's floor/unit and/or counseling patient: Coding Level of Care Code 77311 SUB INP/OBS CARE 2/35MIN Diagnoses Sepsis A41.9 Leukocytosis D72.829 Acute cholecystitis K81.0 Acute respiratory failure with hypoxia J96.01 Acute gout M10.9 Ileus K56.7 Acute metabolic encephalopathy G93.41 Permanent atrial fibrillation with rapid ventricular response I48.21 NSTEMI (non-ST elevated myocardial infarction) I21.4 Urinary retention R33.9 History of CVA (cerebrovascular accident) without residual deficits Z86.73 History of coronary artery bypass graft x 3 Z95.1 Asthma J45.909 Hypothyroidism E03.9 Hypertension I10 Dementia F03.90 Coronary artery disease I25.10 Benign localized prostatic hyperplasia with lower urinary tract symptoms (LUTS) N40.1 Nephrolithiasis N20.0 Candidiasis of mouth and esophagus B37.81; B37.0 Time Spent (min) 35
[2023-05-09] MEDS: SIMVASTATIN 40 MG TAB PO SCH (21:30)
[2023-05-09] MEDS: MELATONIN 3 MG TAB PO SCH (21:30)
[2023-05-09] MEDS: OLANZapine 5 MG TABLET PO SCH (21:31)
[2023-05-10] MEDS: CEFEPIME 2,000 MG in SYRINGE 0 ML IV SCH ×2 (04:55→17:08)
[2023-05-10] MEDS: LEVOTHYROXINE SODIUM 112 MCG TABLET PO SCH (06:31)
[2023-05-10] MEDS: APIXABAN 5 MG TABLET PO SCH ×2 (08:26→20:57)
[2023-05-10] MEDS: ASPIRIN 81 MG ECTAB PO SCH (08:26)
[2023-05-10] MEDS: DOCUSATE SODIUM/SENNA 50/8.6MG TAB PO SCH ×2 (08:27→20:55)
[2023-05-10] MEDS: FLUTICASONE/VILANTEROL 100/25MCG 14 PUFFS/INHALER INH SCH (08:27)
[2023-05-10] MEDS: metroNIDAZOLE 500 MG/100 ML BAG IV SCH ×3 (08:28→23:24)
[2023-05-10] MEDS: NYSTATIN SUSP 500,000 U/5 ML UDC PO SCH ×4 (08:28→20:57)
[2023-05-10] MEDS: TAMSULOSIN HCL 0.4 MG CAP PO SCH (08:29)
[2023-05-10] MEDS: POLYETHYLENE (MIRALAX) 17 GM PACK PO SCH ×2 (08:29→20:57)
[2023-05-10] MEDS: METOPROLOL SUCC 50MG EXT REL TAB PO SCH ×2 (08:40→20:56)
[2023-05-10] MEDS: PANTOprazole 40 MG in SYRINGE 0 ML IV SCH (10:41)
--- NOTE | 2023-05-10 12:32 | Hospitalist Progress Note ---
Date of Service May 10, 2023 Assessment & Plan (1) Sepsis: Plan: Now resolved 2nd to acute cholecystitis, s/p cholecystostomy tube placement by IR on 04/28/23 CT a/p on 05/04 with stable cholecystostomy tube and no other acute biliary findings Admission Blood cx's negative Biliary culture negative s/p ceftriaxone and flagyl x 10 days, then was transitioned to PO augmentin, but changing abx back to IV because WBC trended up cholecystostomy tube to stay in place for 6 weeks appreciate gen surg assistance (2) Leukocytosis: Plan: Patient completed a course of IV antibiotics and was transitioned to oral, however, his WBC increased and he he has been [id number] on IV antibiotics (could have been due to steroids, which has been stopped) Some improvement in WBC Cultures remain negative, procalcitonin is normal, chest x ray did not suggest PNA CT abd/pelvis is stable Continue IV cefepime and Flagy Rececheck CBC tomorrow (3) Acute cholecystitis: Plan: as above LFTs have been stable lipase wnl CT a/p 05/04/23 showed stable biliary tract findings CT a/p today again with stable gall bladder, cholecystostomy tube in correct position, etc Continue antibiotics (4) Acute respiratory failure with hypoxia: Plan: resolved 2nd to pulm edema. finished diuresis. COVID test 05/02/23 negative. cxr w/o pneumonia today. of note - echo this admission was obtained but poor windows; EF was grossly normal per the echo report. (5) Acute gout: Plan: R 1st toe, L 3rd toe CONTINUES TO IMPROVE with low-dose steroid 2nd to physical stress in setting of chronic HCTZ use stopped HCTZ uric acid level >7 day #7 of steroids today - stop prednisone after today's dose and simply monitor (6) Ileus: Plan: ileus 2nd to acute cholecystitis, poor mobility, etc resolved radiographically now with constipation based on KUB x-ray and CT a/p today bowel regimen (7) Acute metabolic encephalopathy: Plan: 2nd to acute cholecystitis, hospital psychosis, other factors . patient now back to baseline will lower olanzapine back to 5mg if he needs it tonight IM Prn olanzapine also will be available cont melatonin (8) Permanent atrial fibrillation with rapid ventricular response: Plan: cont metoprolol succinate 50mg BID cont eliquis 5mg BID controlled (9) NSTEMI (non-ST elevated myocardial infarction): Plan: troponin elevated to 3497 after admission and then trended downward Most likely myocardial demand ischemia (type 2 NSTEMI) in setting of sepsis, known CAD, h/o CABG, and rapid afib limited ECHO without WMAs and with preserved EF continue ASA, metoprolol resume statin continue telemetry (10) Urinary retention: Plan: Likely due to BPH as seen on imaging continue Gonzales, continue flomax Outpatient follow up with Urology (11) History of CVA (cerebrovascular accident) without residual deficits: Plan: CT head negative while here cont eliquis and aspirin (12) History of coronary artery bypass graft x 3: Plan: see "NSTEMI" above Hold lisinopril and HCTZ/triamterene to allow more BP room for AV pooja agents, flomax, etc (13) Asthma: Plan: cont home inhalers no flare at this time (14) Hypothyroidism: Plan: TSH WNL in December 2022 Continue levothyroxine (15) Hypertension: Plan: Hold lisinopril and HCTZ/triamterene likely will not need to resume either cont metoprolol BID (16) Dementia: Plan: cont supportive care advanced superimposed metabolic encephalopathy -- see above olanzapine HS (17) Coronary artery disease: Plan: as above (18) Benign localized prostatic hyperplasia with lower urinary tract symptoms (LUTS): Plan: gonzales d/c gonzales due to malposition if he fails to void then simply place back (19) Nephrolithiasis: Plan: left sided 2mm ureteral stone s/p stent placement this [place] [facility] [place] (20) Candidiasis of mouth and esophagus: Plan: nystati amadou - 5cc qid swish/swallow Plan will need SNF, per the , his dementia is getting worse Admission and Anticipated Discharge Date Admission Date: April 27, 2023 Subjective patient seen and examined, by the bedside, denies any new complaints, has not had a BM in 3 days Review of Systems Review of Systems: All systems reviewed are negative, apart from the ones contained in the history. Physical Exam Physical Exam: The patient is awake, alert and oriented 3, well developed and well nourished, normocephalic and atraumatic, lying in bed and in no acute distress. HEENT--PERRL, EOMI, mucous membranes and oropharynx mildly dry Neck--supple. No JVD. No bruits. Thyroid normal, trachea midline, no adenopathy. Heart--normal S1 and S2. No murmurs, rubs or gallops. Lungs--clear bilaterally, no respiratory distress, no accessory muscle use. Abdomen--normal bowel sounds and soft. Mild epigastric and left sided abdominal pain, cholecystostomy tube in situ Extremities--no cyanosis or clubbing. No edema. Dermatologic--normal skin turgor, normal color, no abnormal lymph nodes, no rash. Neurologic--cranial nerves II through XII grossly intact. Rheumatologic--normal range of motion. Psychiatric--normal affect. Results & Data Results & Data Vital Signs (Past 12 Hours) Vital Signs Temp Pulse Resp BP Pulse Ox O2 Del Method 05/10/23 11:50 98.1 F 83 20 101/56 L 95 Room Air 05/10/23 08:07 98.4 F 98 H 20 114/74 95 Room Air 05/10/23 02:52 98.1 F 104 H 18 147/96 H 95 Room Air PG Care Time/CCT Total # of Minutes Spent Total Time Spent with Patient: Total time spent is greater than 50% in coordination of care (as documented) at patient's floor/unit and/or counseling patient: Coding Level of Care Code 40089 SUB INP/OBS CARE 2/35MIN Diagnoses Sepsis A41.9 Leukocytosis D72.829 Acute cholecystitis K81.0 Acute respiratory failure with hypoxia J96.01 Acute gout M10.9 Ileus K56.7 Acute metabolic encephalopathy G93.41 Permanent atrial fibrillation with rapid ventricular response I48.21 NSTEMI (non-ST elevated myocardial infarction) I21.4 Urinary retention R33.9 History of CVA (cerebrovascular accident) without residual deficits Z86.73 History of coronary artery bypass graft x 3 Z95.1 Asthma J45.909 Hypothyroidism E03.9 Hypertension I10 Dementia F03.90 Coronary artery disease I25.10 Benign localized prostatic hyperplasia with lower urinary tract symptoms (LUTS) N40.1 Nephrolithiasis N20.0 Candidiasis of mouth and esophagus B37.81; B37.0 Time Spent (min) 35
[2023-05-10] MEDS: MELATONIN 3 MG TAB PO SCH (20:55)
[2023-05-10] MEDS: OLANZapine 5 MG TABLET PO SCH (20:56)
[2023-05-10] MEDS: SIMVASTATIN 40 MG TAB PO SCH (20:56)
[2023-05-11] MEDS: ACETAMINOPHEN 325 MG TAB PO PRN (01:43)
[2023-05-11] MEDS: CEFEPIME 2,000 MG in SYRINGE 0 ML IV SCH (03:17)
[2023-05-11 05:04] LABS: Hematocrit (blood only) 29.8 % (42.0-52.0); Mean Corpuscular Hemoglobin 32.9 pg (25.0-34.0); Mean Corpuscular Hgb Conc 33.6 g/dL (32.0-36.0); Mean Platelet Volume 9.5 fL (9.4-12.4); Platelet Count 377 K/uL (130-400); RDW Coefficient of Variation 13.8 % (11.5-14.5); RDW Standard Deviation 49.1 fL (36.4-46.3); Red Blood Count 3.04 M/uL (4.70-6.10); White Blood Count 12.47 K/ul (4.8-10.8)
[2023-05-11 05:18] LABS: BUN Creatinine Ratio 15.4 (10-20); Calcium 8.1 mg/dl (8.6-10.3); Creatinine Clr Calc Pharmacy 53.2 ml/min; Est GFR (African American) 63.7 ml/min; Est GFR (Non-African American) 54.9 ml/min; Potassium 3.9 mmol/L (3.5-5.1)
[2023-05-11] MEDS: LEVOTHYROXINE SODIUM 112 MCG TABLET PO SCH (06:05)
[2023-05-11] MEDS: metroNIDAZOLE 500 MG TAB PO SCH ×2 (09:29→20:35)
[2023-05-11] MEDS: NYSTATIN SUSP 500,000 U/5 ML UDC PO SCH ×4 (09:29→20:35)
[2023-05-11] MEDS: CIPROFLOXACIN 500 MG TAB PO SCH (09:29)
[2023-05-11] MEDS: TAMSULOSIN HCL 0.4 MG CAP PO SCH (09:29)
[2023-05-11] MEDS: POLYETHYLENE (MIRALAX) 17 GM PACK PO SCH ×2 (09:30→20:35)
[2023-05-11] MEDS: APIXABAN 5 MG TABLET PO SCH ×2 (09:30→20:34)
[2023-05-11] MEDS: DOCUSATE SODIUM/SENNA 50/8.6MG TAB PO SCH ×2 (09:30→20:35)
[2023-05-11] MEDS: METOPROLOL SUCC 50MG EXT REL TAB PO SCH ×2 (09:30→20:34)
[2023-05-11] MEDS: ASPIRIN 81 MG ECTAB PO SCH (09:30)
[2023-05-11] MEDS: FLUTICASONE/VILANTEROL 100/25MCG 14 PUFFS/INHALER INH SCH (09:31)
--- NOTE | 2023-05-11 10:51 | Hospitalist Progress Note ---
Date of Service May 11, 2023 Assessment & Plan (1) Sepsis: Plan: Now resolved 2nd to acute cholecystitis, s/p cholecystostomy tube placement by IR on 04/28/23 CT a/p on 05/04 with stable cholecystostomy tube and no other acute biliary findings Admission Blood cx's negative Biliary culture negative s/p ceftriaxone and flagyl x 10 days, then was transitioned to PO augmentin, but changing abx back to IV because WBC trended up cholecystostomy tube to stay in place for 6 weeks appreciate gen surg assistance Will transition to Cipro and Flagyl oral (2) Leukocytosis: Plan: Now trending down after an initial uptick Cultures remain negative, procalcitonin is normal, chest x ray did not suggest PNA CT abd/pelvis is stable Transition to PO Cipro 500mg daily and Flagyl 500mg BID (3) Acute cholecystitis: Plan: as above LFTs have been stable lipase wnl CT a/p 05/04/23 showed stable biliary tract findings CT a/p with stable gall bladder, cholecystostomy tube in correct position, etc Continue antibiotics (4) Acute respiratory failure with hypoxia: Plan: resolved 2nd to pulm edema. finished diuresis. COVID test 05/02/23 negative. cxr w/o pneumonia of note - echo this admission was obtained but poor windows; EF was grossly normal per the echo report. (5) Acute gout: Plan: R 1st toe, L 3rd toe CONTINUES TO IMPROVE with low-dose steroid 2nd to physical stress in setting of chronic HCTZ use stopped HCTZ uric acid level >7 completed a course of steroids (6) Ileus: Plan: Resolved (7) Acute metabolic encephalopathy: Plan: 2nd to acute cholecystitis, hospital psychosis, other factors . patient now back to baseline (8) Permanent atrial fibrillation with rapid ventricular response: Plan: cont metoprolol succinate 50mg BID cont eliquis 5mg BID controlled (9) NSTEMI (non-ST elevated myocardial infarction): Plan: troponin elevated to 3497 after admission and then trended downward Most likely myocardial demand ischemia (type 2 NSTEMI) in setting of sepsis, known CAD, h/o CABG, and rapid afib limited ECHO without WMAs and with preserved EF continue ASA, metoprolol resume statin continue telemetry (10) Urinary retention: Plan: Likely due to BPH as seen on imaging continue Gonzales, continue flomax Outpatient follow up with Urology (11) History of CVA (cerebrovascular accident) without residual deficits: Plan: CT head negative while here cont eliquis and aspirin (12) History of coronary artery bypass graft x 3: Plan: see "NSTEMI" above Hold lisinopril and HCTZ/triamterene to allow more BP room for AV pooja agents, flomax, etc (13) Asthma: Plan: cont home inhalers no flare at this time (14) Hypothyroidism: Plan: TSH WNL in December 2022 Continue levothyroxine (15) Hypertension: Plan: Hold lisinopril and HCTZ/triamterene likely will not need to resume either cont metoprolol BID (16) Dementia: Plan: cont supportive care advanced superimposed metabolic encephalopathy -- see above olanzapine HS (17) Coronary artery disease: Plan: as above (18) Benign localized prostatic hyperplasia with lower urinary tract symptoms (LUTS): Plan: continue gonzales (19) Nephrolithiasis: Plan: left sided 2mm ureteral stone s/p stent placement [place] [facility] [place] ([place]) Candidiasis of mouth and esophagus: Plan: nystati amadou - 5cc qid swish/swallow Plan will need SNF, awaiting auth Admission and Anticipated Discharge Date Admission Date: April 27, 2023 Subjective patient seen and examined, daughter by the bedside, denies any new complaints, Review of Systems Review of Systems: All systems reviewed are negative, apart from the ones contained in the history. Physical Exam Physical Exam: The patient is awake, alert and oriented 3, well developed and well nourished, normocephalic and atraumatic, lying in bed and in no acute distress. HEENT--PERRL, EOMI, mucous membranes and oropharynx mildly dry Neck--supple. No JVD. No bruits. Thyroid normal, trachea midline, no adenopathy. Heart--normal S1 and S2. No murmurs, rubs or gallops. Lungs--clear bilaterally, no respiratory distress, no accessory muscle use. Abdomen--normal bowel sounds and soft. Mild epigastric and left sided abdominal pain, cholecystostomy tube in situ Extremities--no cyanosis or clubbing. No edema. Dermatologic--normal skin turgor, normal color, no abnormal lymph nodes, no rash. Neurologic--cranial nerves II through XII grossly intact. Rheumatologic--normal range of motion. Psychiatric--normal affect. Results & Data Results & Data Vital Signs (Past 12 Hours) Vital Signs Temp Pulse Pulse Resp BP Pulse Ox O2 Del Method 05/11/23 08:00 86 05/11/23 08:00 Room Air 05/11/23 07:10 97.3 F L 78 18 108/60 94 Room Air PG Care Time/CCT Total # of Minutes Spent Total Time Spent with Patient: Total time spent is greater than 50% in coordination of care (as documented) at patient's floor/unit and/or counseling patient: Coding Level of Care Code 34755 SUB INP/OBS CARE 2/35MIN Diagnoses Sepsis A41.9 Leukocytosis D72.829 Acute cholecystitis K81.0 Acute respiratory failure with hypoxia J96.01 Acute gout M10.9 Ileus K56.7 Acute metabolic encephalopathy G93.41 Permanent atrial fibrillation with rapid ventricular response I48.21 NSTEMI (non-ST elevated myocardial infarction) I21.4 Urinary retention R33.9 History of CVA (cerebrovascular accident) without residual deficits Z86.73 History of coronary artery bypass graft x 3 Z95.1 Asthma J45.909 Hypothyroidism E03.9 Hypertension I10 Dementia F03.90 Coronary artery disease I25.10 Benign localized prostatic hyperplasia with lower urinary tract symptoms (LUTS) N40.1 Nephrolithiasis N20.0 Candidiasis of mouth and esophagus B37.81; B37.0 Time Spent (min) 35
[2023-05-11] MEDS: PANTOprazole 40 MG in SYRINGE 0 ML IV SCH (11:12)
[2023-05-11] MEDS: MELATONIN 3 MG TAB PO SCH (20:34)
[2023-05-11] MEDS: SIMVASTATIN 40 MG TAB PO SCH (20:34)
[2023-05-11] MEDS: OLANZapine 5 MG TABLET PO SCH (20:35)
[2023-05-12] MEDS: ACETAMINOPHEN 325 MG TAB PO PRN ×3 (00:27→18:17)
[2023-05-12 06:07] LABS: Hematocrit (blood only) 29.9 % (42.0-52.0); Mean Corpuscular Hemoglobin 32.3 pg (25.0-34.0); Mean Corpuscular Hgb Conc 33.4 g/dL (32.0-36.0); Mean Corpuscular Volume 96.5 fL (80.0-100.0); Mean Platelet Volume 9.4 fL (9.4-12.4); Platelet Count 384 K/uL (130-400); RDW Coefficient of Variation 13.7 % (11.5-14.5); RDW Standard Deviation 48.5 fL (36.4-46.3); White Blood Count 11.25 K/ul (4.8-10.8)
[2023-05-12 06:19] LABS: BUN Creatinine Ratio 12.2 (10-20); Calcium 8.2 mg/dl (8.6-10.3); Creatinine Clr Calc Pharmacy 53.7 ml/min; Est GFR (Non-African American) 56.1 ml/min; Potassium 3.9 mmol/L (3.5-5.1)
[2023-05-12] MEDS: LEVOTHYROXINE SODIUM 112 MCG TABLET PO SCH (06:22)
[2023-05-12] MEDS ORDERED: bisacodyL 10 MG SUPP PR STA (08:37)
[2023-05-12] MEDS: METOPROLOL SUCC 50MG EXT REL TAB PO SCH ×2 (09:27→20:57)
[2023-05-12] MEDS: CIPROFLOXACIN 500 MG TAB PO SCH (09:28)
[2023-05-12] MEDS: NYSTATIN SUSP 500,000 U/5 ML UDC PO SCH ×4 (09:28→20:59)
[2023-05-12] MEDS: ASPIRIN 81 MG ECTAB PO SCH (09:28)
[2023-05-12] MEDS: metroNIDAZOLE 500 MG TAB PO SCH ×2 (09:29→20:57)
[2023-05-12] MEDS: TAMSULOSIN HCL 0.4 MG CAP PO SCH (09:29)
[2023-05-12] MEDS: APIXABAN 5 MG TABLET PO SCH ×2 (09:29→20:58)
[2023-05-12] MEDS: POLYETHYLENE (MIRALAX) 17 GM PACK PO SCH ×2 (09:29→20:59)
[2023-05-12] MEDS: DOCUSATE SODIUM/SENNA 50/8.6MG TAB PO SCH ×2 (09:29→20:57)
[2023-05-12] MEDS: FLUTICASONE/VILANTEROL 100/25MCG 14 PUFFS/INHALER INH SCH (09:30)
[2023-05-12] MEDS: PANTOprazole 40 MG in SYRINGE 0 ML IV SCH (12:09)
--- NOTE | 2023-05-12 14:57 | Hospitalist Progress Note ---
Date of Service May 12, 2023 Assessment & Plan (1) Sepsis: Plan: Now resolved 2nd to acute cholecystitis, s/p cholecystostomy tube placement by IR on 04/28/23 CT a/p on 05/04 with stable cholecystostomy tube and no other acute biliary findings Admission Blood cx's negative Biliary culture negative s/p ceftriaxone and flagyl x 10 days, then was transitioned to PO augmentin, but changing abx back to IV because WBC trended up cholecystostomy tube to stay in place for 6 weeks appreciate gen surg assistance Will transition to Cipro and Flagyl oral (2) Leukocytosis: Plan: Now trending down after an initial uptick Cultures remain negative, procalcitonin is normal, chest x ray did not suggest PNA CT abd/pelvis is stable Transition to PO Cipro 500mg daily and Flagyl 500mg BID (3) Acute cholecystitis: Plan: as above LFTs have been stable lipase wnl CT a/p 05/04/23 showed stable biliary tract findings CT a/p with stable gall bladder, cholecystostomy tube in correct position, etc Continue antibiotics (4) Acute respiratory failure with hypoxia: Plan: resolved 2nd to pulm edema. finished diuresis. COVID test 05/02/23 negative. cxr w/o pneumonia of note - echo this admission was obtained but poor windows; EF was grossly normal per the echo report. (5) Acute gout: Plan: R 1st toe, L 3rd toe CONTINUES TO IMPROVE with low-dose steroid 2nd to physical stress in setting of chronic HCTZ use stopped HCTZ uric acid level >7 completed a course of steroids (6) Ileus: Plan: Resolved (7) Acute metabolic encephalopathy: Plan: 2nd to acute cholecystitis, hospital psychosis, other factors . patient now back to baseline (8) Permanent atrial fibrillation with rapid ventricular response: Plan: cont metoprolol succinate 50mg BID cont eliquis 5mg BID controlled (9) NSTEMI (non-ST elevated myocardial infarction): Plan: troponin elevated to 3497 after admission and then trended downward Most likely myocardial demand ischemia (type 2 NSTEMI) in setting of sepsis, known CAD, h/o CABG, and rapid afib limited ECHO without WMAs and with preserved EF continue ASA, metoprolol resume statin continue telemetry (10) Urinary retention: Plan: Likely due to BPH as seen on imaging continue Gonzales, continue flomax Outpatient follow up with Urology (11) History of CVA (cerebrovascular accident) without residual deficits: Plan: CT head negative while here cont eliquis and aspirin (12) History of coronary artery bypass graft x 3: Plan: see "NSTEMI" above Hold lisinopril and HCTZ/triamterene to allow more BP room for AV pooja agents, flomax, etc (13) Asthma: Plan: cont home inhalers no flare at this time (14) Hypothyroidism: Plan: TSH WNL in December 2022 Continue levothyroxine (15) Hypertension: Plan: Hold lisinopril and HCTZ/triamterene likely will not need to resume either cont metoprolol BID (16) Dementia: Plan: cont supportive care advanced superimposed metabolic encephalopathy -- see above olanzapine HS (17) Coronary artery disease: Plan: as above (18) Benign localized prostatic hyperplasia with lower urinary tract symptoms (LUTS): Plan: continue gonzales (19) Nephrolithiasis: Plan: left sided 2mm ureteral stone s/p stent placement this admission by [facility] [place] [facility] (20) Candidiasis of mouth and esophagus: Plan: nystati amadou - 5cc qid swish/swallow Plan will need SNF, awaiting auth Admission and Anticipated Discharge Date Admission Date: April 27, 2023 Subjective patient seen and examined, by the bedside, denies any new complaints, Review of Systems Review of Systems: All systems reviewed are negative, apart from the ones contained in the history. Physical Exam Physical Exam: The patient is awake, alert and oriented 3, well developed and well nourished, normocephalic and atraumatic, lying in bed and in no acute distress. HEENT--PERRL, EOMI, mucous membranes and oropharynx mildly dry Neck--supple. No JVD. No bruits. Thyroid normal, trachea midline, no adenopathy. Heart--normal S1 and S2. No murmurs, rubs or gallops. Lungs--clear bilaterally, no respiratory distress, no accessory muscle use. Abdomen--normal bowel sounds and soft. Mild epigastric and left sided abdominal pain, cholecystostomy tube in situ Extremities--no cyanosis or clubbing. No edema. Dermatologic--normal skin turgor, normal color, no abnormal lymph nodes, no rash. Neurologic--cranial nerves II through XII grossly intact. Rheumatologic--normal range of motion. Psychiatric--normal affect. Results & Data Results & Data Vital Signs (Past 12 Hours) Vital Signs Temp Pulse Resp BP Pulse Ox O2 Del Method 05/12/23 12:09 97.9 F 80 18 116/55 L 97 Room Air 05/12/23 07:58 98.4 F 89 19 124/75 95 Room Air 05/12/23 03:00 97.9 F 101 H 20 130/81 95 Room Air PG Care Time/CCT Total # of Minutes Spent Total Time Spent with Patient: Total time spent is greater than 50% in coordination of care (as documented) at patient's floor/unit and/or counseling patient: Coding Level of Care Code 33533 SUB INP/OBS CARE 2/35MIN Diagnoses Sepsis A41.9 Leukocytosis D72.829 Acute cholecystitis K81.0 Acute respiratory failure with hypoxia J96.01 Acute gout M10.9 Ileus K56.7 Acute metabolic encephalopathy G93.41 Permanent atrial fibrillation with rapid ventricular response I48.21 NSTEMI (non-ST elevated myocardial infarction) I21.4 Urinary retention R33.9 History of CVA (cerebrovascular accident) without residual deficits Z86.73 History of coronary artery bypass graft x 3 Z95.1 Asthma J45.909 Hypothyroidism E03.9 Hypertension I10 Dementia F03.90 Coronary artery disease I25.10 Benign localized prostatic hyperplasia with lower urinary tract symptoms (LUTS) N40.1 Nephrolithiasis N20.0 Candidiasis of mouth and esophagus B37.81; B37.0 Time Spent (min) 35
--- NOTE | 2023-05-12 19:38 | Urology Consultation ---
Date of Consultation May 12, 2023 Assessment & Plan (1) Gross hematuria: (2) Urinary retention: Plan Previously consult during this hospitalization secondary to kidney stones and urinary retention Now with hematuria and clot obstruction of his catheternew consult placed Reviewed old records and operative reports Reviewed the events of the past 24 hours with the nursing staff Fortunately, by the time I arrived a good catheter been appropriately positioned and his bladder was empty I did irrigate the catheter manually confirming that it flushes easily without significant clot return I think we observe him overnight and hope not to have to intervene for his catheter History of Present Illness Attending Physician: Jonathan Taylor MD History of Present Illness Patient has been in inpatient now for 2 weeks We consulted on him earlier in this hospitalization and he went to the operating room and had a stent placed as well as a catheter placed He had been progressing appropriately and was set for outpatient follow-up with our service, however yesterday he developed hematuria and subsequent clot obstruction of his catheter His catheter was changed yesterday evening and drained throughout the night, however, this morning he was bladder scanned for 800 cc plus Catheter was exchanged but again scanned for 900 cc in his bladder. A third catheter was inserted which seem to drain appropriately he now has a very full Kirkpatrick bag implying 1.5 L plus of drainage since the third catheter was placed and a bladder scan that does not seem to show a distended a full bladder at all I was present for the bladder scan and also subsequently irrigated his catheter to confirm that the catheter is irrigating freely Allergies Allergy/AdvReac Type Severity Reaction Status Date / Time Iodinated Contrast Media Allergy Unknown UNKNOWN - Verified 04/27/23 17:28 TWIN BROTHER HAS AND WAS TOLD HE MIGHT Home Medications Medication Instructions Recorded Confirmed Type cholecalciferol (vitamin D3) 50 2,000 units PO QAM 07/01/19 04/27/23 History mcg (2,000 unit) capsule albuterol sulfate 90 mcg/actuation 2 puff inhalation Q4H PRN 06/09/21 04/27/23 Rx aerosol inhaler (ProAir HFA) shortness of breath or wheezing #3 Inhalers mometasone-formoterol HFA 100 2 puff inhalation BID #13 grams 06/22/21 04/27/23 Rx mcg-5 mcg/actuation aerosol inhaler (Dulera) aspirin 81 mg tablet,delayed 81 mg PO QAM #30 tabs 02/03/22 06/01/23 Rx release lisinopril 5 mg tablet 2.5 mg PO DAILY #90 tabs 06/06/22 04/27/23 Rx metoprolol succinate 25 mg 25 mg PO BID #180 tabs 07/11/22 04/27/23 Rx tablet,extended release 24 hr simvastatin 40 mg tablet 40 mg PO QPM #90 tabs 08/31/22 04/27/23 Rx acetaminophen 650 mg 650 mg PO Q8H PRN pain #60 tabs 12/06/22 04/27/23 Rx tablet,extended release (Tylenol Arthritis Pain) apixaban 5 mg tablet (Eliquis) 5 mg PO BID #180 tabs 12/06/22 04/27/23 Rx fluticasone propionate 50 2 spray intranasal DAILY PRN 04/26/23 04/27/23 History mcg/actuation nasal .allergies spray,suspension (Allergy Relief (fluticasone)) triamterene 37.5 1 tab PO DAILY 04/26/23 04/27/23 History mg-hydrochlorothiazide 25 mg tablet levothyroxine 112 mcg tablet 112 mcg PO DAILYBB 04/27/23 04/27/23 History Patient History Medical History Acute cholecystitis Altered mental status Arthritis HANDS Asthma stable Atrial fibrillation Atrial premature complex BPH without obstruction/lower urinary tract symptoms Cognitive impairment "MEMORY ISSUES" - REPORTS '[place] ARE AWARE Coronary artery disease s/p CABG x 3 (2012) Environmental allergies History of CVA (cerebrovascular accident) without residual deficits History of TIA (transient ischemic attack) 10+ years ago Hyperlipemia Hypertension Hypothyroidism Kidney stone PT REPORTS CURRENT KIDNEY STONE LEFT SIDE, KIDNEY CYST RIGHT SIDE NSTEMI (non-ST elevated myocardial infarction) Obesity Recurrent nephrolithiasis Renal cyst, acquired R Right nephrolithiasis Sepsis Urinary retention Surgical History History of anesthesia reaction WITH CABG PT AGITATED WITH TUBE DOWN THE THROAT History of cardiac cath 2013...[place] History of cataract surgery RIGHT AND LEFT History of colonoscopy History of coronary artery bypass graft x 3 History of lithotripsy History of umbilical hernia repair Status post nasal endoscopy with nasal polypectomy Family History Brother Diabetes Coronary heart disease Heart disease Stroke Family history of colon cancer Father , age 67 of a stroke Hypertension Stroke Mother , age 87 with dementia Hearing loss Alzheimer disease Grandfather Allergies Other Asthma Denies family history of Clotting disorder Social History Smoking Status: Former smoker Age Quit Using Tobacco: 32; packs per day: 1; Second Hand Exposure: No; Do You Dip or Chew Tobacco: No; Hx Alcohol Use: Yes Alcohol type: wine Hx Substance Use: No Preferred Language: Bulgarian Communication Ability: Unable Communication Ability Comment: PT VERY HARD OF HEARING Electrical Software Engineer Required: No Beliefs That Will Affect Care: None marital status: Current Living Situation: Spouse current occupational status: retired current occupation: 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 Feels Safe at Home: Yes Childhood Exposure to Second-Hand Smoke: No Assistive Devices: None Review of Systems Review of Systems: All systems reviewed are negative, apart from the ones contained in the history. Physical Exam Physical Exam: Minimally interactive Abdomen not distended Kirkpatrick catheter in place, draining relatively clear urine with some blood Dark urine in the bag Notable lower extremity edema Results & Data Vital Signs (Past 12 Hours) Vital Signs Temp Pulse Resp BP Pulse Ox O2 Del Method 05/12/23 15:56 36.4 C L 99 H 20 136/83 96 Room Air 05/12/23 12:09 36.6 C 80 18 116/55 L 97 Room Air 05/12/23 07:58 36.9 C 89 19 124/75 95 Room Air PG Care Time/CCT Total # of Minutes Spent Total Time Spent with Patient: Total time spent is greater than 50% in coordination of care (as documented) at patient's floor/unit and/or counseling patient: Coding Level of Care Code 79995 IN/OBS CONSULT LVL 3,45M Diagnoses Gross hematuria R31.0 Urinary retention R33.9
[2023-05-12] MEDS: SIMVASTATIN 40 MG TAB PO SCH (20:58)
[2023-05-12] MEDS: OLANZapine 5 MG TABLET PO SCH (20:58)
[2023-05-12] MEDS: MELATONIN 3 MG TAB PO SCH (20:58)
[2023-05-13] MEDS ORDERED: MELATONIN 3 MG TAB PO ONE (00:01)
[2023-05-13 04:57] LABS: Hematocrit (blood only) 31.7 % (42.0-52.0); Hemoglobin 10.4 g/dl (14.0-18.0); Mean Corpuscular Hemoglobin 32.7 pg (25.0-34.0); Mean Corpuscular Hgb Conc 32.8 g/dL (32.0-36.0); Mean Corpuscular Volume 99.7 fL (80.0-100.0); Mean Platelet Volume 9.7 fL (9.4-12.4); Platelet Count 378 K/uL (130-400); RDW Coefficient of Variation 13.7 % (11.5-14.5); RDW Standard Deviation 50.5 fL (36.4-46.3); Red Blood Count 3.18 M/uL (4.70-6.10); White Blood Count 12.06 K/ul (4.8-10.8)
[2023-05-13 05:15] LABS: Calcium 8.6 mg/dl (8.6-10.3); Creatinine Clr Calc Pharmacy 56.7 ml/min; Est GFR (African American) 69.4 ml/min; Est GFR (Non-African American) 59.9 ml/min; Potassium 3.9 mmol/L (3.5-5.1)
[2023-05-13] MEDS: LEVOTHYROXINE SODIUM 112 MCG TABLET PO SCH (06:41)
[2023-05-13] MEDS: NYSTATIN SUSP 500,000 U/5 ML UDC PO SCH ×4 (08:34→21:56)
[2023-05-13] MEDS: APIXABAN 5 MG TABLET PO SCH ×2 (08:34→21:50)
[2023-05-13] MEDS: POLYETHYLENE (MIRALAX) 17 GM PACK PO SCH ×2 (08:34→21:56)
[2023-05-13] MEDS: DOCUSATE SODIUM/SENNA 50/8.6MG TAB PO SCH ×2 (08:35→21:50)
[2023-05-13] MEDS: CIPROFLOXACIN 500 MG TAB PO SCH (08:35)
[2023-05-13] MEDS: ASPIRIN 81 MG ECTAB PO SCH (08:35)
[2023-05-13] MEDS: TAMSULOSIN HCL 0.4 MG CAP PO SCH (08:35)
[2023-05-13] MEDS: METOPROLOL SUCC 50MG EXT REL TAB PO SCH ×2 (08:36→21:49)
[2023-05-13] MEDS: FLUTICASONE/VILANTEROL 100/25MCG 14 PUFFS/INHALER INH SCH (08:36)
[2023-05-13] MEDS: metroNIDAZOLE 500 MG TAB PO SCH ×2 (08:36→21:50)
--- NOTE | 2023-05-13 11:25 | Urology Progress Note ---
Date of Service May 13, 2023 Assessment & Plan (1) Gross hematuria: Plan: Catheter now functioning appropriately after reconsult last night Observation from our standpoint Outpatient follow-up appointments are already made Please call if there are new issues during this hospitalization Admission and Anticipated Discharge Date Admission Date: April 27, 2023 Subjective Catheter drained well overnight No new issues Hematuria clearing Physical Exam Physical Exam: Catheter draining appropriately with mild amounts of blood in the bag and tubing Results & Data Vital Signs (Past 12 Hours) Vital Signs Temp Pulse Pulse Resp BP Pulse Ox O2 Del Method 05/13/23 09:00 Room Air 05/13/23 08:07 36.5 C 98 H 19 134/87 96 Room Air 05/13/23 04:31 36.7 C 71 20 143/77 H 97 Room Air 05/13/23 00:00 89 PG Care Time/CCT Total # of Minutes Spent Total Time Spent with Patient: Total time spent is greater than 50% in coordination of care (as documented) at patient's floor/unit and/or counseling patient: Coding Level of Care Code 97428 SUB INP/OBS CARE 2/35MIN Diagnoses Gross hematuria R31.0
--- NOTE | 2023-05-13 12:06 | Hospitalist Progress Note ---
Date of Service May 13, 2023 Assessment & Plan (1) Sepsis: Plan: Now resolved 2nd to acute cholecystitis, s/p cholecystostomy tube placement by IR on 04/28/23 CT a/p on 05/04 with stable cholecystostomy tube and no other acute biliary findings Admission Blood cx's negative Biliary culture negative s/p ceftriaxone and flagyl x 10 days, then was transitioned to PO augmentin, but changing abx back to IV because WBC trended up cholecystostomy tube to stay in place for 6 weeks appreciate gen surg assistance Will continue Cipro and Flagyl oral, end date 05/18 (2) Leukocytosis: Plan: Cultures remain negative, procalcitonin is normal, chest x ray did not suggest PNA CT abd/pelvis is stable Continue PO Cipro 500mg daily and Flagyl 500mg BID till 05/18 (3) Acute cholecystitis: Plan: as above LFTs have been stable lipase wnl CT a/p 05/04/23 showed stable biliary tract findings CT a/p with stable gall bladder, cholecystostomy tube in correct position, etc Continue antibiotics (4) Acute respiratory failure with hypoxia: Plan: resolved 2nd to pulm edema. finished diuresis. COVID test 05/02/23 negative. cxr w/o pneumonia of note - echo this admission was obtained but poor windows; EF was grossly normal per the echo report. (5) Acute gout: Plan: R 1st toe, L 3rd toe CONTINUES TO IMPROVE with low-dose steroid 2nd to physical stress in setting of chronic HCTZ use stopped HCTZ uric acid level >7 completed a course of steroids (6) Ileus: Plan: Resolved (7) Acute metabolic encephalopathy: Plan: 2nd to acute cholecystitis, hospital psychosis, other factors . patient now back to baseline (8) Permanent atrial fibrillation with rapid ventricular response: Plan: cont metoprolol succinate 50mg BID cont eliquis 5mg BID controlled (9) NSTEMI (non-ST elevated myocardial infarction): Plan: troponin elevated to 3497 after admission and then trended downward Most likely myocardial demand ischemia (type 2 NSTEMI) in setting of sepsis, known CAD, h/o CABG, and rapid afib limited ECHO without WMAs and with preserved EF continue ASA, metoprolol resume statin continue telemetry (10) Urinary retention: Plan: Likely due to BPH as seen on imaging continue Gonzales, continue flomax Outpatient follow up with Urology (11) History of CVA (cerebrovascular accident) without residual deficits: Plan: CT head negative while here cont eliquis and aspirin (12) History of coronary artery bypass graft x 3: Plan: see "NSTEMI" above Hold lisinopril and HCTZ/triamterene to allow more BP room for AV pooja agents, flomax, etc (13) Asthma: Plan: cont home inhalers no flare at this time (14) Hypothyroidism: Plan: TSH WNL in December 2022 Continue levothyroxine (15) Gross hematuria: Plan: Urology on consult Gonzales has been changed Hematuria is clearing up (16) Hypertension: Plan: Hold lisinopril and HCTZ/triamterene likely will not need to resume either cont metoprolol BID (17) Dementia: Plan: cont supportive care advanced superimposed metabolic encephalopathy -- see above olanzapine HS (18) Coronary artery disease: Plan: as above (19) Benign localized prostatic hyperplasia with lower urinary tract symptoms (LUTS): Plan: continue gonzales (20) Nephrolithiasis: Plan: left sided 2mm ureteral stone s/p stent placement this admission by [facility] (21) Candidiasis of mouth and esophagus: Plan: nystati amadou - 5cc qid swish/swallow Plan will need SNF, awaiting auth Admission and Anticipated Discharge Date Admission Date: April 27, 2023 Subjective patient seen and examined, hematuria is clearing up Review of Systems Review of Systems: All systems reviewed are negative, apart from the ones contained in the history. Physical Exam Physical Exam: The patient is awake, alert and oriented 3, well developed and well nourished, normocephalic and atraumatic, lying in bed and in no acute distress. HEENT--PERRL, EOMI, mucous membranes and oropharynx mildly dry Neck--supple. No JVD. No bruits. Thyroid normal, trachea midline, no adenopathy. Heart--normal S1 and S2. No murmurs, rubs or gallops. Lungs--clear bilaterally, no respiratory distress, no accessory muscle use. Abdomen--normal bowel sounds and soft. Mild epigastric and left sided abdominal pain, cholecystostomy tube in situ Extremities--no cyanosis or clubbing. No edema. Dermatologic--normal skin turgor, normal color, no abnormal lymph nodes, no rash. Neurologic--cranial nerves II through XII grossly intact. Rheumatologic--normal range of motion. Psychiatric--normal affect. Results & Data Results & Data Vital Signs (Past 12 Hours) Vital Signs Temp Pulse Resp BP Pulse Ox O2 Del Method 05/13/23 09:00 Room Air 05/13/23 08:07 97.7 F 98 H 19 134/87 96 Room Air 05/13/23 04:31 98.1 F 71 20 143/77 H 97 Room Air PG Care Time/CCT Total # of Minutes Spent Total Time Spent with Patient: Total time spent is greater than 50% in coordination of care (as documented) at patient's floor/unit and/or counseling patient: Coding Level of Care Code 24639 SUB INP/OBS CARE 2/35MIN Diagnoses Sepsis A41.9 Leukocytosis D72.829 Acute cholecystitis K81.0 Acute respiratory failure with hypoxia J96.01 Acute gout M10.9 Ileus K56.7 Acute metabolic encephalopathy G93.41 Permanent atrial fibrillation with rapid ventricular response I48.21 NSTEMI (non-ST elevated myocardial infarction) I21.4 Urinary retention R33.9 History of CVA (cerebrovascular accident) without residual deficits Z86.73 History of coronary artery bypass graft x 3 Z95.1 Asthma J45.909 Hypothyroidism E03.9 Gross hematuria R31.0 Hypertension I10 Dementia F03.90 Coronary artery disease I25.10 Benign localized prostatic hyperplasia with lower urinary tract symptoms (LUTS) N40.1 Nephrolithiasis N20.0 Candidiasis of mouth and esophagus B37.81; B37.0 Time Spent (min) 35
[2023-05-13] MEDS: PANTOprazole 40 MG in SYRINGE 0 ML IV SCH (12:16)
[2023-05-13] MEDS: OLANZapine 5 MG TABLET PO SCH (21:48)
[2023-05-13] MEDS: MELATONIN 3 MG TAB PO SCH (21:49)
[2023-05-13] MEDS: SIMVASTATIN 40 MG TAB PO SCH (21:49)
[2023-05-14 05:35] LABS: Hematocrit (blood only) 30.9 % (42.0-52.0); Mean Corpuscular Hemoglobin 32.2 pg (25.0-34.0); Mean Corpuscular Hgb Conc 32.4 g/dL (32.0-36.0); Mean Corpuscular Volume 99.4 fL (80.0-100.0); Mean Platelet Volume 9.6 fL (9.4-12.4); Platelet Count 357 K/uL (130-400); RDW Coefficient of Variation 13.7 % (11.5-14.5); RDW Standard Deviation 49.9 fL (36.4-46.3); Red Blood Count 3.11 M/uL (4.70-6.10); White Blood Count 10.57 K/ul (4.8-10.8)
[2023-05-14 05:50] LABS: Calcium 8.1 mg/dl (8.6-10.3); Est GFR (Non-African American) 56.1 ml/min; Potassium 3.9 mmol/L (3.5-5.1)
[2023-05-14] MEDS: LEVOTHYROXINE SODIUM 112 MCG TABLET PO SCH (06:45)
[2023-05-14] MEDS: ASPIRIN 81 MG ECTAB PO SCH (10:17)
[2023-05-14] MEDS: NYSTATIN SUSP 500,000 U/5 ML UDC PO SCH ×4 (10:17→20:57)
[2023-05-14] MEDS: CIPROFLOXACIN 500 MG TAB PO SCH (10:17)
[2023-05-14] MEDS: metroNIDAZOLE 500 MG TAB PO SCH ×2 (10:17→20:56)
[2023-05-14] MEDS: APIXABAN 5 MG TABLET PO SCH ×2 (10:17→20:56)
[2023-05-14] MEDS: FLUTICASONE/VILANTEROL 100/25MCG 14 PUFFS/INHALER INH SCH (10:18)
[2023-05-14] MEDS: DOCUSATE SODIUM/SENNA 50/8.6MG TAB PO SCH ×2 (10:18→20:56)
[2023-05-14] MEDS: TAMSULOSIN HCL 0.4 MG CAP PO SCH (10:18)
[2023-05-14] MEDS: METOPROLOL SUCC 50MG EXT REL TAB PO SCH ×2 (10:18→20:56)
[2023-05-14] MEDS: POLYETHYLENE (MIRALAX) 17 GM PACK PO SCH ×2 (10:18→20:55)
[2023-05-14] MEDS: PANTOprazole 40 MG in SYRINGE 0 ML IV SCH (10:28)
--- NOTE | 2023-05-14 11:36 | Hospitalist Progress Note ---
Date of Service May 14, 2023 Assessment & Plan (1) Sepsis: Plan: Now resolved 2nd to acute cholecystitis, s/p cholecystostomy tube placement by IR on 04/28/23 CT a/p on 05/04 with stable cholecystostomy tube and no other acute biliary findings Completed a course of IV antibiotics, transitioned to PO cholecystostomy tube to stay in place for 6 weeks appreciate gen surg assistance Will continue Cipro and Flagyl oral, end date 05/18 (2) Leukocytosis: Plan: WBC Now wnl Cultures remain negative, procalcitonin is normal, chest x ray did not suggest PNA CT abd/pelvis is stable Continue PO Cipro 500mg daily and Flagyl 500mg BID till 05/18 (3) Acute cholecystitis: Plan: as above LFTs have been stable lipase wnl CT a/p 05/04/23 showed stable biliary tract findings CT a/p with stable gall bladder, cholecystostomy tube in correct position, etc Continue antibiotics (4) Acute respiratory failure with hypoxia: Plan: resolved 2nd to pulm edema. finished diuresis. COVID test 05/02/23 negative. cxr w/o pneumonia of note - echo this admission was obtained but poor windows; EF was grossly normal per the echo report. (5) Acute gout: Plan: R 1st toe, L 3rd toe CONTINUES TO IMPROVE with low-dose steroid 2nd to physical stress in setting of chronic HCTZ use stopped HCTZ uric acid level >7 completed a course of steroids (6) Ileus: Plan: Resolved (7) Acute metabolic encephalopathy: Plan: 2nd to acute cholecystitis, hospital psychosis, other factors . patient now back to baseline (8) Permanent atrial fibrillation with rapid ventricular response: Plan: cont metoprolol succinate 50mg BID cont eliquis 5mg BID controlled (9) NSTEMI (non-ST elevated myocardial infarction): Plan: troponin elevated to 3497 after admission and then trended downward Most likely myocardial demand ischemia (type 2 NSTEMI) in setting of sepsis, known CAD, h/o CABG, and rapid afib limited ECHO without WMAs and with preserved EF continue ASA, metoprolol resume statin continue telemetry (10) Urinary retention: Plan: Likely due to BPH as seen on imaging continue Gonzales, continue flomax Outpatient follow up with Urology (11) History of CVA (cerebrovascular accident) without residual deficits: Plan: CT head negative while here cont eliquis and aspirin (12) History of coronary artery bypass graft x 3: Plan: see "NSTEMI" above Hold lisinopril and HCTZ/triamterene to allow more BP room for AV pooja agents, flomax, etc (13) Asthma: Plan: cont home inhalers no flare at this time (14) Hypothyroidism: Plan: TSH WNL in December 2022 Continue levothyroxine (15) Gross hematuria: Plan: Urology on consult Gonzales has been changed Hematuria is clearing up (16) Hypertension: Plan: Hold lisinopril and HCTZ/triamterene likely will not need to resume either cont metoprolol BID (17) Dementia: Plan: cont supportive care advanced superimposed metabolic encephalopathy -- see above olanzapine HS (18) Coronary artery disease: Plan: as above (19) Benign localized prostatic hyperplasia with lower urinary tract symptoms (LUTS): Plan: continue gonzales (20) Nephrolithiasis: Plan: left sided 2mm ureteral stone s/p stent placement this admission by [facility] (21) Candidiasis of mouth and esophagus: Plan: nystati amadou - 5cc qid swish/swallow Plan will need SNF, awaiting auth Admission and Anticipated Discharge Date Admission Date: April 27, 2023 Subjective patient seen and examined, hematuria has resolved, no bowel movement in 2 days Review of Systems Review of Systems: All systems reviewed are negative, apart from the ones contained in the history. Physical Exam Physical Exam: The patient is awake, alert and oriented 3, well developed and well nourished, normocephalic and atraumatic, lying in bed and in no acute distress. HEENT--PERRL, EOMI, mucous membranes and oropharynx mildly dry Neck--supple. No JVD. No bruits. Thyroid normal, trachea midline, no adenopathy. Heart--normal S1 and S2. No murmurs, rubs or gallops. Lungs--clear bilaterally, no respiratory distress, no accessory muscle use. Abdomen--normal bowel sounds and soft. Mild epigastric and left sided abdominal pain, cholecystostomy tube in situ Extremities--no cyanosis or clubbing. No edema. Dermatologic--normal skin turgor, normal color, no abnormal lymph nodes, no rash. Neurologic--cranial nerves II through XII grossly intact. Rheumatologic--normal range of motion. Psychiatric--normal affect. Results & Data Results & Data Vital Signs (Past 12 Hours) Vital Signs Temp Pulse Pulse Resp BP BP Pulse Ox 05/14/23 08:06 97.9 F 98 H 19 110/56 L 97 05/14/23 07:22 91 H 05/14/23 03:54 79 05/14/23 03:00 98.1 F 85 22 135/73 95 05/14/23 00:01 97.7 F 71 20 137/69 94 O2 Del Method 05/14/23 08:06 Room Air 05/14/23 07:22 05/14/23 03:54 05/14/23 03:00 Room Air 05/14/23 00:01 Room Air PG Care Time/CCT Total # of Minutes Spent Total Time Spent with Patient: Total time spent is greater than 50% in coordination of care (as documented) at patient's floor/unit and/or counseling patient: Coding Level of Care Code 58560 SUB INP/OBS CARE 2/35MIN Diagnoses Sepsis A41.9 Leukocytosis D72.829 Acute cholecystitis K81.0 Acute respiratory failure with hypoxia J96.01 Acute gout M10.9 Ileus K56.7 Acute metabolic encephalopathy G93.41 Permanent atrial fibrillation with rapid ventricular response I48.21 NSTEMI (non-ST elevated myocardial infarction) I21.4 Urinary retention R33.9 History of CVA (cerebrovascular accident) without residual deficits Z86.73 History of coronary artery bypass graft x 3 Z95.1 Asthma J45.909 Hypothyroidism E03.9 Gross hematuria R31.0 Hypertension I10 Dementia F03.90 Coronary artery disease I25.10 Benign localized prostatic hyperplasia with lower urinary tract symptoms (LUTS) N40.1 Nephrolithiasis N20.0 Candidiasis of mouth and esophagus B37.81; B37.0 Time Spent (min) 35
[2023-05-14] MEDS: SIMVASTATIN 40 MG TAB PO SCH (20:56)
[2023-05-14] MEDS: MELATONIN 3 MG TAB PO SCH (20:57)
[2023-05-14] MEDS: OLANZapine 5 MG TABLET PO SCH (20:57)
[2023-05-15 04:55] LABS: Hematocrit (blood only) 30.6 % (42.0-52.0); Mean Corpuscular Hemoglobin 32.6 pg (25.0-34.0); Mean Corpuscular Hgb Conc 32.7 g/dL (32.0-36.0); Mean Corpuscular Volume 99.7 fL (80.0-100.0); Mean Platelet Volume 9.4 fL (9.4-12.4); Platelet Count 323 K/uL (130-400); RDW Coefficient of Variation 13.9 % (11.5-14.5); RDW Standard Deviation 50.4 fL (36.4-46.3); Red Blood Count 3.07 M/uL (4.70-6.10); White Blood Count 11.51 K/ul (4.8-10.8)
[2023-05-15 05:09] LABS: BUN Creatinine Ratio 13.5 (10-20); Creatinine Clr Calc Pharmacy 59.7 ml/min; Est GFR (African American) 73.4 ml/min; Est GFR (Non-African American) 63.4 ml/min; Potassium 3.8 mmol/L (3.5-5.1)
[2023-05-15] MEDS: LEVOTHYROXINE SODIUM 112 MCG TABLET PO SCH (05:56)
[2023-05-15] MEDS: TAMSULOSIN HCL 0.4 MG CAP PO SCH (08:57)
[2023-05-15] MEDS: METOPROLOL SUCC 50MG EXT REL TAB PO SCH (08:57)
[2023-05-15] MEDS: metroNIDAZOLE 500 MG TAB PO SCH (08:57)
[2023-05-15] MEDS: APIXABAN 5 MG TABLET PO SCH (08:57)
[2023-05-15] MEDS: CIPROFLOXACIN 500 MG TAB PO SCH (08:57)
[2023-05-15] MEDS: FLUTICASONE/VILANTEROL 100/25MCG 14 PUFFS/INHALER INH SCH (08:57)
[2023-05-15] MEDS: ASPIRIN 81 MG ECTAB PO SCH (08:57)
[2023-05-15] MEDS: POLYETHYLENE (MIRALAX) 17 GM PACK PO SCH (08:57)
[2023-05-15] MEDS: DOCUSATE SODIUM/SENNA 50/8.6MG TAB PO SCH (08:57)
[2023-05-15] MEDS: NYSTATIN SUSP 500,000 U/5 ML UDC PO SCH ×2 (08:58→13:26)
[2023-05-15] MEDS: PANTOprazole 40 MG in SYRINGE 0 ML IV SCH (10:58)
--- NOTE | 2023-05-15 12:42 | Discharge Summary ---
Date of Service May 15, 2023 Admission HPI Per Admitting Provider Vamshi Mac is an 87 year old male who presents to the ER with abdominal pain, generalized weakness and increased confusion. Unable to get any history from patient due to dementia. Symptoms started last night around 8pm. His actually brought him to the ER and he had a unremarkable workup. He was offered observation overnight but declined and she took him home. Since then he slept for 12 hours which is unusual for him. He was much more confused and generally weak this morning therefore called EMS. Repeat CT was concerning for acute cholecystitis with a much worse WBC since yesterday and slightly elevated AST. Not yet produced a urine sample in the ER and fighting RN when trying to place gonzales catheter. Principal Diagnosis acute cholecystitis Discharge Exam The patient is awake, alert and oriented 3, well developed and well nourished, normocephalic and atraumatic, lying in bed and in no acute distress. HEENT--PERRL, EOMI, mucous membranes and oropharynx mildly dry Neck--supple. No JVD. No bruits. Thyroid normal, trachea midline, no adenopathy. Heart--normal S1 and S2. No murmurs, rubs or gallops. Lungs--clear bilaterally, no respiratory distress, no accessory muscle use. Abdomen--normal bowel sounds and soft. Mild epigastric and left sided abdominal pain, cholecystostomy tube in situ Extremities--no cyanosis or clubbing. No edema. Dermatologic--normal skin turgor, normal color, no abnormal lymph nodes, no rash. Neurologic--cranial nerves II through XII grossly intact. Rheumatologic--normal range of motion. Psychiatric--normal affect. Discharge Data Allergies Allergy/AdvReac Type Severity Reaction Status Date / Time Iodinated Contrast Media Allergy Unknown UNKNOWN - Verified 04/27/23 17:28 TWIN BROTHER HAS AND WAS TOLD HE MIGHT Consultations 04/27/23 16:51 ED Decision to Admit Stat 04/27/23 17:27 Consult General Surgery Stat 04/28/23 12:43 Consult Urology Routine 04/28/23 12:46 Consult Cardiology Routine 05/12/23 16:52 Consult Urology Routine Procedures Performed Operation Date: 04/28/23 08:30 Actual Procedures s Gallbladder Tube Placement under ultrasound(Not Applicable) - Qamar May PA-C p Cystoscopy, Left Ureteral Stent Insertion, Catheter placement(Left) - Isauro Francois MD Ordered Studies 04/27/23 15:11 CT abd pelvis wo con Stat 04/27/23 17:52 US liver Stat 04/27/23 18:15 CT head/brain wo con Stat 04/28/23 FL KUB Routine 04/28/23 10:38 IR gallbladder cath placmnt US Routine 05/04/23 16:45 CT abd pelvis wo con Urgent 05/08/23 12:23 CT abd pelvis wo con Stat Hospital Course (1) Sepsis: Now resolved 2nd to acute cholecystitis, s/p cholecystostomy tube placement by IR on 04/28/23 CT a/p on 05/04 with stable cholecystostomy tube and no other acute biliary findings Completed a course of IV antibiotics, transitioned to PO cholecystostomy tube to stay in place for 6 weeks appreciate gen surg assistance Will continue Cipro and Flagyl oral,for 5 more days (05/20) (2) Leukocytosis: WBC Now wnl Cultures remain negative, procalcitonin is normal, chest x ray did not suggest PNA CT abd/pelvis is stable Continue PO Cipro 500mg daily and Flagyl 500mg BID till 05/20 (3) Acute cholecystitis: as above LFTs have been stable lipase wnl CT a/p 05/04/23 showed stable biliary tract findings CT a/p with stable gall bladder, cholecystostomy tube in correct position, etc Continue antibiotics till 05/20 (4) Acute respiratory failure with hypoxia: resolved 2nd to pulm edema. finished diuresis. COVID test 05/02/23 negative. cxr w/o pneumonia of note - echo this admission was obtained but poor windows; EF was grossly normal per the echo report. (5) Acute gout: R 1st toe, L 3rd toe CONTINUES TO IMPROVE with low-dose steroid 2nd to physical stress in setting of chronic HCTZ use stopped HCTZ uric acid level >7 completed a course of steroids. At some point after this acute gout, he may benefit from Allopurinol (6) Ileus: Resolved (7) Acute metabolic encephalopathy: 2nd to acute cholecystitis, hospital psychosis, other factors . patient now back to baseline (8) Permanent atrial fibrillation with rapid ventricular response: cont metoprolol succinate 50mg BID cont eliquis 5mg BID controlled (9) NSTEMI (non-ST elevated myocardial infarction): troponin elevated to 3497 after admission and then trended downward Most likely myocardial demand ischemia (type 2 NSTEMI) in setting of sepsis, known CAD, h/o CABG, and rapid afib limited ECHO without WMAs and with preserved EF continue ASA, metoprolol resume statin continue telemetry (10) Urinary retention: Likely due to BPH as seen on imaging continue Gonzales, continue flomax Outpatient follow up with Urology (11) History of CVA (cerebrovascular accident) without residual deficits: CT head negative while here cont eliquis and aspirin (12) History of coronary artery bypass graft x 3: see "NSTEMI" above Hold lisinopril and HCTZ/triamterene to allow more BP room for AV pooja agents, flomax, etc (13) Asthma: cont home inhalers no flare at this time (14) Hypothyroidism: TSH WNL in December 2022 Continue levothyroxine (15) Gross hematuria: Urology on consult Gonzales has been changed Hematuria is clearing up (16) Hypertension: Hold lisinopril and HCTZ/triamterene likely will not need to resume either cont metoprolol BID (17) Dementia: cont supportive care advanced superimposed metabolic encephalopathy -- see above olanzapine HS (18) Coronary artery disease: as above (19) Benign localized prostatic hyperplasia with lower urinary tract symptoms (LUTS): continue gonzales (20) Nephrolithiasis: left sided 2mm ureteral stone s/p stent placement this admission by [facility] (21) Candidiasis of mouth and esophagus: nystati amadou - 5cc qid swish/swallow Plan will need SNF, awaiting auth Total Time Total Time Spent Total Time Spent (In Minutes): 35 Discharge Plan Discharge Items Patient Disposition: Transfer Longterm Fac Reason For Visit: SEPSIS, ACUTE CAROLE Discharge Diagnosis: acute cholecystitis Condition on Discharge: Fair Activity: Resume your previous activity Non-emergency contact: Primary Care Provider, Surgeon and Urologist Call non-emergency contact if: you have any medication questions Follow-up/Referrals: Yohannes Goyal MD [Primary Care Provider] - Diet: Regular Addtl Attending Provider Instructions: please follow up with urology and general surgery Pending Studies at Discharge: No Stand-Alone Forms: [facility] Skilled Items Patient informed of condition?: Yes DNR: Yes Discharge Level of Care: Skilled Communicable Disease: No Discharge Prognosis: Stable Lines: None Urinary Catheter: Yes Medications and DC Order Prescriptions: New metoprolol succinate 50 mg Tablet Extended Release 24 Hr 50 mg PO BID 30 Days Qty: 60 0RF metronidazole 500 mg Tablet 500 mg PO BID 5 Days Qty: 10 0RF ciprofloxacin HCl 500 mg Tablet 500 mg PO DAILY 5 Days Qty: 5 0RF tamsulosin 0.4 mg Capsule 0.4 mg PO QAM 30 Days Qty: 30 0RF Continued Dulera 100-5 mcg/actuation HFA aerosol inhaler 2 puff INH BID Qty: 13 11RF simvastatin 40 mg tablet 40 mg PO QPM Qty: 90 3RF Eliquis 5 mg tablet 5 mg PO BID Qty: 180 3RF lisinopril 5 mg tablet 2.5 mg PO DAILY Qty: 90 3RF cholecalciferol (vitamin D3) 2,000 unit capsule 2,000 units PO QAM albuterol sulfate [ProAir HFA] 90 mcg/actuation HFA aerosol inhaler 2 puff INH Q4H PRN (Reason: shortness of breath or wheezing) Qty: 3 3RF acetaminophen [Tylenol Arthritis Pain] 650 mg tablet extended release 650 mg PO Q8H PRN (Reason: pain) Qty: 60 0RF levothyroxine 112 mcg tablet 112 mcg PO DAILYBB aspirin 81 mg Tablet,Delayed Release (Dr/Ec) 81 mg PO QAM Qty: 30 0RF fluticasone propionate [Allergy Relief (fluticasone)] 50 mcg/actuation spray,suspension 2 spray INTNAS DAILY PRN (Reason: .allergies) Discontinued metoprolol succinate 25 mg tablet extended release 24 hr 25 mg PO BID Qty: 180 3RF triamterene-hydrochlorothiazid 37.5-25 mg tablet 1 tab PO DAILY Rx Instructions: TAKE 1 TABLET BY MOUTH ONCE DAILY Discharge Orders: Discharge Order (Routine); Ordered 05/15/23 Ordered By: Jonathan Taylor Admission Data Admit Date/Time: 04/27/23 17:44 Attending Provider: Jonathan Taylor Admit Provider: Kenneth Warren Primary Care Provider: Yohannes Goyal Other Providers: Kenneth Warren ; Jose E Tello ; Femi Henry ; [facility] ; Delvin Almeida [facility] ; Lily Christian Other Interventions: Discharge Summary Assessment (RN) Last Done: 05/15/23 11:16 Coding Level of Care Code 37603 INP/OBS DISCH >30 MIN Diagnoses Sepsis A41.9 Leukocytosis D72.829 Acute cholecystitis K81.0 Acute respiratory failure with hypoxia J96.01 Acute gout M10.9 Ileus K56.7 Acute metabolic encephalopathy G93.41 Permanent atrial fibrillation with rapid ventricular response I48.21 NSTEMI (non-ST elevated myocardial infarction) I21.4 Urinary retention R33.9 History of CVA (cerebrovascular accident) without residual deficits Z86.73 History of coronary artery bypass graft x 3 Z95.1 Asthma J45.909 Hypothyroidism E03.9 Gross hematuria R31.0 Hypertension I10 Dementia F03.90 Coronary artery disease I25.10 Benign localized prostatic hyperplasia with lower urinary tract symptoms (LUTS) N40.1 Nephrolithiasis N20.0 Candidiasis of mouth and esophagus B37.81; B37.0 Time Spent (min) 35
== END 2023-05-15 16:03 | DRG 853 ==
LOC: ED 14:44 → SUATTDRO 17:44 → EDINP 17:44 → 4W 19:58